=== PATIENT | male | born 1945 | race Caucasian/White ===

== ENCOUNTER 2019-09-17 14:50 | Inpatient (IN) ==
--- OUTSIDE RECORDS SUMMARY | 2019-09-17 14:53 | External Medical Summary | Continuity of Care Document ---
:1945 Author Name Magaly Hewitt Address Unavailable Unavailable , Care Team Providers Name Role Phone Brittni Davis M.D. Unavailable [email or web address] [place] Loree MAY Unavailable Unavailable Unavailable Unavailable Unavailable Assessments Assessed Problems:AnaphylaxisAnaphylactic reaction due to food Problems Anaphylactic reaction due to food (995.60) (T78.00XA) Hyperlipidemia (272.4) (E78.5) Hypertension (401.9) (I10) Anaphylaxis (995.0) (T78.2XXA) Allergies and Adverse Reactions No Known Drug Allergies (Allergy) Medications Lisinopril 40 MG Oral Tablet; TAKE 1 TABLET DAILY FOR BLOOD PRESSURE. Kash Davis Start: 24-Mar-2011 Refills: 0 amLODIPine Besylate 10 MG Oral Tablet; TAKE 1 TABLET D AILY DIRECTED. Kash Davis Start: 24-Mar-2011 Refills: 0 Lipitor 20 MG Oral Tablet; Take 1 tablet daily Kash Davis Start: 24-Mar-2011 Refills: 0 EpiPen 0.3 MG/0.3ML JOHANNA; INJECT INTRAMUSCULARLY DI RECTED. Kash Davis Start: 24-Mar-2011 Refills: 0 Procedures Procedures not documented Immunizations Immunizations not documented Family History Unknown Family Member Family history of Hypertension (V17.49) Status: Active Comments: Family History Family history of Hyperlipidemia Status: Active Comment s: Family History Family history of Prostate Cancer (V16.42) Status: Active Comments: Family History Family history of Leukemia (V16.6) Status: Active Comme nts: Family History Father Family history of Cerebral Artery Aneurysm Status: Active Mother Family history of Ovarian Cancer (V16.41) Status: Active Social History - Smoking Status Never smoker Interventions Discussion/SummaryImpression: 65-year-old male with 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 He has multiple positive skin tests. He had several positive RAST tests. Some of the positive tests do not correlate with clinical history in that he can eat those foods without issues. I feel this is secondary to ingestion of pesto and I feel the culprit is pine nuts.Plan: Avoid pine nuts and pesto. The patient can introduce the other foods which are positive very slowly into his diet. Avoid wine as much as possible. EpiPen 2 pack prescription given. See me if symptoms recur. Plan of Treatment Planned Observations Planned Goals not documented Results No Known Results Results not documented Encounters Appointment; Michael Davis M.D. 03-Apr-2011 11:30 Encounter Diagnosis: Problem not documented
--- OUTSIDE RECORDS SUMMARY | 2019-09-17 14:54 | External Medical Summary | Continuity of Care Document ---
:1945 Author Name Magaly Hewitt Address Unavailable Unavailable , Care Team Providers Name Role Phone Brittni Davis M.D. Unavailable [email or web address] [place] Unavailable Unavailable Unavailable Unavailable Unavailable Assessments Assessed Problems:AnaphylaxisAnaphylactic reaction due to food Problems Anaphylaxis (995.0) (T78.2XXA) Hypertension (401.9) (I10) Hyperlipidemia (272.4) (E78.5) Anaphylactic reaction due to food (995.60) (T78.00XA) Allergies and Adverse Reactions No Known Drug [...]
[2019-09-17] MEDS ORDERED: dilTIAZem HCl 5 MG/ML 5 ML VIAL IV STA (15:07)
[2019-09-17] MEDS ORDERED: dilTIAZem HCL 125 MG in DEXTROSE 5% 100 ML IV SCH (15:15)
[2019-09-17 15:20] LABS: Basophils # (auto) 0.04 K/uL (0-0.2); Basophils % (auto) 0.4 %; Eosinophils # (auto) 0.09 K/uL (0-0.5); Eosinophils % (auto) 0.9 %; Hemoglobin 16.7 g/dL (14.0-18.0); Immature Granulocytes # (auto) 0.03 K/uL (0.00-0.02); Immature Granulocytes % (auto) 0.3 %; Lymphocytes # (auto) 2.47 K/uL (1.2-3.4); Lymphocytes % (auto) 23.6 %; Mean Corpuscular Hgb Conc 34.8 g/dL (32-36); Mean Corpuscular Volume 89.2 fL (80-100); Mean Platelet Volume 9.7 fL (7.4-10.4); Monocytes # (auto) 0.61 K/uL (0.11-0.59); Monocytes % (auto) 5.8 %; Neutrophils # (auto) 7.24 K/uL (1.4-6.5); Platelet Count 290 K/uL (130-400); RDW Standard Deviation 45.4 fL (36.4-46.3); Red Blood Count 5.38 M/uL (4.7-6.1); White Blood Count 10.48 K/uL (4.8-10.8)
[2019-09-17 15:31] LABS: INR 1.2 (0.9-1.1); Partial Thromboplastin Time 26.5 Seconds (21.0-31.0); Prothrombin Time 11.9 Seconds (9.0-12.0)
--- NOTE | 2019-09-17 15:36 | XRay Report ---
SINGLE VIEW CHEST CLINICAL HISTORY: Atrial fibrillation. Tachycardia. Generalized weakness. FINDINGS: An AP, portable, upright chest radiograph is compared to study dated 05/13/2014. The heart i s top normal for projection noting atherosclerotic calcification of the thoracic aorta. The pulmonary vasculature is noncongested. Platelike atelectasis is noted at the left lung base. No airspace conso lidation or large pleural effusion is identified. No pneumothorax is seen. The skeletal structures ar e osteopenic. The bony thorax is grossly intact. IMPRESSION: No acute cardiopulmonary abnormality. ACT 112: Negative or not required by law. Electronically signed by: Sami Reid M.D. 09/17/2019 3:35 PM
[2019-09-17 15:40] LABS: Alanine Aminotransferase 36 U/L (12-78); Albumin Level 3.8 gm/dl (3.4-5.0); Aspartate Aminotransferase 20 U/L (15-37); BUN Creatinine Ratio 15.2 (10-20); Blood Urea Nitrogen 14 mg/dl (7-18); Carbon Dioxide 26 mmol/L (21-32); Chloride 107 mmol/L (98-107); Creatinine Clr Calc Pharmacy 81.9 ml/min; Est GFR (African American) 95.9; Est GFR (Non-African American) 82.7; Glucose 186 mg/dl (70-99); Potassium 3.2 mmol/L (3.5-5.1); Sodium 141 mmol/L (136-145)
[2019-09-17] MEDS ORDERED: POTASSIUM CHLORIDE / WTR 10 MEQ/100 ML PLCT IV ONE (15:41)
[2019-09-17 15:51] LABS: Alkaline Phosphatase 70 U/L (45-117); Globulin 3.9 gm/dl (2.5-4.0); Total Protein 7.7 gm/dl (6.4-8.2); Troponin I < 0.015 ng/ml (0-0.045)
--- NOTE | 2019-09-17 17:00 | History & Physical Report ---
Date of Service September 17, 2019 Assessment & Plan (1) Atrial fibrillation with rapid ventricular response: 73-year-old male with history of atrial fibrillation in 2012 status post DC cardioversion on beta-sae therapy with metoprolol 25 mg p.o. twice daily presenting in atrial fibrillation with rapid ventricular response. Heart rate of 145 on arrival. Blood pressure stable. Administered 15 mg of diltiazem and started on a diltiazem drip. Presently remains in atrial fibri llation with rates 120s to 140s. Patient reports occasional episodes of queasiness and feeling funny. He is unsure if these episodes represent atrial fibrillation. I discussed with the patient and his the risk for stroke associated with atrial fibrillation. Patient's NAHGR-0-Xdzd score is 2 points (Age=73, HTN) associated with a 2.2%/year risk of CVA and 2.9%/year of embolic event. I expl ained that by guidelines he is at moderate high risk for stroke therefore, systemic anticoagulation is recommended. He is at relatively low risk for major bleeding by HAS-BLED score. The is rightfully concerned about initiating medication that could have serious side effects. I told him that they do not need to make a decision now on whether or not to start oral anticoagulation. Admit to PCU Continue diltiazem drip Continue metoprolol 25 mg p.o. twice daily. Last dose was today at 13:45. Will administer next dose tomorrow morning. Consider increasing to 50 twice daily -Check AIC, mildly elevated random BS at 186 Present on Admission?: Yes (2) Hypokalemia: K = 3.2. Patient administered 10 mEq IV in the ER Will give 40 mEq p.o. x1 dose Repeat chemistry panel in a.m. Present on Admission?: Yes (3) Hypertension: Blood pressure reported to be well managed outpatient on amlodipine 5 mg daily and lisinopril 40 mg daily. expressed some concern about patient's lisinopril. She thinks he may be developing a cough secondary to this medication. Patient does not seem to be too concerned with his cough. She was wondering if this medicine could be discontinued in the future. I told her that patient may need additional rate controlling medications, possibly increased dose of beta-sae or p.o. diltiazem once discharged and that these medications will also lower his blood pressure. Therefore, lisinopril may not be needed in the future. -Hold lisinopril while on diltiazem drip Hold amlodipine while on diltiazem drip Reassess after heart rate is controlled F/E/N -Hep-Lock. Monitor electrolytes and replete as needed. Potassium supplementation as above. Heart healthy diet as tolerated. ProphylaxisHeparin drip as above in setting of A. fib with RVR Codefull per discussion with patient Dispositionadmit to PCU Present on Admission?: Yes History of Present Illness Chief Complaint: AF with RVR Primary Care Provider: Chandu Miller MD 73-year-old male with history of hypertension, hyperlipidemia, prior atrial fibrillation in 2012 status post DC cardioversion on metoprolol 25 mg p.o. twice daily presenting in atrial fibrillation with rapid ventricular response. Patient reports that his symptoms began around 04 15 when he felt clammy and mildly nauseous. He felt a "vibration" in his chest. He checked his blood pressure on numerous occasions and it was normal, 147/92 and 131/85. He checked his heart rate and reported to be 88 and irregular. His reports that he looked pale and weak prior to arrival to the ER. He denies chest pain, shortness of breath or dizziness. Denies orthopnea, weight gain, edema. He is still feeling occasional palpitations. Patient was seen in the ER in 2011 with similar complaints. Was found to be in atrial fibrillation with rapid ventricular response at that time. IV Cardizem was attempted unsuccessfully. Due to brief duration of symptoms (less than 48 hours) the decision was made to cardiovert him. He returned to normal sinus rhythm and was started on aspirin 325 mg daily and Lopressor 25 mg p.o. twice daily. He was seen by Dr. Buckner in follow-up. He continues to take the metoprolol 25 mg p.o. twice daily. His last dose was today at 13:45. He now takes an 81 mg aspirin every other day due to concern for bleeding. ER course: Diltiazem bolus and drip Allergies Allergy/AdvReac Type Severity Reaction Status Date / Time almond Allergy Intermediate tested +2 Verified 09/17/19 15:27 on skin test lidocaine Allergy Unknown unknown Verified 09/17/19 15:27 spinach Allergy Unknown ANAPHYLAXIS Verified 09/17/19 15:27 ALL SHELL FISH Allergy Severe ANAPHYLAXIS Uncoded 09/17/19 15:27 OREGENO, BASIL Allergy Severe ANAPHYLAXIS Uncoded 05/13/14 21:21 PEANUTS Allergy Unknown anaphylaxis Uncoded 09/17/19 15:27 SOY Allergy Unknown ANAPHYLAXIS Uncoded 09/17/19 15:27 TOMATOE Allergy Unknown ANAPHYLAXIS Uncoded 05/13/14 20:06 TREE NUTS Allergy Unknown ANAPHYLAXIS Uncoded 05/13/14 20:06 WHOLE GRAIN RICE Allergy Unknown unknown Uncoded 05/13/14 21:21 Home Medications Home Medications Medication Instructions Recorded Confirmed Type Lactobacillus acidophilus 0 mg PO DAILY 09/17/19 09/17/19 History [Acidophilus] Wild Blueberry 2 tabs PO QAM 09/17/19 09/17/19 History amlodipine [Norvasc] 5 mg PO DAILY 09/17/19 09/17/19 History ascorbic acid (vitamin C) [Vitamin 500 mg PO BID 09/17/19 09/17/19 History C] aspirin [Aspir-81] 81 mg PO Q OTHER DAY 09/17/19 09/17/19 History atorvastatin [Lipitor] 20 mg PO QPM 09/17/19 09/17/19 History cholecalciferol (vitamin D3) 2,000 unit PO BID 09/17/19 09/17/19 History [Vitamin D3] coenzyme Q10 [CoQ-10] 100 mg PO DAILY 09/17/19 09/17/19 History epinephrine [EpiPen 2-Jared] 0 mg IM UD PRN 09/17/19 09/17/19 History lisinopril 40 mg PO DAILY 09/17/19 09/17/19 History lutein-zeaxanthin 1 cap PO DAILY 09/17/19 09/17/19 History metoprolol tartrate 25 mg PO BID 09/17/19 09/17/19 History multivitamin 1 tab PO DAILY 09/17/19 09/17/19 History vitamin B complex 1 tab PO 3XWK 09/17/19 09/17/19 History Past Med/Surg History Medical History Atrial fibrillation (Resolved) History of cardioversion HTN (hypertension) Surgical History No pertinent past surgical history Family History (Updated 09/17/19 @ 17:15 by Sandy Portillo DO) Other Cancer Hypertension Social History Preferred Language: Mauritanian Communication Ability: Effective Beliefs That Will Affect Care: Restorationist Restorationist Beliefs: MANDAEN Current Living Situation: Spouse Other Information That Helps Us Care for You: No Feels Safe at Home: Yes Safety Concerns: Feels Safe At This Time Smoking Status: Never smoker Hx Alcohol Use: No Hx Substance Use: No Review of Systems Review of Systems: All systems reviewed & are unremarkable except as noted in HPI & below Physical Exam Physical Exam: General: patient resting comfortably, NAD, non-toxic in appearance, AA&O x 4 Skin: warm, dry, intact, no rashes or lesions HEENT: NC/AT, PERRL, EOMI, anicteric sclera, conjunctiva without injection, external ear normal to inspection and nontender, nares patent, moist mucus membranes, dentition intact, no oropharyngeal lesions, neck supple, trachea midline, no LAD, no thyromegaly, no JVD Heart: +S1/S2, irregularly irregular, tachycardic, no m/r/g Lungs: equal air entry bilaterally, no rales/rhonchi/wheezes Abd: +BS, soft, NT/ND, no masses/organomegaly/ascites Ext: warm, 2+ pulses in UE/LE bilaterally, no clubbing/cyanosis or edema Neuro: nonfocal, patient AA&O x 4, speech intact, no facial droop, moving all extremities on command with equal strength 5/5 Results & Data Vital Signs (Past 12 Hours) Vital Signs Temp Pulse Resp BP Pulse Ox 09/17/19 15:57 135 H 19 95/73 L 91 09/17/19 15:30 124 H 18 104/77 92 09/17/19 15:15 145 H 13 123/93 95 09/17/19 15:06 93 09/17/19 15:04 174 H 15 97 09/17/19 15:02 145 H 20 168/63 H 96 09/17/19 14:55 36.7 C 116 H 20 151/88 H 96 Laboratory Results Lab Results 09/17/19 09/17/19 09/17/19 Range/Units 15:04 15:04 15:04 WBC 10.48 (4.8-10.8) K/uL RBC 5.38 (4.7-6.1) M/uL Hgb 16.7 (14.0-18.0) g/dL Hct 48.0 (42-52) % MCV 89.2 (80-100) fL MCH 31.0 (25-34) pg MCHC 34.8 (32-36) g/dL RDW Std Deviation 45.4 (36.4-46.3) fL RDW Coeff of Bennett 14.0 (11.5-14.5) % Plt Count 290 (130-400) K/uL MPV 9.7 (7.4-10.4) fL Immature Gran % (Auto) 0.3 % Neut % (Auto) 69.0 % Lymph % (Auto) 23.6 % Winn % (Auto) 5.8 % Eos % (Auto) 0.9 % Baso % (Auto) 0.4 % Immature Gran # (Auto) 0.03 H (0.00-0.02) K/uL Neut # (Auto) 7.24 H (1.4-6.5) K/uL Lymph # (Auto) 2.47 (1.2-3.4) K/uL Winn # (Auto) 0.61 H (0.11-0.59) K/uL Eos # (Auto) 0.09 (0-0.5) K/uL Baso # (Auto) 0.04 (0-0.2) K/uL PT 11.9 (9.0-12.0) Seconds INR 1.2 H (0.9-1.1) APTT 26.5 (21.0-31.0) Seconds PTT Ratio 1.0 Sodium 141 (136-145) mmol/L Potassium 3.2 L (3.5-5.1) mmol/L Chloride 107 (98-107) mmol/L Carbon Dioxide 26 (21-32) mmol/L Anion Gap 8.0 (3-11) BUN 14 (7-18) mg/dl Creatinine 0.91 (0.6-1.4) mg/dl Est Cr Clr Drug Dosing 81.9 ml/min Est GFR ( Amer) 95.9 Est GFR (Non-Af Amer) 82.7 BUN/Creatinine Ratio 15.2 (10-20) Glucose 186 H (70-99) mg/dl Calcium 9.0 (8.5-10.1) mg/dl Magnesium 2.0 (1.8-2.4) mg/dl Total Bilirubin 1.0 (0.2-1) mg/dl AST 20 (15-37) U/L ALT 36 (12-78) U/L Alkaline Phosphatase 70 (45-117) U/L Troponin I < 0.015 (0-0.045) ng/ml Total Protein 7.7 (6.4-8.2) gm/dl Albumin 3.8 (3.4-5.0) gm/dl Globulin 3.9 (2.5-4.0) gm/dl Albumin/Globulin Ratio 1.0 (0.9-2) TSH 2.640 (0.300-4.500) uIu/ml Diagnostic Findings SINGLE VIEW CHEST CLINICAL HISTORY: Atrial fibrillation. Tachycardia. Generalized weakness. FINDINGS: An AP, portable, upright chest radiograph is compared to study dated 05/13/2014. The heart is top normal for projection noting atherosclerotic calcification of the thoracic aorta. The pulmonary vasculature is noncongested. Platelike atelectasis is noted at the left lung base. No airspace consolidation or large pleural effusion is identified. No pneumothorax is seen. The skeletal structures are osteopenic. The bony thorax is grossly intact. IMPRESSION: No acute cardiopulmonary abnormality. ACT 112: Negative or not required by law. Electronically signed by: Sami Reid M.D. 09/17/2019 3:35 PM Dictated: 09/17/19 1534 Transcribed: 09/17/19 1534 ECG Additional Comments: The study shows AF at 159bpm, ST depression in inferior, anterior and lateral leads, TWI in inferior/lateral leads Code Status & VTE Plan Code Status FULL VTE Prophylaxis Plan VTE Prophylaxis will be ordered: Yes PG Care Time/CCT Total # of Minutes Spent Total Time Spent with Patient: Total time spent is greater than 50% in coordination of care (as documented) at patient's floor/unit and/or counseling patient: (1) Hypertension Hypertension type: essential hypertension Qualified Code(s): I10 - Essential (primary) hypertension
[2019-09-17 18:26] LABS: Phosphorus 2.1 mg/dl (2.5-4.9)
[2019-09-17] MEDS ORDERED: Heparin IV Standard *NO* Bolus IV ONE (18:26)
[2019-09-17] MEDS ORDERED: HEPARIN SODIUM/DEXTROSE 25,000 UNITS/500 ML BAG IV SCH (18:26)
[2019-09-17] MEDS ORDERED: POTASSIUM CHLORIDE 20 MEQ TABCR PO STA (18:26)
--- NOTE | 2019-09-17 19:27 | Emergency Department Note ---
Entered by Gail Parrish acting as a scribe for History of Present Illness General Chief complaint: Cardiac Assessment Stated complaint: AFIB, HIGH BP Time Seen by Provider: 09/17/19 15:07 Source: patient History of Present Illness Onset (ago): hour(s) (starting at 0800) Location: head (weakness) Severity: similar to prior episodes Pain Consistency: + other (episodic) Maximum Pain Intensity: 0 Quality: + other (pressure, vibrating) Relieved By: not by eating Exacerbated By: + other (emotional stressor) Associated symptoms: + chest pain, + weakness and + other (Positive cold, clammy, high blood pressure. Negative cold.); no cough and no nausea/vomiting Treatments prior to arrival: other (cardiac medication) The patient is a 73 year old male presenting to the Emergency Department complaining of sudden episodic weakness starting at 0800 today. The patient reports that he was at home and became cold and clammy multiple times. He states that he felt a pressure in his chest that he describes as a vibrating feeling. 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 He notes that his urine was a darker color this morning. He adds that he ate a cheese sandwich for lunch which didnt improve his symptoms. The patient reports that he experienced these symptoms before in 2011 when he had a cardioversion. He states that at that time he was under emotional distress because his brother . He explains that he was recently under emotional stress 1 day ago with his and thinks that this emotional stress worsens his symptoms. He notes that he took one of his cardiac medications 1 hour [employer] TE[employer]ER. The patient denies cough, cold, nausea, vomiting and medication non-compliance. Home Medications Home Medications Medication Instructions Recorded Confirmed Type Lactobacillus acidophilus 0 mg PO DAILY 09/17/19 09/17/19 History [Acidophilus] Wild Blueberry 2 tabs PO QAM 09/17/19 09/17/19 History amlodipine [Norvasc] 5 mg PO DAILY 09/17/19 09/17/19 History ascorbic acid (vitamin C) [Vitamin 500 mg PO BID 09/17/19 09/17/19 History C] aspirin [Aspir-81] 81 mg PO Q OTHER DAY 09/17/19 09/17/19 History atorvastatin [Lipitor] 20 mg PO QPM 09/17/19 09/17/19 History cholecalciferol (vitamin D3) 2,000 unit PO BID 09/17/19 09/17/19 History [Vitamin D3] coenzyme Q10 [CoQ-10] 100 mg PO DAILY 09/17/19 09/17/19 History epinephrine [EpiPen 2-Jared] 0 mg IM UD PRN 09/17/19 09/17/19 History lisinopril 40 mg PO DAILY 09/17/19 09/17/19 History lutein-zeaxanthin 1 cap PO DAILY 09/17/19 09/17/19 History metoprolol tartrate 25 mg PO BID 09/17/19 09/17/19 History multivitamin 1 tab PO DAILY 09/17/19 09/17/19 History vitamin B complex 1 tab PO 3XWK 09/17/19 09/17/19 History Allergies Allergy/AdvReac Type Severity Reaction Status Date / Time almond Allergy Intermediate tested +2 Verified 09/17/19 15:27 on skin test lidocaine Allergy Unknown unknown Verified 09/17/19 15:27 spinach Allergy Unknown ANAPHYLAXIS Verified 09/17/19 15:27 ALL SHELL FISH Allergy Severe ANAPHYLAXIS Uncoded 09/17/19 15:27 OREGENO, BASIL Allergy Severe ANAPHYLAXIS Uncoded 05/13/14 21:21 PEANUTS Allergy Unknown anaphylaxis Uncoded 09/17/19 15:27 SOY Allergy Unknown ANAPHYLAXIS Uncoded 09/17/19 15:27 TOMATOE Allergy Unknown ANAPHYLAXIS Uncoded 05/13/14 20:06 TREE NUTS Allergy Unknown ANAPHYLAXIS Uncoded 05/13/14 20:06 WHOLE GRAIN RICE Allergy Unknown unknown Uncoded 05/13/14 21:21 Past Med/Surg History Medical History Atrial fibrillation (Resolved) History of cardioversion HTN (hypertension) Surgical History No pertinent past surgical history Family History (Updated 09/17/19 @ 17:15 by Sandy Portillo DO) Other Cancer Hypertension Social History Preferred Language: Georgian Communication Ability: Effective Beliefs That Will Affect Care: Episcopalian Episcopalian Beliefs: MANDAEN Current Living Situation: Spouse Feels Safe at Home: Yes Smoking Status: Never smoker Hx Alcohol Use: No Hx Substance Use: No Review of Systems See HPI for pertinent positives & negatives. and A total of 10 systems reviewed and were otherwise negative Physical Exam Vital Signs Vital Signs - 24 hr 09/17/19 14:55 09/17/19 15:02 09/17/19 15:04 Temperature 36.7 C Temperature Source Oral Pulse Rate 116 H 145 H 174 H Pulse Rate from SpO2 Sensor 104 H 103 H Respiratory Rate 20 20 15 Respiratory Effort / Characteristics Non-Labored Respiratory Depth Normal Blood Pressure 151/88 H 168/63 H Blood Pressure Mean 109 73 Blood Pressure Position Sitting Pulse Oximetry 96 96 97 Oxygen Delivery Method Room Air Sepsis Recent Fever Within 48 Hours No Sepsis New/Unexplained Change in Mental Status No Sepsis Action Taken by Nursing No Action Required 09/17/19 15:06 09/17/19 15:15 09/17/19 15:30 Temperature Temperature Source Pulse Rate 145 H 124 H Pulse Rate from SpO2 Sensor 81 102 H Respiratory Rate 13 18 Respiratory Effort / Characteristics Respiratory Depth Blood Pressure 123/93 104/77 Blood Pressure Mean 104 85 Blood Pressure Position Pulse Oximetry 93 95 92 Oxygen Delivery Method Room Air Sepsis Recent Fever Within 48 Hours Sepsis New/Unexplained Change in Mental Status Sepsis Action Taken by Nursing 09/17/19 15:57 09/17/19 16:23 Temperature Temperature Source Pulse Rate 135 H 124 H Pulse Rate from SpO2 Sensor 107 H 108 H Respiratory Rate 19 18 Respiratory Effort / Characteristics Respiratory Depth Blood Pressure 95/73 L 105/81 Blood Pressure Mean 77 89 Blood Pressure Position Pulse Oximetry 91 92 Oxygen Delivery Method Sepsis Recent Fever Within 48 Hours Sepsis New/Unexplained Change in Mental Status Sepsis Action Taken by Nursing GENERAL: Patient appears fatigued. Awake and alert on litter HENT: Normocephalic, atraumatic. EYES: Normal conjunctiva. Sclera non-icteric. RESPIRATORY: Clear to auscultation. Normal respiratory effort. CARDIAC: Tachycardic rate. Irregular rhythm. Extremities warm. GI: Soft, non-distended. No tenderness to palpation. RECTAL: Deferred. MUSCULOSKELETAL: Atraumatic. Chest examination reveals no tenderness. LOWER EXTREMITIES: Trace pedal edema. Calves are equal size bilaterally and non- tender. NEURO: Normal sensorium. No sensory or motor deficits noted. No facial droop. SKIN: Warm and dry. No jaundice noted. Course Course 1500: The patient was evaluated in room B1, and a complete history and physical examination were performed. 1523: I reevaluated the patient at this time. 1532: I checked on the patient at this time. 1551: I updated the patient and his at this time. 1555: I discussed the patients case with Dr. Bandar ANDERSON hospitalist. She will evaluate the patient for further management. Administered Medications Diltiazem HCl 125 mg/ Dextrose 125 mls @ 5 mls/hr IV .Q24H [facility]; Protocol Stop: 10/17/19 15:14 Last Titration: 09/17/19 18:15 Dose: 10 mg/hr, 10 mls/hr Documented by: [id number] Cosigned by: [id number] Admin: 09/17/19 15:23 Dose: 5 mg/hr, 5 mls/hr Documented by: [id number] Cosigned by: [id number] Heparin Sodium/Dextrose (Heparin Sodium/Dextrose) 25,000 units in 500 mls @ 29 mls/hr IV .[id number] [facility]; Protocol Stop: 10/17/19 18:25 Last Admin: 09/17/19 19:13 Dose: 1,450 units/hr, 29 mls/hr Documented by: [id number] Cosigned by: [id number] Discontinued Medications Diltiazem HCl (Cardizem) 15 mg IV NOW STA Stop: 09/17/19 15:08 Last Admin: 09/17/19 15:16 Dose: 15 mg Documented by: [id number] Cosigned by: [id number] Potassium Chloride (K Peter / Wtr) 10 meq in 100 mls @ 100 mls/hr IV ONE ONE Stop: 09/17/19 16:40 Last Infusion: 09/17/19 18:07 Dose: 0 mls/hr Documented by: [id number] Admin: 09/17/19 16:05 Dose: 100 mls/hr Documented by: [id number] Potassium Chloride (Klor-Con [id number]) 40 meq PO NOW STA Stop: 09/17/19 18:27 Last Admin: 09/17/19 19:13 Dose: 40 meq Documented by: [id number] Critical Care Time Critical Care Time: Yes Total Critical Care Time: 42 I have personally spent 42 minutes of critical care time in the direct management of this patient for his Afib RVR. This includes bedside care, interpretation of diagnostic studies, and testing, discussion with consultants, patient, and family members, and other required patient management activities. This 42 minutes is in excess of all separately billable procedures. Medical Decision Making Differential Diagnosis Differential diagnosis: Etiologies such as premature contractions, electrolyte abnormality, cardiac dysrhythmia, thyroid dysfunction, pulmonary embolism, infection, gastro intestinal, as well as others were entertained. Medical Records Attestation: I reviewed the patient's medical records. Home Medications Current Medication List: was personally reviewed by me Laboratory Data Attestation: I reviewed the patient's lab results. Result diagrams: 09/17/19 15:04 09/17/19 15:04 Lab Results 09/17/19 09/17/19 09/17/19 Range/Units 15:04 15:04 15:04 WBC 10.48 (4.8-10.8) K/uL RBC 5.38 (4.7-6.1) M/uL Hgb 16.7 (14.0-18.0) g/dL Hct 48.0 (42-52) % MCV 89.2 (80-100) fL MCH 31.0 (25-34) pg MCHC 34.8 (32-36) g/dL RDW Std Deviation 45.4 (36.4-46.3) fL RDW Coeff of Bennett 14.0 (11.5-14.5) % Plt Count 290 (130-400) K/uL MPV 9.7 (7.4-10.4) fL Immature Gran % (Auto) 0.3 % Neut % (Auto) 69.0 % Lymph % (Auto) 23.6 % Childress % (Auto) 5.8 % Eos % (Auto) 0.9 % Baso % (Auto) 0.4 % Immature Gran # (Auto) 0.03 H (0.00-0.02) K/uL Neut # (Auto) 7.24 H (1.4-6.5) K/uL Lymph # (Auto) 2.47 (1.2-3.4) K/uL Childress # (Auto) 0.61 H (0.11-0.59) K/uL Eos # (Auto) 0.09 (0-0.5) K/uL Baso # (Auto) 0.04 (0-0.2) K/uL PT 11.9 (9.0-12.0) Seconds INR 1.2 H (0.9-1.1) APTT 26.5 (21.0-31.0) Seconds PTT Ratio 1.0 Sodium 141 (136-145) mmol/L Potassium 3.2 L (3.5-5.1) mmol/L Chloride 107 (98-107) mmol/L Carbon Dioxide 26 (21-32) mmol/L Anion Gap 8.0 (3-11) BUN 14 (7-18) mg/dl Creatinine 0.91 (0.6-1.4) mg/dl Est Cr Clr Drug Dosing 81.9 ml/min Est GFR ( Amer) 95.9 Est GFR (Non-Af Amer) 82.7 BUN/Creatinine Ratio 15.2 (10-20) Glucose 186 H (70-99) mg/dl Calcium 9.0 (8.5-10.1) mg/dl Phosphorus 2.1 L (2.5-4.9) mg/dl Magnesium 2.0 (1.8-2.4) mg/dl Total Bilirubin 1.0 (0.2-1) mg/dl AST 20 (15-37) U/L ALT 36 (12-78) U/L Alkaline Phosphatase 70 (45-117) U/L Troponin I < 0.015 (0-0.045) ng/ml Total Protein 7.7 (6.4-8.2) gm/dl Albumin 3.8 (3.4-5.0) gm/dl Globulin 3.9 (2.5-4.0) gm/dl Albumin/Globulin Ratio 1.0 (0.9-2) TSH 2.640 (0.300-4.500) uIu/ml Imaging Data Radiologist's Impression: Radiology results as stated below per my review and the radiologist's interpretation: SINGLE VIEW CHEST CLINICAL HISTORY: Atrial fibrillation. Tachycardia. Generalized weakness. FINDINGS: An AP, portable, upright chest radiograph is compared to study dated 05/13/2014. The heart is top normal for projection noting atherosclerotic calcification of the thoracic aorta. The pulmonary vasculature is noncongested. Platelike atelectasis is noted at the left lung base. No airspace consolidation or large pleural effusion is identified. No pneumothorax is seen. The skeletal structures are osteopenic. The bony thorax is grossly intact. IMPRESSION: No acute cardiopulmonary abnormality. ACT 112: Negative or not required by law. Electronically signed by: Sami Reid M.D. 09/17/2019 3:35 PM ECG Data Attestation: I personally reviewed and interpreted this ECG as follows: Indication: + chest pain, + palpitations and + weakness Rate (beats per minute): 159 Rhythm: + atrial fibrillation (A-fib with RVR) ECG ST segments: + ST depression (Diffuse ST depression. ) ECG Findings: + PVCs Comparison ECG Date: from (05/13/14) Change: the following changes noted (Patient is now in A-fib.) Blood Pressure Blood Pressure Findings: Elevated blood pressure Blood Pressure Disposition: further management by hospitalist MDM Narrative Patient is a 73-year-old gentleman history of hypertension and distantly atrial fibrillation 2012 presents today complaining of elevated blood pressure some weakness, diaphoresis, palpitation sensation starting this morning. Has been under a little bit additional stress recently. Took his medication about an hour prior to arrival. Denies recent illness. Endorses some clamminess and mild chest discomfort initially. EKG shows rapid atrial fibrillation with some diffuse ST depressions likely demand related to the rate. Given diltiazem bolus and drip with modest improvement of heart rate. Patient symptomatically is feeling better. Patient is on aspirin every other day. Discussed possibility of blood thinners but patient was wish to defer at this time. Laboratory studies showed some mild hypokalemia which was repleted. Chest x-ray is unremarkable. Troponin initially negative. States that he ate part of a sandwich just prior to coming in and thus do not feel he is a candidate for sedation and cardioversion immediately at this time. Discussed with hospitalist for further care and management as an inpatient. Impression & Plan Atrial fibrillation with rapid ventricular response, Weakness, Hypokalemia, Palpitations Discharge Plan Visit Data *Final* Discharge Date/Time: 09/17/19 17:30 Chief Complaint: Cardiac Assessment Stated Complaint: AFIB, HIGH BP ED Provider: Uri Kitchen Discharge Problem: Atrial fibrillation with rapid ventricular response, Weakness, Hypokalemia, Palpitations Patient Disposition: Admitted As Inpatient Discharge Instructions Interventions: ED Discharge Assessment Last Done: 09/17/19 17:30 The scribe's documentation has been prepared under my direction and personally reviewed by me in its entirety. I confirm that the note above accurately reflects all work, treatment, procedures, and medical decision making performed by me.
[2019-09-17] MEDS ORDERED: ATORVASTATIN 20 MG TAB PO SCH (21:00)
[2019-09-18 01:45] LABS: Partial Thromboplastin Ratio 1.8
[2019-09-18 01:53] LABS: Partial Thromboplastin Time 48.4 Seconds (21.0-31.0)
[2019-09-18 05:50] LABS: Basophils # (auto) 0.02 K/uL (0-0.2); Basophils % (auto) 0.3 %; Eosinophils # (auto) 0.06 K/uL (0-0.5); Eosinophils % (auto) 0.8 %; Hematocrit (blood only) 43.8 % (42-52); Hemoglobin 15.1 g/dL (14.0-18.0); Immature Granulocytes # (auto) 0.02 K/uL (0.00-0.02); Immature Granulocytes % (auto) 0.3 %; Lymphocytes # (auto) 1.57 K/uL (1.2-3.4); Lymphocytes % (auto) 19.9 %; Mean Corpuscular Hemoglobin 30.3 pg (25-34); Mean Corpuscular Hgb Conc 34.5 g/dL (32-36); Mean Corpuscular Volume 87.8 fL (80-100); Mean Platelet Volume 10.2 fL (7.4-10.4); Monocytes # (auto) 0.67 K/uL (0.11-0.59); Monocytes % (auto) 8.5 %; Neutrophils # (auto) 5.56 K/uL (1.4-6.5); Neutrophils % (auto) 70.2 %; Platelet Count 263 K/uL (130-400); RDW Coefficient of Variation 14.2 % (11.5-14.5); RDW Standard Deviation 45.1 fL (36.4-46.3); Red Blood Count 4.99 M/uL (4.7-6.1)
[2019-09-18 06:00] LABS: Partial Thromboplastin Ratio 2.3
[2019-09-18 06:01] LABS: Partial Thromboplastin Time 62.5 Seconds (21.0-31.0)
[2019-09-18 06:06] LABS: Estimated Average Glucose 117 mg/dl; Hemoglobin A1C 5.7 % (4.5-5.6)
[2019-09-18 06:31] LABS: BUN Creatinine Ratio 20.6 (10-20); Calcium 8.9 mg/dl (8.5-10.1); Creatinine Clr Calc Pharmacy 106.5 ml/min; Est GFR (African American) 107.8; Potassium 3.8 mmol/L (3.5-5.1)
[2019-09-18] MEDS ORDERED: POTASSIUM CHLORIDE 20 MEQ TABCR PO STA (08:10)
[2019-09-18] MEDS ORDERED: NON-FORMULARY MEDICATION (Coenzyme Q10 [Coq-10] 100 MG) PO SCH (09:00)
[2019-09-18] MEDS ORDERED: METOPROLOL TARTRATE 25 MG TAB PO SCH (09:00)
--- NOTE | 2019-09-18 10:18 | Cardiology Consultation ---
Date of Consultation Patient was admitted due to a sensation of fluttering in his chest and feeling his heart racing. He was lightheaded and dizzy with this. He came to the emergency room. He was found to be in atrial fibrillation with a rapid ventricular response. He was given diltiazem IV and the converted approximately between 6 and 7 PM last evening. He is remained in sinus rhythm of note he had 2 episodes both in the 1 AM hour where his heart rate suddenly drops. He does snore he. He notes that his sleeps in another room he snores so loudly. He does have some somnolence during the day. He has been followed by his primary care provider for episodes for which she has weakness and he has a sensation of a funny smell without the object being present. These episodes somewhat feel like his heart rate is slowing. With these episodes he is checked his heart rate it is been regular as far as they know and he has not been in atrial fibrillation that they have been aware of. He denies any change in his normal activities in the days leading up to this event. He denies any chest pain or chest pressure. He can climb 14 steps without any issues. He denies any presyncope syncope or falls. His is very concerned with regards to his medications and the need for aspirin any changes in his medications. She is fearful that any change may lead to worsening of his medical conditions. Denies use of Sudafed and Afrin nasal spray or decongestants recently. The rest of a complete review of systems otherwise negative September 18, 2019 History of Present Illness Attending Physician: Mirtha Renee MD Allergies Allergy/AdvReac Type Severity Reaction Status Date / Time almond Allergy Intermediate tested +2 Verified 09/17/19 15:27 on skin test lidocaine Allergy Unknown unknown Verified 09/17/19 15:27 spinach Allergy Unknown ANAPHYLAXIS Verified 09/17/19 15:27 basil Allergy Verified 09/18/19 08:10 oregano Allergy Verified 09/18/19 08:16 peanut Allergy Verified 09/18/19 08:10 rice Allergy Verified 09/18/19 08:17 shellfish derived Allergy Verified 09/18/19 08:09 soy Allergy Verified 09/18/19 08:11 tomato Allergy Verified 09/18/19 08:12 tree nut Allergy Verified 09/18/19 08:12 WHOLE GRAIN RICE Allergy Unknown unknown Uncoded 05/13/14 21:21 Home Medications Home Medications Medication Instructions Recorded Confirmed Type Lactobacillus acidophilus 0 mg PO DAILY 09/17/19 09/17/19 History [Acidophilus] Wild Blueberry 2 tabs PO QAM 09/17/19 09/17/19 History amlodipine [Norvasc] 5 mg PO DAILY 09/17/19 09/17/19 History ascorbic acid (vitamin C) [Vitamin 500 mg PO BID 09/17/19 09/17/19 History C] aspirin [Aspir-81] 81 mg PO Q OTHER DAY 09/17/19 09/17/19 History atorvastatin [Lipitor] 20 mg PO QPM 09/17/19 09/17/19 History cholecalciferol (vitamin D3) 2,000 unit PO BID 09/17/19 09/17/19 History [Vitamin D3] coenzyme Q10 [CoQ-10] 100 mg PO DAILY 09/17/19 09/17/19 History epinephrine [EpiPen 2-Jared] 0 mg IM UD PRN 09/17/19 09/17/19 History lisinopril 40 mg PO DAILY 09/17/19 09/17/19 History lutein-zeaxanthin 1 cap PO DAILY 09/17/19 09/17/19 History metoprolol tartrate 25 mg PO BID 09/17/19 09/17/19 History multivitamin 1 tab PO DAILY 09/17/19 09/17/19 History vitamin B complex 1 tab PO 3XWK 09/17/19 09/17/19 History Patient History Medical History Atrial fibrillation (Resolved) History of cardioversion HTN (hypertension) Surgical History No pertinent past surgical history Family History Other Cancer Hypertension Social History Preferred Language: Frisian Communication Ability: Effective Beliefs That Will Affect Care: Adventist Adventist Beliefs: BUDDHIST Current Living Situation: Spouse Feels Safe at Home: Yes Smoking Status: Never smoker Hx Alcohol Use: No Hx Substance Use: No Results & Data Vital Signs (Past 12 Hours) Vital Signs Temp Pulse Pulse Resp BP Pulse Ox 09/18/19 08:24 36.9 C 72 18 111/68 92 09/18/19 03:31 36.9 C 72 16 107/68 93 09/18/19 01:47 55 L 115/64 94 09/17/19 23:29 36.7 C 61 16 103/58 L 93 he is awake alert oriented x3 is in no acute distress. He looks his stated age. HEENT: 2+ carotid upstrokes no evidence of carotid bruits jugular venous pressure appeared normal his sclerae anicteric Lungs: Clear to auscultation bilaterally no rales rhonchi or wheezing Heart regular rate and rhythm no appreciable murmurs rubs or gallops Abdomen soft nontender distended positive bowel sounds Extremities no clubbing cyanosis or edema Psychiatric his affect appeared appropriate Impressions #1 atrial fibrillation with a rapid ventricular response with spontaneous conversion back to sinus rhythm without evidence of a pause 2. Chads 2 vascular score of 2 3. Hypertension 4. Likely obstructive sleep apnea 5. 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 There is no room to increase his beta- blockers given his relative bradycardia. I did go back to his telemetry strips and at that time his describes he did have a junctional rhythm that woke him from his sleep and felt like his heart rate dipped. If you look at the monitor his heart rate was reasonable in sinus rhythm he starts to slow with a sinus bradycardia and then becomes junctional. At night this is likely consistent with periods of apnea from 6 obstructive sleep apnea and not related to an underlying malignant arrhythmia. The concerning episodes are the ones that he has where he feels slightly nauseous and weak and lightheaded and has these episodes where he smells things that are not there. The question remains over these episodes associated with a junctional rhythm. If they were than one would consider permanent pacemaker. The only way to determine this would be an implantable loop recorder. He is already had previous outpatient long-term monitoring with no documented arrhythmias. His blood pressure here is on the lower side I do wonder if blood pressure may be contributing to this I would stop his amlodipine and reduce his lisinopril to 20 mg daily upon discharge. He should remain on metoprolol 25 mg twice daily. With regards to anticoagulation he is not had an episode of atrial fibrillation in 7 years. At this point I am okay given their significant reservations and anxiety with regards to anticoagulation that he not go home on anticoagulation like apixaban. I did discuss that if he starts having more frequent episodes of A. fib then I would recommend apixaban. In addition there is no benefit to aspirin and primary prevention of cardiovascular events and there is limited data has any benefit in atrial fibrillation as well. He can stop his aspirin. I will reach out to Dr. Verde to determine the timing of implantable loop recorder. The question is will we be able to do it today. If not this can be done as an outpatient. We also will arrange for home sleep study.
[2019-09-18] MEDS ORDERED: LIDOCAINE HCL 1% 20 ML VIAL ONE (12:47)
--- NOTE | 2019-09-18 13:25 | Electrophysiology Report ---
Date of Service September 18, 2019 Electrophysiology Procedure Electrophysiology Procedure Report The procedure performed: Implantation of patient activated loop recorder Staff outreach nurse: Bhavik Verde MD Indication: The patient is a 73-year-old gentleman with a history of presyncope. He was noted on telemetry monitoring to have some episodes of bradycardia and associated junctional rhythm. An attempt to correlate his symptoms with arrhythmia he was by his undergo implantation of a loop recorder. Procedure in detail: The patient was informed of the risks benefits and alternatives to the intended procedure. They understood such and wished to proceed. The patient was taken to the electrophysiology suite where the upper chest area was prepped and draped in the usual sterile fashion. An area left lateral to the sternum in the 4th intercostal space was subsequently anesthetized using subcutaneous administration of lidocaine solution. A small incision was made at this site and implantation of the loop recorder was accomplished using a proprietary implantation tool. The small incision was subsequently closed using a single 4 0 Vicryl suture. Steri-Strips and a sterile dressing were then applied. The patient tolerated the procedure well. There were no immediate complications. The device was tested noninvasively prior to conclusion of the procedure. Equipment used: Patient activated loop recorder: [employer]. Model number LNQ11. Serial number [id number] Electrophysiology codes Implantable Monitors Procedure 1: Implantable Monitors: [id number] Cardiac event recorder implant
--- NOTE | 2019-09-18 14:49 | Discharge Summary ---
Date of Service September 18, 2019 Admission HPI Per Admitting Provider 73-year-old male with history of hypertension, hyperlipidemia, prior atrial fibrillation in 2012 status post DC cardioversion on metoprolol 25 mg p.o. twice daily presenting in atrial fibrillation with rapid ventricular response. Patient reports that his symptoms began around 30 when he felt clammy and mildly nauseous. He felt a "vibration" in his chest. He checked his blood pressure on numerous occasions and it was normal, 147/92 and 131/85. He checked his heart rate and reported to be 88 and irregular. His reports that he looked pale and weak prior to arrival to the ER. He denies chest pain, shortness of breath or dizziness. Denies orthopnea, weight gain, edema. He is still feeling occasional palpitations. Patient was seen in the ER in 2011 with similar complaints. Was found to be in atrial fibrillation with rapid ventricular response at that time. IV Cardizem was attempted unsuccessfully. Due to brief duration of symptoms (less than 48 hours) the decision was made to cardiovert him. He returned to normal sinus rhythm and was started on aspirin 325 mg daily and Lopressor 25 mg p.o. twice daily. He was seen by Dr. Buckner in follow-up. He continues to take the metopr olol 25 mg p.o. twice daily. His last dose was today at 13:45. He now takes an 81 mg aspirin every other day due to concern for bleeding. ER course: Diltiazem bolus and drip Principal Diagnosis Rapid atrial fibrillation Discharge Exam Constitutional WD/WN, vitals as above Eyes PERRL, conjunctivae normal, anicteric sclerae ENMT external ear and nose normal, oropharynx normal Neck trachea midline, no thyromegaly Respiratory normal respiratory effort, lungs clear to auscultation Cardiovascular RRR, no murmur, no edema Chest (Breasts) Chest: normal inspection of chest Gastrointestinal (Abdomen) normal bowel sounds, soft, nontender, no hepatosplenomegaly Musculoskeletal Extremities: extremities normal to inspection; no cyanosis and no clubbing Skin no rashes, warm and dry Neurologic moves all extremities and awake; no focal motor deficits Psychiatric A+Ox3, euthymic affect Lymphatic no lymphedema Discharge Data Allergies Allergy/AdvReac Type Severity Reaction Status Date / Time almond Allergy Intermediate tested +2 Verified 09/17/19 15:27 on skin test lidocaine Allergy Unknown unknown Verified 09/17/19 15:27 spinach Allergy Unknown ANAPHYLAXIS Verified 09/17/19 15:27 basil Allergy Verified 09/18/19 08:10 oregano Allergy Verified 09/18/19 08:16 peanut Allergy Verified 09/18/19 08:10 rice Allergy Verified 09/18/19 08:17 shellfish derived Allergy Verified 09/18/19 08:09 soy Allergy Verified 09/18/19 08:11 tomato Allergy Verified 09/18/19 08:12 tree nut Allergy Verified 09/18/19 08:12 WHOLE GRAIN RICE Allergy Unknown unknown Uncoded 05/13/14 21:21 Consultations 09/17/19 16:10 ED Decision to Admit Stat 09/17/19 18:26 Consult Cardiology Routine Procedures Performed Operation Date: 09/18/19 13:00 Actual Procedures p Implant Cardiac Event Recorder - Zoltan Verde MD Ordered Studies 09/18/19 12:23 CL Cath Imgs for PACS use only Routine Hospital Course (1) Atrial fibrillation with rapid ventricular response: 73-year-old male with history of atrial fibrillation in 2012 status post DC cardioversion on beta-sae therapy with metoprolol 25 mg p.o. twice daily presenting in atrial fibrillation with rapid ventricular response. Heart rate of 145 on arrival. Blood pressure stable. Administered 15 mg of diltiazem and started on a diltiazem drip. Presently remains in atrial fibrillation with rates 120s to 140s. Patient reports occasional episodes of queasiness and feeling funny. He is unsure if these episodes represent atrial fibrillation. I discussed with the patient and his the risk for stroke associated with atrial fibrillation. Patient's RSYEH-1-Avdt score is 2 points (Age=73, HTN) associated with a 2.2%/year risk of CVA and 2.9%/year of embolic event. I explained that by guidelines he is at moderate high risk for stroke therefore, systemic anticoagulation is recommended. He is at relatively low risk for major bleeding by HAS-BLED score. The is rightfully concerned about initiating medication that could have serious side effects. I told him that they do not need to make a decision now on whether or not to start oral anticoagulation. Admit to PCU Continue diltiazem drip Continue metoprolol 25 mg p.o. twice daily. Last dose was today at 13:45. Will administer next dose tomorrow morning. Consider increasing to 50 twice daily -Check AIC, mildly elevated random BS at 186 (2) Hypokalemia: K = 3.2. Patient administered 10 mEq IV in the ER Will give 40 mEq p.o. x1 dose Repeat chemistry panel in a.m. (3) Hypertension: Blood pressure reported to be well managed outpatient on amlodipine 5 mg daily and lisinopril 40 mg daily. expressed some concern about patient's lisinopril. She thinks he may be developing a cough secondary to this medication. Patient does not seem to be too concerned with his cough. She was wondering if this medicine could be discontinued in the future. I told her that patient may need additional rate controlling medications, possibly increased dose of beta-sae or p.o. diltiazem once discharged and that these medications will also lower his blood pressure. Therefore, lisinopril may not be needed in the future. -Hold lisinopril while on diltiazem drip Hold amlodipine while on diltiazem drip Reassess after heart rate is controlled F/E/N -Hep-Lock. Monitor electrolytes and replete as needed. Potassium supplementation as above. Heart healthy diet as tolerated. ProphylaxisHeparin drip as above in setting of A. 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 Buckner on SundayOctober 08 at 2:10 pm. *The office is located at [address] [place] [address] in [place], next to [facility]. If you have any questions, call the office at [phone].) Chandu Miller MD [Primary Care Provider] - 09/30/19 9:40 am (Please, follow up with Dr. Miller on SundaySeptember 30 at 9:40 am. *[facility]. If you need to change this appointment, call the office at [phone].) Diet: Heart Healthy Addtl Attending Provider Instructions: Please continue taking your metoprolol at the same dose. You should HOLD off on taking your lisinopril for now, but if your blood pressure starts going back up to 130s-140s/80-90s or higher, you can restart the lisinopril at a reduced dose of 20 mg daily. You should STOP your amlodipine and the aspirin. You had a loop recorder placed and should follow up with Cardiology as scheduled. If you have a return of the rapid heart rate or have chest pain, lightheadedness, or for any other acute concern, please return to the hospital right away. Follow up with Dr. Miller as well as scheduled. Pending Studies at Discharge: No Stand-Alone Forms: My [facility] Medications and DC Order Prescriptions: Continued multivitamin Tablet 1 tab PO DAILY RF: 0 atorvastatin [Lipitor] 20 mg tablet 20 mg PO QPM RF: 0 ascorbic acid (vitamin C) [Vitamin C] 500 mg Tablet 500 mg PO BID RF: 0 vitamin B complex Tablet 1 tab PO 3XWK RF: 0 epinephrine [EpiPen 2-Jared] 0.3 mg/0.3 mL auto-injector 0 mg IM UD PRN (Reason: severe allergic reaction) RF: 0 Lactobacillus acidophilus [Acidophilus] Capsule 0 mg PO DAILY RF: 0 coenzyme Q10 [CoQ-10] 100 mg Capsule 100 mg PO DAILY RF: 0 metoprolol tartrate 25 mg tablet 25 mg PO BID RF: 0 cholecalciferol (vitamin D3) [Vitamin D3] 2,000 unit Tablet 2,000 unit PO BID RF: 0 lutein-zeaxanthin 20 mg- 1,000 mcg Capsule 1 cap PO DAILY RF: 0 Wild Blueberry 2 tabs PO QAM RF: 0 Discontinued amlodipine [Norvasc] 5 mg tablet 5 mg PO DAILY RF: 0 aspirin [Aspir-81] 81 mg Tablet,Delayed Release (Dr/Ec) 81 mg PO Q OTHER DAY RF: 0 lisinopril 40 mg tablet 40 mg PO DAILY RF: 0 Discharge Orders: Discharge Order (Routine); Ordered 09/18/19 Ordered By: Mirtha Renee Admission Data Admit Date/Time: 09/17/19 16:46 Attending Provider: Mirtha Renee Admit Provider: Sandy Portillo Primary Care Provider: Chandu Miller Other Providers: Sandy Portillo ; Zoltan Verde Other Interventions: Discharge Summary Assessment (RN) Last Done: 09/18/19 14:27
--- NOTE | 2019-09-19 08:14 | Electrocardiogram Report ---
Test Reason : Blood Pressure : / mmHG Vent. Rate : 060 BPM Atrial Rate : 060 BPM P-R Int : 176 ms QRS Dur : 086 ms QT Int : 414 ms P-R-T Axes : 039 033 019 degrees QTc Int : 414 ms Poor data quality, interpretation may be adversely affected Normal sinus rhythm Normal ECG When compared with ECG of 17-SEP-2019 14:55, Sinus rhythm has replaced Atrial fibrillation Vent. rate has decreased BY [address] segement changes have resolved Confirmed by Bhavik Verde ([id number]) on 09/18/2019 5:36:06 PM Referred By: REFERRED SELF Confirmed By:Guillaume Verde
== END 2019-09-18 15:23 | disposition home or self-care (01) | DRG 262 ==
LOC: ED 14:50 → SUATTDRO 16:46 → 2E 16:46

== ENCOUNTER 2024-12-20 04:37 | Inpatient (IN) ==
--- NOTE | 2024-12-20 05:09 | Emergency Department Note ---
Impression & Plan Adult failure to thrive, Metastatic cancer, Acute dehydration, Leg edema, Malnutrition ED Provider Note Name: ESTHER NEVES Age: 79 Sex: Male Arrives Via: Walk-In Informant: Patient, ED Provider: Usama Burk MD Chief Complaint: Weakness Impression: As per impressions above Medical Decision Makin-year-old male arrives for evaluation of worsening weakness. 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 He had a fall a week ago resulting in a C1 fracture and transferred to [facility]. Since getting home a few days ago patient has not been eating he is not been able to get up and around and now his legs are swelling worse. On examination patient is quite weak and frail appearing. He has 4+ pitting edema bilateral legs but he is also clearly dehydrated by examination otherwise. Laboratory workup shows a significant elevated BUN along with an elevated creatinine from his baseline consistent with a dehydrated state. I suspect he is quite malnourished and on top of this likely has developing worsening liver cirrhosis. The CT of his head is unremarkable as is the CT of the cervical spine showing no worsening of the cervical 1 fracture. Patient does not have evidence of central cord syndrome or epidural hematoma at this time. He is not having any neck pain. He has no focal neurologic deficits by examination. After discussion with him and his he is not doing well at home. Given these findings hospitalist was consulted for further evaluation and management. Triage/Nursing Notes reviewed by Me External Chart Review by me: The patient's PCP note from 02/20/2024 was reviewed by me for past medical history review Differential:Infection, dehydration, metabolic abnormality, hypo/hyperglycemia, electrolyte disturbance, anemia, hypoxia, cardiac sources, intracerebral event, toxicologic, neurologic, as well as other pathologies. Vital Signs: reviewed and remarkable for no significant abnormalities Interventions: nss bolus 1L IV Labs:ED labs Reviewed by me and remarkable for [no significant abnormalities] Imaging:[See Below] EKG:[none] Cardiac/Tele Monitoring: [none] Consults:[] [Social Determinants of Health: ] Plan: Disposition:[Hospitalization.] [Discharged.] [Escalation of Care Considered: ] Condition: [Good] [Referrals: PCP][] Prescriptions:[] PDMP: [] History of Present Illness: 79-year-old male arrives for evaluation of weakness. Patient with progressive weakness primarily in his lower legs over the last week following a fall with injury. Last week he was seen and transferred to trauma center for C1 fracture. He has been in a cervical collar since discharge 2 days ago. Patient notes that he has not had much of an appetite and they have been quite busy so he has not really eaten anything last several days. He has been having increasing swelling and edema to his legs and has not been able to get his shoes on him. He does have a history of some edema but never to this degree. He denies any specific headache or neck pain but states he is feeling sleepy but unable to sleep for the last several days. Patient not taking any medications for any pain. Denies any nausea, vomiting. He denies any black or bloody stool. Patient's gives further history. She notes that patient received multiple rounds of gadolinium and iodine IV contrast and she is worried this may have hurt his kidneys. She also notes that he has a history of colon cancer with metastasis to the liver and is worried that that may have gone to his brain. She further worries that following his injury last week he may have some delayed traumatic findings that have not been seen yet. She states that due to his cervical collar being misplaced by Jethro and by Jackie Bryson that he has not been able to eat for the last several days. Fortunately this was fixed yesterday and it no longer covers his mouth. She does relate that patient has despite using the cervical collar been moving his neck around. She states that due to his extensive allergies, very busy week and the fact that he had the cervical collar covering his face he has not really eaten anything in the last several days. Past Medical History:See Below Home Medications:See Below Allergies:See Below Vitals:Blood Pressure: 106/67, Pulse 90, RR 19, T 36.8C, O2 97% on RA Physical Exam: GENERAL: Patient is elderly, frail, pale appearing and in no acute distress. HEAD: AT/NC NECK: Cervical collar in place RESPIRATORY: No dyspnea. Clear to auscultation and equal bilaterally. CARDIOVASCULAR: Regular rate and rhythm.No murmur appreciated. GASTROINTESTINAL: Large firm mass in the right and mid upper abdomen. Nontender. No peritonitis. EXTREMITIES: Good strength upper extremities with 5 out of 5 hand and proximal muscle strength. He is able to lift each leg off the ground with 5 out of 5 strength in feet., no cyanosis, 4+ pitting edema. NEUROLOGIC: Alert and oriented. No focal neurologic deficits appreciated SKIN: No rash, no jaundice, no diaphoresis. PSYCH: Appropriate GCS: 15 ED Course: Times/Reassessments: Stable throughout and agreeable to hospitalization Usama Burk MD Past Med/Surg History Problem List (Updated 12/21/24 @ 02:20 by Usama Burk MD) Malnutrition (Acute) Leg edema (Acute) Acute dehydration (Acute) Metastatic cancer (Acute) Adult failure to thrive (Acute) Goals of care, counseling/discussion Severe protein-calorie malnutrition Colon cancer Adult failure to thrive Abrasion of scalp (Acute) Contusion of scalp (Acute) Head injury (Acute) Fall (Acute) C1 cervical fracture (Acute) Abnormal US (ultrasound) of abdomen Liver mass Elevated LFTs Abnormal coagulation profile Thrombocytosis Anemia Encounter to discuss test results Patient request for diagnostic testing Routine health maintenance Hyperlipidemia 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 Prediabetes Hypertension (Chronic) Medical History History of cardioversion HTN (hypertension) Surgical History No pertinent past surgical history Family History Father High cholesterol Hypertension Peptic ulcer Testicular cancer Cerebral hemorrhage cause of sudden 56 years old Mother Alzheimer disease Cataracts, bilateral Ovarian cancer Caused age 7979 years old Brother Hypertension High cholesterol Prostate cancer Other Cancer Social History Smoking Status: Never smoker Second Hand Exposure: No; Do You Dip or Chew Tobacco: No; Hx Alcohol Use: No Hx Substance Use: No Preferred Language: Bangladeshi Communication Ability: Effective Visual Impairment: Limited Hearing Ability: Normal 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 Beliefs That Will Affect Care: None marital status: Current Living Situation: Spouse current occupational status: retired How many Children do You have: 0 Feels Safe at Home: Yes Safety Concerns: Feels Safe At This Time Childhood Exposure to Second-Hand Smoke: Yes Diet: vegetarian caffeine: No during the past year weight has: remained stable Dental Care, Regularly: Yes Physical Activity Frequency: Daily Seatbelt Use: always Sunscreen Use: Yes Assistive Devices: Walker Allergies Allergies Allergy/AdvReac Type Severity Reaction Status Date / Time spinach Allergy Severe ANAPHYLAXIS Verified 12/20/24 08:41 almond Allergy Intermediate tested +2 Verified 12/20/24 08:41 on skin test peanut Allergy Intermediate +3 ALLERGY Verified 12/20/24 08:41 TEST shellfish derived Allergy Intermediate CRAB-+2 Verified 12/20/24 08:41 ALLERGY TEST soy Allergy Intermediate +2 ALLERGY Verified 12/20/24 08:41 TEST tomato Allergy Intermediate Gastrointestinal Verified 12/20/24 08:41 Upset tree nut Allergy Intermediate +2 ALLERGY Verified 12/20/24 08:41 TEST ciprofloxacin Allergy Mild Itching Verified 12/20/24 08:41 erythromycin base Allergy Mild Itching Verified 12/20/24 08:41 pine nut Allergy Mild POSITIVE Verified 12/20/24 08:41 ALLERGY TEST pistachio nut Allergy Mild POSITIVE Verified 12/20/24 08:41 ALLERGY TEST basil Allergy Unknown NOT TESTED Verified 12/20/24 08:41 oregano Allergy Unknown Unknown Verified 12/20/24 08:41 Latex, Natural Rubber Allergy Rash Verified 12/20/24 14:35 rice Allergy Unknown Verified 12/20/24 12:00 aspirin AdvReac Intermediate ABDOMINAL Verified 12/20/24 08:41 BURNING IF OVER 81MG. lidocaine AdvReac Unknown unknown Verified 12/20/24 08:41 Home Meds Home Medications Medication Instructions Recorded Confirmed coenzyme Q10 100 mg capsule 100 mg PO DAILY 09/17/19 12/20/24 (CoQ-10) ascorbic acid (vitamin C) 500 mg 1,000 mg PO DAILY 07/08/24 12/20/24 tablet (Vitamin C) cholecalciferol (vitamin D3) 50 1,000 unit PO DAILY 07/08/24 12/20/24 mcg (2,000 unit) tablet (Vitamin D3) Beef Liver Suppliment 1 tab PO DAILY 12/14/24 12/20/24 magnesium glycinate 100 mg (as 100 mg PO DAILY 12/14/24 12/20/24 glycinate) tablet minerals See Rx Instructions .Route .COMPLEX 12/20/24 12/20/24 Previous Rx's Medication Instructions Recorded epinephrine 0.3 mg/0.3 mL 0.3 mg (0.3 mL) IM ONCE PRN severe 10/22/23 injection, auto-injector (EpiPen allergic reaction #2 [id number]) metoprolol tartrate 25 mg tablet 25 mg PO BID #180 tabs 10/22/23 tocotrienols 125 mg PO DAILY #1 cap 07/08/24 Results & Data (ED) Vital Signs Vital Signs - 24 hr 12/20/24 04:43 12/20/24 05:33 12/20/24 06:30 Temperature 36.8 C Temperature Source Temporal Artery Scan Pulse Rate 90 76 71 Pulse Rate [Apical] Pulse Rate from SpO2 Sensor 71 Pulse Rhythm Regular Pulse Rhythm [Apical] Pulse Strength Normal Pulse Strength [Apical] Respiratory Rate 19 13 Respiratory Effort / Characteristics Non-Labored Spontaneous Respiratory Depth Normal Respiratory Pattern Regular Blood Pressure 106/67 130/79 Blood Pressure [Right Arm] Blood Pressure Mean 80 96 Blood Pressure Mean [Right Arm] Blood Pressure Position Sitting Blood Pressure Position [Right Arm] Pulse Oximetry 97 98 Pulse Oximetry [Right Middle Finger] Oxygen Delivery Method Room Air Oxygen Delivery Method [Right Middle Finger] Sepsis Recent Fever Within 48 Hours No Sepsis New/Unexplained Change in Mental Status N/A Sepsis Action Taken by Nursing No Action Required 12/20/24 07:00 12/20/24 07:00 12/20/24 07:24 Temperature Temperature Source Pulse Rate 74 88 Pulse Rate [Apical] Pulse Rate from SpO2 Sensor 88 Pulse Rhythm Pulse Rhythm [Apical] Pulse Strength Pulse Strength [Apical] Respiratory Rate 14 11 L Respiratory Effort / Characteristics Respiratory Depth Respiratory Pattern Blood Pressure 132/73 132/73 Blood Pressure [Right Arm] Blood Pressure Mean 94 94 Blood Pressure Mean [Right Arm] Blood Pressure Position Blood Pressure Position [Right Arm] Pulse Oximetry 98 98 Pulse Oximetry [Right Middle Finger] Oxygen Delivery Method Room Air Oxygen Delivery Method [Right Middle Finger] Sepsis Recent Fever Within 48 Hours Sepsis New/Unexplained Change in Mental Status Sepsis Action Taken by Nursing 12/20/24 08:03 12/20/24 09:00 12/20/24 09:00 Temperature Temperature Source Pulse Rate 89 94 H Pulse Rate [Apical] Pulse Rate from SpO2 Sensor 90 Pulse Rhythm Pulse Rhythm [Apical] Pulse Strength Pulse Strength [Apical] Respiratory Rate 12 16 Respiratory Effort / Characteristics Respiratory Depth Respiratory Pattern Blood Pressure 129/77 133/83 133/83 Blood Pressure [Right Arm] Blood Pressure Mean 94 98 98 Blood Pressure Mean [Right Arm] Blood Pressure Position Blood Pressure Position [Right Arm] Pulse Oximetry 98 99 Pulse Oximetry [Right Middle Finger] Oxygen Delivery Method Room Air Room Air Oxygen Delivery Method [Right Middle Finger] Sepsis Recent Fever Within 48 Hours Sepsis New/Unexplained Change in Mental Status Sepsis Action Taken by Nursing 12/20/24 09:06 12/20/24 09:30 12/20/24 09:48 Temperature Temperature Source Pulse Rate 92 H 92 H Pulse Rate [Apical] Pulse Rate from SpO2 Sensor 94 H 92 H Pulse Rhythm Pulse Rhythm [Apical] Pulse Strength Pulse Strength [Apical] Respiratory Rate 12 18 Respiratory Effort / Characteristics Respiratory Depth Respiratory Pattern Blood Pressure 137/84 Blood Pressure [Right Arm] Blood Pressure Mean 114 Blood Pressure Mean [Right Arm] Blood Pressure Position Blood Pressure Position [Right Arm] Pulse Oximetry 98 98 Pulse Oximetry [Right Middle Finger] Oxygen Delivery Method Room Air Room Air Oxygen Delivery Method [Right Middle Finger] Sepsis Recent Fever Within 48 Hours Sepsis New/Unexplained Change in Mental Status Sepsis Action Taken by Nursing 12/20/24 09:53 12/20/24 10:00 12/20/24 10:00 Temperature Temperature Source Pulse Rate 91 H Pulse Rate [Apical] 88 Pulse Rate from SpO2 Sensor Pulse Rhythm Pulse Rhythm [Apical] Regular Pulse Strength Pulse Strength [Apical] Normal Respiratory Rate 16 Respiratory Effort / Characteristics Non-Labored Spontaneous Respiratory Depth Normal Respiratory Pattern Regular Blood Pressure 121/76 Blood Pressure [Right Arm] 121/76 Blood Pressure Mean 93 Blood Pressure Mean [Right Arm] 91 Blood Pressure Position Blood Pressure Position [Right Arm] Semi-fowlers Pulse Oximetry 97 Pulse Oximetry [Right Middle Finger] Oxygen Delivery Method Room Air Oxygen Delivery Method [Right Middle Finger] Sepsis Recent Fever Within 48 Hours Sepsis New/Unexplained Change in Mental Status Sepsis Action Taken by Nursing 12/20/24 10:00 Temperature Temperature Source Pulse Rate Pulse Rate [Apical] Pulse Rate from SpO2 Sensor Pulse Rhythm Pulse Rhythm [Apical] Pulse Strength Pulse Strength [Apical] Respiratory Rate Respiratory Effort / Characteristics Respiratory Depth Respiratory Pattern Blood Pressure Blood Pressure [Right Arm] Blood Pressure Mean Blood Pressure Mean [Right Arm] Blood Pressure Position Blood Pressure Position [Right Arm] Pulse Oximetry Pulse Oximetry [Right Middle Finger] 97 Oxygen Delivery Method Oxygen Delivery Method [Right Middle Finger] Room Air Sepsis Recent Fever Within 48 Hours Sepsis New/Unexplained Change in Mental Status Sepsis Action Taken by Nursing Laboratory Data 12/20/24 05:30 12/20/24 05:30 Lab Results 12/20/24 Range/Units 05:30 WBC 13.34 H (4.8-10.8) K/ul RBC 4.51 L (4.70-6.10) M/uL Hgb 12.2 L (14.0-18.0) g/dl Hct 37.3 L (42.0-52.0) % MCV 82.7 (80.0-100.0) fL MCH 27.1 (25.0-34.0) pg MCHC 32.7 (32.0-36.0) g/dL RDW Std Deviation 50.9 H (36.4-46.3) fL RDW Coeff of Bennett 17.4 H (11.5-14.5) % Plt Count 460 H (130-400) K/uL MPV 10.0 (9.4-12.4) fL Immature Gran % (Auto) 0.4 % Neut % (Auto) 85.5 % Lymph % (Auto) 4.2 % Fajardo % (Auto) 9.6 % Eos % (Auto) 0.1 % Baso % (Auto) 0.2 % Neut # (Auto) 11.40 H (1.40-6.50) K/uL Lymph # (Auto) 0.56 L (1.20-3.40) K/uL Fajardo # (Auto) 1.28 H (0.11-0.59) K/uL Eos # (Auto) 0.01 (0.00-0.50) K/uL Baso # (Auto) 0.03 (0.00-0.20) K/uL Immature Gran # (Auto) 0.06 (0.01-0.20) K/uL PT 13.8 H (9.0-12.0) Seconds INR 1.3 H (0.9-1.1) Sodium 140 (136-145) mmol/L Potassium 4.2 (3.5-5.1) mmol/L Chloride 107 (98-107) mmol/L Carbon Dioxide 28 (21-32) mmol/L Anion Gap 5 (3-11) BUN 40 H (6-23) mg/dl Creatinine 1.15 (0.6-1.4) mg/dl Est Cr Clr Drug Dosing Not Reportable eGFR 64.34 BUN/Creatinine Ratio 34.8 H (10-20) Glucose 72 (70-99(Fasting)) mg/dl Calcium 10.7 H (8.6-10.3) mg/dl Magnesium 2.1 (1.7-2.4) mg/dl Total Bilirubin 2.4 H (0.2-1.0) mg/dl Direct Bilirubin 1.2 H (0-0.2) mg/dl AST 110 H (13-39) U/L ALT 41 (7-52) U/L Alkaline Phosphatase 382 H (34-104) U/L Troponin I High Sens 9.3 (0-20) pg/ml Total Protein 6.6 (6.0-8.3) gm/dl Albumin 2.8 L (3.4-5.0) gm/dl Lipase 19 (11-82) U/L Administered Medications Ascorbic Acid (Ascorbic Acid 500 Mg Tab) 500 mg PO BID GRICELAD Stop: 01/19/25 20:59 Last Admin: 12/20/24 20:59 Dose: 500 mg Documented By: REBEL Sodium Chloride (Nss) 1,000 mls @ 75 mls/hr IV .[id number] GRICELDA Stop: 12/21/24 13:09 Last Admin: 12/20/24 23:02 Dose: 75 mls/hr Documented By: Infusion: 12/20/24 23:00 Dose: Infused Documented By: Admin: 12/20/24 10:29 Dose: 75 mls/hr Documented By: Metoprolol Tartrate (Metoprolol Tartrate 25 Mg Tab) 25 mg PO BID GRICELDA Stop: 01/19/25 20:59 Last Admin: 12/20/24 20:59 Dose: 25 mg Documented By: REBEL Discontinued Medications Sodium Chloride (Nss) 1,000 mls @ 999 mls/hr IV .Q1H1M ONE Stop: 12/20/24 08:03 Last Infusion: 12/20/24 08:14 Dose: Infused Documented By: Admin: 12/20/24 07:13 Dose: 999 mls/hr Documented By: Imaging Data Radiologist's Impression: Chest X-Ray 12/20/24 05:05 EXAM: XR chest 1V portable CLINICAL HISTORY: Fluid overload TECHNIQUE: An X-ray image of the chest is obtained in AP projection. COMPARISON: 12/14/2024. FINDINGS: Pulmonary Parenchyma: Exaggerated bilateral hilar and bronchovascular markings, likely lung congestion. Stable A rounded shadow is seen superimposed on the left upper lung zone possibly outside the chest. Please correlate clinically; other views are advised. Otherwise, lungs are clear bilaterally. No evidence of consolidation, collapse, or focal opacities. No pulmonary nodules are identified. No evidence of pleural effusion or pleural thickening. Heart and Mediastinum: Heart size and shape are normal. No mediastinal widening or masses. No hilar or mediastinal lymphadenopathy. Bony Thorax: Bony thorax appears intact without fractures or deformities. Soft Tissues: Soft tissues overlying the chest wall are unremarkable. IMPRESSION: 1. Exaggerated bilateral hilar and bronchovascular markings, likely lung congestion. Stable 2. A rounded shadow is seen superimposed on the left upper lung zone possible outside the chest. Please correlate clinically, other views are advised. New finding. 3. No acute cardiopulmonary abnormalities are identified. Electronically signed by Aravind Mcgee 12-20-2024 06:15 AM Discharge Plan Visit Data Chief Complaint: Leg Weakness, Bilateral Stated Complaint: LEG WEAKNESS,FALL ON 12/14 ED Provider: Usama Burk Discharge Problem: Adult failure to thrive, Metastatic cancer, Acute dehydration, Leg edema, Malnutrition Patient Disposition: Admitted As Inpatient Discharge Instructions Interventions: ED Discharge Assessment Last Done: 12/20/24 10:21 Discharge Problem: Metastatic cancer Qualifiers: Area of secondary neoplastic involvement: unspecified site Qualified Code(s): C 79.9 - Secondary malignant neoplasm of unspecified site Malnutrition Qualifiers: Malnutrition type: unspecified type Qualified Code(s): E46 - Unspecified protein-calorie malnutrition
[2024-12-20 06:01] LABS: Basophils # (auto) 0.03 K/uL (0.00-0.20); Basophils % (auto) 0.2 %; Eosinophils # (auto) 0.01 K/uL (0.00-0.50); Eosinophils % (auto) 0.1 %; Hematocrit (blood only) 37.3 % (42.0-52.0); Hemoglobin 12.2 g/dl (14.0-18.0); Immature Granulocytes # (auto) 0.06 K/uL (0.01-0.20); Immature Granulocytes % (auto) 0.4 %; Lymphocytes # (auto) 0.56 K/uL (1.20-3.40); Lymphocytes % (auto) 4.2 %; Mean Corpuscular Hemoglobin 27.1 pg (25.0-34.0); Mean Corpuscular Hgb Conc 32.7 g/dL (32.0-36.0); Mean Corpuscular Volume 82.7 fL (80.0-100.0); Monocytes # (auto) 1.28 K/uL (0.11-0.59); Monocytes % (auto) 9.6 %; Neutrophils % (auto) 85.5 %; Platelet Count 460 K/uL (130-400); RDW Coefficient of Variation 17.4 % (11.5-14.5); RDW Standard Deviation 50.9 fL (36.4-46.3); Red Blood Count 4.51 M/uL (4.70-6.10); White Blood Count 13.34 K/ul (4.8-10.8)
[2024-12-20 06:12] LABS: Alanine Aminotransferase 41 U/L (7-52); Albumin Level 2.8 gm/dl (3.4-5.0); Alkaline Phosphatase 382 U/L (34-104); Anion Gap 5 (3-11); Aspartate Aminotransferase 110 U/L (13-39); BUN Creatinine Ratio 34.8 (10-20); Bilirubin Direct 1.2 mg/dl (0-0.2); Bilirubin,Total 2.4 mg/dl (0.2-1.0); Blood Urea Nitrogen 40 mg/dl (6-23); Calcium 10.7 mg/dl (8.6-10.3); Carbon Dioxide 28 mmol/L (21-32); Chloride 107 mmol/L (98-107); Glucose 72 mg/dl (70-99(Fasting)); Lipase 19 U/L (11-82); Magnesium 2.1 mg/dl (1.7-2.4); Potassium 4.2 mmol/L (3.5-5.1); Sodium 140 mmol/L (136-145); Total Protein 6.6 gm/dl (6.0-8.3)
--- NOTE | 2024-12-20 06:15 | XRay Report ---
EXAM: XR chest 1V portable CLINICAL HISTORY: Fluid overload TECHNIQUE: An X-ray image of the chest is obtained in AP projection. COMPARISON: 12/14/2024. FINDINGS: Pulmonary Parenchyma: Exaggerated bilateral hilar and bronchovascular markings, likely lung congestion. Stable A rounded shadow is seen superimposed on the left upper lung zone possibly outside the chest. Please correlate clinically; other views are advised. Otherwise, lungs are clear bilaterally. No evidence of consolidation, collapse, or focal opacities. No pulmonary nodules are identified. No evidence of pleural effusion or pleural thickening. Heart and Mediastinum: Heart size and shape are normal. No mediastinal widening or masses. No hilar or mediastinal lymphadenopathy. Bony Thorax: Bony thorax appears intact without fractures or deformities. Soft Tissues: Soft tissues overlying the chest wall are unremarkable. IMPRESSION: 1. Exaggerated bilateral hilar and bronchovascular markings, likely lung congestion. Stable 2. A rounded shadow is seen superimposed on the left upper lung zone possible outside the chest. Please correlate clinically, other views are advised. New finding. 3. No acute cardiopulmonary abnormalities are identified. Electronically signed by Aravind Mcgee 12-20-2024 06:15 AM
[2024-12-20 06:18] LABS: Troponin I High Sensitivity 9.3 pg/ml (0-20)
[2024-12-20 06:22] LABS: INR 1.3 (0.9-1.1); Prothrombin Time 13.8 Seconds (9.0-12.0)
--- NOTE | 2024-12-20 07:07 | CT Scan Report ---
EXAM: CT cervical spine wo con CLINICAL HISTORY: progressive leg weakness. known c1 fx TECHNIQUE: Computed tomography of the cervical spine performed without intravenous contrast. Contiguous axial images were obtained from the skull base to T2, with sagittal and coronal reformatted images reconstructed from the axial data. CT scan was performed according to ALARA (as low as reasonable achievable). COMPARISON: december 14/2025 21:06:39 [employer] SALESPERSON FINDINGS: Linear minimally displaced fracture is noted involving right side of anterior arch of C1 vertebra fracture line extending up to the right atlanto-axial joint. Loss of cervical lordosis - suggest possibility of muscle spasm/positional. Degenerative changes involving cervical spine in the form of multilevel marginal osteophytes, disc space reduction and facetal arthrosis. Cervical vertebral bodies are normal in height and alignment, with no evidence of fracture or subluxation. Prevertebral soft tissues are not widened. The remaining suprahyoid and infrahyoid soft tissues in the neck are unremarkable. Posterior uncovertebral arthrosis is noted at C5-C6 and C6-C7 levels,which indenting ventral thecal sac and causes bilateral neuroforaminal narrowing. Thyroid gland appears unremarkable. IMPRESSION: 1. Linear minimally displaced fracture is noted involving right side of anterior arch of C1 vertebra, fracture line extending up to the right atlanto-axial joint-stable. 2. Cervical spondylosis.-stable. 3. Multiple small cavitary nodules are noted in bilateral visualized upper lobes. Relatively stable. 4. Stable non-displaced fracture of the right first rib is noted. No other new interval abnormality since prior study. Electronically signed by Benedicto Funez 12-20-2024 07:06 AM
--- OUTSIDE RECORDS SUMMARY | 2024-12-20 07:08 | External Medical Summary | Summary of Care ---
Author Name Unknown Organization [facility] Address [address] [place] [address] Phone [phone] Care Team Providers Care Bat Person Name Role Phone David Bustamante MD Primary Care Provider +1- [phone] Reason for Visit * Reason Onset Date Comments Hospital Follow-Up 12/18/2024 Encounter Details Date Type Department Care Team (Late st Contact Info) Description 12/18/2024 Telephone General Surgery, [place] [address], [place] [phone] Christy Proctor RN [address] [place] [address] Hospital Follow-Up Allergies Active Allergy Reactions Criticality Noted Date Comments Peanut-Containing Drug Products Hives High 06/26/2023 Tree nuts, basil, oregano (Hypotension) Shellfish-Derived Products Hives High hypotension Soybean Oil 04/10/2024 Soy Allergy (Obsolete) Hives High 06/26/2023 And whole grain rice (hypotension) Tomato Hives High 06/26/2023 And spinach (hypotension) documented as of this encounter (statuses as of 12/18/2024) Medications EpiPen 2-Jared 0.3 MG/0.3ML Injection Solution Auto-injector Inject 0.3 mg into a large muscle once. For a severe reaction: Inject in outer thigh following instructions on package and go to the Emergency room. As needed for Allergic Reaction Active Vitamin C 500 MG Oral Capsule Take by mouth. Active Vitamin D (Cholecalcifero l) 25 MCG (1000 UT) Oral Capsule Take by mouth. Activ e Multi-Vitamin HP/Minerals Oral Capsule Take by mouth. Ac tive Metoprolol Tartrate 25 MG Oral Tablet (Lopressor) Take 1 Tablet by mouth in the morning and 1 Tablet before bedtime. 180 Tablet 3 5 Active Acetaminophen 325 MG Oral Tablet (Tylenol) Take 3 Tablets by mouth every 8 hours as needed for mild to moderate pain 90 Tablet 5 Active Bacitracin Zinc 500 UNIT/GM External Ointment Apply topically to affected area 2 times a day. Apply to left scalp laceration 113.6 g 12/16/2024 2:57 PM EDT 5 Active Docusate Sodium 100 MG Oral Capsule (Colace) Take 1 Capsule by mouth in the morning and 1 Capsule before bedtime. 10 Capsule 5 12/31/19 25 Active Sennosides 8.6 MG Oral Tablet (Senokot) Take 2 Tablets by mouth in the morning and 2 Tablets before bedtime. Do all this for 14 days. 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 Scalp laceration, initial encounter 12/15/2024 Closed nondisplaced fracture of first cervical v ertebra 12/15/2024 Palliative care encounter 12/15/2024 Goals of care, counseling/discussion 12/15/2024 Loss of weight 12/15/2024 Decreased appetite 12/15/2024 Fall 12/15/2024 Malignant neoplasm of sigmoid colon 12/15/2024 Liver mass 08/06/2024 Overview (08/06/2024): Seen on US liver February [address] 03/2024 Paroxysmal atrial fibrillation 06/26/2023 Overview (06/26/2023): H/o cardioversion Food allergy 06/26/2023 Overview (06/26/2023): Tomatoes, peanut, tree nut, soy, whole grain rice shell fish Mixed hyperlipidemia 06/26/2023 History of hypertension 06/26/2023 documented as of this encounter (statuses as of 12/18/2024) Social History Tobacco Use Types Packs/Day Years Used Date Smoking Tobacco: Never Passive Smoke Exposure: Past Smokeless Tobacco: Never Alcohol Use Standard Drinks/Week Comments Not Currently 0 (1 standard drink = 0.6 oz pur e alcohol) PHQ-2 Answer Date Recorded PHQ Adult Total Score 0 08/06/2024 Hunger Vital Sign Answer Date Recorded Within the past 12 months, y ou worried that your food would run out before you got the money to buy more. Never true 07/28/20 24 Ran Out of Food in the Last Year Not on file 07/28/2024 Childcare Answer Date Recorded Do you feel overwhelmed with taking care of a child, family member or friend? No 07/28/2024 Does your family need help f inding childcare? (Household - for ages 0-17 years) Not on file 07/28/2024 Clothing Answer Date Recorded Have you been unable to get clothing when it was really needed? No 07/28/2024 Is your family able to get c lothes or diapers when needed? (Household - for ages 0-17 years) Not on file 07/28/2024 Personal Safety Answer Date Recorded Do you feel unsafe or have concerns for your saf ety? No 12/15/2024 Do you have concerns for you r family's safety? (Household - for ages 0-17 years) Not on file 12/15/2024 Utilities Answer Date Recorded Do you have trouble paying y our heating, water, or electric bill? No 12/15/2024 Is your family able to pay t he heat, water, or electric bill? (Household - for ages 0-17 years) Not on file 12/15/2024 Does your family have access to good internet? (Household - for ages 0-17 years) Not on file 12/15/2024 Employment Status Answer Date Recorded Are you unemployed or without regular income? No 07/28/2024 Does the household have a re gular source of income? (Household - for ages 0-17 years) Not on file 07/28/2024 Social Connections Answer Date Recorded How often do you feel lonely or isolated from th ose around you? Never 07/28/2024 Financial Resource Strain Answer Date R ecorded Do you have any trouble payi ng for your medications, or do you think you might in the future? No 07/28/2024 Does your family have troubl e paying for medicine? (Household - for ages 0-17 years) Not on file 07/28/2024 Transportation Needs Answer Date Record ed Do you have trouble getting a ride to medical visits or work? (Adult - for ages 18 years and over) Not on file 12/15/2024 Does your family have a hard time getting a ride to doctors visits? (Household - for ages 0-17 years) Not on file 12/15/2024 Has lack of transportation k ept you from medical appointments, meetings, work, or from getting things needed for daily living? Check all that apply. No 12/15/2024 Do you (or your family) have trouble finding or paying for a ride (transportation)? (Household - for ages 0-17 years) Not on file 12/15/2024 Housing Stability Answer Date Recorded Do you currently live in a s helter or have no steady place to sleep at night? No 12/15/2024 Do you think you are at risk of becoming homeless? (Adult - for ages 18 years and over) Not on file 12/15/2024 Does your family worry about paying for your home or becoming homeless? (Household - for ages 0-17 years) Not on file 0 12/15/2024 Are you homeless or worried that you might be in the future? No 12/15/2024 Are you (or your family) ni eless or worried that you might be in the future? (Household - for ages 0-17 years) Not on file Food Insecurity Answer Date Recorded Do you need food for this week? No 07/28/2024 Are you able to get enough f ood for your family? (Household - for ages 0-17 years) Not on file 07/28/2024 Does your family need food t his week? (Household - for ages 0-17 years) Not on file 07/28/2024 Do you always have enough fo od for your family? (Household - for ages 0-17 years) Not on file 07/28/2024 Food Insecurity Answer Date Recorded Within the past 12 months, y ou worried that your food would run out before you got the money to buy more. Never true 12/16/19 25 Ran Out of Food in the Last Year Not on file 12/15/2024 Do you need food for this week? No 12/15/2024 Sex and Gender Information Value Date Recorded Sex Assigned at Male 06/14/2023 2:56 PM EDT Legal Sex Male 2:08 PM EDT Gender Identity Male 06/11/2023 3:32 PM EDT Sexual Orientation Straight 06/14/2023 2: 56 PM EDT Occupation Industry Job Start Date Job End Date retired - Insurance Not on file Not on file Not on f ile documented as of this encounter Functional Status * Are you deaf or do you have serious difficulty hearing? Answer Date of Assessment Author No 12/15/2024 6:36 AM Irvin Felton RN * Are you blind or do you have serious difficulty seeing, even when wearing glasses? Answer Date of Assessment Author No 12/15/2024 6:36 AM Irvin Felton RN * Do you have serious difficulty walking or climbing stairs? (5 years old or older) Answer Date of Assessment Author No 12/15/2024 6:36 AM Irvin Felton RN * Do you have difficulty dressing or bathing? (5 years old or older) Answer Date of Assessment Author No 12/15/2024 6:36 AM Irvin Felton RN * Because of a physical, mental, or emotional condition, do you have difficulty doing errands alone such as visiting a doctor’s office or shopping? (15 years old or older) Answer Date of Assessment Author No 12/15/2024 6:36 AM Irvin Felton RN documented as of this encounter Mental Status * Because of a physical, mental, or emotional condition, do you have serious difficulty concentrating, remembering, or making decisions? (5 years old or older) Answer Entry Date Author No 12/15/2024 6:36 AM Irvin Felton RN documented in this encounter Miscellaneous Notes * Telephone Encounter - Christy Proctor RN - 12/18/2024 2:22 PM EDT Call placed to patient to discuss recent hospital stay. No answer, LVM. Call attempt #1. Christy Proctor RN, BSN, TCRN, CCRN-K Trauma Cover Machine Operator [facility] 12/18/2024 2:22 PM documented in this encounter Plan of Treatment Upcoming Encounters Date Type Department Care Team (Late st Contact Info) Description 01/05/2025 3:15 PM EDT Appointment [facility], [place] [address] [place] [address] 01/08/2025 1:00 PM EDT Office Visit Family [facility], Jeananil [address] [phone] Marcin Linares MD [address] [place] [phone] Health Maintenance Due Date Last Done Comments COVID-19 Vaccine (#1) 1950 Adult Wellness Visit 2010 Influenza Vaccine (FLU shot) (Season Ended) 2025 Depression Screening 08/06/2025 08/06/2024 Meningitis B Vaccine (Bexsero/Trumemba) Aged Out No longer eligible b ased on patient's age to complete this topic Zoster Vaccines Discontinued documented as of this encounter Medical Devices Not on filedocumented as of this encounter Advance Directives * Full Code (Latest Code Status on File) Date Activated Date Inactivated Comments 12/15/2024 5:41 AM 12/16/2024 7:48 PM This order re flects the patients wishes and were consensually agreed upon. Question Answer Comments Discussion of Advance Directives occurred with: Family Care Teams Bat Person Relationship Specialty Start Date End Date David Bustamante MD [address] [phone] PCP - General Family Medicine 11/17/24 documented as of this encounter
--- OUTSIDE RECORDS SUMMARY | 2024-12-20 07:09 | External Medical Summary | Summary of Care ---
Author Name Unknown Organization [facility] Address [address] [place] [address] Phone [phone] Care Team Providers Care Bench Machine Operator Name Role Phone David Bustamante MD Primary Care Provider +1- [phone] Encounter Details Date Type Department Care Team (Latest Contact Info) Description 12/14/2024 10:10 PM EDT - 12/14/2024 10:44 PM EDT Hospital Encounter Radiology Film File [address] [place] [address] Arrived Discharge Disposition: Home - Self Care Allergies Active Allergy Reactions Criticality Noted Date Comments Peanut-Containing Drug Products Hives High 06/26/2023 Tree nuts, basil, oregano (Hypotension) Shellfish-Derived Products Hives High hypotension Soybean Oil 04/10/2024 Soy Allergy (Obsolete) Hives High 06/26/2023 And whole grain rice (hypotension) Tomato Hives High 06/26/2023 And spinach (hypotension) documented as of this encounter (statuses as of 12/16/2024) Medications EpiPen 2-Jared 0.3 MG/0.3ML Injection Solution Auto-injector Inject 0.3 mg into a large muscle once. For a severe reaction: Inject in outer thigh following instructions on package and go to the Emergency room. As needed for Allergic Reaction Active Vitamin C 500 MG Oral Capsule Take by mouth. Activ e Vitamin D (Cholecalcifer ol) 25 MCG (1000 UT) Oral Capsule Take by mouth. Activ e Multi-Vitamin HP/Minerals Oral Capsule Take by mouth. Ac tive Metoprolol Tartrate 25 MG Oral Tablet (Lopressor) Take 1 Tablet by mouth in the morning and 1 Tablet before bedtime. 180 Tablet 3 10/16/19 25 Active Vitamin-B Complex Oral Tablet Take 1 Tablet by mouth in the morning. 025 Discontinued CoQ10 100 MG Oral Capsule Take by mouth. 025 Discontinued documented as of this encounter (statuses as of 12/16/2024) Active Problems Problem Noted Date Diagnosed Date Liver mass 08/06/2024 Overview (08/06/2024): Seen on US liver February [address] 03/2024 Paroxysmal atrial fibrillation 06/26/2023 Overview (06/26/2023): H/o cardioversion Food allergy 06/26/2023 Overview (06/26/2023): Tomatoes, peanut, tree nut, soy, whole grain rice shell fish Mixed hyperlipidemia 06/26/2023 History of hypertension 06/26/2023 documented as of this encounter (statuses as of 12/16/2024) Social History Tobacco Use Types Packs/Day Years [...] 07/28/2024 Does the household have a re lar source of income? (Household - for ages [...] f ile documented as of this encounter Plan of Treatment Upcoming Encounters Date Type Department Care Team (Late st Contact Info) Description 01/05/2025 3:15 PM EDT Appointment [facility], [place] [address] [facility] [place] [address] 01/08/2025 1:00 PM EDT Office Visit Family [facility], Cisco Rodriguez [address] [phone] Marcin Linares MD [address] [phone] Health Maintenance Due Date Last Done Comments COVID-19 Vaccine (#1) 1950 Adult Wellness Visit 2010 Influenza Vaccine (FLU shot) (Season Ended) 2025 Depression Screening 08/06/2025 08/06/2024 Meningitis B Vaccine (Bexsero/Trumemba) Aged Out No longer eligible b ased on patient's age to complete this topic Zoster Vaccines Discontinued documented as of this encounter Medical Devices Not on filedocumented as of this encounter Procedures Procedure Name Priority Date/Time Associated Diagnosis Comments RADIOLOGY EXAM - CT (IMAGES ONLY, NO REPORT) Routine 12/14/2024 10:10 PM EDT documented in this encounter Results * RADIOLOGY EXAM - CT (IMAGES ONLY, NO REPORT) (12/14/2024 10:10 PM EDT) 12/14/2024 10:0 6 PM EDT Narrative Scheduling, Silent - 12/15/2024 11:41 AM EDT This is an imaging study not interpreted or resulted by a [employer] or [employer] contracted radiologist. us Percy Hui MD RAD CT Final Resul t documented in this encounter Advance Directives * Full Code (Latest Code Status on File) Date Activated Date Inactivated Comments 12/15/2024 5:41 AM This order ref lects the patients wishes and were consensually agreed upon. Question Answer Comments Discussion of Advance Directives occurred with: Family Care Teams Bench Machine Operator Relationship Specialty Start Date End Date David Bustamante MD [address] [phone] PCP - General Family Medicine 11/17/24 documented as of this encounter
--- OUTSIDE RECORDS SUMMARY | 2024-12-20 07:09 | External Medical Summary ---
Author Name Unknown Address Unknown Organization K01:[facility] [address] [place] [address] Laboratory Report Ordering Provider Test Date Status CAROLE QUINTANA 12/16/2024 04:26:00 Final Observation Date Value Abnormality Reference (Units ) Status Magnesium 12/16/2024 04:26:00 2.3 1.5-2.6 (m g/dL) Final Performing Location [facility] - [address] [place] [address]
--- OUTSIDE RECORDS SUMMARY | 2024-12-20 07:09 | External Medical Summary ---
Author Name Unknown Address Unknown Organization K01:[facility] - [address] [place] [address] Laboratory Report Ordering Provider Test Date Status CAROLE QUINTANA 12/16/2024 04:26:00 Final Observation Date Value Abnormality Reference (Units ) Status BUN 12/16/2024 04:26:00 20 6-20 (mg/dL) Final Creatinine 12/16/2024 04:26:00 0.7 0.6-1.2 (mg/dL) Final Glomerular filtration rate/1.73 sq M.predicted [Volume Rate/Area] in Serum, Plasma or Blood by Creatinine-based formula (CKD-EPI) 12/16/2024 04:26:00 >90 >=60 (mL/min) Final eGFR is calculated based on the CKD-EPI 2020 equation. Sodium 12/16/2024 04:26:00 141 135-146 (m mol/L) Final Potassium 12/16/2024 04:26:00 3.9 3.5-5.1 (m mol/L) Final Cl 12/16/2024 04:26:00 105 98-107 (mm ol/L) Final CO2 12/16/2024 04:26:00 22 22-32 (mmo l/L) Final Anion gap 12/16/2024 04:26:00 14 7-15 (mmol /L) Final Glucose 12/16/2024 04:26:00 55 Below low normal 70- 120 (mg/dL) Final Calcium 12/16/2024 04:26:00 9.5 8.4-10.2 ( mg/dL) Final Performing Location [facility] - [address] [place] [address]
--- OUTSIDE RECORDS SUMMARY | 2024-12-20 07:09 | External Medical Summary | Summary of Care ---
Author Name Unknown Organization [facility] Address [address] [place] [address] Phone [phone] Care Team Providers Care Cosmetic Sales Assistant Name Role Phone Pari Simmons MD Primary Care Provider +1- [phone] Reason for Visit * Reason Onset Date Comments Hospital Follow-Up 12/16/2024 2wk hd/fu Encounter Details Date Type Department Care Team (Late st Contact Info) Description 12/16/2024 Telephone Hematology Oncology [facility] [address] [place] [address] Specified, Zz No Resource [address] [place] [address] Hospital Follow-Up (2wk hd/fu ) Allergies Active Allergy Reactions Criticality Noted Date Comments Peanut-Containing Drug Products Hives High 06/26/2023 Tree nuts, basil, oregano (Hypotension) Shellfish-Derived Products Hives High hypotension Soybean Oil 04/10/2024 Soy Allergy (Obsolete) Hives High 06/26/2023 And whole grain rice (hypotension) Tomato Hives High 06/26/2023 And spinach (hypotension) documented as of this encounter (statuses as of 12/16/2024) Medications Acetaminophen 325 MG Oral Tablet (Tylenol) Take 3 Tablets by mouth every 8 hours as needed for mild to moderate pain 90 Tablet 12/17/19 25 Active Bacitracin Zinc 500 UNIT/GM External Ointment Apply topically to affected area 2 times a day. Apply to left scalp laceration 113.6 g 12/16/2024 2:57 PM EDT 12/17/19 25 Active Docusate Sodium 100 MG Oral Capsule (Colace) Take 1 Capsule by mouth in the morning and 1 Capsule before bedtime. 10 Capsule 12/17/19 25 025 Active Sennosides 8.6 MG Oral Tablet (Senokot) Take 2 Tablets by mouth in the morning and 2 Tablets before bedtime. Do all this for 14 days. 56 Tablet 12/17/19 25 025 Active EpiPen 2-Jared 0.3 MG/0.3ML Injection Solution Auto-injector Inject 0.3 mg into a large muscle once. For a severe reaction: Inject in outer thigh following instructions on package and go to the Emergency room. As needed for Allergic Reaction Suspended Vitamin C 500 MG Oral Capsule Take by mouth. Suspe nded Vitamin D (Cholecalcifer ol) 25 MCG (1000 UT) Oral Capsule Take by mouth. Suspe nded Multi-Vitamin HP/Minerals Oral Capsule Take by mouth. Ty spended Metoprolol Tartrate 25 MG Oral Tablet (Lopressor) Take 1 Tablet by mouth in the morning and 1 Tablet before bedtime. 180 Tablet 3 10/16/19 25 Suspended documented as of this encounter (statuses as [...] No 12/15/2024 Are you (or your family) in eless or worried that you might be [...] encounter Miscellaneous Notes * Telephone Encounter - ZampKatie martin OSA - 12/16/2024 10:52 AM EDT Order RETURN APPT [IP355] (Order [id number]) Blake Neves 12/15/2024 2:12 AM ED to Hosp-Admission Description: 79 year old male Department: 6 [facility] Message Patient Name: BLAKE NEVES([id number]) Sex: Male : 1945 PCP: PARI SIMMONS Center: [facility] Types of orders made on 12/16/2024: Communication, Diet, IP Discharge, IP Post Discharge , Lab, Medical Imaging, Medications Order Date:12/16/2024 Ordering User:SRIDEVI RAWLS [[id number]] Attending Provider:Percy Hui MD [[id number]] Authorizing Provider: Sridevi Rawls CRNP [[id number]] Department:[address][[id number]] Order Specific Information Order: RETURN APPT [CUSTOM: [id number]] Order #: [id number]: 1 Priority: Routine Class: Nursing Unit Department (Single Entry) -> Oncology Appt Needed Within: (Specify # of Days, Weeks, Months) -> 2 Wks Released on: 12/16/2024 10:48 AM Priority: Routine Class: Nursing Unit Department (Single Entry) -> Oncology Appt Needed Within: (Specify # of Days, Weeks, Months) -> 2 Wks Released on: 12/16/2024 10:48 AM Order Information Date and Time Depa documented in this encounter Plan of Treatment Upcoming Encounters Date Type Department Care Team (Late st Contact Info) Description 01/05/2025 3:15 PM EDT Appointment [facility], [address] [place] [address] 01/08/2025 1:00 PM EDT Office Visit [facility] Carlos Rodriguez [address] [phone] Marcin Linares MD [address] [address] Health Maintenance Due Date Last Done Comments Adult Wellness Visit 2010 COVID-19 Vaccine ( - 2023-2 5 season) 2024 Influenza Vaccine (FLU shot) (Season Ended) 2025 [...] Advance Directives occurred with: Family Care Teams Cosmetic Sales Assistant Relationship Specialty Start Date End Date Pari Simmons MD [address] [phone] PCP - General Family Medicine 11/17/24 documented as of this encounter
--- OUTSIDE RECORDS SUMMARY | 2024-12-20 07:09 | External Medical Summary | Summary of Care ---
Author Name Unknown Organization [facility] Address [address] [place] [address] Phone [phone] Care Team Providers Care Sexton Helper Name Role Phone David Bustamante MD Primary Care Provider +1- [phone] Encounter Details Date Type Department Care Team ([facility] st Contact Info) Description 12/14/2024 Orders Only GPS Provider Triage [address] [place] [address] Percy Hui MD [address] [place], [place] [phone] Allergies Active Allergy Reactions Criticality Noted Date Comments Peanut-Containing Drug Products Hives High 06/26/2023 Tree nuts, basil, oregano (Hypotension) Shellfish-Derived Products Hives High 3 hypotension Soybean Oil 04/10/2024 Soy Allergy (Obsolete) Hives High 06/26/2023 And whole grain rice (hypotension) Tomato Hives High 06/26/2023 And spinach (hypotension) documented as of this encounter (statuses as of 12/15/2024) Medications EpiPen 2-Jared 0.3 MG/0.3ML Injection Solution Auto-injector Inject 0.3 mg into a large muscle once. For a severe reaction: Inject in outer thigh following instructions on package and go to the Emergency room. As needed for Allergic Reaction Suspended Vitamin-B Complex Oral Tablet Take 1 Tablet by mouth in the morning. Suspended Vitamin C 500 MG Oral Capsule Take by mouth. Suspe nded Vitamin D (Cholecalcifer ol) 25 MCG (1000 UT) Oral Capsule Take by mouth. Suspe nded CoQ10 100 MG Oral Capsule Take by mouth. Ty spended Multi-Vitamin HP/Minerals Oral Capsule Take by mouth. Ty spended Metoprolol Tartrate 25 MG Oral Tablet (Lopressor) Take 1 Tablet by mouth in the morning and 1 Tablet before bedtime. 180 Tablet 3 10/16/19 25 Suspended documented as of this encounter (statuses as of 12/15/2024) Active Problems Problem Noted Date Diagnosed Date Scalp laceration, initial encounter 12/15/2024 Closed nondisplaced [...] as of this encounter (statuses as of 12/15/2024) Social History Tobacco Use Types Packs/Day Years [...] Info) Description 01/05/2025 3:15 PM EDT Appointment MRI, [facility] [address] [place] [address] 01/08/2025 1:00 PM EDT Office Visit Family Practice, [facility] [address] [place] [address] Marcin Linares MD [address] [address] Health Maintenance Due Date Last Done Comments Adult Wellness Visit 2010 COVID-19 Vaccine ( - 2023-2 5 season) 2024 Influenza Vaccine (FLU shot) (#1) 2024 Depression Screening 08/06/2025 08/06/2024 Meningitis B Vaccine (Bexsero/Trumemba) Aged Out No longer eligible b ased on patient's age to complete this topic Zoster Vaccines Discontinued documented as of this encounter Medical Devices Not on filedocumented as of this encounter Procedures Procedure Name Priority Date/Time Associated Diagnosis Comments RADIOLOGY EXAM - GENERAL RAD (IMAGES ONLY,NO REPORT) Routine 12/14/2024 10:45 PM EDT documented in this encounter Results * RADIOLOGY EXAM - GENERAL RAD (IMAGES ONLY,NO REPORT) (12/14/2024 10:45 PM EDT) 12/14/2024 10:4 5 PM EDT Narrative Scheduling, Silent - 12/15/2024 11:39 AM EDT This is an imaging study not interpreted or resulted by a [facility] or [facility] contracted radiologist. us Percy Hui MD RADIOLOGY (RAD GENERAL) Fin al Result documented in this encounter Advance Directives * Full Code (Latest Code Status on File) Date Activated Date Inactivated Comments 12/15/2024 5:41 AM This order ref lects the patients wishes and were consensually agreed upon. Question Answer Comments Discussion of Advance Directives occurred with: Family Care Teams Sexton Helper Relationship Specialty Start Date End Date David Bustamante MD [address] [phone] PCP - General Family Medicine 11/17/24 documented as of this encounter
--- OUTSIDE RECORDS SUMMARY | 2024-12-20 07:09 | External Medical Summary | Summary of Care ---
Author Name Unknown Organization [facility] Address [address] [place] [address] Phone [phone] Care Team Providers Care Radio Operator Ground Name Role Phone David Bustamante MD Primary Care Provider +1- [phone] Encounter Details Date Type Department Care Team (Late st Contact Info) Description 12/16/2024 Documentation Genetics [facility], [facility] [address] [place] [address] Imelda Lafleur LC [address] [place], [place] [phone] Allergies Active Allergy Reactions Criticality Noted Date [...] Irvin Felton RN documented in this encounter Progress Notes * Imelda Lafleur, [facility] - 12/16/2024 1:03 PM EDT Blake Arreaga's case will be presented at the GI multi-disciplinary conference on 12/18/2024. Blake Martinez meets NCCN criteria for a cancer genetics evaluation: NCCN recommends genetic testing for individuals with a family history of 1+ close blood relatives with ovarian cancer A referral will be made if Blake Martinez is interested in genetic testing discussion. 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 still pending Family history of cancer: Mother - ovarian Brother - oral ca WILL To, CGC 12/16/2024 documented in this encounter Plan of Treatment Upcoming Encounters Date Type Department Care Team (Late st Contact Info) Description 01/05/2025 3:15 PM EDT Appointment [facility], [place] [address] [place] [address] 01/08/2025 1:00 PM EDT [facility] [address] [address] Marcin Linares MD [address] [phone] Health Maintenance Due Date Last Done Comments [...] Advance Directives occurred with: Family Care Teams Radio Operator Ground Relationship Specialty Start Date End Date David Bustamante MD [address] [phone] PCP - General Family Medicine 11/17/24 documented as of this encounter
--- OUTSIDE RECORDS SUMMARY | 2024-12-20 07:09 | External Medical Summary | Summary of Care ---
Author Name Unknown Organization [facility] Address [address] [place] [address] Phone [phone] Care Team Providers Care Bad Work Gatherer Name Role Phone David Bustamante MD Primary Care Provider +1- [phone] Encounter Details Date Type Department Care Team ([facility] st Contact Info) Description 12/14/2024 Orders Only GPS Provider Triage [address] [place] [address] Percy Hui MD [address] [place], [place] [phone] Allergies Active Allergy Reactions Criticality Noted Date [...] PM EDT Appointment MRI, [facility] [address] [place] [address] 01/08/2025 1:00 PM EDT Office Visit Family [facility], [facility] [address] [place] [phone] Marcin Linares MD [address] [place] [address] Health Maintenance Due Date Last Done Comments [...] interpreted or resulted by a [facility] or [facility] contracted radiologist. us Percy Hui MD RAD CT Final Resul t documented in this encounter Advance Directives * Full Code (Latest Code Status on File) Date Activated Date Inactivated Comments 12/15/2024 5:41 AM This order ref lects the patients wishes and were consensually agreed upon. Question Answer Comments Discussion of Advance Directives occurred with: Family Care Teams Bad Work Gatherer Relationship Specialty Start Date End Date David Bustamante MD [address] [place] [phone] PCP - General Family Medicine 11/17/24 documented as of this encounter
--- OUTSIDE RECORDS SUMMARY | 2024-12-20 07:09 | External Medical Summary | Summary of Care ---
Author Name Unknown Organization [facility] Address [address] [place] [address] Phone [phone] Care Team Providers Care Molder Punch Name Role Phone David Bustamante MD Primary Care Provider +1- [phone] Encounter Details Date Type Department Care Team (Latest Contact Info) Description 12/14/2024 10:45 PM EDT - 12/14/2024 11:59 PM EDT Hospital Encounter Radiology Film File [address] [place] [address] Arrived Discharge Disposition: Home - [...] Info) Description 01/05/2025 3:15 PM EDT Appointment [facility], [place] [address] [facility] [place] [address] 01/08/2025 1:00 PM EDT Office Visit Family [facility], [facility] [address] [address] Marcin Linares MD [address] [phone] Health Maintenance Due Date Last Done Comments [...] interpreted or resulted by a [facility] or [facility] contracted radiologist. us Percy Hui MD RADIOLOGY (RAD GENERAL) Fin al Result documented in this encounter Advance Directives * Full Code (Latest Code Status on File) Date Activated Date Inactivated Comments 12/15/2024 5:41 AM This order ref lects the patients wishes and were consensually agreed upon. Question Answer Comments Discussion of Advance Directives occurred with: Family Care Teams Molder Punch Relationship Specialty Start Date End Date David Bustamante MD [address] [phone] PCP - General Family Medicine 11/17/24 documented as of this encounter
--- OUTSIDE RECORDS SUMMARY | 2024-12-20 07:09 | External Medical Summary | Summary of Care ---
Author Name Unknown Organization [facility] Address [address] [place] [address] Phone [phone] Care Team Providers Care Printing Agent Name Role Phone David Bustamante MD Primary Care Provider [phone] Reason for Visit * Reason Comments Fall * Auth/Cert Specialty Diagnoses / Procedures Referred By Contac t Referred To Contact Diagnoses C1 cervical fracture (HCC) Fall C1 fracture, s/p fall Henrique Cobos MD [address] [place] [address] Phone: tel: fax: [facility]) Emergency Department ([facility]) [address] [place] [address] Phone: tel: fax: Referral ID Status Reason Start Date Expiration Date Visits Re quested Visits Authorized [id number] Encounter Details Date Type Department Care Team (Latest Contact Info) Description 12/15/2024 2:12 AM EDT - 12/16/2024 3:48 PM EDT Hospital Encounter [id number] [facility], [facility] 6th Floor [address], [place] [id number] Percy Hui MD [address] [place] [id number] Belle Lea MD [address], [place] [id number] Uche Ortiz MD [address] [place] [address] Henrique Cobos MD [address] [place] [address] Discharge Disposition: Home - Self Care Allergies Active Allergy Reactions Criticality Noted Date Comments Peanut-Containing Drug Products Hives High 06/26/2023 Tree nuts, basil, oregano (Hypotension) Shellfish-Derived Products Hives High 3 hypotension Soybean Oil 04/10/2024 Soy Allergy (Obsolete) Hives High 06/26/2023 And whole grain rice (hypotension) Tomato Hives High 06/26/2023 And spinach (hypotension) documented as of this encounter (statuses as of 12/17/2024) Medications EpiPen 2-Jared 0.3 MG/0.3ML Injection Solution [...] bedtime. 180 Tablet 3 10/16/19 25 Active Acetaminophen 325 MG Oral Tablet (Tylenol) Take 3 Tablets by mouth every 8 hours as needed for mild to moderate pain 90 Tablet 12/17/19 25 Active Bacitracin Zinc 500 UNIT/GM External Ointment Apply topically to affected area 2 times a day. Apply to left scalp laceration 113.6 g 5 2:57 PM EDT 12/17/19 25 Active Docusate Sodium 100 MG Oral Capsule (Colace) Take 1 Capsule by mouth in the morning and 1 Capsule before bedtime. 10 Capsule 12/17/19 25 025 Active Sennosides 8.6 MG Oral Tablet (Senokot) Take 2 Tablets by mouth in the morning and 2 Tablets before bedtime. Do all this for 14 days. 56 Tablet 12/17/19 25 025 Active Vitamin-B Complex Oral Tablet Take 1 Tablet by mouth in the morning. 025 Discontinued CoQ10 100 MG Oral Capsule Take by mouth. 025 Discontinued documented as of this encounter (statuses as of 12/17/2024) Active Problems Problem Noted Date Diagnosed Date [...] as of this encounter (statuses as of 12/17/2024) Social History Tobacco Use Types Packs/Day Years [...] f ile documented as of this encounter Last Filed Vital Signs Vital Sign Reading Time Taken Comments Blood Pressure 104/62 12/16/2024 11:54 AM EDT Pulse 78 12/16/2024 11:54 AM EDT Temperature 36.3 °C (97.4 °F) 12/16/2024 11:54 AM E DT Respiratory Rate 18 12/16/2024 11:54 AM EDT Oxygen Saturation 100% 12/16/2024 11:54 AM EDT Inhaled Oxygen Concentration - - Weight 64.2 kg (141 lb 8.6 oz) 12/15/2024 6:32 A M EDT Height 170.2 cm (5' 7") 12/15/2024 6:32 AM EDT Body Mass Index 22.17 12/15/2024 6:32 AM EDT documented in this encounter Functional Status * Are you deaf or do you have serious difficulty hearing? Answer Date of Assessment Author No 12/15/2024 6:36 AM EDT rIvin Urban RN * Are you blind or do you have serious difficulty seeing, even when wearing glasses? Answer Date of Assessment Author No 12/15/2024 6:36 AM EDT Irvin Urban RN * Do you have serious difficulty walking or climbing stairs? (5 years old or older) Answer Date of Assessment Author No 12/15/2024 6:36 AM EDT Irvin Urban RN * Do you have difficulty dressing or bathing? (5 years old or older) Answer Date of Assessment Author No 12/15/2024 6:36 AM EDT Irvin Urban RN * Because of a physical, mental, or emotional condition, do you have difficulty doing errands alone such as visiting a doctor’s office or shopping? (15 years old or older) Answer Date of Assessment Author No 12/15/2024 6:36 AM FELAT Irvin Urban RN documented as of this encounter Mental Status * Because of a physical, mental, or emotional condition, do you have serious difficulty concentrating, remembering, or making decisions? (5 years old or older) Answer Entry Date Author No 12/15/2024 6:36 AM FELAT Irvin Urban RN documented in this encounter Discharge Summaries * Uche Ortiz MD - 12/16/2024 10:49 AM EDT [address] [facility] [id number] Admission Date: 12/15/2024 Discharge Date: 12/16/2024 DISCHARGE DIAGNOSES: Active Hospital Problems Diagnosis *Principal Diagnosis - Fall Scalp laceration, initial encounter Closed nondisplaced fracture of first cervical vertebra (HCC) Palliative care encounter Goals of care, counseling/discussion Loss of weight Decreased appetite Malignant neoplasm of sigmoid colon (HCC) Paroxysmal atrial fibrillation (HCC) Mixed hyperlipidemia History of hypertension Resolved Hospital Problems No resolved problems to display. Other Significant Diagnoses: none CONDITION ON DISCHARGE: stable Cognition: normal DISPOSITION ON DISCHARGE: home FOLLOW-UP: Future Appointments Appt Date/Time Provider Department 01/05/2025 3:15 PM [id number] [facility] MRI, [place] 01/08/2025 1:00 PM Marcin Linares MD [facility], [facility] Follow up with Neurosurgery in 6 weeks Follow up with Oncology in 2 weeks Follow up with Palliative in 2-3 weeks Outpatient testing already scheduled: None Outpatient testing that needs to be arranged: None Inpatient test results pending: None MEDICATIONS ON DISCHARGE: MEDICATION UPDATES AT DISCHARGE START taking these medications INSTRUCTIONS Acetaminophen 325 MG Tablet Commonly known as: Tylenol Take 3 Tablets by mouth every 8 hours as needed for mild to moderate pain bacitracin zinc 500 UNIT/GM ointment Apply topically to affected area 2 times a day. Apply to left scalp laceration Docusate Sodium 100 MG Capsule Commonly known as: Colace Take 1 Capsule by mouth in the morning and 1 Capsule before bedtime. Do all this for 14 days. senna Tablet Commonly known as: Senokot Take 2 Tablets by mouth in the morning and 2 Tablets before bedtime. Do all this for 14 days. CONTINUE taking these medications INSTRUCTIONS EPINEPHrine (anaphylaxis) 0.3 MG/0.3ML Soaj injection Inject 0.3 mg into a large muscle once. For a severe reaction: Inject in outer thigh following instructions on package and go to the Emergency room. As needed for Allergic Reaction Metoprolol Tartrate 25 MG Tablet Commonly known as: Lopressor Take 1 Tablet by mouth in the morning and 1 Tablet before bedtime. Multi-Vitamin HP/Minerals Caps Take by mouth. Vitamin C 500 MG Caps Take by mouth. Vitamin D (Cholecalciferol) 25 MCG (1000 UT) Caps Take by mouth. STOP taking these medications CoQ10 100 MG Caps Vitamin-B Complex Tablet ALLERGIES: Peanut-containing drug products, Shellfish-derived products, Soy allergy (obsolete), Tomato, and Soja chance oil [soybean oil] INSTRUCTIONS: Activity: wear cervical collar at all times Diet: normal diet Code Status: Full Code Indwelling devices: none ADMISSION HISTORY & PHYSICAL EXAM (focused): Chief Complaint: Fall down 4-5 steps History of Present Illness: Blake is an 79 yo male with PMH of atrial fibrillation, HTN, HLD who presents to [facility] ED as a transfer from [facility] after he sustained a fall down 4-5 steps around 8pm yesterday and was found to have a C1 fracture. Patient reports that he was going up the stairs and lost his balance falling backwards down 4-5 stairs. He has been having weakness in his LLE and that may have caused the fall. Neg LOC. + head strike on metal shelf. He didn't get up after the fall. His called 911. He was taken to [facility] where he was found to have a C1 fracture. Patient refused any further imaging at OSH due to concerns of using contrast. He doesn't have any pain at this time. He denies FONTENOT, LH, dizziness, SOB, CP, abdominal pain, N/V, numbness, tingling. Per patient's , they try to follow a vegetarian diet and monitor ingredients of food they eat. She reports Blake has lost ~70 lbs since 2019 and believes he is not eating enough anymore. Denies tobacco, alcohol, or drug use. After discussion with the patient, he wishes to be a full code. MECHANISM OF INJURY: Fall down 4-5 steps MODE OF TRANSPORTATION: ambulance LOSS OF CONSCIOUSNESS: no TETANUS VACCINE: There are no preventive care reminders to display for this patient. Administered in [facility] [place]: Administed at OSH ([facility]) PAST MEDICAL HISTORY: Past Medical History Past Medical History: Diagnosis Date A-fib (HCC) 3 episodes in 11 years Hyperlipidemia Hx of hyperlipidemia Hypertension Mixed hyperlipidemia 06/26/2023 PAST SURGICAL HISTORY: Past Surgical History Past Surgical History: Procedure Laterality Date CARDIOVERSION,ELECTIVE INTERNA HC [employer] CORONARY OSTIAL Medtronic loop recorder implanted CURRENT HOSPITAL MEDICATIONS: Note that discontinued and completed medications (per the MAR) continue to display for 24 hours. Ordered medications to be given in the future also display. No current facility-administered medications for this encounter. Current Outpatient Medications Medication Metoprolol Tartrate 25 MG Oral Tablet (Lopressor) CoQ10 100 MG Oral Capsule Multi-Vitamin HP/Minerals Oral Capsule Vitamin C 500 MG Oral Capsule Vitamin D (Cholecalciferol) 25 MCG (1000 UT) Oral Capsule Vitamin-B Complex Oral Tablet EpiPen 2-Jared 0.3 MG/0.3ML Injection Solution Auto-injector Metoprolol tartrate 25 BID, last dose in morning of 12/14. Tocotrienol 250 mg daily.. ALLERGIES: Allergies Peanut-containing drug products, Shellfish-derived products, Soy allergy (obsolete), Tomato, and Soja chance oil [soybean oil] SOCIAL HISTORY: Social History Social History Tobacco Use Smoking status: Never Passive exposure: Past Smokeless tobacco: Never Vaping Use Vaping status: Never Used Substance Use Topics Alcohol use: Not Currently Drug use: Not Currently FAMILY HISTORY: Family History Family History Problem Relation Name Age of Onset Ovarian cancer Mother Hyperlipidemia Mother Hypertension Father Hypertension Brother Cancer Brother oral cancer Hyperlipidemia Brother REVIEW OF SYSTEMS: See HPI for pertinent positives and negatives, all other systems are negative. COLLARED: yes BACKBOARD: no INTUBATED: no PHYSICAL EXAM: Most Recent Vital Signs: BP: 123 mmHg/79 mmHg (12/15/24218) Pulse: 117 (12/15/24218) Resp: 19 (12/15/24218) Temp: 37.28 C (12/15/24218) Temp Summary: Temp Min: 37.3 °C (99.1 °F) Max: 37.3 °C (99.1 °F) SpO2: 99 % (12/15/24218) O2 flow rate: Supplemental O2 Delivery: Head: 4 cm linear laceration over left occipital scalp, left eyebrow abrasion Eyes: pupils 3 mm, bilaterally reactive to light, extraocular muscles intact ENT: oropharynx clear Neck: supple, non-tender, trachea midline Respiratory: clear to auscultation bilaterally Cardiovascular: regular rate and rhythm, palpable peripheral pulses present Abdomen: soft, non-tender, non-distended, normal bowel sounds Back: no tenderness across thoracic / lumbar spine Pelvis: non-tender, stable to anterior-posterior/lateral compression Rectal: deferred Genitourinary: normal male genitalia Musculoskeletal: no palpable long bone deformities, motor / sensation grossly intact Skin: grossly intact, 4cm linear laceration over L occipital scalp repaired with 5 arely, skin tear of left hand, skin tear of right elbow, BLE pitting edema Neurologic: alert and oriented x3, GCS 15 HOSPITAL COURSE (focused): Brief summary of your inpatient care: You were admitted to the hospital on 12/15/2024 after you fell. You were found to have the followinginjuries. Active Problems: Scalp laceration, initial encounter (POA: Unknown) Closed nondisplaced fracture of first cervical vertebra (HCC) (POA: Unknown) Palliative care encounter (POA: Unknown) Goals of care, counseling/discussion (POA: Unknown) Loss of weight (POA: Unknown) Decreased appetite (POA: Unknown) Fall (POA: Unknown) Malignant neoplasm of sigmoid colon (HCC) (POA: Unknown) Resolved Problems: * No resolved hospital problems. * Neck Injury (C1 fracture) Follow-Up: Standard follow up will be roughly 6 weeks following your spine injury. At this encounter you will be evaluated in clinic to assess symptoms related to your spine injury, or new issues that have developed. Imaging will be reviewed, and education regarding your injury and any new changes that have developed discussed. The following is important for follow up within the Spine clinic. Youwill see an assigned surgeon, or advanced practitioner: There are many different types of spine fractures, some are unstable, some are stable, not all willrequire bracing. If you are issued a brace or collar it is for good reason, wear it as instructed. Wear cervical collar at all times All spine trauma except spinous or transverse process fractures require x-ray prior to coming to clinic for follow-up. Spinous process and transverse process fractures normally DO NOT REQUIRE FOLLOW-UP with a risk specialist. For continued pain you can contact you primary care provider or request information by contacting the Spine clinic at the number below. You may or may not be cleared from you collar or brace at the 6 week interval from your injury. There are several factors involved, one of which will be reviewing x-ray for progression of your injury(further collapse of compression fractures, or movement of more complex fracture types). A second appointment 6 weeks after the initial follow up is often required to clear from collar/brace and lift limitations/restrictions. Another set of x-rays or CT scan may be required in some cases, but not all. Activity: You may have pain and discomfort, part of recovery from a traumatic spine injury (given you do not have other injuries that limit you) is to remain active. It may not be activity that you were involved with prior to your injury, but some basic principles to follow are: Walking as much as tolerable, up to 1-2 miles a day if no discomfort. Focused body weight extremity exercises supervised or prescribed by physical therapy. Do not lift greater than a gallon of milk (roughly 5 pounds) for 2 weeks, then it is okay to lift items no greater than 25 pounds (this should not be sustained weight bearing, but lifting items up tothat weight level). If any of these cause discomfort, then you need to reduce the weight you lift. Do not participate in strenuous weight training activity Avoid running, biking, or other cardio equipment use until initial follow-up in the Spine clinic. Hygiene/orthotic devices: It is important to continue normal hygiene while recovering from you injury. Maintain your rigid cervical collar at all times unless otherwise instructed by your trauma team Rigid cervical collars will remain on 09/04 and only removed for exchange after showering, or for short periods for hygiene (keep head in neutral forward alignment). If you have two collars you can wear one while showering, then transition to the second collar after showering. Continue to rotate the collars after showering to allow pads to dry out. Wear your thoracic or lumbar spine bracing while sitting upright at 90 degrees, or while upright ontwo feet, standing or walking. It is not needed when you are reclined in a chair or sleeping at night. It can be removed for showering, but to prevent possible injury you may want to use a shower chair while you recover for your injury. Avoid sleeping on your stomach Pain and Pain Management: After a traumatic spine injury, pain should be expected. Some type of pain discomfort may be present for extended periods of time and require follow up physical therapy, ongoing medication pain management (non-opioid), or other escalation in treatment options. The majority of traumatic spine pain will be central/midline over the spine. Associated muscular discomfort is common, and in very rare cases there is nerve pain that is directly related to the trauma. You may require narcotic pain medications in the initial recovery phase from your injury. These should be used sparingly for severe pain. While on these medications do not plan on driving, operating heavy machinery, and refrain from critical decision making tasks if the medications make you drowsy or have sluggish thoughts (not everyone will be drowsy or have sluggish thoughts and not be able to complete critical decision making tasks, but everyone should refrain form driving or operating heavymachinery while utilizing these medications). Prescription anti-spasmodics (or muscle relaxers) will have some benefit. Your doctors will decide if this is appropriate for you. There are several types, some are more sedating than others. You shouldn't operate heavy machinery, or drive while taking these until you understand the effect the medication will have on you (depending on the severity of your injury, and whether or not you are in a collar or brace, those activities may not pertain to you). Tylenol (acetaminophen regular strength 325 mg, or extra strength 500mg) may be part of you pain regimen. You cannot exceed 4000mg of this medication in a 24 hour period. Contact Information: Neurosurgery Department: [phone] (7AM-5PM) or after hours at [phone] (request neurosurgery on-call provider) for questions or concerns. Discharge Instructions: Using a Cervical Neck Brace ([place] Collar) Your doctor has prescribed a [place] J collar, a cervical neck brace (also called a cervical collar) for you. Its purpose is to keep your neck and spine straight and to help healing by supporting your neck bones. Here are some guidelines for using this type of collar. General Guidelines Wear the cervical collar at all times. Don’t stop wearing the collar until your doctor tells you to. Keep two collars on hand in case one becomes damaged or you need to remove one for cleaning. Check the skin under your brace daily for redness, tenderness, or drainage. Use chairs with arms. The arms make it easier for you to stand up or sit down; this puts less strain on your neck. Remove things that may cause you to fall, such as throw rugs and electrical cords. Use nonslip bath mats, grab bars, and a shower chair in your bathroom. Arrange your household to keep the items you need handy. Keep everything else out of the way. Keep your hands free by using a carmen pack, apron, or pockets to carry things. Activity Don’t bend, twist, or reach until your doctor says it’s okay. Don’t lift anything heavier than 4 pounds until your doctor says it’s okay. Don’t move your head up or down or side to side. Nap if you are tired, but don’t stay in bed all day. Don’t drive until your doctor says it’s okay or while you are taking narcotic pain medication. If you have not been given instructions about physical therapy, be sure to ask your doctor about it. Putting on the Collar Here are some guidelines for putting on the collar. Getting Ready to Put on the Collar Face the mirror. Gently slide the front piece of the brace up your chest and into place beneath your chin. Make sure the front piece rests on top of your shoulders and your chest. Rest your chin comfortably in the chin support. Positioning the Front Piece Bring the elastic strap straight around the back of your head. Attach it to the other side of the collar. You don’t need to tighten this piece. It holds the front piece in place and frees your hands while you secure the rest of the brace. Positioning the Back Piece Place the back piece directly behind your head. Center the back piece. Bring both Velcro straps around to the front. Attach them to the front of the collar. Completing the Fitting Hold the front piece with one hand while tightening the back piece with the other. Make sure the sides of the collar overlap each other for proper side support. Make sure the collar fits closely against your neck. Keeping the Collar Clean Remove the first collar. Put on the second (back-up) collar; fit it securely. Clean the removable chin and other padding of the first collar with soap and water. Wipe the elastic shell of the collar with soap and water, and then an alcohol swab. Follow-Up Make a follow-up appointment as directed by our staff. Remember to keep appointments for physical therapy. When to Call Your Doctor Call your doctor right away if you have any of the following: Severe back or neck pain Bruising and swelling on the neck or back Weakness, tingling, or loss of feeling in the arms or legs Loss of bowel or bladder function Concern for extensive metastatic liver disease, possible primary neoplastic process involving sigmoid colon, metastatic lung disease, moderate perihepatic and perisplenic ascites -you went to IR and had fluid drained from your abdomen and this has been sent off to see if any cancer cells are in it. -You were also seen by GI and colorectal who wanted you to have a flex sigmoid today and you have refused this testing. This can be done outpatient as well. -Oncology and palliative care have also seen you this admission and you can follow up with them as well outpatient. Wound Care You suffered a laceration to your scalp. Arely were placed to close the laceration after the wound was washed out. Gently wash them with soap and water whenever you take a shower. Do not put your stitches or arely underwater, such as in a bath, pool, or pineda. Getting them too wet can slow down healing and raise your chance of getting an infection. After you wash your stitches or arely, pat them dry and put an antibiotic ointment on them and cover them with a bandage or gauze. Avoid activities or sports that could hurt the area of your stitches or arely for 1 to 2 weeks. If you hurt the same part of your body again, stitches can break, and the cut can open up again. You will need to r eturn to trauma clinic in one week for suture removal. Alternatively, you can see your primary careprovider to remove the sutures. Call your doctor if your stitches break or the wound opens, you develop a fever, the wound becomes red and swollen or with pus. It is normal to have clear yellow drainage. After your stitches or arely are out, you should protect the scar from the sun. Use sunscreenon the area or wear clothes or a hat that covers the scar. Pain medication -Tylenol 975 mg every 8 hours as needed When you get home, it is important to slowly increase your activity. Operations & Procedures: Paracentesis 12/15/24, scalp laceration repair Complications: none significant SIGNIFICANT RESULTS: Vital Signs (last recorded): Most Recent Systolic BP: 104 mmHg (12/16/24 1154) Most Recent Diastolic BP: 62 mmHg (12/16/24 1154) Pulse: 78 (12/16/24 1154) Resp: 18 (12/16/24 1154) Most Recent Temperature: 36.33 C (12/16/24 1154) Weight: 64.2 kg (141 lb 8.6 oz) (12/15/24 0632) SpO2: 100 % (12/16/24 1154) Labs: CARDIAC: Troponin T (see below for last three most recent values): No results found for: "TROPT" CHEMISTRY: BUN, Creatinine, GFR Estimated, Sodium, Potassium, Chloride, Carbon Dioxide, Glucose, Calcium (see below for most recent value): Lab Results Component Value Date/Time BUN 20 12/16/2024 04:26 AM CREAT 0.7 12/16/2024 04:26 AM NA 141 12/16/2024 04:26 AM POTASSIUM 3.9 12/16/2024 04:26 AM CL 105 12/16/2024 04:26 AM CO2 22 12/16/2024 04:26 AM CA 9.5 12/16/2024 04:26 AM CREATININE: Creatinine (see below for last three most recent values): Lab Results Component Value Date/Time CREAT 0.7 12/16/2024 04:26 AM CREAT 0.7 12/15/2024 05:55 AM CREAT 0.7 12/15/2024 03:21 AM COAGS: PT, INR (see below for three most recent values): Lab Results Component Value Date/Time INR 1.2 12/15/2024 03:22 AM INR 1.1 12/10/2024 11:58 AM INR 1.1 04/16/2024 11:38 AM BLOOD COUNT: WBC, Hgb, Platelets (see below for most recent value): Lab Results Component Value Date/Time WBC 12.26 (H) 12/16/2024 04:26 AM HGB 12.5 (L) 12/16/2024 04:26 AM PLT 411 (H) 12/16/2024 04:26 AM HEMOGLOBIN: Hgb (see below for last three most recent values): Lab Results Component Value Date/Time HGB 12.5 (L) 12/16/2024 04:26 AM HGB 11.6 (L) 12/15/2024 05:55 AM HGB 12.4 (L) 12/15/2024 03:21 AM HEMOGLOBIN A1C: (see below for most recent value): Lab Results Component Value Date/Time HGBA1C 5.0 12/10/2024 11:58 AM LIVER FUNCTION TEST: Albumin, AST, ASTCMC (resulted at [facility] lab), Alkaline Phosphatase, ALT, ALTCMC (resulted at [facility] lab), Bilirubin Total, TBilCMC (resulted at [facility] lab), Protein - (see below for most recent value of each component): Lab Results Component Value Date/Time AST 177 (H) 12/15/2024 03:21 AM ALKP 516 (H) 12/15/2024 03:21 AM ALT 56 (H) 12/15/2024 03:21 AM TBIL 2.1 (H) 12/15/2024 03:21 AM PROT 6.7 12/15/2024 03:21 AM Imaging (focused): MRI C SPINE W WO CONTRAST Final Result EXAM MRI C SPINE W WO CONTRAST-12/15/2024 9:34 pm HISTORY 79 y/o M, C1 fx COMPARISON Outside CT cervical spine 12/14/2024. TECHNIQUE Multiplanar, multisequence magnetic resonance images of the cervical spine were obtained before and after the administration of intravenous contrast. FINDINGS Acute nondisplaced fracture of the C1 right lateral mass, extending into the right aspect of the anterior arch. No discernible epidural hematoma. The major ligamentous structures appear intact. Major cervical arterial flow voids are maintained. Mild perivertebral soft tissue edema at the craniocervical junction, right greater than left. Cervical vertebral body height is maintained. Mild anterolisthesis of C7 on T1. Degenerative intervertebral disc height loss most evident at C6-C7, and of a lesser degree at C5-C6. Other multilevel degenerative changes including small endplate osteophytes, disc bulges, ligamentum flavum thickening, and uncovertebral and facet arthropathy. Degenerative changes contribute to not more than mild spinal canal narrowing. Varying degrees of bilateral neuroforaminal narrowing including moderate to severe right neuroforaminal narrowing at C5-C6 and C6-C7, and other narrowing of mild and moderate degree. The cervicomedullary junction is in a normal position. The cervical spinal cord is normal in course, caliber, and signal. No abnormal contrast enhancement in the visualized cord. IMPRESSION IMPRESSION Acute nondisplaced fracture of the C1 right lateral mass with extension to the anterior arch. No discernible epidural hematoma or evidence of ligamentous tear. No spinal cord signal abnormality. Multilevel degenerative changes, as discussed. IR PARACENTESIS Preliminary Result PROCEDURE: Ultrasound-guided paracentesis. INDICATION: Ascites, diagnostic paracentesis. OPERATING PROVIDER: SANJAY Martinez SUPERVISING PHYSICIAN: Dr. Keanu Ingram SCRUBBED RESIDENT (OPERATING PHYSICIAN): N/A SUPPORTING PROVIDER (AUTOMATIC GLOVE TURNER AND FORMER): RT Daphne CONSENT: After a detailed discussion of the procedure, risks, benefits and alternative treatment options, informed consent was obtained. TIME OUT: A time out procedure was performed. The patient's identification was verified. Informed consent with agreement of procedure, site and position was obtained. All necessary equipment was available prior to procedure. CONTRAST: No contrast was administered. COMPLICATIONS: None. ANESTHESIA: Local. SEDATION TIME: N/A MEDICATIONS: 1% buffered lidocaine. PROCEDURE DESCRIPTION: The right lower quadrant of the abdomen was prepped and draped in the usual sterile fashion. Using ultrasound guidance, the peritoneal cavity was punctured and a catheter was placed. Ultrasound images demonstrated catheter tip in the ascitic fluid. Ultrasound images were acquired and digitally archived. A total of 850 milliliters of clear, tess fluid was collected in empty bottles and sent to the lab for analysis. The catheter was then removed, hemostasis was achieved and the site was dressed with an occlusive dressing. The procedure was performed under the direct supervision of Dr. Ingram who was immediately available for the entire procedure. FINDINGS: Small ascites was noted on ultrasound. Post paracentesis there is minimal residual fluid. IMPRESSION IMPRESSION: Successful ultrasound-guided paracentesis. Plan: Follow-up as needed for repeat paracentesis for symptom management. CT CHEST/ABDOMEN/PELVIS WITH IV CONTRAST WITHOUT ORAL CONTRAST Final Result EXAM CT CHEST/ABDOMEN/PELVIS WITH IV CONTRAST WITHOUT ORAL CONTRAST12/15/2024 4:36 am HISTORY trauma TECHNIQUE Oral contrast not administered. Chest: With intravenous contrast Abdomen::With intravenous contrast Pelvis: With intravenous contrast COMPARISON No Comparison. FINDINGS CHEST LUNG AND LARGE AIRWAYS: Innumerable pulmonary nodules bilaterally indicative of metastatic disease. PLEURA: Unremarkable. VESSELS: Unremarkable. HEART: Normal size. No pericardial effusion. MEDIASTINUM AND ADEN: Unremarkable. CHEST WALL AND LOWER NECK: Unremarkable. ABDOMEN/PELVIS LIVER: Extensive metastatic liver disease, progress since previous CT examination. GALLBLADDER: Unremarkable. BILE DUCTS: Unremarkable. PANCREAS: Unremarkable. SPLEEN: Unremarkable. ADRENALS: Unremarkable. KIDNEYS/URETERS: Nonobstructive LEFT nephrolithiasis obscured by excreted contrast. Small renal cysts bilaterally. BLADDER: Unremarkable. REPRODUCTIVE ORGANS: Unremarkable. STOMACH/DUODENUM: Unremarkable. BOWEL: Circumferential thickening of the sigmoid colon therefore indicative of underlying neoplastic process. Moderate stool burden in the colon including rectosigmoid. VESSELS: Unremarkable. LYMPH NODES: Unremarkable. PERITONEUM/RETROPERITONEUM: Moderate perihepatic, perisplenic ascites. Mild inguinal canals ascites bilaterally. ABDOMINAL WALL/SOFT TISSUES: Unremarkable. BONES/SPINE: Grade 1 anterolisthesis L5 on S1 secondary to facet arthritis. Calcified excluded disc posterior L1 stable. No suspicious osseous lesions. LINES AND DEVICES: None. IMPRESSION IMPRESSION 1. No acute traumatic findings. 2. Metastatic lung disease. 3. Metastatic liver disease, progressed since previous CT. Moderate perihepatic and perisplenic ascites. 4. Primary neoplastic process involving sigmoid colon. CTA HEAD/CTA NECK Final Result EXAM: CTA HEAD/CTA NECK 12/15/2024 4:35 am HISTORY: c1 fx COMPARISON: No Comparison. TECHNIQUE: CT of the head without intravenous contrast helical acquisition. Sagittal and coronal MPR. CTA of the head without and with intravenous contrast helical acquisition. Sagittal and coronal MPR, CPR, MIP and 3D images. CTA of the neck with intravenous contrast helical acquisition. Sagittal and coronal MPR, CPR, MIP and 3D images. FINDINGS: CT BRAIN: PARENCHYMA: No acute parenchymal hemorrhage. Arciniega-white matter differentiation maintained, no evidence of acute territorial infarction. Normal white matter density. No intra-axial mass or mass effect. EXTRA-AXIAL: No acute extraaxial hemorrhage or mass. VENTRICLES: Normal size and configuration for age. MIDLINE STRUCTURES: No shift or herniation. PARANASAL SINUSES/MASTOID AIR CELLS: Unremarkable. CALVARIUM/SOFT TISSUES: LEFT posterior frontal scalp hematoma. LEFT parietal scalp laceration. No calvarial fracture. ORBITS: Unremarkable. OTHER: None. CTA BRAIN: INTERNAL CAROTID ARTERIES: Unremarkable. ANTERIOR CIRCULATION ANTERIOR CEREBRAL ARTERIES: Unremarkable. ANTERIOR COMMUNICATING ARTERY: Unremarkable. MIDDLE CEREBRAL ARTERIES: Unremarkable. POSTERIOR CIRCULATION VERTEBRAL ARTERIES: Unremarkable. BASILAR ARTERY: Unremarkable. POSTERIOR CEREBRAL ARTERIES: Unremarkable. POSTERIOR COMMUNICATING ARTERIES: Unremarkable. CTA NECK: AORTIC ARCH: Normal. SUBCLAVIAN ARTERIES: No significant stenosis. COMMON CAROTID ARTERIES: Unremarkable without stenosis or dissection. RIGHT CAROTID BIFURCATION/ICA: No hemodynamically significant stenosis. LEFT CAROTID BIFURCATION/ICA: No hemodynamically significant stenosis. VERTEBRAL ARTERIES: Symmetric without stenosis or dissection. MISCELLANEOUS: Minimally displaced fracture of the RIGHT anterior arch of C1. IMPRESSION: CT BRAIN: No acute findings. CTA BRAIN: No acute vascular findings. CTA NECK: No acute vascular findings. RIGHT anterior arch of C1 fracture. IOF CT C SPINE WO CONTRAST (Results Pending) XR C SPINE FLEXION AND EXTENSION VIEWS ONLY (Results Pending) CONSULTS ORDERED: TRAUMA / EMERGENCY SURGERY CONSULT IP NEUROSURGERY CONSULT IP ADULT PHYSICAL THERAPY CONSULT IP ADULT OCCUPATIONAL THERAPY CONSULT IP ADULT SPEECH THERAPY CONSULT IP (ACUTE CARE REHAB) PALLIATIVE MEDICINE CONSULT IP ONCOLOGY CONSULT IP GASTROENTEROLOGY CONSULT IP REFERRING PHYSICIAN: REF: JENIFFER RHODES [address] [facility] [place] [address] (office) [phone] (fax) PRIMARY CARE PROVIDER: PCP: MD Ricardo Wesley / [place] [address] (office) [phone] (fax) Note: To contact a physician responsible for this patient’s hospital care, please call [facility] [phone]. documented in this encounter Discharge Instructions * Discharge Instr - AVS* Sridevi Parham CRNP - 12/16/2024 10:40 AM EDT Discharge Date: 12/16/24 You may call the department of Trauma Surgery at [phone] during business hours for any questions or test results. For after-hours emergencies call [phone] and have your doctor paged. For questions regarding your spine injury please call the neurosurgery clinic at [phone]. The information below provides you with the instructions and the list of medications you need to betaking following discharge from the hospital. If you have any questions, please ask before leaving.Please carry this letter with you when you see your doctor in the clinic. If you have questions, you can reach us at the numbers above. Your doctors during this hospitalization included: Trauma - Dr. Ortiz Neurosurgery - Dr. Anna Colorectal - Dr. Arjun CHURCH - Dr. Wagner Oncology - Dr. Chinchilla Palliative - Dr. Mcdermott Your primary diagnosis at discharge was listed above Inpatient test results pending: None Operations & Procedures: paracentesis 12/15/24. Scalp laceration repair Complications: none significant Advance Directive Documented: Advance Directive Does the Patient have an Advance Directive? No Diet: Normal diet Activity: wear cervical collar at all times Driving: Do not drive. Date you may return to work or school: N/A See your primary care physician (David Bustamante MD) in 1 week(s). Special Instructions: - Call your primary care physician or seek medical attention if symptoms worsen, condition deteriorates. - Do not use alcohol products in anyway! - Use caution when standing or walking since you are at an increased risk for falls documented in this encounter Progress Notes * Katya Contreras MD - 12/16/2024 11:23 AM EDT Progress Note - Gastroenterology [facility]-[address] [address] Name: Blake Arreaga Location: [facility] B642/B Date: 12/16/2024 Time: 11:23 AM SUBJECTIVE: Patient was seen and examined at the bedside. Patient overall feels better, no acute complaints.Does not want to proceed with flexible sigmoidoscopy after further discussion with family. He declines the procedure as recommended at this time. Denies abdominal pain. HISTORY: Past Medical History: Past Medical History: Diagnosis Date A-fib (HCC) 3 episodes in 11 years Hyperlipidemia Hx of hyperlipidemia Hypertension Mixed hyperlipidemia 06/26/2023 Past Surgical History: Past Surgical History: Procedure Laterality Date CARDIOVERSION,ELECTIVE INTERNA HC MEDTRON[employer] CORONARY OSTIAL Medtronic loop recorder implanted Social History: Social History Tobacco Use Smoking status: Never Passive exposure: Past Smokeless tobacco: Never Vaping Use Vaping status: Never Used Substance Use Topics Alcohol use: Not Currently Drug use: Not Currently Family History: Family History Problem Relation Name Age of Onset Ovarian cancer Mother Hyperlipidemia Mother Hypertension Father Hypertension Brother Cancer Brother oral cancer Hyperlipidemia Brother Allergies: Peanut-containing drug products, Shellfish-derived products, Soy allergy (obsolete), Tomato, and Soja chance oil [soybean oil] ROS: Reviewed, negative except as above. PHYSICAL EXAMINATION: Most Recent Vital Signs: BP: 125 mmHg/77 mmHg (12/16/24844) Pulse: 101 (12/16/24844) Resp: 16 (12/16/24713) Temp: 36.33 C (12/16/24713) Temp Summary: Temp Min: 35.8 °C (96.4 °F) Max: 36.7 °C (98.1 °F) SpO2: 98 % (12/16/24713) O2 flow rate: Supplemental O2 Delivery: Room Air, None (12/16/24713) Vital Signs Last 24 Hours: Systolic BP: Most Recent Systolic BP Av.6 mmHg Min: 115 mmHg Max: 128 mmHg Temperature: Most Recent Temperature Av.4 C Min: 35.78 C Max: 36.72 C Pulse: Pulse Av.9 Min: 76 Max: 109 Respirations: Resp Av.4 Min: 16 Max: 18 SpO2: SpO2 Av % Min: 97 % Max: 99 % General: Patient is awake, alert, oriented x 3, and in no acute distress, cachectic Head and face: normocephalic and atraumatic Eyes: No scleral icterus; normal lids Neck: Supple. Good ROM Heart: Not tachycardic Respiratory: not in respiratory distress. Abdomen: Soft, non-tender, Non-distended. Extremities: No cyanosis, or clubbing. No edema Skin: Warm, dry, intact. Neuro: Alert and oriented x 3. Speech appropriate, moves all extremities. LABS: Reviewed in [facility] IMAGING: CT CAP: IMPRESSION 1. No acute traumatic findings. 2. Metastatic lung disease. 3. Metastatic liver disease, progressed since previous CT. Moderate perihepatic and perisplenic ascites. 4. Primary neoplastic process involving sigmoid colon. ASSESSMENT: Blake Arreaga is a 79 year old male with a PMH of a-fib who waws admitted after a fall sustaining a C1 fracture requiring C collar placement. GI consulted for flex sig for evaluation ofknown sigmoid mass. He has significant weight loss since 2019, overall appears malnourished. This mass was seen on CT previously 1 year ago with metastatic disease and a large liver mass concerning for metastatic colon cancer. Initially after these imaging findings were found, the family did not want a liver biopsy and further work-up so this has continued to progress. No prior colonoscopy. This admission patient was seen by surgical team who re-engaged with patient and family and recommended biopsy of sigmoid mass and discussion at tumor board for further treatment prospects. Family and patient initially willing to proceed with biopsy; however, upon further contemplation they wish to deferand decline the procedure as was verbalized by patient at bedside this morning as per his goals of care. RECOMMENDATIONS: - patient verbalized that he does not wish to proceed with endoscopic intervention/biopsy at this time - GI to remain available, should patient and family wish to proceed with intervention, can notify our team - we will sign off at this time, TT with any questions/clinical changes I have discussed the case with my attending, Dr. Wagner. Katya Contreras MD Gastroenterology, PGY-4 Cosigned by Sari Wagner MD at 12/16/2024 12:36 PM EDT Associated attestation - Sari Wagner MD - 12/16/2024 12:36 PM EDT I did not see the patient, but I have reviewed the resident/fellow physician documentation and was readily available on date of service. * Estela Escamilla CFO - 12/16/2024 11:04 AM EDT Patient with orthotic order for a second cervical collar. The patient was given a second collar yesterday. CFO Silvana 12/16/2024 11:05 AM * Blake Rose MD - 12/16/2024 10:06 AM EDT NEUROLOGICAL SURGERY PROGRESS NOTE [address] [address] Name: Blake Arreaga Location: [facility] B642/B Date: 12/16/2024 Time: 10:07 AM SUBJECTIVE: No acute events. MRI with no ligamentous injury. Planning for colonoscopy for suspected diffusely metastatic colon cancer. OBJECTIVE: Most recent vital signs: BP: 125 mmHg/77 mmHg (12/16/24844) Pulse: 101 (12/16/24844) Resp: 16 (12/16/24713) Temp: 36.33 C (12/16/24713) Temp Summary: Temp Min: 35.8 °C (96.4 °F) Max: 36.7 °C (98.1 °F) SpO2: 98 % (12/16/24713) O2 flow rate: Supplemental O2 Delivery: Room Air, None (12/16/24713) Vital signs over last 24 hours: Systolic BP: Most Recent Systolic BP Av.6 mmHg Min: 115 mmHg Max: 128 mmHg Temperature: Most Recent Temperature Av.4 C Min: 35.78 C Max: 36.72 C Pulse: Pulse Avg: Pulse Av.9 Min: 76 Max: 109 Respirations: Resp Av.4 Min: 16 Max: 18 SpO2: SpO2 Av % Min: 97 % Max: 99 % SpO2: SpO2 Av % Min: 97 % Max: 99 % FiO2%: No data recorded ICP: No data found.CPP (adult): No data found.Intake Input/Output: (last 24 hours) Intake/Output Summary (Last 24 hours) at 12/16/2024 1007 Last data filed at 12/16/2024 0534 Gross per 24 hour Intake 1330.27 ml Output 325 ml Net 1005.27 ml Neurologic Examination Jeffery Coma Scale (GCS): Eyes Open: 4 = spontaneous Best Verbal Response: 5 = verbally appropriate for age Best Motor Response: 6 = obeys commands appropriate for age SIMS to command RUE 5/5 LUE 5/5 RLE 5/5 LLE 5/5 Sensation grossly intact LABS: Blood count: Lab Results Component Value Date/Time WBC 12.26 (H) 12/16/2024 04:26 AM HGB 12.5 (L) 12/16/2024 04:26 AM HCT 40.0 12/16/2024 04:26 AM PLT 411 (H) 12/16/2024 04:26 AM Coagulation studies: Lab Results Component Value Date/Time INR 1.2 12/15/2024 03:22 AM Chemistry: Lab Results Component Value Date/Time BUN 20 12/16/2024 04:26 AM CREAT 0.7 12/16/2024 04:26 AM NA 141 12/16/2024 04:26 AM POTASSIUM 3.9 12/16/2024 04:26 AM CO2 22 12/16/2024 04:26 AM Imaging studies: MRI with no ligamentous injury Problem list: Active Problems: Scalp laceration, initial encounter Closed nondisplaced fracture of first cervical vertebra (HCC) Palliative care encounter Goals of care, counseling/discussion Loss of weight Decreased appetite Fall Malignant neoplasm of sigmoid colon (HCC) Resolved Problems: * No resolved hospital problems. * CLINICAL HISTORY AND PLAN: Blake Arreaga 79 year old male [id number] w/ PMH significant for HLD, HTN, a-fib (not on a/c), suspected colon cancer diffusely metastatic to liver and lung, who presents to then neurosurgery service for C1 R lateral mass fx extending to C1/2 facet and into occipital condyle on CT C s/p mechanical FFS. No acute neurosurgical intervention MRI C W/WO with no ligamentous injury Collar No HOB restriction, no log roll precautions, no spinal precautions Ok for diet from nsgy perspective Ok for SQH from nsgy perspective Planning for colonoscopy for suspected diffusely metastatic colon cancer Will follow up outpatient in 6 weeks with UXR Thank you for the opportunity to provide care for this patient. Please reach out to the neurosurgery service for any additional questions. The author of this note may not be vice president of operations at this time. Please check the phonebook for the neurosurgery first call for any additional questions. Patient was discussed with attending physician Cosigned by Nader Anna III, MD at 12/16/2024 11:02 AM EDT Associated attestation - Nader Anna III, MD - 12/16/2024 11:02 AM EDT I saw and evaluated the patient today. I have reviewed the resident/fellow physician note and agree. * Katie Antoine CRNP - 12/16/2024 9:01 AM EDT PROGRESS NOTE - Palliative Medicine [facility] [address] Name: Blake Arreaga Location: [facility] B642/B Date: 12/16/2024 Time: 9:01 AM SUBJECTIVE: Patient seen and chart reviewed. Family present: no Patient evaluated at bedside. Patient is s/p paracentesis yesterday. Tolerated well and denies any abdominal pain, nausea, vomiting, pain. Patient has no complaints or concerns. will be into visit this afternoon. Awaiting cytology from paracentesis to determine further plan of care as well as needed for flex sigmoidoscopy. OBJECTIVE: Most Recent Vital Signs: BP: 125 mmHg/77 mmHg (12/16/24844) Pulse: 101 (12/16/24844) Resp: 16 (12/16/24713) Temp: 36.33 C (12/16/24713) Temp Summary: Temp Min: 35.8 °C (96.4 °F) Max: 36.7 °C (98.1 °F) SpO2: 98 % (12/16/24713) O2 flow rate: Supplemental O2 Delivery: Room Air, None (12/16/24713) Vital Signs Last 24 Hours: Systolic BP: Most Recent Systolic BP Av.6 mmHg Min: 115 mmHg Max: 128 mmHg Temperature: Most Recent Temperature Av.4 C Min: 35.78 C Max: 36.72 C Pulse: Pulse Av.9 Min: 76 Max: 109 Respirations: Resp Av.4 Min: 16 Max: 18 SpO2: SpO2 Av % Min: 97 % Max: 99 % Constitutional: no acute distress, (+) chronically ill, (+) cachectic, gaunt HENT: normocephalic, significant bitemporal wasting Eyes: anicteric Chest: normal respiratory effort Abdominal: Distended but nontender, soft Extremities: no edema Musculoskeletal: diffuse loss of muscle mass Skin: warm, dry, intact, to exposed areas of skin with repair laceration to occiput Neuro: alert, oriented to person, place, and time Psych: normal mood and affect LABS REVIEWED: yes reviewed Component Latest Ref Rng 12/16/2024 WBC 4.00 - 10.80 K/uL 12.26 (H) RBC 4.50 - 5.25 M/uL 4.61 HGB 14.0 - 16.8 g/dL 12.5 (L) HCT 40.0 - 48.4 % 40.0 MCV 82.0 - 99.5 fL 86.8 MCH 27.0 - 34.0 pg 27.1 MCHC 32.0 - 36.0 g/dL 31.3 RDW 11.5 - 15.5 % 17.6 PLT 140 - 400 K/uL 411 (H) MPV 6.6 - 11.1 fL 10.4 nRBCs <=0 /100 WBCs 0 BUN 6 - 20 mg/dL 20 CREATININE 0.6 - 1.2 mg/dL 0.7 EGFR >=60 mL/min >90 SODIUM 135 - 146 mmol/L 141 POTASSIUM 3.5 - 5.1 mmol/L 3.9 CHLORIDE 98 - 107 mmol/L 105 CO2 22 - 32 mmol/L 22 ANION GAP 7 - 15 mmol/L 14 GLUCOSE 70 - 120 mg/dL 55 (L) CALCIUM 8.4 - 10.2 mg/dL 9.5 Magnesium 1.5 - 2.6 mg/dL 2.3 Phosphorus 2.5 - 4.8 mg/dL 3.8 Legend: (H) High (L) Low IMAGING REVIEWED: yes MRI c spine 12/15/2024 FINDINGS Acute nondisplaced fracture of the C1 right lateral mass, extending into the right aspect of the anterior arch. No discernible epidural hematoma. The major ligamentous structures appear intact. Majorcervical arterial flow voids are maintained. Mild perivertebral soft tissue edema at the craniocervical junction, right greater than left. Cervical vertebral body height is maintained. Mild anterolisthesis of C7 on T1. Degenerative intervertebral disc height loss most evident at C6-C7, and of a lesser degree at C5-C6. Other multilevel degenerative changes including small endplate osteophytes, disc bulges, ligamentum flavum thickening,and uncovertebral and facet arthropathy. Degenerative changes contribute to not more than mild spinal canal narrowing. Varying degrees of bilateral neuroforaminal narrowing including moderate to severe right neuroforaminal narrowing at C5-C6 and C6-C7, and other narrowing of mild and moderate degree. The cervicomedullary junction is in a normal position. The cervical spinal cord is normal in course, caliber, and signal. No abnormal contrast enhancement in the visualized cord. IMPRESSION IMPRESSION Acute nondisplaced fracture of the C1 right lateral mass with extension to the anterior arch. No discernible epidural hematoma or evidence of ligamentous tear. No spinal cord signal abnormality. Multilevel degenerative changes, as discussed. ASSESSMENT/PLAN: Blake Arreaga is a/an 79 year old male referred for consultation to Palliative Medicine with the primary diagnosis of: fall with C1 fracture and left occipital scalp laceration with concern for metastatic colon cancer. Secondary Diagnoses are afib, HTN, HLD Palliative Care Encounter Patient transferred to [facility] s/p fall with C1 fracture though additionally with history concerning for presumed metastatic colon cancer in setting of large circumferential sigmoid mass with large calcified liver metastasis and innumerable nodules seen in the lungs. Patient has not yet had formal diagnosis/biopsy and currently not receiving any disease directed therapy at this time. Initial workup was done through [facility] with discussion surrounding diagnostic testing including liquid biopsy. Patient was seen by Oncology on 12/15 for consultation with documentation surrounding need for pathology/cytology prior to offering treatment. Patient is s/p paracentesis on 12/15 with 850 mL removed. Per Oncology, pending results of paracentesis, if nondiagnostic recommend to proceed with flex sigmoidoscopy for pathology and may additionally need liquid biopsythough this would need to be obtained outpatient. Per documentation patient and spouse would like to defer flex sigmoidoscopy for now (12/16). Patient at this time prefers to hold off on initiation of medication for management of appetite/weight loss until he has more time to think and speak with his . This is reasonable and can be initiated in the outpatient setting if patient agreeable. Patient otherwise relatively asymptomatic currently awaiting results of diagnostic workup. Palliative Medicine will sign off at this time and follow in the outpatient setting for continued palliative support and symptom management though as patient lives in [place] would recommend tofollow with Palliative Medicine at [facility]. I have placed return appointment request. Goals of Care Met with patient and family at bedside on 12/15. Patient currently undergoing further diagnostic workup in the setting of likely metastatic colon cancer to determine plan of care/options for treatment moving forward. Palliative Medicine will continue to follow to offer emotional support and aid ongoing goals of care discussions in the inpatient as well as outpatient setting pending results of diagnostic testing. Decreased appetite / Anorexia / unintentional weight loss Protein calorie malnutrition / Cachexia / hypoalbuminemia Discussed with patient consideration of starting very low-dose olanzapine 2.5 mg HS (he wants to hold off on this and speak with his 1st. Will not start unless patient gives the okay) Recommend small frequent meals with protein rich diet with consideration of protein supplement suchas boost/ensure drinks, though patient does have multiple food based allergies. 06/26/2023 04/10/2024 08/06/2024 12/15/2024 Weight Weight 149 lb 144 lb 6.4 oz 136 lb 141 lb 8.6 oz Latest Reference Range & Units 04/16/24 11:38 08/06/24 14:50 12/10/24 11:58 12/15/24 03:21 Albumin 3.8 - 5.0 g/dL 3.5 (L) 3.3 (L) 2.8 (L) 2.8 (L) AST 10 - 50 U/L 184 (H) 137 (H) 178 (H) 177 (H) ALT 10 - 50 U/L 79 (H) 41 50 56 (H) Alkaline Phosphatase 35 - 130 U/L 432 (H) 382 (H) 508 (H) 516 (H) ALKALINE PHOSPHATASE 35 - 144 U/L 428 (H) Bone Isoenzymes 28 - 66 % 19 (L) ALKALINE PHOSPHATASE ISOENZYMES Rpt ! Bilirubin, Total <=1.2 mg/dL 0.9 1.1 2.6 (H) 2.1 (H) Bilirubin, Direct 0.0 - 0.3 mg/dL 0.4 (H) 1.6 (H) GGTP <=60 U/L 481 (H) (L): Data is abnormally low (H): Data is abnormally high !: Data is abnormal Rpt: View report in Results Review for more information Fall with C1 fracture No active pain Continue acetaminophen 975 mg q8h ATC Currently prescribed oxycodone 2.5 or 5 mg prn moderate/severe pain but has not required SIGNOFF IMPRESSION AND RECOMMENDATIONS: Specialty Impression C1 fracture s/p fall Left occipital laceration Presumed metastatic colon cancer with metastasis to liver Cachexia with severe protein calorie malnutrition, hypoalbuminemia and unintentional weight loss Recommended medication(s) at discharge Management as per primary team. Reasonable to continue acetaminophen around the clock and would be reasonable to discharge with low-dose p.r.n. oxycodone or morphine for management of moderate to severe breakthrough pain with further management as per outpatient palliative medicine team Recommended discharge testing (lab, imaging, etc.) As per primary team Other recommended care at discharge None, as per primary team Follow-up in Specialty Clinic To follow-up with Palliative Medicine team at [facility], return appointment request has been placed We will sign off at this time. Please call with any questions or should the patient's clinical course change. The home sales consultant has placed the following orders for their recommendations: Recommended Follow-up Thank you for allowing us to participate in the ongoing care of this patient. Please don't hesitate to call or page with any additional concerns. Cosigned by Rossana Mcdermott MD at 12/16/2024 2:24 PM EDT * Uche Ortiz MD - 12/16/2024 6:24 AM EDT PROGRESS NOTE - Trauma Surgery [address] [id number] Name: Blake Arreaga Location: [facility] B642/B Date: 12/16/2024 Time: 6:24 AM HOSPITAL DAY#: 1 ADMISSION DATE: 12/15/2024 OPERATIONS / PROCEDURES: None this admission HPI: Blake is an 79 yo male with PMH of atrial fibrillation, HTN, HLD who presents to [facility] ED as a transfer from [facility] after he sustained a fall down 4-5 steps around 8pm yesterday and was found to have a C1 fracture. Patient reports that he was going up the stairs and lost his balance falling backwards down 4-5 stairs. He has been having weakness in his LLE and that may have caused the fall. Neg LOC. + head strike on metal shelf. He didn't get up after the fall. His called 911. He was taken to [facility] where he was found to have a C1 fracture. Patient refused any further imaging at OSH due to concerns of using contrast. He doesn't have any pain at this time. He denies FONTENOT, LH, dizziness, SOB, CP, abdominal pain, N/V, numbness, tingling. Per patient's , they try to follow a vegetarian diet and monitor ingredients of food they eat. She reports Blake has lost ~70 lbs since 2019 and believes he is not eating enough anymore. Denies tobacco, alcohol, or drug use. After discussion with the patient, he wishes to be a full code. INTERIM HISTORY (LAST 24 HOURS): This morning the tap water enemas were d/c as patient and his stated that they were deferring the flex sig today. At this moment patient states he has no pain and is okay with his decision to not get the procedure done. A discussion was had with the patient that he did not have to wait for his IR ascitic cytology results in patient. He was agreeable to this plan. Last Charted BM: Last Bowel Movement: 12/16/24 Stool Description: Small, Loose PHYSICAL EXAMINATION: Most Recent Vital Signs: BP: 128 mmHg/71 mmHg (12/16/24 0300) Pulse: 99 (12/16/24 0300) Resp: 16 (12/16/24 0300) Temp: 36.22 C (12/16/24299) Temp Summary: Temp Min: 35.8 °C (96.4 °F) Max: 36.7 °C (98.1 °F) SpO2: 99 % (12/16/24299) O2 flow rate: Supplemental O2 Delivery: Room Air, None (12/16/24299) SpO2: 99 % (12/16/24299) Vital Signs Last 24 Hours: Systolic BP: Most Recent Systolic BP Av.4 mmHg Min: 115 mmHg Max: 128 mmHg Temperature: Most Recent Temperature Av.3 C Min: 35.78 C Max: 36.72 C Pulse: Pulse Av.4 Min: 76 Max: 112 Respirations: Resp Av.4 Min: 16 Max: 18 SpO2: SpO2 Av.7 % Min: 96 % Max: 99 % Intake/Output Summary (Last 24 hours) at 12/16/2024 0624 Last data filed at 12/16/2024 0534 Gross per 24 hour Intake 1337.89 ml Output 325 ml Net 1012.89 ml PHYSICAL: Head: 4 cm linear laceration over left occipital scalp, left eyebrow abrasion Eyes: extraocular muscles intact Neck: Brace in place. Respiratory: no labored breathing Cardiovascular: regular rate and rhythm Abdomen: soft, non-tender, non-distended Musculoskeletal: no palpable long bone deformities, motor / sensation grossly intact Skin: grossly intact, 4cm linear laceration over L occipital scalp repaired with 5 arely, skin tear of left hand, skin tear of right elbow, BLE pitting edema Neurologic: alert and oriented x3, GCS 15 ACTIVITY LEVEL: as tolerated ALLERGIES Peanut-containing drug products, Shellfish-derived products, Soy allergy (obsolete), Tomato, and Soja chance oil [soybean oil] LABORATORIES Labs reviewed as indicated below: CBC Lab results within last 7 days (see chart for full results) Units 12/16/24 0426 12/15/24 0555 12/15/24 0321 12/10/24 1158 WBC K/uL 12.26* 14.11* 13.99* 12.36* HGB g/dL 12.5* 11.6* 12.4* 12.9* HCT % 40.0 35.8* 38.1* 40.7 PLT K/uL 411* 403* 430* 494* BMP Lab results within last 7 days (see chart for full results) Units 12/16/24 0426 12/15/24 0555 12/15/24 0321 12/10/24 1158 BUN mg/dL 20 22* 23* 18 CREATININE mg/dL 0.7 0.7 0.7 0.8 EGFR mL/min >90 >90 >90 >90 SODIUM mmol/L 141 137 139 141 POTASSIUM mmol/L 3.9 4.2 4.2 4.6 CHLORIDE mmol/L 105 102 103 103 CO2 mmol/L 22 21* 22 27 GLUCOSE mg/dL 55* 82 87 74 CALCIUM mg/dL 9.5 9.4 10.0 10.2 Magnesium mg/dL 2.3 2.0 2.1 2.2 RADIOGRAPHIC STUDIES IR PARACENTESIS Result Date: 12/15/2024 IMPRESSION: Successful ultrasound-guided paracentesis. Plan: Follow-up as needed for repeat paracentesis for symptom management. CT CHEST/ABDOMEN/PELVIS WITH IV CONTRAST WITHOUT ORAL CONTRAST Result Date: 12/15/2024 IMPRESSION 1. No acute traumatic findings. 2. Metastatic lung disease. 3. Metastatic liver disease,progressed since previous CT. Moderate perihepatic and perisplenic ascites. 4. Primary neoplastic process involving sigmoid colon. ASSESSMENT/PLAN I have examined the patient and consistent with the dietitian's findings found malnutrition presentof Severe (12/15/24 1400) degree. This is consistent with such due to Fat loss;Muscle loss;Inadequate energy intake (12/15/24 1400). I have also reviewed and agree with the dietitian's plan of care which include . Active Problems: Scalp laceration, initial encounter (POA: Unknown) Closed nondisplaced fracture of first cervical vertebra (HCC) (POA: Unknown) Palliative care encounter (POA: Unknown) Goals of care, counseling/discussion (POA: Unknown) Loss of weight (POA: Unknown) Decreased appetite (POA: Unknown) Fall (POA: Unknown) Malignant neoplasm of sigmoid colon (HCC) (POA: Unknown) POA = Present On Admission Trauma Injuries: C1 L ache fracture Neurosurgery consulted No acute neurosurgical intervention MRI C W/WO MRI C W/WO with no ligamentous injury Collar No HOB restriction, no log roll precautions, no spinal precautions Okay for SQH Will follow up outpatient in 6 weeks with UXR Speech language pathology eval : cleared Orthotics consulted for fitting of collar Left occipital laceration - repaired in trauma bay Extensive metastatic liver disease, possible primary neoplastic process involving sigmoid colon, metastatic lung disease, moderate perihepatic and perisplenic ascites IR consulted for aspiration of ascites with cytology CEA: 12,062 FU cytology results from ascites Palliative medicine consulted for GOC discussion regarding poor prognosis Recc f/u with Palliative Medicine at [facility] - have placed appointment request Goals of care discussion in the outpatient versus inpatient setting pending biopsy and Oncology evaluation with focused on symptom management at this time. [x]Oncology consulted for recommendations regarding possible palliative chemotherapy Colorectal Consulted 12/15 Plan for flexible sigmoidoscopy and biopsy of the rectosigmoid mass. 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 Rosario Ordoñez MD; PGY-1 [facility] 12/16/2024 I saw and evaluated the patient today. I have reviewed the resident/fellow physician note and agree. Patient doesn't want flex sig, procedure cancelled, C collar Discharge home * Belle Lea MD - 12/15/2024 3:34 PM EDT It is okay for patient to be rolled on his side to have a flex sig. Cervical spine precautions should be maintained (cervical collar in place and head to be maintained in neutral position). Belle Lea MD, FACS Trauma, Emergency General Surgery, and Critical Care * Estela Escamilla CFO - 12/15/2024 10:29 AM EDT Patient unavailable x2 when orthotics attempted to see the patient for a cervical collar. Will try again later this afternoon. CFO Silvana 12/15/2024 10:30 AM documented in this encounter H&P Notes * Marni Brandon PA-C - 12/15/2024 3:01 AM EDT HISTORY AND PHYSICAL EXAMINATION - Trauma Surgery [address] [address] Name: Blake Arreaga Location: Date: 12/15/2024 Time: 3:02 AM Date and Time Patient was Seen: 12/15/2024 at 3:02 AM FINAL ADMISSION STATUS: Trauma Consult, time - 02:35 (Delay in patient evaluation due to multiple other consults and Level 1 trauma alert at the same time) Dr. Cobos led the Trauma Team in the care of this patient. The following represents documentation of the resuscitation performed by the entire trauma team under the leadership of the physician. There was pre-hospital notification of the case and patient condition. Chief Complaint: Fall down 4-5 steps History of Present Illness: Blake is an 79 yo male with PMH of atrial fibrillation, HTN, HLD who presents to [facility] ED as a transfer from [facility] after he sustained a fall down 4-5 steps around 8pm yesterday and was found to have a C1 fracture. Patient reports that he was going up the stairs and lost his balance falling backwards down 4-5 stairs. He has been having weakness in his LLE and that may have caused the fall. Neg LOC. + head strike on metal shelf. He didn't get up after the fall. His called 911. He was taken to [facility] where he was found to have a C1 fracture. Patient refused any further imaging at OSH due to concerns of using contrast. He doesn't have any pain at this time. He denies FONTENOT, LH, dizziness, SOB, CP, abdominal pain, N/V, numbness, tingling. Per patient's , they try to follow a vegetarian diet and monitor ingredients of food they eat. She reports Blake has lost ~70 lbs since 2019 and believes he is not eating enough anymore. Denies tobacco, alcohol, or drug use. After discussion with the patient, he wishes to be a full code. MECHANISM OF INJURY: Fall down 4-5 steps MODE OF TRANSPORTATION: ambulance LOSS OF CONSCIOUSNESS: no TETANUS VACCINE: There are no preventive care reminders to display for this patient. Administered in Trauma [place]: Administed at OSH ([facility]) PAST MEDICAL HISTORY: Past Medical History: Diagnosis Date A-fib (HCC) 3 episodes in 11 years Hyperlipidemia Hx of hyperlipidemia Hypertension Mixed hyperlipidemia 06/26/2023 PAST SURGICAL HISTORY: Past Surgical History: Procedure Laterality Date CARDIOVERSION,ELECTIVE INTERNA HC MED[employer] CORONARY OSTIAL Medtronic loop recorder implanted CURRENT HOSPITAL MEDICATIONS: Note that discontinued and completed medications (per the MAR) continue to display for 24 hours. Ordered medications to be given in the future also display. No current facility-administered medications for this encounter. Current Outpatient Medications Medication Metoprolol Tartrate 25 MG Oral Tablet (Lopressor) CoQ10 100 MG Oral Capsule Multi-Vitamin HP/Minerals Oral Capsule Vitamin C 500 MG Oral Capsule Vitamin D (Cholecalciferol) 25 MCG (1000 UT) Oral Capsule Vitamin-B Complex Oral Tablet EpiPen 2-Jared 0.3 MG/0.3ML Injection Solution Auto-injector Metoprolol tartrate 25 BID, last dose in morning of 12/14. Tocotrienol 250 mg daily.. ALLERGIES: Peanut-containing drug products, Shellfish-derived products, Soy allergy (obsolete), Tomato, and Soja chance oil [soybean oil] SOCIAL HISTORY: Social History Tobacco Use Smoking status: Never Passive exposure: Past Smokeless tobacco: Never Vaping Use Vaping status: Never Used Substance Use Topics Alcohol use: Not Currently Drug use: Not Currently FAMILY HISTORY: Family History Problem Relation Name Age of Onset Ovarian cancer Mother Hyperlipidemia Mother Hypertension Father Hypertension Brother Cancer Brother oral cancer Hyperlipidemia Brother REVIEW OF SYSTEMS: See HPI for pertinent positives and negatives, all other systems are negative. COLLARED: yes BACKBOARD: no INTUBATED: no PHYSICAL EXAM: Most Recent Vital Signs: BP: 123 mmHg/79 mmHg (12/15/24218) Pulse: 117 (12/15/24218) Resp: 19 (12/15/24218) Temp: 37.28 C (12/15/24218) Temp Summary: Temp Min: 37.3 °C (99.1 °F) Max: 37.3 °C (99.1 °F) SpO2: 99 % (12/15/24218) O2 flow rate: Supplemental O2 Delivery: Head: 4 cm linear laceration over left occipital scalp, left eyebrow abrasion Eyes: pupils 3 mm, bilaterally reactive to light, extraocular muscles intact ENT: oropharynx clear Neck: supple, non-tender, trachea midline Respiratory: clear to auscultation bilaterally Cardiovascular: regular rate and rhythm, palpable peripheral pulses present Abdomen: soft, non-tender, non-distended, normal bowel sounds Back: no tenderness across thoracic / lumbar spine Pelvis: non-tender, stable to anterior-posterior/lateral compression Rectal: deferred Genitourinary: normal male genitalia Musculoskeletal: no palpable long bone deformities, motor / sensation grossly intact Skin: grossly intact, 4cm linear laceration over L occipital scalp repaired with 5 arely, skin tear of left hand, skin tear of right elbow, BLE pitting edema Neurologic: alert and oriented x3, GCS 15 LABS: CBC Lab results within last 7 days (see chart for full results) Units 12/15/24 0555 12/15/24 0321 12/10/24 1158 WBC K/uL 14.11* 13.99* 12.36* HGB g/dL 11.6* 12.4* 12.9* HCT % 35.8* 38.1* 40.7 PLT K/uL 403* 430* 494* BMP Lab results within last 7 days (see chart for full results) Units 12/15/24 0555 12/15/24 0321 12/10/24 1158 SODIUM mmol/L 137 139 141 POTASSIUM mmol/L 4.2 4.2 4.6 CHLORIDE mmol/L 102 103 103 CO2 mmol/L 21* 22 27 BUN mg/dL 22* 23* 18 CREATININE mg/dL 0.7 0.7 0.8 GLUCOSE mg/dL 82 87 74 Ca, Mg, Phos Lab results within last 7 days (see chart for full results) Units 12/15/24 0555 12/15/24 0321 12/10/24 1158 CALCIUM mg/dL 9.4 10.0 10.2 Magnesium mg/dL 2.0 2.1 2.2 Phosphorus mg/dL 2.7 2.5 3.0 Hepatic Function Panel Lab results within last 7 days (see chart for full results) Units 12/15/24 0321 12/10/24 1158 Bilirubin, Total mg/dL 2.1* 2.6* Bilirubin, Direct mg/dL 1.6* -- Alkaline Phosphatase U/L 516* 508* | 428* AST U/L 177* 178* ALT U/L 56* 50 Protein g/dL 6.7 6.5 Coags Lab results within last 7 days (see chart for full results) Units 12/15/24 0322 12/10/24 1158 INR 1.2 1.1 Lactic acid Lab results within last 7 days (see chart for full results) Units 12/15/24 0321 Lactate mmol/L 1.8 IMAGING: Chest X-Ray: Subtle subcentimeter nodular changes in the central left lower lung zone and questionably minimally on the right. Findings are suspicious for subtle alveolitis/pneumonia. No pleural effusion or pneumothorax. CT Scan Head: No acute intracranial process identified. Superficial scalp contusive changes noted overlying the right paramedian vertex. No radiopaque foreign body or subcutaneous emphysema. No skullfracture CT Scan Neck: There is a nondisplaced fracture involving the right lateral mass at C1 level, which extends through the articular surface with the right occipital condyle and extending inferiorly to the C1-2 facet. There is no extension into the right transverse foramina. The C1 vertebral body is otherwise intact. CT CHEST/ABDOMEN/PELVIS WITH IV CONTRAST WITHOUT ORAL CONTRAST Result Date: 12/15/2024 IMPRESSION 1. No acute traumatic findings. 2. Metastatic lung disease. 3. Metastatic liver disease,progressed since previous CT. Moderate perihepatic and perisplenic ascites. 4. Primary neoplastic process involving sigmoid colon. CTA Head and Neck CT BRAIN: No acute findings. CTA BRAIN: No acute vascular findings. CTA NECK: No acute vascular findings. RIGHT anterior arch of C1 fracture. CONSULTS: Neurosurgery consulted by the ED PROCEDURES COMPLETED: Laceration repair - left occipital scalp laceration washed out and repaired with 5 arely ASSESSMENT: -Fall -C1 fracture -Left occipital scalp laceration PLAN: -admit to trauma med surg -Dr. Cobos accepting C1 fracture -Neurosurgery consulted by the ED, recs pending -maintain collar -MRI c-spine ordered (per neurosurgery) Extensive metastatic liver disease, primary neoplastic process involving sigmoid colon, metastatic lung disease, moderate perihepatic and perisplenic ascites -Will need sample of ascites, pending decision on whether or not IR or hospital procedure team or trauma surgery will complete this -Consider oncology consult after results of ascites biopsy Left occipital laceration -washed out and repaired in ED by trauma surgery, 5 arely placed -bacitracin BID Atrial fibrillation, HTN, HLD -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 Cobos. Marni Brandon PA-C Cosigned by Henrique Cobos MD at 12/15/2024 7:01 AM EDT Associated attestation - Henrique Cobos MD - 12/15/2024 7:01 AM EDT I performed a history and physical examination of the patient on 12/15/2024, including specifically on physical exam - as above . I have discussed the patient's management with the advanced practitioner. Please refer to the physician aquatics assistant department head's note for the documented findings and plan of care. ASSESSMENT: The patient is a 79 yo M who fell while trying to ambulate up a set of steps at his home and fell backwards and struck his head. The patient was taken to [facility] where he was found to have a C1 fractureand he was transferred to [facility] for further management. On exam the patient is a GCS of 15 and reports pain in the back of his head where there is a ~4 cm laceration. Active Problems: Scalp laceration, initial encounter (POA: Unknown) Closed nondisplaced fracture of first cervical vertebra (HCC) (POA: Unknown) POA = Present On Admission PLAN: - Admit to Trauma, Med/Surg - Neurosurgery consulted - MRI - Maintain [place] - Patient with metastatic disease on imaging, likely colorectal primary. The patient's states they have known about the lesions in the liver for at least a year, potentially January of 2023 but was advised against a colonoscopy and they have been trying to get a liquid biopsy. The patient has losta significant amount of weight and appears malnourished. I discussed obtaining a biopsy of the ascites in his abdomen via IR and possibly flex sig if the ascites was inconclusive and the patient and his agreed to pursue IR guided biopsy of his ascites. - Need speech eval in the collar - Keep NPO - Hold DVT ppx - PT/OT consult Was critical care rendered? No critical care was rendered for this encounter. Henrique Cobos MD documented in this encounter Procedure Notes * Marni Brandon PA-C - 12/15/2024 3:31 AM EDT PROCEDURE NOTE - LACERATION REPAIR - Trauma Surgery [facility]-[address] [place] [id number] Name: Blake Arreaga Location: [facility] B642/B Date: 12/15/2024 Time: 6:41 AM PRIOR TO PROCEDURE: Informed consent was obtained under separate cover. The patient was evaluated prior to the procedure. The patient was identified as Blake Arreaga, and the procedure verified as laceration repair. ATime Out was held and the following information confirmed. Verify Correct Patient: Yes Verify Correct Site: Yes Verify Procedure Matches Verbalized Consent: Yes Verify Correct Position: Yes Availability of Necessary Equipment: Yes Other Healthcare Professional(s) Verbalize(s) Agreement with Timeout: Yes Anticoagulation / Antiplatelet: No Site Marked: N/A PROCEDURE NOTE: Procedure: laceration repair Indications: This 79 year old male presented to Emergency Department with above lacerations. Repairwas discussed with patient and family including scars, potential infection, bleeding and need for revision. Pre Op Diagnosis: simple laceration of the left scalp Post Op Diagnosis: same Surgeon: Marni Brandon PA-C. Rachna Cote PA-C. Dr. Henrique Cobos. Anesthesia: none Complication/Corrective Action: none Comments/Findings: simple laceration of the left scalp measuring 4 centimeters. Estimated Blood Loss: N/A Fluids: none Urine Output: none Description of the Procedure: Patient was placed in a right lateral decubitus position. Time out was called and patient identification and procedures were confirmed. Patient was prepped and draped in the usual sterile fashion. Debridement of nonviable tissue and clots and irrigation with copious amounts of saline was done. Closure was done utilizing 5 arely. Care was taken to properly align all vital structures. The areawas cleansed and dressed with antibiotic ointment and a light dressing. Cosigned by Henrique Cobos MD at 12/15/2024 6:51 AM EDT Associated attestation - Henrique Cobos MD - 12/15/2024 6:51 AM EDT A procedure was performed. I was present for dixon and critical portions of procedure. I agree with the physician aquatics assistant department head note. documented in this encounter Consult Notes * Luz James SLP - 12/16/2024 10:00 AM EDT CLINICAL BEDSIDE SWALLOW EVALUATION - Speech-Language Pathology [address] [address] Name: Blake Arreaga Location: [facility] B642/B Date: 12/16/2024 Time: 10:01 AM Patient Status: Inpatient Insurance: Payor: MEDICARE / Plan: MEDICARE A AND B / Product Type: *No Product type* / GENERAL INFORMATION: Admission Date: 12/15/2024 Referring Physician: Arash Guthrie MD Pertinent Medical History: Per medical chart review, "Patient is an 79 y/o M with a hx of paroxysmal afib, HTN, HLD, and liver mass presenting to the ED as a transfer from [facility] after he was noted to have a C1 fracture on their evaluation. Patient states that he was walking up his steps when he had a mechanical fall that caused him to fall backwards down 4-5 steps at around 2000 last evening. He was unable to get up on his own afterwards. called 911; EMS was able to assist him up. Immediately presented to [facility]. They also evaluated head, chest x-ray, and basic lab work, all of which was reassuring. Additional images were not performed as the patient refused contrast. Given the patient's acute cervical fracture, he was encouraged to be transferred to our facilityfor trauma assessment. On arrival, patient has no active complaints and is in C-collar. With the exception of the neck injury, patient denies any other symptoms at this time. Of note, the patient hasbecome increasingly emaciated with approximately 70 lb lost since 2019. He did have his tetanus updated at [facility]." Imaging: CTA Brain 12/15: "IMPRESSION: CT BRAIN: No acute findings. CTA BRAIN: No acute vascular findings. CTA NECK: No acute vascular findings. RIGHT anterior arch of C1 fracture." Past Medical History: Diagnosis Date A-fib (HCC) 3 episodes in 11 years Hyperlipidemia Hx of hyperlipidemia Hypertension Mixed hyperlipidemia 06/26/2023 Past Surgical History: Procedure Laterality Date CARDIOVERSION,ELECTIVE INTERNA HC [employer] CORONARY OSTIAL Medtronic loop recorder implanted Current Diet/Dysphagia History: Pt currently on regular diet, thin liquids. C- Collar in place. Pt reports consuming regular, but limited diet at home due to dietary restrictions/vegetarian partner. However, denies hx of dysphagia Cognitive-Communication: Pt awake and alert, able to follow simple commands, answer questions, and participate appropriately in conversation Barriers to Learning: Medical Status Hearing Acuity: Deferred Best Learning Method: Multimodal Pain: No complaints of pain ORAL MECHANISM EXAM: Facial Symmetry Within functional limits Labial Function Within functional limits Lingual Function Within functional limits Velar Function Did not test Dentition: natural PROTECTIVE MECHANISMS: Volitional Swallow Did not test Volitional Throat Clearing Did not test Volitional Cough Did not test Vocal Quality Within functional limits Tracheostomy Tube: Not Present Ventilator Status: Not Applicable SWALLOWING FUNCTION: regular meal tray ORAL PREPARATION PHASE: Soft and Bite-Sized (IDDSI Level 6): WFL Regular (IDDSI Level 7): WFL Thin Liquid (IDDSI Level 0): WFL ORAL PHASE: Soft and Bite-Sized (IDDSI Level 6): WFL Regular (IDDSI Level 7): WFL Thin Liquid (IDDSI Level 0): WFL PHARYNGEAL PHASE Soft and Bite-Sized (IDDSI Level 6): WFL Regular (IDDSI Level 7): WFL Thin Liquid (IDDSI Level 0): WFL RECOMMENDATIONS/PLAN: Videofluoroscopy: Not indicated at this time Diet Level: Regular Liquid Level: Thin Presentation of Medication: As tolerated Positioning: Seated with 90 degree hip flexion Level of Supervision: intermittent Use of Straws: allowed Compensatory Techniques to be Utilized During PO Intake: Slow intake, small bites/sips, alternate consistencies Compensatory Strategies Utilized: as indicated above Additional findings: n/a ANTICIPATED FREQUENCY (ON EVAL): n/a DIAGNOSIS/IMPRESSIONS: Diagnosis/Impressions: Oral-pharyngeal skills appear to be within functional limits at this time. Pharyngeal phase inferred, however no s/sx of pharyngeal aspiration. No coughing, throat clear, wet vocal quality with PO trials. Rehab Potential: good TREATMENT PLAN: Swallowing Treatment: Not Indicated at this time Treatment Goals: n/a Additional Recommendations: Please downgrade diet and re-consult speech therapy if pt no longer is tolerating PO diet and/or is showing s/sx of aspiration The above information was discussed with the patient. Yes The patient was in Agreement * Balwinder Booth MD - 12/15/2024 1:54 PM EDTAssociated Order(s): GASTROENTEROLOGY CONSULT IP CONSULT - Gastroenterology [facility]-[address] [id number] Name: Blake Arreaga Date: 12/15/2024 Time: 1:54 PM REQUESTING SERVICE: med REASON FOR CONSULT: Need diagnosis for widely disseminated metastatic colon cancer. Needs flex sig HPI: Blake Arreaga is a 79 year old male with a PMH of a-fib who GI consulted for flex sig of sigmoid mass. He has significant weight loss since 2019, overall appears malnourished. This mass was seen on CT previously 1 year ago with metastatic disease and a large liver mass concerning for metastatic colon cancer. However, the family did not want a liver biopsy and further work-up so this has continued to progress. No prior colonoscopy. He was admitted after a fall and sustained a C1 fracture,currently in a c-collar. Going for paracentesis today. HISTORY: Past Medical History: Past Medical History: Diagnosis Date A-fib (HCC) 3 episodes in 11 years Hyperlipidemia Hx of hyperlipidemia Hypertension Mixed hyperlipidemia 06/26/2023 Past Surgical History: Past Surgical History: Procedure Laterality Date CARDIOVERSION,ELECTIVE INTERNA HC [employer] CORONARY OSTIAL Medtronic loop recorder implanted Social History: Social History Tobacco Use Smoking status: Never Passive exposure: Past Smokeless tobacco: Never Vaping Use Vaping status: Never Used Substance Use Topics Alcohol use: Not Currently Drug use: Not Currently Family History: Family History Problem Relation Name Age of Onset Ovarian cancer Mother Hyperlipidemia Mother Hypertension Father Hypertension Brother Cancer Brother oral cancer Hyperlipidemia Brother Allergies: Peanut-containing drug products, Shellfish-derived products, Soy allergy (obsolete), Tomato, and Soja chance oil [soybean oil] ROS: As noted in HPI. Rest negative. PHYSICAL EXAMINATION: Most Recent Vital Signs: BP: 115 mmHg/70 mmHg (12/15/24 1125) Pulse: 76 (12/15/24 1125) Resp: 16 (12/15/241124) Temp: 36.5 C (12/15/241124) Temp Summary: Temp Min: 36 °C (96.8 °F) Max: 37.3 °C (99.1 °F) SpO2: 97 % (12/15/241124) O2 flow rate: Supplemental O2 Delivery: Room Air, None (12/15/241124) Vital Signs Last 24 Hours: Systolic BP: Most Recent Systolic BP Av.3 mmHg Min: 115 mmHg Max: 138 mmHg Temperature: Most Recent Temperature Av.6 C Min: 36 C Max: 37.28 C Pulse: Pulse Av.5 Min: 76 Max: 117 Respirations: Resp Av.9 Min: 14 Max: 19 SpO2: SpO2 Av.3 % Min: 96 % Max: 99 % Constitutional: NAD. A&Ox3. HEENT: NC/AT. No oral lesions. Eyes: PERRLA. Neck: Supple, normal range of motion. CV: RRR. Normal S1/S2. No murmur, gallops, or rubs. Chest: CTA bilat. No wheezing, rhonchi, or crackles. Abdomen: Soft, NT/ND. BSx4. No appreciable ascites. Extremities: No edema. Radial pulses +2. Skin: Warm and dry, no rashes. Neuro: Moves all extremities. LABS: IMAGING: CT CAP: IMPRESSION 1. No acute traumatic findings. 2. Metastatic lung disease. 3. Metastatic liver disease, progressed since previous CT. Moderate perihepatic and perisplenic ascites. 4. Primary neoplastic process involving sigmoid colon. ASSESSMENT: Blake Arreaga is a 79 year old male with a PMH of a-fib who GI consulted for flex sigof sigmoid mass. He has significant weight loss since 2019, overall appears malnourished. This masswas seen on CT previously 1 year ago with metastatic disease and a large liver mass concerning for metastatic colon cancer. However, the family did not want a liver biopsy and further work- up so thishas continued to progress. No prior colonoscopy. He was admitted after a fall and sustained a C1 fracture, currently in a c-collar. Going for paracentesis today. RECOMMENDATIONS: - CLD today, NPO MN - will have to coordinate logistics of flex sig given C1 fracture with neurosurgery/anesthesia - administer 2 tap water enemas in the AM - f/u paracentesis cytology I have discussed the case with my attending, Dr. Wagner. Balwinder Booth MD PGY-6 Gastroenterology and Hepatology Cosigned by Sari aWgner MD at 12/15/2024 3:41 PM EDT Associated attestation - Sari Wagner MD - 12/15/2024 3:41 PM EDT I saw and evaluated the patient today. I have reviewed the resident/fellow physician note and agree. * Bhavik Díaz DO - 12/15/2024 1:02 PM EDT CONSULT - Colorectal Surgery [facility]-[address] [address] Name: Blake Arreaga Location: [facility] B642/B Date: 12/15/2024 Time: 1:02 PM REQUESTING SERVICE: Trauma Surgery REASON FOR CONSULT: Blake Arreaga [facility] is seen at the request of in consultation for discussion about metastatic colorectal cancer. HISTORY OF PRESENT ILLNESS: The patient is an 79-year-old gentleman with a history of anemia, paroxysmal atrial fibrillation, hypertension, and hyperlipidemia who had a fall from a few stairs and landed on his back yesterday evening. He had a laceration and a C1 spine fracture. He was transferred from [facility] to here for trauma care. During his trauma workup, he was found to have a rectosigmoid mass as well as significant liver lesions consistent with metastatic disease. The patient also has pulmonary lesions. Patient states that he has had issues with feeling weak, shortness of breath, and tachycardia. The patient has a very limited diet because of the fact that he has vegetarian as well as the fact that he has multiple food allergies. His and him believe that he has limited diet is what isattributing to his weakness and anemia. The patient denies any previous abdominal or pelvic surgeries. The patient has never had a colonoscopy. The patient has lost over 100 lb in the past year. He has a significant history of cancer in his family. He denies tobacco use. He denies alcohol use. HOSPITAL PROBLEM LIST: Active Problems: Scalp laceration, initial encounter (POA: Unknown) Closed nondisplaced fracture of first cervical vertebra (HCC) (POA: Unknown) Palliative care encounter (POA: Unknown) Goals of care, counseling/discussion (POA: Unknown) Loss of weight (POA: Unknown) Decreased appetite (POA: Unknown) Fall (POA: Unknown) POA = Present On Admission PAST MEDICAL HISTORY: Past Medical History: Diagnosis Date A-fib (HCC) 3 episodes in 11 years Hyperlipidemia Hx of hyperlipidemia Hypertension Mixed hyperlipidemia 06/26/2023 PAST SURGICAL HISTORY: Past Surgical History: Procedure Laterality Date CARDIOVERSION,ELECTIVE INTERNA HC [employer] CORONARY OSTIAL Medtronic loop recorder implanted FAMILY HISTORY: Family History Problem Relation Name Age of Onset Ovarian cancer Mother Hyperlipidemia Mother Hypertension Father Hypertension Brother Cancer Brother oral cancer Hyperlipidemia Brother SOCIAL HISTORY: Social History Tobacco Use Smoking status: Never Passive exposure: Past Smokeless tobacco: Never Vaping Use Vaping status: Never Used Substance Use Topics Alcohol use: Not Currently Drug use: Not Currently ALLERGIES: Peanut-containing drug products, Shellfish-derived products, Soy allergy (obsolete), Tomato, and Soja chance oil [soybean oil] ROS: Constitutional: (+) weight change, (+) weakness, and (+) fatigue Eyes: (-) negative, no amaurosis fugax, pain, blurred vision, or redness ENT: (-) negative: no headaches, vertigo, hearing loss, sinus, ear, or throat problems Cardiovascular: (-) negative: no chest pain, dyspnea, syncope, or palpitations Pulmonary: (-) negative: no cough, wheezing, or shortness of breath Abdominal/GI: (-) negative: no pain, heartburn, dysphagia, bleeding, change in bowel habits, nauseaor vomiting Musculoskeletal: (-) negative: no pain Hematology/oncology: (+) swollen lymph nodes Neurology: (-) negative: no focal neurologic defect Psychiatry: (+) anxiousness PHYSICAL EXAMINATION: Most Recent Vital Signs: BP: 115 mmHg/70 mmHg (12/15/241124) Pulse: 76 (12/15/241124) Resp: 16 (12/15/241124) Temp: 36.5 C (12/15/241124) Temp Summary: Temp Min: 36 °C (96.8 °F) Max: 37.3 °C (99.1 °F) SpO2: 97 % (12/15/241124) O2 flow rate: Supplemental O2 Delivery: Room Air, None (12/15/241124) Vital Signs Over Last 24 Hours: Systolic BP: Most Recent Systolic BP Av.3 mmHg Min: 115 mmHg Max: 138 mmHg Temperature: Most Recent Temperature Av.6 C Min: 36 C Max: 37.28 C Pulse: Pulse Av.5 Min: 76 Max: 117 Respirations: Resp Av.9 Min: 14 Max: 19 SpO2: SpO2 Av.3 % Min: 96 % Max: 99 % Constitutional: no acute distress, (+) ill appearing HEENT: (+) scalp laceration Eyes: sclera and conjunctiva normal Neck: supple, normal range of motion CV: normal rate and rhythm, no murmur, gallops or rub Chest: normal respiratory effort, lungs clear to auscultation and percussion Abdomen: normal: soft, bowel sounds normal, no masses, tenderness or organomegaly Extremities: no clubbing, cyanosis, or edema, otherwise grossly normal, warm, and dry Skin: warm, dry, intact: Neuro: alert, oriented to person, place, and time, normal mental status exam LABS: Labs reviewed as indicated below: CBC Results: Results for orders placed or performed during the hospital encounter of 12/15/24 CBC Result Value Ref Range WBC 14.11 (H) 4.00 - 10.80 K/uL RBC 4.28 4.50 - 5.25 M/uL HGB 11.6 (L) 14.0 - 16.8 g/dL HCT 35.8 (L) 40.0 - 48.4 % MCV 83.6 82.0 - 99.5 fL MCH 27.1 27.0 - 34.0 pg MCHC 32.4 32.0 - 36.0 g/dL RDW 17.4 11.5 - 15.5 % PLT 403 (H) 140 - 400 K/uL MPV 9.8 6.6 - 11.1 fL nRBCs 0 <=0 /100 WBCs IMAGING: CT C/A/P 12/15/2024: IMPRESSION 1. No acute traumatic findings. 2. Metastatic lung disease. 3. Metastatic liver disease, progressed since previous CT. Moderate perihepatic and perisplenic ascites. 4. Primary neoplastic process involving sigmoid colon. IMPRESSION: Patient is an 79-year-old male with a history of paroxysmal atrial fibrillation as well as hypertension who had a fall from 4 steps and landed on his back and neck. He sustained a C1 fracture and wastransferred [facility] to here for further management. He has a known rectosigmoid mass as well as what is presumed to be diffuse metastatic disease in his liver and lungs. Him in his have been hesitant to to proceed with biopsy secondary to fear of spreading the diseaseto other places of his body. We discussed that we would not be able to treat him at all without anydefinitive diagnosis of cancer. The best way to do this would be with a flexible sigmoidoscopy and biopsy of the rectosigmoid mass. We discussed that this would be a very short procedure with minimalcomplication rate. We discussed that we would present him at our multidisciplinary cancer conference after biopsy was obtained and a definitive diagnosis was made. After that time, we could have a discussion with the patient and his about treatment options. The patient agreed with the plan as s tated. I have discussed with the Gastroenterology team about this. They agree with the plan as stated. We will proceed with a flexible sigmoidoscopy and biopsy tomorrow. I spent a total of Greater than 55 mins (exact time 70 mins) on the date of service in preparation,delivery, and documentation of the care provided to Blake Arreaga excluding any time spent in theperformance of separately billed services or time spent by another provider/QHP. REFERRING PHYSICIAN: 1. Jeniffer Rhodes PA-C PRIMARY CARE PHYSICIAN: David Bustamante MD * Katie Antoine CRNP - 12/15/2024 12:23 PM EDTAssociated Order(s): PALLIATIVE MEDICINE CONSULT IP CONSULT NOTE - Palliative Medicine [facility]-[address] [id number] Name: Blake Arreaga Location: [facility] B642/B Date: 12/15/2024 Time: 12:24 PM REQUESTING SERVICE: Critical Care REASON FOR CONSULT: We have been asked to see this patient for goals of care. HPI: "Blake is an 79 yo male with PMH of atrial fibrillation, HTN, HLD who presents to [facility] ED as atransfer from [facility] after he sustained a fall down 4-5 steps around 8pm yesterday and was found to have a C1 fracture. Patient reports that he was going up the stairs and lost his balance falling backwards down 4-5 stairs. He has been having weakness in his LLE and that may have caused the fall. NegLOC. + head strike on metal shelf. He didn't get up after the fall. His called 911. He was taken to [facility] where he was found to have a C1 fracture. Patient refused any further imaging at OSH due to concerns of using contrast. He doesn't have any pain at this time. He denies FONTENOT, LH, dizziness, SOB, CP, abdominal pain, N/V, numbness, tingling. Per patient's , they try to follow a vegetarian diet and monitor ingredients of food they eat. She reports Blake has lost ~70 lbs since 2019 and believes he is not eating enough anymore. Denies tobacco, alcohol, or drug use. After discussion with the patient, he wishes to be a full code." This note was copy/pasted from Marni Brandon PA-C / Dr. Cobos, dated on 12/15/2024. PALLIATIVE ENCOUNTER FROM TODAY'S VISIT: 12/15/2024 patient evaluated at bedside, present. Patient admitted s/p fall with C1 fracture. Patient lives in the [facility] with his . They do not have children. Patient ambulatory/independently functional at home but shares that he was walking up the steps lost his balance and fell. Was transferred in the setting of C1 fracture awaiting MRI C-spine with C-collar in place. Patient additionally with concern for metastatic colon cancer though per patient / spouse has not had formal biopsy. There is concern for involvement of the liver. Previously had planned for biopsy of the liver then with consideration to biopsy of the abdominal fluid. He has met with GI now with plan for procedure / biopsy tomorrow to formalize diagnosis. Had difficult discussion with primary trauma team this morning, felt very dismayed and like hope was taken away. They have not yet met with oncology team to discuss options for treatment REVIEW OF SYMPTOMS: [Severity scale of each symptom should be based on how the patient feels now.] 1. Pain Assessment: None Current Analgesic Regimen: Yes: Acetaminophen, oxycodone 2. Shortness of Breath Assessment: occasional Current Regimen: None 3. Nausea Assessment: None Current Regimen: Ondansetron 4. Tiredness/Fatigue Assessment: yes Current Regimen: None 5. Drowsiness Assessment: None 6. Depression Assessment: 1. During the past month, has patient been bothered by feeling down, depressed, or hopeless? No 2. During the past month, has patient been bothered by having little interest or pleasure in doing things? No Current Regimen: none 7. Anxiety Assessment: None Current Regimen: None 8. Anorexia/Lack of Appetite: decreased appetite Current Regimen: None 9. Delirium/Agitation: Unable to respond Current Regimen: none 10. Well-being Assessment: None 11. Constipation Assessment: None Current Regimen: Yes: Stimulant laxative (bisacodyl, senna), colace 12. Insomnia Assessment: Yes Current Regimen: None 13. Oropharyngeal Secretions or Cough: No Current Regimen: Others: none Rest of the review of systems negative. FUNCTIONALITY: 80% - Ambulation: Full, Normal activity and work / Some evidence of disease. Self-care: Full. Intake: Normal or reduced. Conscious level: Full. ADVANCED DIRECTIVES AND [place] ORDERS FOR LIFE-SUSTAINING TREATMENT: Patient has not completed PAST MEDICAL HISTORY: Past Medical History: Diagnosis Date A-fib (HCC) 3 episodes in 11 years Hyperlipidemia Hx of hyperlipidemia Hypertension Mixed hyperlipidemia 06/26/2023 PAST SURGICAL HISTORY: Past Surgical History: Procedure Laterality Date CARDIOVERSION,ELECTIVE INTERNA HC [employer] CORONARY OSTIAL Medtronic loop recorder implanted FAMILY HISTORY: Family History Problem Relation Name Age of Onset Ovarian cancer Mother Hyperlipidemia Mother Hypertension Father Hypertension Brother Cancer Brother oral cancer Hyperlipidemia Brother Family History: noncontributory SOCIAL HISTORY: Social History Tobacco Use Smoking status: Never Passive exposure: Past Smokeless tobacco: Never Vaping Use Vaping status: Never Used Substance Use Topics Alcohol use: Not Currently Drug use: Not Currently Family Support: Spouse: Primary PSYCHOSOCIAL ASSESSMENT: At times, I worry I will be a burden to my family: Unknown Pertinent Social Factors: lives at home with spouse They do not have children No alcohol/substance/tobacco use ALLERGIES: Peanut-containing drug products, Shellfish-derived products, Soy allergy (obsolete), Tomato, and Soja chance oil [soybean oil] PHYSICAL EXAMINATION: Most Recent Vital Signs: BP: 115 mmHg/70 mmHg (03/31/25 1125) Pulse: 76 (12/15/241124) Resp: 16 (12/15/241124) Temp: 36.5 C (12/15/241124) Temp Summary: Temp Min: 36 °C (96.8 °F) Max: 37.3 °C (99.1 °F) SpO2: 97 % (12/15/241124) O2 flow rate: Supplemental O2 Delivery: Room Air, None (12/15/241124) Vital Signs Last 24 Hours: Systolic BP: Most Recent Systolic BP Av.3 mmHg Min: 115 mmHg Max: 138 mmHg Temperature: Most Recent Temperature Av.6 C Min: 36 C Max: 37.28 C Pulse: Pulse Av.5 Min: 76 Max: 117 Respirations: Resp Av.9 Min: 14 Max: 19 SpO2: SpO2 Av.3 % Min: 96 % Max: 99 % Constitutional: no acute distress, (+) chronically ill, (+) cachectic, gaunt HENT: normocephalic, bitemporal wasting, (+) cervical collar in place, arely to posterior occiput Eyes: anicteric Chest: normal respiratory effort Abdominal: non distended Extremities: no edema Musculoskeletal: diffuse loss of muscle mass Skin: warm, dry, intact, to exposed areas of skin with repair laceration to occiput : Neuro: alert, oriented to person, place, and time Psych: normal mood and affect LABS REVIEWED: yes reviewed Component Latest Ref Rng 12/15/2024 Color, Urine Colorless, Light Yellow, Yellow, Dark Yellow Yellow Clarity, Urine Clear Slightly Cloudy ! Glucose, Urine Negative mg/dL Negative Bilirubin, Urine Negative Negative Ketone, Urine Negative mg/dL 15 ! Specific [employer], Urine 1.003 - 1.030 1.025 Blood, Urine Negative Negative pH, Urine 5.0 - 7.5 Units 6.0 Protein, Urine Negative mg/dL 30 ! Urobilinogen, Urine Normal mg/dL 2.0 ! Nitrite, Urine Negative Negative Esterase, Urine Negative Small ! RBC, Urine 0 - 2 /HPF 0-2 WBC, Urine 0 - 2 /HPF 3-5 ! Bacteria, Urine 0 - 25 /HPF 26-50 ! Amorphous Crystals, Urine None /HPF Many ! Hyaline, Cast, Urine None /LPF 1-4 ! Culture, Urine -- WBC 4.00 - 10.80 K/uL 14.11 (H) WBC 13.99 (H) RBC 4.50 - 5.25 M/uL 4.28 RBC 4.51 HGB 14.0 - 16.8 g/dL 11.6 (L) HGB 12.4 (L) HCT 40.0 - 48.4 % 35.8 (L) HCT 38.1 (L) MCV 82.0 - 99.5 fL 83.6 MCV 84.5 MCH 27.0 - 34.0 pg 27.1 MCH 27.5 MCHC 32.0 - 36.0 g/dL 32.4 MCHC 32.5 RDW 11.5 - 15.5 % 17.4 RDW 17.1 PLT 140 - 400 K/uL 403 (H) PLT 430 (H) MPV 6.6 - 11.1 fL 9.8 MPV 9.8 nRBCs <=0 /100 WBCs 0 nRBCs 0 BUN 6 - 20 mg/dL 22 (H) BUN 23 (H) CREATININE 0.6 - 1.2 mg/dL 0.7 CREATININE 0.7 EGFR >=60 mL/min >90 EGFR >90 SODIUM 135 - 146 mmol/L 137 SODIUM 139 POTASSIUM 3.5 - 5.1 mmol/L 4.2 POTASSIUM 4.2 CHLORIDE 98 - 107 mmol/L 102 CHLORIDE 103 CO2 22 - 32 mmol/L 21 (L) CO2 22 ANION GAP 7 - 15 mmol/L 14 ANION GAP 14 GLUCOSE 70 - 120 mg/dL 82 GLUCOSE 87 CALCIUM 8.4 - 10.2 mg/dL 9.4 CALCIUM 10.0 Amphetamine Screen, U Negative Negative Benzodiazepines Screen, U Negative Negative Cannabinoids Screen, U Negative Negative Cocaine Metabolite Screen, U Negative Negative Fentanyl Screen, U Negative Negative Hydrocodone Screen, U Negative Negative Methadone Metabolite Screen, U Negative Negative Morphine/Codeine Screen, U Negative Negative Oxycodone Screen, U Negative Negative Albumin 3.8 - 5.0 g/dL 2.8 (L) AST 10 - 50 U/L 177 (H) Alkaline Phosphatase 35 - 130 U/L 516 (H) ALT 10 - 50 U/L 56 (H) Bilirubin, Total <=1.2 mg/dL 2.1 (H) Bilirubin, Direct 0.0 - 0.3 mg/dL 1.6 (H) Protein 6.0 - 8.3 g/dL 6.7 ABO O ABO O Rh Positive Rh Positive Red Blood Cell Antibody Screen Negative Specimen Expiration Date 12/18/2024 23:59 Prothrombin Time 11.6 - 15.2 seconds 15.4 (H) INR 0.8 - 1.2 1.2 Lactate 0.4 - 2.0 mmol/L 1.8 Magnesium 1.5 - 2.6 mg/dL 2.0 Magnesium 2.1 Phosphorus 2.5 - 4.8 mg/dL 2.7 Phosphorus 2.5 aPTT 21 - 38 seconds 29 ETHANOL Negative Negative Urinalysis, Reflex to Culture Specimen Specimen collected and received BNP, NT-Pro <300 pg/mL 596 (H) Legend: ! Abnormal (H) High (L) Low IMAGING REVIEWED: yes reviewed CTA head/neck 12/15/2024 FINDINGS: CT BRAIN: PARENCHYMA: No acute parenchymal hemorrhage. Arciniega-white matter differentiation maintained, no evidence of acute territorial infarction. Normal white matter density. No intra-axial mass or mass effect. EXTRA-AXIAL: No acute extraaxial hemorrhage or mass. VENTRICLES: Normal size and configuration for age. MIDLINE STRUCTURES: No shift or herniation. PARANASAL SINUSES/MASTOID AIR CELLS: Unremarkable. CALVARIUM/SOFT TISSUES: LEFT posterior frontal scalp hematoma. LEFT parietal scalp laceration. No calvarial fracture. ORBITS: Unremarkable. OTHER: None. CTA BRAIN: INTERNAL CAROTID ARTERIES: Unremarkable. ANTERIOR CIRCULATION ANTERIOR CEREBRAL ARTERIES: Unremarkable. ANTERIOR COMMUNICATING ARTERY: Unremarkable. MIDDLE CEREBRAL ARTERIES: Unremarkable. POSTERIOR CIRCULATION VERTEBRAL ARTERIES: Unremarkable. BASILAR ARTERY: Unremarkable. POSTERIOR CEREBRAL ARTERIES: Unremarkable. POSTERIOR COMMUNICATING ARTERIES: Unremarkable. CTA NECK: AORTIC ARCH: Normal. SUBCLAVIAN ARTERIES: No significant stenosis. COMMON CAROTID ARTERIES: Unremarkable without stenosis or dissection. RIGHT CAROTID BIFURCATION/ICA: No hemodynamically significant stenosis. LEFT CAROTID BIFURCATION/ICA: No hemodynamically significant stenosis. VERTEBRAL ARTERIES: Symmetric without stenosis or dissection. MISCELLANEOUS: Minimally displaced fracture of the RIGHT anterior arch of C1. IMPRESSION: CT BRAIN: No acute findings. CTA BRAIN: No acute vascular findings. CTA NECK: No acute vascular findings. RIGHT anterior arch of C1 fracture. CT chest/abd/pelvis 12/15/2024 FINDINGS CHEST LUNG AND LARGE AIRWAYS: Innumerable pulmonary nodules bilaterally indicative of metastatic disease. PLEURA: Unremarkable. VESSELS: Unremarkable. HEART: Normal size. No pericardial effusion. MEDIASTINUM AND ADEN: Unremarkable. CHEST WALL AND LOWER NECK: Unremarkable. ABDOMEN/PELVIS LIVER: Extensive metastatic liver disease, progress since previous CT examination. GALLBLADDER: Unremarkable. BILE DUCTS: Unremarkable. PANCREAS: Unremarkable. SPLEEN: Unremarkable. ADRENALS: Unremarkable. KIDNEYS/URETERS: Nonobstructive LEFT nephrolithiasis obscured by excreted contrast. Small renal cysts bilaterally. BLADDER: Unremarkable. REPRODUCTIVE ORGANS: Unremarkable. STOMACH/DUODENUM: Unremarkable. BOWEL: Circumferential thickening of the sigmoid colon therefore indicative of underlying neoplastic process. Moderate stool burden in the colon including rectosigmoid. VESSELS: Unremarkable. LYMPH NODES: Unremarkable. PERITONEUM/RETROPERITONEUM: Moderate perihepatic, perisplenic ascites. Mild inguinal canals ascitesbilaterally. ABDOMINAL WALL/SOFT TISSUES: Unremarkable. BONES/SPINE: Grade 1 anterolisthesis L5 on S1 secondary to facet arthritis. Calcified excluded discposterior L1 stable. No suspicious osseous lesions. LINES AND DEVICES: None. IMPRESSION IMPRESSION 1. No acute traumatic findings. 2. Metastatic lung disease. 3. Metastatic liver disease, progressed since previous CT. Moderate perihepatic and perisplenic ascites. 4. Primary neoplastic process involving sigmoid colon. ASSESSMENT/PLAN: Blake Arreaga is a/an 79 year old male referred for consultation to Palliative Medicine with the primary diagnosis of: fall with C1 fracture and left occipital scalp laceration with concern for metastatic colon cancer Secondary Diagnoses are afib, HTN, HLD Palliative Care Encounter / Goals of Care Patient evaluated at bedside with spouse. Patient / spouse live in the [facility]. Patient active/ambulatory prior to hospitalization though does endorse that s/p COVID he and spouse have slowly lost weight over the past 4-5 years. Patient is a vegetarian and has multiple food allergies though has had more progressive weight loss over the last several months with some more acute decrease appetite in the weeks preceding acute hospitalization. Patient and spouse report likely metastatic colon cancer with involvement of liver with ascites, though patient has not yet had formal biopsy as there was discussions regarding how best to obtain biopsy in the outpatient setting. Now with plan to proceed with biopsy tomorrow. Patient and spouse have not yet had an opportunity to meet with Oncology and all management has been through PCP in the outpatient setting up until this time. Patient relatively asymptomatic aside from some weight loss and some mild shortness of breath but otherwise denies Nausea / Vomiting or pain. Patient and family shared that they had difficult discussion with trauma team this morning. Shares that they were given poor prognosis and felt that hope was somewhat taken away. They are unsure of there wishes/plan of care moving forward in the setting of underlying likely metastatic disease but being that there has been no formalized diagnosis or opportunity to speak with Oncology, I have shared that it is reasonable to wait for Oncology input/biopsy to guide further discussions to ensure that we are taking into consideration patient's values and wishes with more concrete information. Patient and family are agreeable and are currently feeling a bit emotional/overwhelmed and will take ongoing discussions slowly. Recommendations It would be reasonable for Palliative Medicine to continue to follow patient in the outpatient setting though as patient lives in [place] would recommend to follow with Palliative Medicine at [facility] - have placed appointment request Goals of care discussion in the outpatient versus inpatient setting pending biopsy and Oncology evaluation with focused on symptom management at this time. Decreased appetite / weight loss Patient does endorse slowly declining weight s/p COVID over the past 5 years. Both he and shared that they do not eat much but has had some decrease in his appetite. If patient agreeable could consider very low-dose olanzapine 2.5 mg HS Otherwise recommend small frequent meals with protein rich diet with consideration of protein supplement such as boost/ensure drinks, though patient does have multiple food based allergies. 06/26/2023 04/10/2024 08/06/2024 12/15/2024 Weight Weight 149 lb 144 lb 6.4 oz 136 lb 141 lb 8.6 oz Fall with C1 fracture No active pain Continue acetaminophen 975 mg q8h ATC Currently prescribed oxycodone 2.5 or 5 mg prn but has not required We appreciate your consult request and the opportunity to assist in the care of your patient. Please do not hesitate to call or page with additional questions or concerns. We will always try to remain available. This patient was discussed with Dr. Mcdermott at the time of consult. Cosigned by Rossana Mcdermott MD at 12/15/2024 2:29 PM EDT * Maegan Grimes, - 12/15/2024 10:23 AM EDTAssociated Order(s): ONCOLOGY CONSULT IP CONSULT - Oncology [facility]-[address] [id number] Name: Blake Arreaga Location: [facility] B642/B Date: 12/15/2024 Time: 10:24 AM REQUESTING SERVICE: Surgery REASON FOR CONSULT: "Metastatic cancer" REFERRING PHYSICIAN: Dr. Belle Lea DIAGNOSIS: Presumed metastatic colon cancer HISTORY OF PRESENT ILLNESS: Blake Arreaga is an 79 yo M with history of paroxysmal atrial fibrillation on metoprolol who presented early this morning after falling while ambulating up his stairs and fell backwards, striking the back of his head. At [facility], he was found to have a C1 fracture with 4 cm laceration on back of his head was transferred to [facility] for further management. Oncology has been consulted in the setting of presumed metastatic colon cancer with CT findings of large circumferential sigmoid mass with large calcified liver metastasis and innumerable nodules seen in the lungs. Most of the history was taken from the patient and his , Remy. They both noticed blood in the patient's underwear in the past year that typically only happened at night or with large flatulence. The patient himself stated that he noted blood in and around his stool also. He also noted that the caliber of his stool has been much smaller in the last year. They felt that the blood was due tohemorrhoids although they had never seen a GI doctor or colonoscopy to tell him that he had hemorrhoids. Both him in his have refused colonoscopy screening for colon cancer. His explains she hashad traumatic experiences with healthcare providers specifically when caring for her parents. Due to what she felt as missed manage medicine with her parents she has been very hands-on in doing her own research on the Internet. Due to the risk of bowel perforation, they both have never undergone colon cancer screening. His weight loss to them was explained by their diet as a both endorse vegetarian lifestyle and mostof the protein comes from yogurt and cheese. Although in the last year his appetite has decreased and he felt that he needed more time to digest food, endorsing early satiety. They state since 2019 COVID time, he has "lost 70 lbs". Functionally, he still drives, ambulates without a walker or cane, and still cooks meals at home for his . He is still showing snow in the winter, mows lawns in the summer, and is able to help his move furniture. Initial workup with imaging noting liver metastasis and colorectal thickening was done at [facility]. There is minimal documentation in the chart from the patient's to providerdiscussing next steps in treatment. The patient's was more interested in obtaining a "liquid biopsy" or circulating DNA the a blood test rather than liver biopsy or colonoscopy. PAST MEDICAL HISTORY: Past Medical History: Diagnosis Date A-fib (HCC) 3 episodes in 11 years Hyperlipidemia Hx of hyperlipidemia Hypertension Mixed hyperlipidemia 06/26/2023 PAST SURGICAL HISTORY: Past Surgical History: Procedure Laterality Date CARDIOVERSION,ELECTIVE INTERNA HC [employer] CORONARY OSTIAL Medtronic loop recorder implanted FAMILY HISTORY: Family History Problem Relation Name Age of Onset Ovarian cancer Mother Hyperlipidemia Mother Hypertension Father Hypertension Brother Cancer Brother oral cancer Hyperlipidemia Brother SOCIAL HISTORY: Social History Tobacco Use Smoking status: Never Passive exposure: Past Smokeless tobacco: Never Vaping Use Vaping status: Never Used Substance Use Topics Alcohol use: Not Currently Drug use: Not Currently ALLERGIES: Peanut-containing drug products, Shellfish-derived products, Soy allergy (obsolete), Tomato, and Soja chance oil [soybean oil] REVIEW OF SYSTEMS: (+) easy fatigability, lower extremity weakness PHYSICAL EXAM: Most Recent Vital Signs: BP: 126 mmHg/70 mmHg (12/15/24631) Pulse: 112 (12/15/24631) Resp: 16 (12/15/24631) Temp: 36 C (12/15/24631) Temp Summary: Temp Min: 36 °C (96.8 °F) Max: 37.3 °C (99.1 °F) SpO2: 96 % (12/15/24631) Supplemental O2 Delivery: Room Air, None (12/15/24631) PE: ECOG 2 PHYSICAL EXAM General: Pleasant male, cachectic with temporal wasting HEENT: Posterior laceration. Sclera white, extraocular muscles intact, dry mucous membranes Neck: In a C-collar Cardiovascular: Tachycardic, S1 and S2 present, no murmurs on auscultation Respiratory: Clear to auscultation bilaterally, no wheezes, rhonchi, crackles, good inspiratory effort Abdomen: Soft, non-tender, non-distended, normal bowel sounds, liver edge palpated, nodular on palpation Musculoskeletal: Normal muscle tone Extremities: 2 (+) lower extremity edema bilaterally, able to move all extremities spontaneously, 2+ pulses Neuro: no focal deficits Skin: Bloody laceration on posterior head LABS: Labs reviewed as indicated below: Lab results within last 7 days (see chart for full results) Units 12/15/24 0555 12/15/24 0321 12/10/24 1158 SODIUM mmol/L 137 139 141 POTASSIUM mmol/L 4.2 4.2 4.6 CHLORIDE mmol/L 102 103 103 CO2 mmol/L 21* 22 27 BUN mg/dL 22* 23* 18 CREATININE mg/dL 0.7 0.7 0.8 Stable renal function Lab results within last 7 days (see chart for full results) Units 12/15/24 0555 12/15/24 0321 12/10/24 1158 HGB g/dL 11.6* 12.4* 12.9* HCT % 35.8* 38.1* 40.7 WBC K/uL 14.11* 13.99* 12.36* PLT K/uL 403* 430* 494* Neutrophils % % -- -- 81.5* Monocytes % % -- -- 11.2* Eosinophils % % -- -- 0.3 Latest Reference Range & Units 12/10/24 11:58 Iron 45 - 176 ug/dL 67 Iron Binding Capacity 250 - 425 ug/dL 360 Transferrin Saturation Percent 15 - 55 % 19 Ferritin 30 - 400 ng/mL 333 Vitamin B12 232 - 1,245 pg/mL 1,670 (H) Folic Acid >4.5 ng/mL 9.5 Immature Reticuloctye Fraction 2.5 - 20.6 % 15.7 Reticulocyte Hemoglobin 29.7 - 37.4 pg 30.6 Absolute Reticulocyte 31.3 - 100.1 K/uL 75.5 Reticulocyte Percent 0.80 - 1.90 % 1.63 No indication of TEO, folate or B 12 deficiency Latest Reference Range & Units 12/15/24 03:21 AST 10 - 50 U/L 177 (H) ALT 10 - 50 U/L 56 (H) Alkaline Phosphatase 35 - 130 U/L 516 (H) Bilirubin, Total <=1.2 mg/dL 2.1 (H) Bilirubin, Direct 0.0 - 0.3 mg/dL 1.6 (H) INR 1.2 RADIOLOGY: Previous imaging from 09/25/2024: CT Chest/ABD/Pelvis: IMPRESSION 1. Large calcified liver metastases are observed. These are often seen in the setting of mucinous colorectal primary tumors. Ultrasound-guided liver biopsy can be considered for tissue confirmation and therapeutic planning. 2. Suspected primary tumor at rectosigmoid junction. Differential consideration would include colitis/diverticulitis, correlate clinically. 3. Diffuse round pulmonary nodules, likely metastatic. 4. Possible small meningioma versus extruded disc fragment at L1. LUNGS, AIRWAYS AND PLEURA: Diffuse round pulmonary nodules, likely metastatic. Index lesions as follows: *A 6 millimeter left lower lobe pulmonary nodule, 12-205 *A 5 millimeter right upper lobe nodule 12-106 *A 4-5 millimeter right lower lobe nodule 12-[address] Chest/ ABD/Pelvis: IMPRESSION 1. No acute traumatic findings. 2. Metastatic lung disease. 3. Metastatic liver disease, progressed since previous CT. Moderate perihepatic and perisplenic ascites. 4. Primary neoplastic process involving sigmoid colon. LUNG AND LARGE AIRWAYS: Innumerable pulmonary nodules bilaterally indicative of metastatic disease. CTA Head/Neck: IMPRESSION: CT BRAIN: No acute findings. CTA BRAIN: No acute vascular findings. CTA NECK: No acute vascular findings. RIGHT anterior arch of C1 fracture. PATHOLOGY: None collected ASSESSMENT: Presumed metastatic colon cancer with mets to Liver Paroxysmal Afib. Normocytic anemia Blake Arreaga is an 79-year-old male with history of paroxysmal AFib not on anticoagulation who presented to the hospital after fall finding acute fracture at C1 and 4 cm laceration on the back of his head. Oncology consulted for CT findings of a large circumferential sigmoid mass with large calcified liver metastasis that has been presumed metastatic colon cancer but pending pathology. No findings of osseous lesions on CT. On exam, he is cachectic with temporal wasting who seems to have beenprogressively weaker in the last year but still functional. Patient is agreeable to undergo paracentesis today with cytology collection. Gastroenterology consulted and stated that it might be difficult to do a flex sig on this patient while he is in the C-collar. The patient and his expressed concern about bowel perforation with sigmoidoscopy and asked if a liquid biopsy could replace doing this procedure. We explained that the liquid biopsy would need to be performed after discharge and would only aide in treatment options but would not replace cytology or pathology. Overall my impression of this 79-year-old male is that he has been getting progressively more weak in the last few months with unintentional weight loss in the setting of what appears to be metastatic cancer. Oncology will need pathology/cytology prior to offering treatment. Will watch for cytologyfrom paracentesis but this may not be enough for diagnostic purpose and establishing microsatellitestability. My need liquid biopsy but this will have to be obtained outpatient. No signs of osseous lesions at this time, no role for denosumab inpatient. RECOMMENDATIONS: - please obtain CEA - pending cytology from ascites; if non diagnostic would recommend proceeding with flex sigmoid forpathology - agree with palliative medicine consult - oncology will plan to follow along Patient was seen and examined with Dr Chinchilla. Cosigned by Luis Chinchilla MD at 12/16/2024 1:27 PM EDT Associated attestation - Luis Chinchilla MD - 12/16/2024 1:27 PM EDT I saw and evaluated the patient 12/15/24. I have reviewed the resident/fellow physician note and agree. Luis Chinchilla M.D. Billing attestation: I spent a total of 70 minutes coordinating, documenting, and providing care for this patient excluding time spent in the performance of separately billed services or time spent by another provider/QHP. * Janes James, OT - 12/15/2024 9:45 AM EDTAssociated Order(s): ADULT OCCUPATIONAL THERAPY CONSULT IP GENERAL EVALUATION- Occupational Therapy [address] [id number] Name: Blake Arreaga Location: [facility] B642/B Date: 12/15/2024 Time: 9:45 AM HPI: Per EPIC, "Patient is an 79 y/o M with a hx of paroxysmal afib, HTN, HLD, and liver mass presenting to the ED as a transfer from [facility] after he was noted to have a C1 fracture on their evaluation. Patient states that he was walking up his steps when he had a mechanical fall that caused him to fall backwards down 4-5 steps at around 2000 last evening. He was unable to get up on his own afterwards. called 911; EMS was able to assist him up. Immediately presented to [facility]. They also evaluated head, chest x- ray, and basic lab work, all of which was reassuring. Additional images were not performed as the patient refused contrast. Given the patient's acute cervical fracture, he was encouraged to be transferred to our facility for trauma assessment. On arrival, patient has no active complaints and is in C-collar. With the exception of the neck injury, patient denies any other symptoms at this time. Of note, the patient has become increasingly emaciated with approximately 70 lb lost since 2019. He did have his tetanus updated at [facility]." Patient Status: Inpatient Insurance: Payor: MEDICARE Plan: MEDICARE A AND B Product Type: *No Product type* Payor: AARP Plan: AARP Product Type: *No Product type* Patient Seen: at bedside, nursing cleared patient for therapy Patient Identified By: Name, ID Band and Date Diagnosis: s/p fall with C1 fracture (12/15/24944) Status of treatment: Evaluation completed (12/15/24944) Orders: OT evaluation and treatment;OT OOB (12/15/24944) Weight Bearing Status: Weight bearing as tolerated (12/15/24944) Precautions: Alarms;Falls;Safety;Spine Precautions;Back/neck brace (12/15/24944) Total Treatment Time: 15 (12/15/24944) Past Medical History: Past Medical History: Diagnosis Date A-fib (HCC) 3 episodes in 11 years Hyperlipidemia Hx of hyperlipidemia Hypertension Mixed hyperlipidemia 06/26/2023 Past Surgical History: Past Surgical History: Procedure Laterality Date CARDIOVERSION,ELECTIVE INTERNA HC [employer] CORONARY OSTIAL Medtronic loop recorder implanted Social History/Disposition Lives with: Spouse (12/15/24944) Assistance available: Yes (12/15/24944) Dwelling type: Multi-story home (12/15/24944) Entry steps: 1 (12/15/24944) Inside steps: 10 - 15 (12/15/24944) Bedroom location: 2nd floor (12/15/24944) Bath location: 1st floor powder room;2nd floor full bath (12/15/24944) Prior Level of Function Reported by: Patient (12/15/24944) Ambulation: Ambulatory without device (12/15/24944) Grooming: Independent (12/15/24944) Bathing: Independent (12/15/24944) Dressing: Independent (12/15/24944) Feeding: Independent (12/15/24944) Toileting: Independent (12/15/24944) Meal Prep: Independent (12/15/24944) Homemaking: Independent (12/15/24944) Observations Consciousness: Alert (12/15/24944) Orientation: Oriented times 4 (12/15/24944) Psychosocial: Patient can communicate basic needs;Patient can converse in a social setting (12/15/24944) Sitting posture: Forward head;Rounded shoulders (12/15/24944) Standing posture: Forward head;Rounded shoulders (12/15/24944) Safety awareness: The Patient verbalizes insight of current deficits.;The Patient demonstrates carryover of insight during functional tasks. (12/15/24944) Pain: Patient has complaints of neck pain Current Functional Status: UE Strength/ROM: BUE are WFL and 4/5 grossly Bed Mobility Roll (Left): Supervision (12/15/24944) Sidelying - Sit: Minimal Assistance (12/15/24944) OT Transfers Sit-Stand: Contact Guard (12/15/24944) Stand-Sit: Contact Guard (12/15/24944) Bed-Chair: Contact Guard (12/15/24944) Functional Ambulation Assistive Device: No device (12/15/24944) Distance in feet:: 3 (12/15/24944) Level of Assistance: Contact Guard (12/15/24944) Self Care Able to provide self care: Yes (12/15/24944) Balance Sit (Static): Fair (12/15/24944) Sit (Dynamic): Fair (12/15/24944) Stand (Static): Fair (12/15/24944) Stand (Dynamic): (Fair-) (12/15/24944) Dressing Upper Body: Supervision (Please comment) (to don gown) (12/15/24944) Lower Body: Supervision (Please comment) (to don socks) (12/15/24944) Patient and or Family Goal(s): None Alarm Status Patient positioned in: Chair (12/15/24944) With: Pressure pad alarm intact and functioning and call phelps in reach (12/15/24944) Following session patient seated OOB in chair with chair alarm activated and cord plugged into callbell system. Treatment Provided: Evaluation Low Complexity 15 minutes - [id number]: Patient was cooperative during treatment session. Low complexity evaluation performed and ADL deficit and functional mobility deficitdeficits were identified that result in activity limitation. The patient does not have any comorbidities that affect occupational performance. There were no modifications necessary to complete the evaluation. Patient Education Education Topic: Role of OT;Plan of care goals (12/15/24944) Review of Precautions: Safety;Fall;Spine Precautions (12/15/24944) Method of Education: Verbalized to patient (12/15/24944) Education Provided to: Patient (12/15/24944) Response to Education: Receptive and agreeable to education (12/15/24944) Barriers to learning: Medical status (12/15/24944) Preferred learning method: Combination (12/15/24944) Method of Education: Verbal discussion and explanation provided to patient: verbalized understanding and or agreement of this information Assessment: Patient is an 79 year old male admitted on 12/15/24 being seen s/p fall down stairs. He was previously living at home and reports being independent for ADLs/mobility. On exam, patient required min assist for bed mobility due to weakness. He was able to simulate UB/LB dressing tasks at supervision level while seated edge of bed. Patient required contact guarding to transfer from bed-chair due to unsteadiness. He would benefit from ongoing acute OT services to improve function. Please consider post-acute care services which may include home health, correction, outpatient therapyor inpatient rehabilitation. The level of care will be determined in collaboration with patient, family/caregiver and care team members. AM-PAC Help From Another Person Eating Meals: None (12/15/24944) Help From Another Person Taking Care of Personal Grooming: A little (12/15/24944) Help From Another Person To Put On/Take Off Upper Body Clothing: A little (12/15/24944) Help From Another Person To Put On/Take Off Lower Body Clothing: A little (12/15/24944) Help From Another Person Toileting: A little (12/15/24944) Help From Another Person Bathing: A little (12/15/24944) OT AM-PAC Score: 19 (12/15/24944) OT AM-PAC t-Scale Score: 40.22 (12/15/24944) A portion of this AM-PAC assessment not scored based on functional assessment; rather clinical decision making was utilized based on current findings and/or prior level of function. Please refer to future AM-PAC calculations of functional ability as they become available. Deficits requiring O.T. treatment needs: ADL/self- care;Balance;Endurance;Functional mobility;IADL;Safety;Upper extremity strength;Weakness (12/15/24944) Goals: Increase Strength of BUE to 5/5 in all areas Demonstrate sitting Balance of Fair+ Demonstrate standing Balance of Fair+ Demonstrate self care at modified independence for all UB and LB tasks Demonstrate toileting with modified independence Demonstrate Bed Mobility with modified independence Demonstrate Transfers with modified independence Demonstrate Functional Ambulation with modified independence Treatment Plan: Accuracy with Precautions, Safety, Bed mobility training, Functional Ambulation, Transfer training, Coordination Tasks, Upper extremity strengthening, Balance activities, ADL training, and Endurance Goal Time Frame:8 visits Anticipated Frequency (on eval): 3 to 5 times per week (12/15/24944) * Lucero Baig, PT - 12/15/2024 9:30 AM EDTAssociated Order(s): ADULT PHYSICAL THERAPY CONSULT IP Physical Therapy - General Evaluation [address] [address] Name: Blake Arreaga Location: [facility] B6/B Date: 12/15/2024 Time: 9:30 AM Blake Arreaga is a/an 79 year old male. Patient Status: Inpatient Insurance: Payor: MEDICARE Plan: MEDICARE A AND B Product Type: *No Product type* Payor: AARP Plan: AARP Product Type: *No Product type* Patient Seen: at bedside, nursing cleared patient for therapy Patient Identified By: Name, ID Band and Date Diagnosis: s/p fall with C1 fracture, scalp laceration (12/15/24929) Status of treatment: Evaluation completed (12/15/24929) Orders: PT evaluation and treatment;OOB (12/15/24929) Weight Bearing Status: Weight bearing as tolerated (12/15/24929) Precautions: Alarms;Falls;Back/neck brace;Safety;Spine precautions (12/15/24929) Back/Neck Brace: (cervical collar) (12/15/24929) Total Treatment Time--free text: 16 (12/15/24929) Subjective: Patient supine in bed upon therapist entering room. Spouse present in room. Patient agreeable to PT evaluation. Past Medical History: Past Medical History: Diagnosis Date A-fib (HCC) 3 episodes in 11 years Hyperlipidemia Hx of hyperlipidemia Hypertension Mixed hyperlipidemia 06/26/2023 Past Surgical History: Past Surgical History: Procedure Laterality Date CARDIOVERSION,ELECTIVE INTERNA HC MEDTR[employer] CORONARY OSTIAL Medtronic loop recorder implanted Social History/Disposition Lives with: Spouse (12/15/24944) Assistance available: Yes (12/15/24944) Dwelling type: Multi-story home (12/15/24944) Entry steps: 1 (12/15/24944) Inside steps: 10 - 15 (12/15/24944) Bedroom location: 2nd floor (12/15/24944) Bath location: 1st floor powder room;2nd floor full bath (12/15/24944) Prior Level of Function Reported by: Patient (12/15/24929) Ambulation: Ambulatory without device (12/15/24929) Observations Consciousness: Alert (12/15/24929) Orientation: Oriented times 4 (12/15/24929) Psychosocial: Patient can converse in a social setting (12/15/24929) Other Findings: Yes (12/15/24929) Findings: Light touch sensation (12/15/24929) Light Touch Sensation Results: Intact;LLE;RLE (12/15/24929) Sitting Posture: Rounded shoulders (cervical collar) (12/15/24929) Standing Posture: Rounded shoulders (cervical collar) (12/15/24929) Pain: Patient has complaints of pain. Pain located neck. No level stated. Nurse aware. Range of Motion Range of Motion: WFL (bilateral LE) (12/15/24929) Strength Assessment Strength Assessment: Deficits noted (bilateral LE 4/5) (12/15/24929) P.T. Bed Mobility Roll (Left): Supervision (12/15/24929) Sidelying-Sit: Minimal Assistance (12/15/24929) Transfers Sit-Stand: Contact Guard (12/15/24929) Stand-Sit: Contact Guard (12/15/24929) Ambulation Assist: Contact Guard (12/15/24929) Distance Ambulated (feet): 5 (distance limited by slight lighheadedness; initial mobility attempt) (12/15/24929) Assistive Device: No device (12/15/24929) Noted gait deviations: decreased bilateral step length and height (12/15/24929) Ambulatory safety: Patient verbalizes insight of current deficits (12/15/24929) Balance Sit (Static): Fair (12/15/24929) Sit (Dynamic): Fair (-) (12/15/24929) Stand (Static): Fair (-) (12/15/24929) Stand (Dynamic): Fair (-) (12/15/24929) Patient and or Family Goal(s): to get well Patient Education Review of Precautions: Safety;Fall;Spine Precautions (role of PT) (12/15/24929) Safety Awareness: Patient verbalizes insight of current deficits (12/15/24929) Preferred learning method: Combination (12/15/24929) Barriers to learning: Medical Status (12/15/24929) Method of Education: Verbalized to patient (12/15/24929) Topic of Education: Safety with mobility, Goals/plan of care, Fall prevention, spine precautions, role of PT Treatment Provided: Evaluation Moderate Complexity 16 minutes - 29732: Patient was alert during treatment session. Moderate complexity evaluation performed and 1-2 personal factors or comorbidities were identified that will impact plan of care, including multiple steps at home and cardiac history. Patient presents with limitations in strength, bed mobility, transfers, gait, elevations, balance, and endurance, which will impact plan of care. These limitations will be addressed by the goals set for this patient. Alarm Status Patient positioned in: Chair (12/15/24929) With: Pressure pad alarm intact and functioning and call phelps in reach (12/15/24929) Following session patient seated OOB in chair with chair alarm activated and cord plugged into callbell system. Treatment Status: Treatment at bedside (12/15/24929) Assessment: Patient is an 79 y/o male with dx s/p fall with C1 fracture and scalp laceration. Priorto admission, patient lives with spouse in a multi story home with 1 steps to enter and was independent with mobility without an assistive device. Patient currently requires supervision for rolling, minimal assistance for sidelying to sit, contact guard for sit to stand transfers, and contact guardto ambulate a short distance without an assistive device. Patient's mobility is limited by decreased LE strength, decreased balance, overall medical status with c/o pain, and decreased activity tolerance. Patient would benefit from continued PT to maximize functional independence. Please consider post- acute care services which may include home health, correction, outpatient therapy or inpatient rehabilitation. The level of care will be determined in collaboration with patient, family/caregiver and care team members. Goals: Demonstrate Bed Mobility with : Rolling: Modified Independent Sidelying to Sit: Modified Independent Sit to sidelying: Modified Independent Demonstrate Transfers with: Sit to Stand: Modified Independent Stand to Sit: Modified Independent Demonstrate Ambulation: Assistive Device: least restrictive device Distance in feet: 250' Level of Assistance on level surface: Modified Independent Demonstrate Stairclimbing: Number of steps: 12, : with rail and Level of Assistance: Modified Independent Increase Strength of: Bilateral LE by 1/2 MMT grade above eval Increase Balance: to Fair + throughout Time Frame: 8 visits Treatment Plan: Bed mobility training, Transfer training, Gait training, Elevation training, Strengthening exercises, Balance activities, and Educate on safety with mobility Deficits requiring P.T. treatment needs: Safety;Mobility;Balance;Weakness;Endurance;Lower extremitystrength (12/15/24929) Anticipated Frequency (on eval): 3 to 5 times per week (12/15/24929) AM-PAC Score With Stairs : 17 (12/15/24929) A portion of this AM-PAC assessment not scored based on functional assessment; rather clinical decision making utilized based on current findings and/or prior level of function. Please refer to future AM-PAC calculations of functional ability as they become available. * Luz James, PARKING MANAGER - 12/15/2024 9:28 AM EDTAssociated Order(s): ADULT SPEECH THERAPY CONSULT IP (ACUTE CARE REHAB) PROGRESS NOTE - Speech-Language Pathology [facility] [place]-[address] [address] Name: Blake Arreaga Location: [facility] B642/B Date: 12/15/2024 Time: 9:28 AM Patient Status: Inpatient Insurance: Payor: MEDICARE / Plan: MEDICARE A AND B / Product Type: *No Product type* / Patient Age: [age] year old Consult received and appreciated Attempted to see pt this morning, however PT/OT in room conducing evaluation Will re-attempt as pt is able/appropriate * Blake Rose MD - 12/15/2024 3:03 AM EDTAssociated Order(s): NEUROSURGERY CONSULT IP NEUROLOGICAL SURGERY CONSULT NOTE [address] [address] Name: Blake Arreaga Location: Date: 12/15/2024 Time: 3:04 AM Requesting service: Trauma Surgery Reason for consult: "C1 R lateral mass fx extending to C1/2 facet and into occipital condyle" HISTORY OF PRESENT ILLNESS: Blake Arreaga 79 year old male [id number] w/ PMH significant for HLD, HTN, a-fib (not on a/c), 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 Metoprolol Tartrate 25 MG Oral Tablet (Lopressor) Take 1 Tablet by mouth in the morning and 1 Tablet before bedtime. CoQ10 100 MG Oral Capsule Take by mouth. Multi-Vitamin HP/Minerals Oral Capsule Take by mouth. Vitamin C 500 MG Oral Capsule Take by mouth. Vitamin D (Cholecalciferol) 25 MCG (1000 UT) Oral Capsule Take by mouth. Vitamin-B Complex Oral Tablet Take 1 Tablet by mouth in the morning. EpiPen 2-Jared 0.3 MG/0.3ML Injection Solution Auto-injector Inject 0.3 mg into a large muscle once. For a severe reaction: Inject in outer thigh following instructions on package and go to the Emergency room. As needed for Allergic Reaction PSHx Past Surgical History: Procedure Laterality Date CARDIOVERSION,ELECTIVE INTERNA HC [employer]TR[employer] CORONARY OSTIAL Medtronic loop recorder implanted Social Hx Social History Tobacco Use Smoking status: Never Passive exposure: Past Smokeless tobacco: Never Vaping Use Vaping status: Never Used Substance Use Topics Alcohol use: Not Currently Drug use: Not Currently Fam Hx Family History Problem Relation Name Age of Onset Ovarian cancer Mother Hyperlipidemia Mother Hypertension Father Hypertension Brother Cancer Brother oral cancer Hyperlipidemia Brother Allergies Peanut-containing drug products, Shellfish-derived products, Soy allergy (obsolete), Tomato, and Soja chance oil [soybean oil] REVIEW OF SYSTEMS: Per HPI PHYSICAL EXAMINATION: Vital signs over last 24 hours: BP: 123 mmHg/79 mmHg (12/15/24218) Most Recent Systolic BP Av mmHg Min: 123 mmHg Max: 123 mmHg Pulse: 117 (12/15/24218) ST (12/15/24228) Pulse Av Min: 117 Max: 117 Temperature: 37.28 C (12/15/24218) Most Recent Temperature Av.28 C Min: 37.28 C Max: 37.28 C Respirations: 19 (12/15/24218) Resp Av Min: 19 Max: 19 SpO2: 99 % (12/15/24218) SpO2 Av % Min: 99 % Max: 99 % ICP: No data recorded CPP: No data recorded NEUROLOGIC EXAMINATION: Jeffery Coma Scale (GCS): Eyes Open: 4 = spontaneous Best Verbal Response: 5 = verbally appropriate for age Best Motor Response: 6 = obeys commands appropriate for age Motor strength: Biceps (C5) Triceps (C7) Deltoids (C5) Wrist Ext (C6) Wrist Flex [employer] Cook (C8) Hip Flex (L2) Knee Flex Knee Ext (L3) Dorsiflexion (L4) Plantarflexion (S1) EHL (L5) R 5/5 5/5 5/5 5/5 5/5 5/5 5/5 5/5 5/5 5/5 5/5 5/5 L 5/5 5/5 5/5 5/5 5/5 5/5 5/5 5/5 5/5 5/5 5/5 5/5 Good bulk and tone in all four extremities. Sensory examination: Right Left Lateral shoulder/arm (C5) SILT SILT Lateral forearm/thumb (C6) SILT SILT Posterior forearm, middle finger (C7) SILT SILT Medial forearm, ulnar fingers (C8) SILT SILT Medial arm (T1) SILT SILT Right Left Inguinal Region (L1) SILT SILT Upper Thigh (L2) SILT SILT Anteromedial Thigh (L3) SILT SILT Medial leg, ankle, foot (L4) SILT SILT 1st webspace, lateral leg (L5) SILT SILT Lateral foot, posterior leg (S1) SILT SILT Pathologic Reflexes: Jenkins: negative Babinski: mute Clonus: 0 beats bilaterally LABS: Chemistry: Lab Results Component Value Date/Time BUN 18 12/10/2024 11:58 AM CREAT 0.8 12/10/2024 11:58 AM NA 141 12/10/2024 11:58 AM POTASSIUM 4.6 12/10/2024 11:58 AM CO2 27 12/10/2024 11:58 AM Coagulation studies: Lab Results Component Value Date/Time INR 1.1 12/10/2024 11:58 AM Blood count: Lab Results Component Value Date/Time WBC 12.36 (H) 12/10/2024 11:58 AM HGB 12.9 (L) 12/10/2024 11:58 AM HCT 40.7 12/10/2024 11:58 AM PLT 494 (H) 12/10/2024 11:58 AM IMAGING STUDIES: CT C - C1 R lateral mass fx extending to C1/2 facet and into occipital condyle IMPRESSION: Blake Martinez Gibson 79 year old male [id number] w/ PMH significant for HLD, HTN, a-fib (not on a/c), 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 RECOMMENDATIONS: No acute neurosurgical intervention MRI C W/WO Collar No HOB restriction, no log roll precautions, no spinal precautions NPO for now Hold [facility] for now Case was discussed with chief resident Cosigned by Nader Anna III, MD at 12/15/2024 8:53 AM EDT Associated attestation - Nader Anna III Adam, MD - 12/15/2024 8:53 AM EDT I did not see the patient, but I have reviewed the resident/fellow physician documentation and was readily available on date of service. I have discussed the care and treatment plan with the house staff. Collar, MrI. documented in this encounter Nursing Notes * Silver Peraza RN - 12/15/2024 2:37 PM EDT SBAR FOR POST INTERVENTIONAL RADIOLOGY PROCEDURE Patient Name: Blake Arreaga Age:[age] year old Sending to: [facility] Procedure: Paracentesis Medications Administered: no Special Instructions/Notes: 850 mL removed. Concerns: no Report from: Silver Phone extension: [phone] Patient sent via: Bed Reason for SBAR handoff: Transfer Patient meets discharge criteria for Interventional Radiology. Vital signs stable. Dressing clean, dry, and intact. Patient awake and oriented to pre procedure baseline. Patient with no nausea/vomiting. All belongings sent with patient. Vital Signs: BP: 117/68 (12/15/24 135) Temp: 36.7 °C (98.1 °F) (12/15/24 135) Pulse: 81 (12/15/24 135) Resp: 18 (12/15/24 135) SpO2: 98 % (12/15/24 135) Weight: 64.2 kg (141 lb 8.6 oz) (12/15/24 0632) Height: 170.2 cm (5' 7") (12/15/24631) Neurological: [place] Coma Scale - For patients greater than two years old Eyes Open: Spontaneous (12/15/24 135) Best Verbal Response: Verbally appropriate for age (12/15/24 135) Best Motor Response: Obeys commands appropriate for age (12/15/24 135) Coma Score: 15 (12/15/24 135) Respiratory: Pain Assessment Flowsheet Row Most Recent Value Pain Assessment Scale [facility] Adult Scale 0-10 (18 years and older) Pain Score 0 (no pain) Lines: Peripheral Line Left Antecubital 20 Gauge (Active) Status Flushes easily;Fluids infusing 12/15/24 0800 Tubing Changed No 12/15/24799 Phlebitis Scale 0 12/15/24 08 Infiltration Scale 0 12/15/24799 Site Description (Other) Without redness, swelling or drainage 12/15/24 08 Site Intervention None required 12/15/24799 Dressing Assessment Dressing clean, dry, and intact 12/15/24799 Dressing Intervention None required 12/15/24799 Number of days: 0 Peripheral Line Right Hand 20 Gauge (Active) Status Capped/Locked;Flushes easily;Alcohol disinfectant cap;Positive blood return 12/15/24613 Tubing Changed N/A 12/15/24613 Phlebitis Scale 0 12/15/24613 Infiltration Scale 0 12/15/24613 Site Description (Other) Without redness, swelling or drainage 12/15/24613 Site Intervention Flushed 12/15/24613 Dressing Assessment Dressing clean, dry, and intact 12/15/24613 Dressing Intervention Applied 12/15/24613 Number of days: 0 * Erika Moran RN - 12/15/2024 11:27 AM EDT INPATIENT TO INTERVENTIONAL RADIOLOGY (IR) HANDOFF COMMUNICATION NOTE [facility] [place]-[address] [address] Name: Blake Arreaga Age: [age] year old Location: [facility] B642/B Date: 12/15/2024 Safety Concerns: Fall Risk Allergies: Peanut-containing drug products, Shellfish-derived products, Soy allergy (obsolete), Tomato, and Soja chance oil [soybean oil]; patient has several food allergies-please review; need to click on allergy section and review allergies from outside source; some are causing anaphylaxis Contrast Dye Allergy? Yes-has shellfish allergy Allergy prepped? 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 no Emotional/Personal Anxiety? no Last as needed pain medication given at (time): none given Situation/Background Admission date: 12/15/2024 Patient Service: Trauma Surgery [[id number]] Attending Provider: Belle Lea MD Admitting diagnosis: C1 cervical fracture (HCC) Fall Chief Complaint: Fall Problem list: Active Problems: Scalp laceration, initial encounter Closed nondisplaced fracture of first cervical vertebra (HCC) Resolved Problems: * No resolved hospital problems. * Level of Care: Med Surg [3] Vital Signs: BP: 126/70 (12/15/24631) Temp: 36 °C (96.8 °F) (12/15/24631) Pulse: 76 (12/15/24 1125) Resp: 16 (12/15/24631) SpO2: 96 % (12/15/24631) Weight: 64.2 kg (141 lb 8.6 oz) (12/15/24631) Height: 170.2 cm (5' 7") (12/15/24631) Labs: Please see Lab Flowsheet for lab values. Lab comments: no Lines: Peripheral Line Left Antecubital 20 Gauge (Active) Status Flushes easily;Fluids infusing 12/15/24799 Tubing Changed No 12/15/24799 Phlebitis Scale 0 12/15/24799 Infiltration Scale 0 12/15/24799 Site Description (Other) Without redness, swelling or drainage 12/15/24 08 Site Intervention None required 12/15/24799 Dressing Assessment Dressing clean, dry, and intact 12/15/24799 Dressing Intervention None required 12/15/24799 Number of days: 0 Peripheral Line Right Hand 20 Gauge (Active) Status Capped/Locked;Flushes easily;Alcohol disinfectant cap;Positive blood return 12/15/24613 Tubing Changed N/A 12/15/24613 Phlebitis Scale 0 12/15/24613 Infiltration Scale 0 12/15/24613 Site Description (Other) Without redness, swelling or drainage 12/15/24613 Site Intervention Flushed 12/15/24613 Dressing Assessment Dressing clean, dry, and intact 12/15/24613 Dressing Intervention Applied 12/15/24613 Number of days: 0 Fall Scale: Fall Score: 70 (12/15/24799) Fall Interventions: Ambulation assist device present;Bed at low level;Bed alarm on;Yellow armband applied/intact and on patient;Fall risk sign above bed;Fall risk sign outside room;Floor free of clutter;Non-skid foot covering on;Pressure sensitive pad alarm on and audible;Walk path free of obstacles (12/15/24799) Neurological: Jeffery Coma Scale - For patients greater than two years old Eyes Open: Spontaneous (12/15/24799) Best Verbal Response: Verbally appropriate for age (12/15/24799) Best Motor Response: Obeys commands appropriate for age (12/15/24799) Coma Score: 15 (12/15/24799) Additional Neurological Information: no Respiratory: Respiratory WNL: WNL- within normal limits (12/15/24799) Oxygen therapy/ Mechanical vent Supplemental O2 Delivery: Room Air, None (12/15/24799) Additional Respiratory Information: no Cardiac: Cardiovascular WNL: X - Exceptions to WNL as documented below (12/15/24799) Rhythm: ST (12/15/24 0229) Extremities: +Sensation;Right;Left;Upper;Lower;Warm (12/15/24399) Pulses Right: Radial + (12/15/24399) Pulses Left: Radial + (12/15/24399) Edema Location: Left Lower Extremity (LLE);Right Lower Extremity (RLE) (12/15/24799) RLE Edema Assessment: +1- Description (12/15/24799) LLE Edema Assessment: +1 - Description (12/15/24799) Capillary Refill: 1-2 seconds (12/15/24799) Additional Cardiac Information: no GI/: GI WNL: WNL - within normal limits (12/15/24799) Abdomen: Soft;Non-distended;Non-tender (12/15/24228) Additional GI/ Information: incontinent at times Integumentary: Integumentary WNL: X - Exceptions to WNL as documented below (12/15/24799) Skin Description: Warm;Dry (12/15/24228) Skin Color: Ecchymosis (12/15/24799) Skin Variations: Other - Describe (scattered abrasions due to recent fall; see below) (12/15/24799) Jhonny Score (auto-calculation): 17 (12/15/24799) Skin Breakdown (including Red, Non-Blanchable Areas) Present on Admission?: No (12/15/24635) Additional Integumentary Information: no Restraints: No orders of the defined types were placed in this encounter. documented in this encounter ED Notes * Shelley King RN - 12/15/2024 2:19 AM EDT Pt transferred from [facility]. Pt fell down 4-5 steps at around [address] [facility] found C1 fracture. Pt in c-collar, no complaints. A&O x 4. documented in this encounter Miscellaneous Notes * Ancillary Progress Note - Jacqui Beltran MSW - 12/16/2024 11:49 AM EDT CARE MANAGEMENT - TRAUMA DISCHARGE NOTE [facility]-[address] [address] Name: Blake Arreaga Location: [facility] B642/B Date: 12/16/2024 Time: 11:50 AM The following coordination of care and discharge plan has been coordinated with the care team, patient, family and/or caregiver according to the patients’ needs and preferences. Discharge Discharge Second Notice Important Message from Medicare delivered: Not Applicable (12/16/24 1148) Discharge Transportation: Family/Friends drive (12/16/24 1148) Date of scheduled discharge transportation: 12/16/24 (12/16/24 1148) Patient declined post-hospital transition of care recommendation: N/A (12/16/24 1148) Final Discharge Plan (Complete only at time of Discharge): Home - Self Care (12/16/24 1149) Durable Medical Equipment - Admitted Since 12/15/2024 Service Provider Services Address Phone Fax Patient Preferred Last Updated [facility] - [place] Durable Medical Equipment [address] [place] [address], [address], [place] [facility] [id number] [phone] -- Jacqui Beltran MSW 12/16/2024 1148 Narrative: Per update from service, patient is medically stable for discharge today. Patient to discharge home - he resides with his . A rolling walker was recommended - patient agreeable so RW was delivered to bedside; clinicals, DME order and delivery ticket to be sent to [facility]. Patient declines any additional care management needs. SW did discuss home health services with patient he does not feel he needs those services at this time. His will provide transport - she is currently onher way. Please notify HILDA if there are any changes to the discharge plan. * Ancillary Progress Note - Imelda London PTA - 12/16/2024 11:00 AM EDT PROGRESS NOTE - Physical Therapy [facility]-[address] [address] Name: Blake Arreaga Location: [facility] B642/B Date: 12/16/2024 Time: 11:00 AM Blake Arreaga is a/an 79 year old male. Patient Status: Inpatient Insurance: Payor: MEDICARE Plan: MEDICARE A AND B Product Type: *No Product type* Payor: AARP Plan: AARP Product Type: *No Product type* Patient Seen: at bedside, nursing cleared patient for therapy Patient Identified By: Name, ID Band and Date Diagnosis: s/p fall with C1 fracture, scalp laceration (12/16/241099) Status of treatment: Treatment completed (12/16/241099) Orders: PT evaluation and treatment;OOB (12/16/241099) Weight Bearing Status: Weight bearing as tolerated (12/16/241099) Precautions: Alarms;Falls;Back/neck brace;Safety;Spine precautions (12/16/241099) Back/Neck Brace: (cervical collar) (12/16/241099) Total Treatment Time--free text: 25 (12/16/241099) Subjective: pt pleasant and cooperative Pain: No complaints of pain P.T. Bed Mobility Roll (Left): Supervision (12/15/24 09) Sidelying-Sit: Minimal Assistance (12/15/24 09) Transfers Sit-Stand: Modified Independent (12/16/241099) Stand-Sit: Modified Independent (12/16/241099) Ambulation: Distance ambulated (feet): 450 x2 Assistive Device: Rolling walker Assist: Modified Independent Stair Training: Number of stairs: 9 Number of handrails: right handrail going up Level of Assistance: Supervision Balance Sit (Static): Fair (+) (12/16/241099) Sit (Dynamic): Fair (+) (12/16/241099) Stand (Static): Fair (+) (12/16/241099) Stand (Dynamic): Fair (+) (12/16/241099) Patient and or Family Goal(s): to get well and to return home Topic of Education: Safety with mobility and Goals/plan of care Method of Education: Verbal discussion and explanation provided to pt: verbalized understanding andor agreement of this information and demonstrated the exercise and or task Treatment Provided: Gait Training 25 minutes: gait training with rolling walker stair training Alarm Status Patient positioned in: Chair (12/16/241099) With: Pressure pad alarm intact and functioning and call phelps in reach (12/16/241099) Following session patient seated OOB in chair with chair alarm activated and cord plugged into callbell system. Patient Education Review of Precautions: Safety;Fall;Spine Precautions (12/16/241099) Safety Awareness: Patient verbalizes insight of current deficits;Patient demonstrates carryover of insight during functional tasks;Patient can communicate basic needs (12/16/24 1100) Preferred learning method: Combination (12/16/24 1100) Barriers to learning: None (12/16/241099) Method of Education: Verbalized to patient;Patient demonstrated task (12/16/24 1100) Assessment: pt alert and agreeable to treatment. Pt seated in recliner upon arrival. Pt seen for transfers, ambulation, and stair negotiation. Pt is Modified Independent for all mobility except supervision on stairs. Pt's is able to provide the supervision for the stairs. Pt and spouse report that pt's is capable to care for pt as needed at home. Spoke with Lucero Baig, PT- Pt is okay to discharge from skilled PT services at this time due to meeting all goals. Please consider home with post-acute care services which may include home health or outpatient therapy. The level of care will be determined in collaboration with the patient, family/caregiver and care team members. Deficits requiring P.T. treatment needs: Safety;Mobility;Balance;Weakness;Endurance;Lower extremitystrength (12/15/24 0930) Back/Neck Brace: (cervical collar) (12/16/24 1100) Plan: Discontinue therapy services. AM PAC Score with Stairs: 23 * Ancillary Progress Note - Marianne Saba OTA - 12/16/2024 10:40 AM EDT PROGRESS NOTE - Occupational Therapy [facility]-[address] [address] Name: Blake Arreaga Location: [facility] B642/B Date: 12/16/2024 Time: 10:40 AM Blake Arraega is a 79 year old male. Patient Status: Inpatient Insurance: Payor: MEDICARE Plan: MEDICARE A AND B Product Type: *No Product type* Payor: AARP Plan: AARP Product Type: *No Product type* Patient Seen: at bedside, nursing cleared patient for therapy Patient Identified By: Name, ID Band and Date Diagnosis: s/p fall with C1 fracture (12/16/24 1040) Status of treatment: Treatment completed (12/16/241039) Orders: OT evaluation and treatment (12/16/241039) Weight Bearing Status: Weight bearing as tolerated (12/16/241039) Precautions: Alarms;Falls;Safety;Spine Precautions;Back/neck brace (12/16/241039) Back/Neck Brace: (cervical collar) (12/16/241039) Total Treatment Time: 25 (12/16/241039) Subjective: agreeable to therapy Pain: No complaints of pain Observations Consciousness: Alert (12/16/241039) Orientation: Oriented times 4 (12/16/241039) Safety awareness: The Patient verbalizes insight of current deficits.;The Patient demonstrates carryover of insight during functional tasks. (12/16/241039) Current Functional Status: Activities of Daily Living: Self Care Able to provide self care: Yes (12/16/241039) Grooming: Modified Independent (standing at sink to wash hands) (12/16/241039) Toileting: Independent (12/16/241039) Functional Ambulation Assistive Device: Rolling walker (12/16/241039) Distance in feet:: 25 (x2) (12/16/241039) Level of Assistance: Supervision (Please Comment) (12/16/241039) OT Transfers Sit-Stand: Modified Independent (12/16/241039) Stand-Sit: Modified Independent (12/16/241039) Toilet: Modified Independent (using RW) (12/16/241039) Balance Sit (Static): Fair (+) (12/16/241039) Sit (Dynamic): Fair (+) (12/16/241039) Stand (Static): Fair (12/16/241039) Stand (Dynamic): Fair (12/16/241039) Patient Education Education Topic: Role of OT (12/16/241039) Review of Precautions: Safety;Fall;Spine Precautions (12/16/241039) Method of Education: Verbalized to patient (12/16/241039) Education Provided to: Patient (12/16/241039) Response to Education: Receptive and agreeable to education (12/16/241039) Barriers to learning: None (12/16/241039) Alarm Status Patient positioned in: Chair (12/16/241039) With: Call phelps in reach (with prn physical therapist for PT session) (12/16/241039) Treatment Provided: Self Snf Management Trainin minutes Deficits requiring O.T. treatment needs: ADL/self- care;Balance;Endurance;Functional mobility;Safety;Upper extremity strength;Weakness (12/16/241039) Assessment: Patient out of bed and seated in recliner chair upon entry, agreeable to therapy. Self care and mobility tasks performed at levels as stated above using rolling walker. Patient progressing toward self care goals, however continues to be limited by decreased balance, decreased endurance,and overall medical status. Continued occupational therapy services recommended to maximize functional independence. Please consider home with post-acute care services which may include home health or outpatient therapy. The level of care will be determined in collaboration with the patient, family/caregiver and care team members. Plan: Will continue to follow as per plan. Anticipated Frequency (on eval): 3 to 5 times per week (12/16/241039) Equipment Equipment used in Therapy: Rolling walker (12/16/241039) Back/Neck Brace: (cervical collar) (12/16/241039) AM-PAC Help From Another Person Eating Meals: None (12/16/241039) Help From Another Person Taking Care of Personal Grooming: A little (12/16/241039) Help From Another Person To Put On/Take Off Upper Body Clothing: A little (12/16/241039) Help From Another Person To Put On/Take Off Lower Body Clothing: A little (12/16/241039) Help From Another Person Toileting: None (12/16/241039) Help From Another Person Bathing: A little (12/16/241039) OT AM-PAC Score: 20 (12/16/241039) A portion of this AM-PAC assessment not scored based on functional assessment; rather clinical decision making utilized based on current findings and/or prior level of function. Please refer to future AM-PAC calculations of functional ability as they become available. * Care Plan - Marcin Vera RN - 12/16/2024 4:26 AM EDT Clinical Goal(s): Ensure Pt safety and comfort (12/15/241907) Possible barriers to meeting goal(s)/advancing plan of care: Pt had recent fall ; w/ C1 fx , currently wearing a C collar . NPO. Awaiting definitive plan of treatment as pt has relevant comorbidities. Stability of the patient: Moderately stable - low risk of patient condition declining or worsening Summary regarding today's goal(s): Met: Pt made safe , no falls within shift. Needs attended. Recommendations: Continue to do hourly purposeful rounding , monitor V/S, turn and reposition , call phelps within reach , encourage ambulation as tolerated w/ walker until full strength is regained . Continue to follow treatment plan . * Ancillary Progress Note - Claude Zambrano, PhD - 12/15/2024 3:41 PM EDT Injured Trauma Survivor Screen (ITSS) BEFORE THIS INJURY Have you ever taken medication for, or been given a mental health diagnosis? PTSD:N/A DEP: No- 0 Has there ever been a time in your life you have been bothered by feeling down or hopeless or lost all interest in the things you usually enjoyed for more than 2 weeks? PTSD: N/A DEP: No- 0 WHEN YOU WERE INJURED OR RIGHT AFTERWARD 3. Did you think you were going to ? PTSD: No- 0 DEP: No- 0 4. Do you think this was done to you intentionally? PTSD: No- 0, DEP: N/A SINCE YOUR INJURY 5. Have you felt emotionally detached from your loved ones? PTSD: N/A, DEP No- 0 6. Do you find yourself crying and unsure why? PTSD: N/A, DEP No- 0 7. Have you felt more restless, tense or jumpy than usual? PTSD: No- 0, DEP: N/A 8. Have you found yourself unable to stop worrying? PTSD: No- 0, DEP: N/A 9. Do you find yourself thinking that the world is unsafe and that people are not to be trusted? PTSD No- 0 DEP: N/A TOTAL SCORE: PTSD: 0, DEP 0 Score > or = 2 in PTSD category is positive for PTSD risk (place psychology consult for Dr Lagunas indicating + ITSS) Score > or = 2 in DEP category is positive for Depression Risk (check with Dr Lagunas to see if aconsult is needed) Pt denies having a history of anxiety/depression. Claude Zambrano PhD, machine bobbin winder Lasting Room Machine Operator [facility] 12/15/2024 3:42 PM * Ancillary Progress Note - Claude Zambrano, PhD - 12/15/2024 3:40 PM EDT SBIRT NOTE Was screening able to be completed? Yes If unable to be completed, why? n/a S (screening) CAGE-[employer]ID Substance Abuse Screening Tool (Any "yes" answer indicates a positive screen) C Have you ever felt the need to Cut down on your drinking or drug use? No A Have people Annoyed you by criticizing your drinking or drug use? No G Have you ever felt Guilty about drinking or drug use? No E Have you ever felt you needed a drink or used drugs first thing in the morning to steady your nerves or to get rid of a hangover (Eye-Stogy Roller)? No BI (brief intervention) to be done on all patients: I have reviewed both ETOH/ Urine Tox screen with patient and discussed the results as well. After reviewing the results patient admits they they do or do not feel their drinking &/or druguse interferes with their life/goals for the future. Do Not Patient does or does not want to be referred to treatment at this time. Does not RT (referral for treatment) to be done if BI and/or screening +, or any concerns/issues arose whilespeaking with patient (pamphlet for area services given to all pts no matter what): Not referred (reason why no concerns identified- pt denies use of drugs and/or alcohol. Urine tox and ETOH negative. ) Claude Zambrano, PhD, machine bobbin winder Lasting Room Machine Operator [facility] 12/15/2024 3:41 PM * Ancillary Progress Note - Claude Zambrano, PhD - 12/15/2024 3:37 PM EDT NURSING PROGRESS NOTE - Rehabilitation Review - Trauma Surgery [facility] [address] Name: Blake Arreaga Location: [facility] B642/B Date: 12/15/2024 Time: 3:37 PM ADULT REHABILITATION REVIEW Chart reviewed according to [place] [employer] guidelines. Case discussed in trauma rounds. Mechanism of Injury: Fall down 4-5 steps at home. Transfer from [facility]. Injuries consistant with mechanism. Gastroenterology, PARKING MANAGER, Palliative Medicine, Oncology, PT/OT, Neurosurgery consulted. Occupation: Retired. Injury prevention: Fall risks. Rehabilitation needs assessed. Rehabilitation Medicine: N/A Trauma Psychology: N/A Alcohol/Chemical Dependency: N/A Social Work: yes -- BIBIANA Ventura, following. Physical Therapy: yes -- following, see PT notes for details. Speech Pathology: yes -- following, see PARKING MANAGER notes for details. Occupational Therapy: yes -- following, see OT notes for details. Director Of Sales Marketing Services: yes -- following, as needed. Plan: Home vs rehab when medically stable. Pt reports he lives with his , Luz (at bedside),in a 2 story home with 2 GENTE and does not have any DME and no history of a rehab stay in the past. Claude Zambrano, PhD, machine bobbin winder Lasting Room Machine Operator [facility] 12/15/2024 3:40 PM * Ancillary Progress Note - Josie Arndt RT (R) - 12/15/2024 2:41 PM EDT Time Out performed by: Krystle Triana with Carrington Arndt and Krystle Martel RT at 1412 (RIGHT) sided access was obtained 850 mL's of tess fluid was removed. Handoff given to Carrington Perzaa RN. * Ancillary Progress Note - Luz James SLP - 12/15/2024 1:45 PM EDT PROGRESS NOTE - Speech-Language Pathology [address] [address] Name: Blake Arreaga Location: [address] Date: 12/15/2024 Time: 1:45 PM Patient Status: Inpatient Insurance: Payor: MEDICARE / Plan: MEDICARE A AND B / Product Type: *No Product type* / Patient Age: [age] year old Attempted to see pt again this afternoon Pt currently off floor in IR Will re-attempt as pt is able/appropriate * Ancillary Progress Note - Seth Lundberg RD - 12/15/2024 1:23 PM EDT CLINICAL NUTRITION CONSULT/PROGRESS NOTE [address] [address] Name: Blake Arreaga Location: RADIOLOGY WAITING ROOM/IR Date: 12/15/2024 Time: 1:24 PM How patient was identified (select 2): date and Name Discussed in interdisciplinary rounds: No Blake Arreaga is a 79 year old male being seen for trauma and significant unintentional weight loss Primary Diagnosis: An 79 year old male patient who presents with C1 cervical fractures Other pertinent information: During visit, patient and were both present in the room to provide nutrition-related information. indicated that patient's diet is limited due to the diet he isfollowing (vegetarian-based) and that they are "afraid" of trying/eating certain foods due to the many allergies that he has. stated that he has been following this lifestyle for years. She reports that he has an appetite and is hungry, but doesn't eat enough. stated that they are "afraid" of patient trying/eating certain foods because of his allergies. Patient was taking numerous vitamin/mineral supplements before the hospital. These included beet complex, vitamin C, vitamin D, CoQ 10, vitamin E, magnesium, zinc, and multi mineral supplements. Had no reported issues with chewing orswallowing, but did indicate that he has dry mucous membranes. Patient stated he was having loose stools before, but no experiencing nausea, vomiting, or other GI related symptoms. Last bowel movement was 12/15/24. Regarding weight changes, patient's stated that since 2019, the patient lost ~ 70 lbs. Most recently, she said that he was losing 1 lb/week over the last couple months. UBW is 131 lbs. There is no significant weight history noted in the EHR. Concerning oral nutrition supplementation, patient and agreed to trialing the super food mashed potatoes (lunch and dinner) to aid inmeeting his necessary energy and nutrient requirements when diet advances as clinically feasible. Per EHR 12/15/24, procedure/biopsy tomorrow for patient with potential concern for metastatic colon cancer with possible liver involvement. NUTRITION ASSESSMENT: Past medical/surgical history and medications reviewed. Food/Nutrition-Related History Nutrition Support: None Diet: NPO Previously followed diet: Vegetarian (patient would consume tuna, yogurt, milk); mentioned not eating eggs anymore due to bird flu Food Allergies/Intolerances: Spinach, Tomatoes, Whole grain rice, Soy, Peanuts, Tree nuts, Shellfish, Basil, Oregano ( reported 9 allergies) Adult Energy Intake: Less than 75% of estimated energy requirement for greater than 1 month (moderate/severe, chronic illness). Oral Nutrition Supplement (ONS): None Pertinent medications/vitamins/minerals/supplements: Vitamin D3, Colace, Phos- Nak, Senokot Pertinent Biochemical Data: Latest Reference Range & Units 12/10/24 11:58 Vitamin A (Retinol) 38 - 98 mcg/dL 16 (L) ZINC 60 - 130 mcg/dL 45 (L) COPPER 70 - 175 mcg/dL 200 (H) (L): Data is abnormally low (H): Data is abnormally high Recommend vitamin A and zinc supplements Recommend monitoring/evaluating copper levels and make necessary adjustments as needed Nutrition-Focused Physical Findings: Appearance: Ill-appearing and Thin Respiratory support: Supplemental O2 Delivery: Room Air, None Nasal/Oral: Dry mucous membranes Digestive: Appetite poor and Diarrhea Last Bowel Movement: 12/15/24 (12/15/24 1300) Cognition: Awake, alert Skin: Compromise without nutrition-related implications, traumatic L posterior head, traumatic L forehead Enteral access: None Nutrition Focused Physical Exam: NFPE completed on 12/15/24 Subcutaneous Fat Loss: Orbital fat pads: Severe Buccal fat: Severe Tricep: Severe Muscle Loss: Temples: Severe Clavicles: Severe Shoulders: Severe Interosseous: Severe Calves: Moderate/Severe Edema Location: Right Lower Extremity (RLE);Left Lower Extremity (LLE) (12/15/24 0800) Anthropometrics Measurements Height: 170.2 cm (5' 7") (12/15/24 06) Admission weight: 64.2 kg Weight: 64.2 kg (141 lb 8.6 oz) (12/15/24 06) BMI: 22.16 (12/15/24 06) Usual Body Weight: 131 lbs per patient report [place] weight: 62.8 kg [place] Weight Based on BMI: 21.7 Interpretation of Weight Change Prior to Admission: No recent weight/weight history available Weight Changes Since Admission: N/A Nutrition Prescription: Energy needs: 25-30 Kcal/kg Kcal/day: 1605 - 1926 Based on admission weight Protein needs: 1.0-1.2 gm/kg Protein: 64 - 77 gm Based on admission weight Fluid needs: 25 ml/kg Fluid: 1605 ml/day Based on admission weight Malnutrition: Malnutrition Present: Yes (12/15/24 1400) Adult Malnutrition Classification: Severe (12/15/24 1400) Malnutrition Characteristics: Fat loss;Muscle loss;Inadequate energy intake (12/15/24 1400) NUTRITION DIAGNOSIS: Malnutrition severe related to chronic illness as evidenced by patient consuming less than 75% of estimated energy requirements x 1 month, severe fat loss, and severe muscle loss. Goals: Diet advancement or initiation of enteral/parenteral nutrition within 24-48 hours. NUTRITION INTERVENTION/PLAN: Continue to monitor NPO/clear liquid status Clinical Nutrition Recommendations: Diet: Advance diet when clinically feasible Recommend Super Mashed Potatoes (1/2 cup provides: 280 calories, 9 grams protein, 24 grams carbohydrate), BID, lunch & dinner (upon diet advancement as clinically feasible) NUTRITION MONITORING AND EVALUATION: NPO status/diet advancement and tolerance Lab values warranting change with MNT Weight for trends Plan follow-up: Will follow and adjust nutrition plan of care as medical condition requires. Please contact for change(s) in patient condition requiring earlier intervention. Seth Lundberg, Graduate Dietitian Ext. [phone] Cosigned by Deysi Estrada RDN at 12/15/2024 3:58 PM EDT * Postprocedure Note - Sammi Triana CRNP - 12/15/2024 1:00 PM EDT PROCEDURE NOTE - Interventional Radiology [address] [address] Name: Blake Arreaga Location: RADIOLOGY WAITING ROOM/IR Date: 12/15/2024 Time: 2:34 PM PROCEDURE: paracentesis SLUBBER MACHINE OPERATOR: Sammi GRACE ASSISTANTS: RT César ANESTHESIA: local COMPLICATIONS: none SPECIMEN: fluid to laboratory ESTIMATED BLOOD LOSS: negligible FINDINGS: Successful US-guided paracentesis. Please see PACS imaging report for details. * Ancillary Progress Note - Ann Parham MSW - 12/15/2024 10:44 AM EDT CARE MANAGEMENT - TRAUMA INITIAL SCREENING [address] [address] Name: Blake Arreaga Location: [facility] B642/B Date: 12/15/2024 Time: 10:45 AM Discussed with Trauma and with the interdisciplinary care team. This Tandem Mill Operator performed a chartreview and met with patient at bedside to complete admission screen and assessed needs for transition planning. The daycare teacher role and services were explained and emotional support was provided. Chief Complaint: Fall Prior Living Arrangements What was your living situation prior to admission/observation?: With Spouse (12/15/24 0636) Living Quarters: House (12/15/24 1000) Number of steps to enter living quarters:: 1-2 (12/15/24 1000) How many stories is the dwelling?: Two Stories (12/15/24999) Prior Level of Functioning Describe the patient's ability prior to admission/observation to perform ADLs: Performs independently (12/15/24635) Describe the patient's mobility status prior to admission: Patient ambulates independently (12/15/24635) Patient uses assistive device: No (12/15/24635) Caregiver Information Emergency Contacts None on File Other Contacts Name Relation Home Work Mobile Luz Arvizu Spouse [phone] Risk Stratification Risk Stratification Psycho Social / Medical Concerns Identified: Adjustment to illness/injury (12/15/24999) Accessed [place] to connect patients to social care resources: No (12/15/24999) OBRA or OPTIONS needed for placement: No (12/15/24999) Readmission Risk Score: 9.77 (12/15/24 08) Prior to Admission Services Services Prior to Admission SCREW MACHINE SETTER Services (Services received within the last 30 days with exception, Psych within last two years): N/A (12/15/24999) [place] Dept[employer] of Aging (PDA) Waiver Program: N/A (12/15/24999) SCREW MACHINE SETTER Transportation (Services received within the last 30 days): Patient drives self (12/15/24999) Outpatient Tandem Mill Operator: No care steam tank operator to display Comments: CM met with pt, pt lives with spouse in a two-story home with 1-2 GENET. Pt's bedroom is onthe second floor and there are bathrooms on both floors. Pt able to drive. [facility] [place] Pt does not use DME. Pt does not have a hx with rehab, SNF, or HH. No MH hx or drug/alcohol use. Patient/Family Expectations: Anticipate rehab For further screening information, please refer to the Care Management flow document. * Ancillary Progress Note - Balwinder Toribio, ELECTRIC FREIGHT CAR OPERATOR - 12/15/2024 9:06 AM EDT PATIENT DRIVEN PROTOCOL - Respiratory Care Services [address] [address] Name: Blake Arreaga Location: [facility] B642/B Date: 12/15/2024 Time: 9:06 AM Patient Driven Protocol Summary: Initial evaluation performed. This Treatment Plan and medications will be reviewed by the Primary Care Team for any contraindications. Respiratory Care Treatment Plan Pulmonary Volume Expansion Therapy: Incentive Spirometry PRN to prevent or treat alveolar consolidation and atelectasis. The patient will be re-evaluated: No re-evaluation needed. Indications for treatment met. The Triage Level is: (Assessment Score = 0 - 5) Level 5. Triage Level Definitions: Level 1 Severe Respiratory/Airway Compromise Level 2 Moderate Respiratory/Airway Compromise or high risk for pulmonary complications Level 3 Mild Respiratory/Airway Compromise or moderate risk for pulmonary complications Level 4 Episodic Respiratory/Airway Compromise or low risk for pulmonary complications Level 5 No Respiratory/Airway Compromise Triage 1 Triage 2 Triage 3 Triage 4 Triage 5 greater than 20 16 - 20 11 - 15 6 - 10 0 - 5 Medical Record Assessment Clinical Findings Pulmonary Status: 0 - No History Surgical Status: 0 - No Surgical History Chest X-Ray: 1 - Chronic Changes or CHF Assessment Score: 1 Patient Assessment Clinical Findings Respiratory Pattern: 0 - RR 12 - 20; Patient only gets breathless with strenuous exercise. Breath Sounds: 0 - Clear to auscultation Cough Effectiveness: 0 - Strong non-productive Sputum Production: 0 - No sputum production Level of Activity: 1 - Ambulatory with assist O2 needed to keep SpO2 greater than or equal to 92%: 0 - Room Air Assessment Score: 1 Total Assessment Score: 2 Breath Sounds: Inspiratory and expiratory clear bilaterally.. Cough and Sputum: An effective cough produced no sputum... CT: EXAM CT CHEST/ABDOMEN/PELVIS WITH IV CONTRAST WITHOUT ORAL CONTRAST12/15/2024 4:36 am HISTORY trauma TECHNIQUE Oral contrast not administered. Chest: With intravenous contrast Abdomen::With intravenous contrast Pelvis: With intravenous contrast COMPARISON No Comparison. FINDINGS CHEST LUNG AND LARGE AIRWAYS: Innumerable pulmonary nodules bilaterally indicative of metastatic disease. PLEURA: Unremarkable. VESSELS: Unremarkable. HEART: Normal size. No pericardial effusion. MEDIASTINUM AND ADEN: Unremarkable. CHEST WALL AND LOWER NECK: Unremarkable.. Vital Signs: Resp: 16 (12/15/24631) Pulse: 112 (12/15/24631) Temp: 36 °C (96.8 °F) (12/15/24631) BP: 126/70 (03/31/25 0632) SpO2: 96 % (12/15/24 0632) PFT: Minimal Predicted IC: 1.0 L. Inspiratory capacity: 1.5L. Primary Service: Trauma Surgery. Admitting Diagnosis: C1 cervical fracture (HCC) [S12.000A] Fall [W19.XXXA] Pulmonary Diagnosis: n/a . Prescriptions/Home Medications/Durable Medical Equipment: n/a. * Medical Necessity - Nely Hazel, Utilization Review Staff - 12/15/2024 5:51 AM EDT AdmissionCare Guideline: Musculoskeletal Disease, Inpatient Based on the indications selected for the patient, the bed status of Inpatient was determined to beMET The following indications were selected as present at the time of evaluation of the patient: - Clinical Indications for Admission to Inpatient Care - Hospital admission is needed for appropriate care of the patient because of 1 or more of the following: - Vertebral fracture that requires inpatient care (medical), as indicated by 1 or more of the following: - Major injury requiring inpatient care (nature of injury necessitates inpatient treatment or monitoring) Additional Information: presents to [facility] ED as a transfer from [facility] after he sustained a fall down 4-5 steps around 8pm yesterday and was found to have a C1 fracture. Patient reports that he was goingup the stairs and lost his balance falling backwards down 4-5 stairs. He has been having weakness in his LLE and that may have caused the fall. Neg LOC. + head strike on metal shelf. CT Scan Neck: There is a nondisplaced fracture involving the right lateral mass at C1 level, which extends through the articular surface with the right occipital condyle and extending inferiorly to the C1-2 facet. There is no extension into the right transverse foramina. The C1 vertebral body is otherwise intact. AdmissionCare documentation entered by: Nely Hazel [facility] [email or web address], 28th edition, Copyright © 2023 [facility] [email or web address], [employer] All Rights Reserved. [id number] Solely for purpose of utilization review and payment; not a diagnostic tool * Communication - Lyn Cheema RN - 12/15/2024 5:46 AM EDT Hand-Off - Nurse Communication Note Name: Blake Arreaga Location: Date: 12/15/2024 Time: 5:46 AM Sending to: [id number] Safety Concerns: Fall Risk Allergies: Peanut-containing drug products, Shellfish-derived products, Soy allergy (obsolete), Tomato, and Soja chance oil [soybean oil] Code Status: Full Code Isolation: None Isolation flowsheet: Special Needs: Special Needs comments: Attention to: Irvin Urban RN Report from: Lyn Cheema RN Phone extension: [phone] Patient arriving via: Stretcher Reason for SBAR handoff: Admission Situation/Background Pt presented to the ED from [facility] after falling down 4-[address] [facility] they found a C1fx. Pt in aspen collar. On Ct scan at [facility] they found metastatic liver and lung disease. Admission date: 12/15/2024 Patient Service: Trauma Surgery [[id number]] Attending Provider: Henrique Cobos MD Admitting diagnosis: C1 cervical fracture (HCC) Fall Chief Complaint: Fall Problem list: Active Problems: * No active hospital problems. * Resolved Problems: * No resolved hospital problems. * Level of Care: Med Surg [3] Assessment Vital Signs: BP: 138/74 (12/15/24 0500) Temp: 37.3 °C (99.1 °F) (12/15/24 0219) Pulse: 106 (12/15/24 0500) Resp: 15 (12/15/24 0500) SpO2: 98 % (12/15/24 0500) Fall Scale: Fall Score: 70 (12/15/24 0235) Fall Interventions: Bed at low level;Floor free of clutter;Yellow armband applied/intact and on patient;Walk path free of obstacles (12/15/24 0235) Neurological: [place] Coma Scale - For patients greater than two years old Eyes Open: Spontaneous (12/15/24 0400) Best Verbal Response: Verbally appropriate for age (12/15/24 0400) Best Motor Response: Obeys commands appropriate for age (12/15/24 0400) Coma Score: 15 (03/31/25 0400) Additional Neurological Information: bn/a Respiratory: Respiratory WNL: WNL- within normal limits (12/15/24228) Oxygen therapy/ Mechanical vent Supplemental O2 Delivery: Room Air, None (12/15/24499) Additional Respiratory Information: n/a Cardiac: Cardiovascular WNL: X - Exceptions to WNL as documented below (12/15/24228) Rhythm: ST (12/15/24228) Extremities: +Sensation;Right;Left;Upper;Lower;Warm (12/15/24399) Pulses Right: Radial + (12/15/24399) Pulses Left: Radial + (12/15/24399) Edema Location: Left Lower Extremity (LLE);Right Lower Extremity (RLE) (12/15/24228) RLE Edema Assessment: +3 - Description (12/15/24228) LLE Edema Assessment: +3 - Description (12/15/24228) Capillary Refill: 1-2 seconds (12/15/24228) Additional Cardiac Information: n/a GI/: Abdomen: Soft;Non-distended;Non-tender (12/15/24228) Urine Description: Tess (12/15/24499) Additional GI/ Information: n/a Integumentary: Integumentary WNL: X - Exceptions to WNL as documented below (12/15/24228) Skin Description: Warm;Dry (12/15/24228) Skin Color: Mucus Membranes [place];Flesh Tone;Nail beds pink;Ecchymosis (12/15/24228) Ecchymosis Location: RUE (elbow) (12/15/24228) Additional Integumentary Information: n/a C-Diff: Restraints: No orders of the defined types were placed in this encounter. Lines: Peripheral Line Left Antecubital 20 Gauge (Active) Status Capped/Locked;Flushes easily;Positive blood return 12/15/24219 Tubing Changed N/A 12/15/24219 Phlebitis Scale 0 12/15/24219 Infiltration Scale 0 12/15/24219 Site Description (Other) Without redness, swelling or drainage 12/15/24219 Site Intervention Flushed 12/15/24219 Dressing Assessment Dressing clean, dry, and intact 12/15/24219 Dressing Intervention None required 12/15/24219 Number of days: 0 Labs: Labs This Encounter CBC - Abnormal; Notable for the following components: Result Value Ref Range WBC 13.99 4.00 - 10.80 K/uL HGB 12.4 14.0 - 16.8 g/dL HCT 38.1 40.0 - 48.4 % PLT 430 140 - 400 K/uL All other components within normal limits BASIC METABOLIC PANEL - Abnormal; Notable for the following components: BUN 23 6 - 20 mg/dL All other components within normal limits PT INR - Abnormal; Notable for the following components: Prothrombin Time 15.4 11.6 - 15.2 seconds All other components within normal limits Narrative: Warfarin Therapy INR: 2.0-3.0 conventional anticoagulation INR: 2.5-3.5 high intensity anticoagulation URINALYSIS, REFLEX TO CULTURE - Abnormal; Notable for the following components: Clarity, Urine Slightly Cloudy Clear Ketone, Urine 15 Negative mg/dL Protein, Urine 30 Negative mg/dL Urobilinogen, Urine 2.0 Normal mg/dL Esterase, Urine Small Negative WBC, Urine 3-5 0 - 2 /HPF Bacteria, Urine 26-50 0 - 25 /HPF Amorphous Crystals, Urine Many None /HPF Hyaline, Cast, Urine 1-4 None /LPF All other components within normal limits BNP, NT-PRO - Abnormal; Notable for the following components: BNP, NT-Pro 596 <300 pg/mL All other components within normal limits Narrative: Exclude Heart Failure: <300 pg/mL Diagnose Heart Failure: Age <50 yr: >450 pg/mL 50-75 yr: >900 pg/mL >75 yr: >1800 pg/mL GFR is 30-59 mL/min: >1200 pg/mL or Age-adjusted values GFR <30 mL/min: do not use, not reliable Prognostic threshold: 1000 pg/mL HEPATIC FUNCTION PANEL - Abnormal; Notable for the following components: Albumin 2.8 3.8 - 5.0 g/dL AST 177 10 - 50 U/L Alkaline Phosphatase 516 35 - 130 U/L ALT 56 10 - 50 U/L Bilirubin, Total 2.1 <=1.2 mg/dL Bilirubin, Direct 1.6 0.0 - 0.3 mg/dL All other components within normal limits LACTATE - Normal MAGNESIUM - Normal PHOSPHORUS - Normal APTT - Normal Narrative: Anticoagulation may affect testing. Refer to [facility] Test Catalog for a listof effects. TOXICOLOGY, URINE SCREEN W/ CONFIRMATION - Normal Narrative: Cutoff Concentrations: Drug Level Amphetamines 500 ng/mL Benzodiazepines 100 ng/mL Cannabinoids 50 ng/mL Cocaine Metabolite 150 ng/mL Fentanyl 1 ng/mL Hydrocodone / Hydromorphone 300 ng/mL Methadone Metabolite 100 ng/mL Morphine / Codeine 300 ng/mL Oxycodone / Oxymorphone 100 ng/mL Screening results are presumptive and can only be used for medical purposes. Positive screening results are reflexed to confirmatory testing. ETHANOL, MEDICAL - Normal TYPE AND SCREEN URINALYSIS, REFLEX TO CULTURE (NOT FOR NEUTROPENIC PATIENTS) Narrative: The following orders were created for panel order URINALYSIS, REFLEX TO CULTURE (NOT FOR NEUTROPENIC PATIENTS). Procedure Abnormality Status --------- ------ URINALYSIS, REFLEX TO CU...[[id number]] Final result URINALYSIS, REFLEX TO CU...[[id number]] Abnormal Final result Please view results for these tests on the individual orders. URINALYSIS, REFLEX TO CULTURE (CUP ONLY) ABO/RH CULTURE, URINE, QUANTITATIVE EXTRA URINE ALIQUOT CULTURE, URINE, QUANTITATIVE MRSA SCREEN, PCR CBC BASIC METABOLIC PANEL MAGNESIUM PHOSPHORUS Diet: Orders Placed This Encounter Procedures NPO Except Meds Additional Diet Information: n/a Intake and Output: Intake/Output Summary (Last 24 hours) at 12/15/2024 0546 Last data filed at 12/15/2024 0500 Gross per 24 hour Intake -- Output 90 ml Net -90 ml Patient Belongings and Home Medications Patient Belongings at Bedside Belongings at Bedside: Clothing (12/15/24235) Clothing: Socks (12/15/24235) Patient Belongings Sent Home (Does not apply to Ambulatory areas) Belongings Sent Home: None (12/15/24235) Patient Belongings Sent to Safe/Locker Belongings Sent to Safe: None (12/15/24235) Patient Medications Medications Brought by Patient?: No (12/15/24235) Recommendations/Follow up Goals/Plan of Care: pain control Consults not completed: Anticipated tests/studies/procedures: ?MRI Medication Reconcilliation completed for this ? Yes documented in this encounter Plan of Treatment Upcoming Encounters Date Type Department Care Team (Late st Contact Info) Description 01/05/2025 3:15 PM EDT Appointment [facility], [place] [address] [place] [address] 01/08/2025 1:00 PM EDT Office Visit [facility] [place] [address] [facility] [phone] Marcin Linares MD [address] [facility] [place] [phone] Pending Results Name Type Priority Associated Diagnoses Date /Time CULTURE, URINE, QUANTITATIVE Lab Routine 12/15/2024 3:[address] C SPINE WO CONTRAST Medical Imaging Routine 12/15/2024 8:29 AM EDT CYTOLOGY Pathology Routine 12/15/2024 2:4 4 PM EDT IR PARACENTESIS Medical Imaging Routine 11/17 2:39 PM EDT Scheduled Orders Name Type Priority Associated Diagnoses Orde r Schedule CULTURE, URINE, QUANTITATIVE Lab Routine One Time for 1 Occurrences starting 12/15/2024 until 12/15/2024, [address] C SPINE WO CONTRAST Medical Imaging Routine One Time for 1 Occurrences starting 12/15/2024 until 12/15/2024 CYTOLOGY Pathology Routine One Time for 1 Occurrences starting 12/15/2024 until 12/15/2024, 1 completed XR C SPINE FLEXION AND EXTENSION VIEWS ONLY Medical Imaging Routine Other closed nondisplaced fracture of first cervical vertebra, initial encounter (HCC) Expected: 01/27/2025, Expires: 01/15/2026 Health Maintenance Due Date Last Done Comments [...] Procedure Name Priority Date/Time Associated Diagnosis Comments BASIC METABOLIC PANEL Routine 12/16/2024 4:26 AM EDT PHOSPHORUS Routine 12/16/2024 4:26 AM EDT CBC Routine 12/16/2024 4:26 AM EDT MAGNESIUM Routine 12/16/2024 4:26 AM EDT MRI C SPINE W WO CONTRAST STAT 12/15/2024 9:34 PM EDT IR PARACENTESIS Routine 12/15/2024 2:39 PM EDT Procedure Note - Keanu Ingram MD / Sammi Triana CRNP - 12/15/2024 2:39 PM EDTThis note is in progress. PROCEDURE: Ultrasound-guided paracentesis. INDICATION: Ascites, diagnostic paracentesis. OPERATING PROVIDER: SANJAY aMrtinez SUPERVISING PHYSICIAN: Dr. Keanu Ingram SCRUBBED RESIDENT (OPERATING PHYSICIAN): N/A SUPPORTING PROVIDER (AUTOMATIC GLOVE TURNER AND FORMER): RT Daphne CONSENT: After a detailed discussion of the procedure, risks, benefits andalternative treatment options, informed consent was obtained. TIME OUT: A time out procedure was performed. The patient's identificationwas verified. Informed consent with agreement of procedure, site andposition was obtained. All necessary equipment was available prior toprocedure. CONTRAST: No contrast was administered. COMPLICATIONS: None. ANESTHESIA: Local. SEDATION TIME: N/A MEDICATIONS: 1% buffered lidocaine. PROCEDURE DESCRIPTION: The right lower quadrant of the abdomen was preppedand draped in the usual sterile fashion. Using ultrasound guidance, theperitoneal cavity was punctured and a catheter was placed. Ultrasoundimages demonstrated catheter tip in the ascitic fluid. Ultrasound imageswere acquired and digitally archived. A total of 850 milliliters of clear,tess fluid was collected in empty bottles and sent to the lab foranalysis. The catheter was then removed, hemostasis was achieved and the site wasdressed with an occlusive dressing. The procedure was performed under the direct supervision of Dr. Ingram whowas immediately available for the entire procedure. FINDINGS: Small ascites was noted on ultrasound. Post paracentesis there is minimalresidual fluid. IMPRESSION IMPRESSION: Successful ultrasound-guided paracentesis. Plan: Follow-up as needed for repeat paracentesis for symptommanagement. MRSA SCREEN, PCR Routine 12/15/2024 6:35 AM EDT BASIC METABOLIC PANEL Routine 12/15/2024 5:55 AM EDT PHOSPHORUS Routine 12/15/2024 5:55 AM EDT CBC Routine 12/15/2024 5:55 AM EDT MAGNESIUM Routine 12/15/2024 5:55 AM EDT CEA Add-on 12/15/2024 5:[address] CHEST/ABDOMEN/PELV IS WITH IV CONTRAST WITHOUT ORAL CONTRAST STAT 12/15/2024 4:36 AM EDT CTA HEAD/CTA NECK STAT 12/15/2024 4:35 AM EDT Other displaced fracture of first cervical vertebra, initial encounter for closed fracture (HCC) Exposure to other specified factors, initial encounter EXTRA URINE ALIQUOT Routine 12/15/2024 3:23 AM EDT URINALYSIS, REFLEX TO CULTURE Routine 12/15/2024 3:23 AM EDT URINALYSIS, REFLEX TO CULTURE (CUP ONLY) Routine 12/15/2024 3:23 AM EDT URINALYSIS, REFLEX TO CULTURE (NOT FOR NEUTROPENIC PATIENTS) Routine 12/15/2024 3:23 AM EDT TOXICOLOGY, URINE SCREEN W/ CONFIRMATION Routine 12/15/2024 3:23 AM EDT PT INR Routine 12/15/2024 3:22 AM EDT APTT STAT 12/15/2024 3:22 AM EDT BNP (NT-PROBNP) STAT 12/15/2024 3:21 AM EDT HEPATIC FUNCTION PANEL STAT 12/15/2024 3:21 AM EDT BASIC METABOLIC PANEL Routine 12/15/2024 3:21 AM EDT ABO/RH STAT 12/15/2024 3:21 AM EDT TYPE AND SCREEN Routine 12/15/2024 3:21 AM EDT PHOSPHORUS Routine 12/15/2024 3:21 AM EDT LACTATE Routine 12/15/2024 3:21 AM EDT ETHANOL, MEDICAL STAT 12/15/2024 3:21 AM EDT CBC Routine 12/15/2024 3:21 AM EDT MAGNESIUM Routine 12/15/2024 3:21 AM EDT documented in this encounter Results * PHOSPHORUS (12/16/2024 4:26 AM EDT) Phosphorus 3.8 2.5 - 4.8 mg/dL 12/16/2024 5:17 AM EDT LABORATORY [facility] Blood Venous blood specimen / Unknown Venipuncture / Unknown 12/16/2024 4:26 AM EDT 12/16/2024 4:47 AM EDT us Rachna Cote PA-C LAB BLOOD ORDERABLES Final Result LABORATORY [facility] [address] [place] [address] * MAGNESIUM (12/16/2024 4:26 AM EDT) Magnesium 2.3 1.5 - 2.6 mg/dL 12/16/2024 5:17 AM EDT LABORATORY [facility] Blood Venous blood specimen / Unknown Venipuncture / Unknown 12/16/2024 4:26 AM EDT 12/16/2024 4:47 AM EDT Rachna Cote PA-C LAB BLOOD ORDERABLES Final Result LABORATORY C [address] [place] [address] * (ABNORMAL) BASIC METABOLIC PANEL (12/16/2024 4:26 AM EDT) BUN 20 6 - 20 mg/dL 12/16/2024 5:17 AM EDT LAB[facility]ATORY [facility] CREATININE 0.7 0.6 - 1.2 mg/dL 12/16/2024 5:17 AM EDT LAB[facility]ATORY [facility] EGFR >90 >=60 mL/min 12/16/2024 5:17 AM EDT LAB[facility]ATORY [facility] Comment:eGFR is calculated b ased on the CKD-EPI 2020 equation. SODIUM 141 135 - 146 mmol/L 12/16/2024 5:17 AM EDT LAB[facility]ATORY [facility] POTASSIUM 3.9 3.5 - 5.1 mmol/L 12/16/2024 5:17 AM EDT LAB[facility]ATORY [facility] CHLORIDE 105 98 - 107 mmol/L 12/16/2024 5:17 AM EDT LAB[facility]ATORY [facility] CO2 22 22 - 32 mmol/L 12/16/2024 5:17 AM EDT LAB[facility]ORY [facility] ANION GAP 14 7 - 15 mmol/L 12/16/2024 5:17 AM EDT LAB[facility]ATORY [facility] GLUCOSE 55(L) 70 - 120 mg/dL 12/16/2024 5:17 AM EDT LAB[facility]ATORY [facility] CALCIUM 9.5 8.4 - 10.2 mg/dL 12/16/2024 5:17 AM EDT LAB[facility]ATORY [facility] Blood Venous blood specimen / Unknown Venipuncture / Unknown 12/16/2024 4:26 AM EDT 12/16/2024 4:47 AM EDT us Rachna Cote PA-C LAB BLOOD ORDERABLES Final Result LAB[facility]ATORY [facility] [address] [place] [address] * (ABNORMAL) CBC (12/16/2024 4:26 AM EDT) WBC 12.26(H) 4.00 - 10.80 K/uL 12/16/2024 5:00 AM EDT LAB[facility]ATORY [facility] RBC 4.61 4.50 - 5.25 M/uL 12/16/2024 5:00 AM EDT LAB[facility]ATORY [facility] HGB 12.5(L) 14.0 - 16.8 g/dL 12/16/2024 5:00 AM EDT LAB[facility]ATORY [facility] HCT 40.0 40.0 - 48.4 % 12/16/2024 5:00 AM EDT LAB[facility]ATORY [facility] MCV 86.8 82.0 - 99.5 fL 12/16/2024 5:00 AM EDT LABORATORY [facility] MCH 27.1 27.0 - 34.0 pg 12/16/2024 5:00 AM EDT LABORATORY [facility] MCHC 31.3 32.0 - 36.0 g/dL 12/16/2024 5:00 AM EDT LABORATORY [facility] RDW 17.6 11.5 - 15.5 % 12/16/2024 5:00 AM EDT LABORATORY GM PLT 411(H) 140 - 400 K/uL 12/16/2024 5:00 AM EDT LABORATORY GM MPV 10.4 6.6 - 11.1 fL 12/16/2024 5:00 AM EDT LABORATORY GM nRBCs 0 <=0 /100 WBCs 12/16/2024 5:00 AM EDT LAB[facility]ATORY [facility] Blood Venous blood specimen / Unknown Venipuncture / Unknown 12/16/2024 4:26 AM EDT 12/16/2024 4:47 AM EDT Rachna Cote PA-C LAB BLOOD ORDERABLES Final Result LAB[facility]ATORY [facility] [address] [place] [address] * MRI C SPINE W WO CONTRAST (12/15/2024 9:34 PM EDT) Anatomical Region Laterality Modality Vertebra, Spine Magnetic Resonan ce 12/16/2024 7:20 AM EDT Impressions 12/16/2024 7:18 AM EDT IMPRESSION Acute nondisplaced fracture of the C1 right lateral mass with extension to the anterior arch. No discernible epidural hematoma or evidence of ligamentous tear. No spinal cord signal abnormality. Multilevel degenerative changes, as discussed. Narrative 12/16/2024 7:18 AM EDT EXAM MRI C SPINE W WO CONTRAST-12/15/2024 9:34 pm HISTORY 79 y/o M, C1 fx COMPARISON Outside CT cervical spine 12/14/2024. TECHNIQUE Multiplanar, multisequence magnetic resonance images of the cervical spine were obtained before and after the administration of intravenous contrast. FINDINGS Acute nondisplaced fracture of the C1 right lateral mass, extending into the right aspect of the anterior arch. No discernible epidural hematoma. The major ligamentous structures appear intact. Major cervical arterial flow voids are maintained. Mild perivertebral soft tissue edema at the craniocervical junction, right greater than left. Cervical vertebral body height is maintained. Mild anterolisthesis of C7 on T1. Degenerative intervertebral disc height loss most evident at C6-C7, and of a lesser degree at C5-C6. Other multilevel degenerative changes including small endplate osteophytes, disc bulges, ligamentum flavum thickening, and uncovertebral and facet arthropathy. Degenerative changes contribute to not more than mild spinal canal narrowing. Varying degrees of bilateral neuroforaminal narrowing including moderate to severe right neuroforaminal narrowing at C5-C6 and C6-C7, and other narrowing of mild and moderate degree. The cervicomedullary junction is in a normal position. The cervical spinal cord is normal in course, caliber, and signal. No abnormal contrast enhancement in the visualized cord. Procedure Note Luis Sharpe MD - 12/16/2024 EXAM MRI C SPINE W WO CONTRAST-12/15/2024 9:34 pm HISTORY 79 y/o M, C1 fx COMPARISON Outside CT cervical spine 12/14/2024. TECHNIQUE Multiplanar, multisequence magnetic resonance images of the cervical spinewere obtained before and after the administration of intravenouscontrast. FINDINGS Acute nondisplaced fracture of the C1 right lateral mass, extending intothe right aspect of the anterior arch. No discernible epidural hematoma.The major ligamentous structures appear intact. Major cervical arterialflow voids are maintained. Mild perivertebral soft tissue edema at thecraniocervical junction, right greater than left. Cervical vertebral body height is maintained. Mild anterolisthesis of C7on T1. Degenerative intervertebral disc height loss most evident atC6-C7, and of a lesser degree at C5-C6. Other multilevel degenerativechanges including small endplate osteophytes, disc bulges, ligamentumflavum thickening, and uncovertebral and facet arthropathy. Degenerativechanges contribute to not more than mild spinal canal narrowing. Varyingdegrees of bilateral neuroforaminal narrowing including moderate to severeright neuroforaminal narrowing at C5-C6 and C6-C7, and other narrowing ofmild and moderate degree. The cervicomedullary junction is in a normal position. The cervicalspinal cord is normal in course, caliber, and signal. No abnormalcontrast enhancement in the visualized cord. IMPRESSION IMPRESSION Acute nondisplaced fracture of the C1 right lateral mass with extension tothe anterior arch. No discernible epidural hematoma or evidence ofligamentous tear. No spinal cord signal abnormality. Multilevel degenerative changes, as discussed. Rachna Cote PA-C RAD MRI-MRA Zaira l Result * MRSA SCREEN, PCR (12/15/2024 6:35 AM EDT) MRSA PCR Result Negative Negative 9:55 AM EDT LABORATORY C Comment:No Methicillin resis tant Staphylococcus aureus detected by PCR (amplified probe). Upper Respiratory Swab of internal nose / Unknown Non-blood Collection / Unknown 12/15/2024 6:35 AM EDT 12/15/2024 7:40 AM EDT us Rahcna Cote PA-C LAB MICRO - GENERAL ORDERABLES Final Result LABORATORY [facility] [address] [place] [address] * (ABNORMAL) CEA (12/15/2024 5:55 AM EDT) CEA 12,062.0(H ) <=5.2 ng/mL 12/15/2024 5:57 PM EDT LABORATORY [facility] Blood Venous blood specimen / Unknown Venipuncture / Unknown 12/15/2024 5:55 AM EDT 12/15/2024 6:01 AM EDT Arash Sullivan MD LAB BLOOD ORDERABLES Zaira l Result Performing Organization Address [facility] [[email or web address]] Co de Phone Number LABORATORY [facility] [address] [place] [address] * PHOSPHORUS (12/15/2024 5:55 AM EDT) Phosphorus 2.7 2.5 - 4.8 mg/dL 12/15/2024 6:24 AM EDT LABORATORY [facility] Blood Venous blood specimen / Unknown Venipuncture / Unknown 12/15/2024 5:55 AM EDT 12/15/2024 6:01 AM EDT Rachna Cote PA-C LAB BLOOD ORDERABLES Final Result Performing Organization Address [facility] de Phone Number LABORATORY [facility] [address] [place] [address] * MAGNESIUM (12/15/2024 5:55 AM EDT) Magnesium 2.0 1.5 - 2.6 mg/dL 12/15/2024 6:24 AM EDT LABORATORY [facility] Blood Venous blood specimen / Unknown Venipuncture / Unknown 12/15/2024 5:55 AM EDT 12/15/2024 6:01 AM EDT Rachna Cote PA-C LAB BLOOD ORDERABLES Final Result Performing Organization Address City/[facility]/ZIP Co de Phone Number LABORATORY [facility] [address] [place] [address] * (ABNORMAL) BASIC METABOLIC PANEL (12/15/2024 5:55 AM EDT) BUN 22(H) 6 - 20 mg/dL 12/15/2024 6:24 AM EDT LABORATORY [facility] CREATININE 0.7 0.6 - 1.2 mg/dL 12/15/2024 6:24 AM EDT LABORATORY [facility] EGFR >90 >=60 mL/min 12/15/2024 6:24 AM EDT LABORATORY [facility] Comment:eGFR is calculated b ased on the CKD-EPI 2020 equation. SODIUM 137 135 - 146 mmol/L 12/15/2024 6:24 AM EDT LABORATORY [facility] POTASSIUM 4.2 3.5 - 5.1 mmol/L 12/15/2024 6:24 AM EDT LABORATORY [facility] CHLORIDE 102 98 - 107 mmol/L 12/15/2024 6:24 AM EDT LAB[facility]ATORY [facility] CO2 21(L) 22 - 32 mmol/L 12/15/2024 6:24 AM EDT LABORATORY [facility] ANION GAP 14 7 - 15 mmol/L 12/15/2024 6:24 AM EDT LAB[facility]ATORY [facility] GLUCOSE 82 70 - 120 mg/dL 12/15/2024 6:24 AM EDT LAB[facility]ATORY [facility] CALCIUM 9.4 8.4 - 10.2 mg/dL 12/15/2024 6:24 AM EDT LABORATORY [facility] Blood Venous blood specimen / Unknown Venipuncture / Unknown 12/15/2024 5:55 AM EDT 12/15/2024 6:01 AM EDT Rachna Cote PA-C LAB BLOOD ORDERABLES Final Result Performing Organization Address City/[facility]/ZIP Co de Phone Number LABORATORY [facility] [address] [place] [address] * (ABNORMAL) CBC (12/15/2024 5:55 AM EDT) WBC 14.11(H) 4.00 - 10.80 K/uL 12/15/2024 6:15 AM EDT LABORATORY [facility] RBC 4.28 4.50 - 5.25 M/uL 12/15/2024 6:15 AM EDT LABORATORY [facility] HGB 11.6(L) 14.0 - 16.8 g/dL 12/15/2024 6:15 AM EDT LABORATORY [facility] HCT 35.8(L) 40.0 - 48.4 % 12/15/2024 6:15 AM EDT LABORATORY [facility] MCV 83.6 82.0 - 99.5 fL 12/15/2024 6:15 AM EDT LABORATORY [facility] MCH 27.1 27.0 - 34.0 pg 12/15/2024 6:15 AM EDT LABORATORY [facility] MCHC 32.4 32.0 - 36.0 g/dL 12/15/2024 6:15 AM EDT LABORATORY [facility] RDW 17.4 11.5 - 15.5 % 12/15/2024 6:15 AM EDT LABORATORY [facility] PLT 403(H) 140 - 400 K/uL 12/15/2024 6:15 AM EDT LABORATORY [facility] MPV 9.8 6.6 - 11.1 fL 12/15/2024 6:15 AM EDT LABORATORY [facility] nRBCs 0 <=0 /100 WBCs 12/15/2024 6:15 AM EDT LABORATORY [facility] Blood Venous blood specimen / Unknown Venipuncture / Unknown 12/15/2024 5:55 AM EDT 12/15/2024 6:01 AM EDT Rachna Cote PA-C LAB BLOOD ORDERABLES Final Result LABORATORY [facility] [address] [place] [address] * CT CHEST/ABDOMEN/PELVIS WITH IV CONTRAST WITHOUT ORAL CONTRAST (12/15/2024 4:36 AM EDT) Anatomical Region Laterality Modality Body, Chest, Abdomen, Pelvis, Cardio Computed Tomography 12/15/2024 5:09 AM EDT Impressions 12/15/2024 5:06 AM EDT IMPRESSION 1. No acute traumatic findings. 2. Metastatic lung disease. 3. Metastatic liver disease, progressed since previous CT. Moderate perihepatic and perisplenic ascites. 4. Primary neoplastic process involving sigmoid colon. Narrative 12/15/2024 5:[address] CHEST/ABDOMEN/PELVIS WITH IV CONTRAST WITHOUT ORAL CONTRAST12/15/2024 4:36 am HISTORY trauma TECHNIQUE Oral contrast not administered. Chest: With intravenous contrast Abdomen::With intravenous contrast Pelvis: With intravenous contrast COMPARISON No Comparison. FINDINGS CHEST LUNG AND LARGE AIRWAYS: Innumerable pulmonary nodules bilaterally indicative of metastatic disease. PLEURA: Unremarkable. VESSELS: Unremarkable. HEART: Normal size. No pericardial effusion. MEDIASTINUM AND ADEN: Unremarkable. CHEST WALL AND LOWER NECK: Unremarkable. ABDOMEN/PELVIS LIVER: Extensive metastatic liver disease, progress since previous CT examination. GALLBLADDER: Unremarkable. BILE DUCTS: Unremarkable. PANCREAS: Unremarkable. SPLEEN: Unremarkable. ADRENALS: Unremarkable. KIDNEYS/URETERS: Nonobstructive LEFT nephrolithiasis obscured by excreted contrast. Small renal cysts bilaterally. BLADDER: Unremarkable. REPRODUCTIVE ORGANS: Unremarkable. STOMACH/DUODENUM: Unremarkable. BOWEL: Circumferential thickening of the sigmoid colon therefore indicative of underlying neoplastic process. Moderate stool burden in the colon including rectosigmoid. VESSELS: Unremarkable. LYMPH NODES: Unremarkable. PERITONEUM/RETROPERITONEUM: Moderate perihepatic, perisplenic ascites. Mild inguinal canals ascites bilaterally. ABDOMINAL WALL/SOFT TISSUES: Unremarkable. BONES/SPINE: Grade 1 anterolisthesis L5 on S1 secondary to facet arthritis. Calcified excluded disc posterior L1 stable. No suspicious osseous lesions. LINES AND DEVICES: None. Procedure Note Rudy Corrales MD - 12/15/[address] CHEST/ABDOMEN/PELVIS WITH IV CONTRAST WITHOUT ORAL CONTRAST54:36 am HISTORY trauma TECHNIQUE Oral contrast not administered. Chest: With intravenous contrast Abdomen::With intravenous contrast Pelvis: With intravenous contrast COMPARISON No Comparison. FINDINGS CHEST LUNG AND LARGE AIRWAYS: Innumerable pulmonary nodules bilaterallyindicative of metastatic disease. PLEURA: Unremarkable. VESSELS: Unremarkable. HEART: Normal size. No pericardial effusion. MEDIASTINUM AND ADEN: Unremarkable. CHEST WALL AND LOWER NECK: Unremarkable. ABDOMEN/PELVIS LIVER: Extensive metastatic liver disease, progress since previous CTexamination. GALLBLADDER: Unremarkable. BILE DUCTS: Unremarkable. PANCREAS: Unremarkable. SPLEEN: Unremarkable. ADRENALS: Unremarkable. KIDNEYS/URETERS: Nonobstructive LEFT nephrolithiasis obscured by excretedcontrast. Small renal cysts bilaterally. BLADDER: Unremarkable. REPRODUCTIVE ORGANS: Unremarkable. STOMACH/DUODENUM: Unremarkable. BOWEL: Circumferential thickening of the sigmoid colon thereforeindicative of underlying neoplastic process. Moderate stool burden in thecolon including rectosigmoid. VESSELS: Unremarkable. LYMPH NODES: Unremarkable. PERITONEUM/RETROPERITONEUM: Moderate perihepatic, perisplenic ascites.Mild inguinal canals ascites bilaterally. ABDOMINAL WALL/SOFT TISSUES: Unremarkable. BONES/SPINE: Grade 1 anterolisthesis L5 on S1 secondary to facetarthritis. Calcified excluded disc posterior L1 stable. No suspiciousosseous lesions. LINES AND DEVICES: None. IMPRESSION IMPRESSION 1. No acute traumatic findings. 2. Metastatic lung disease. 3. Metastatic liver disease, progressed since previous CT. Moderateperihepatic and perisplenic ascites. 4. Primary neoplastic process involving sigmoid colon. Damir Camacho RAD CT Final Result * CTA HEAD/CTA NECK (12/15/2024 4:35 AM EDT) Anatomical Region Laterality Modality Neck, Head, Cspine, Spine Comput ed Tomography 12/15/2024 5:00 AM EDT Narrative 12/15/2024 4:57 AM EDT EXAM: CTA HEAD/CTA NECK 12/15/2024 4:35 am HISTORY: c1 fx COMPARISON: No Comparison. TECHNIQUE: CT of the head without intravenous contrast helical acquisition. Sagittal and coronal MPR. CTA of the head without and with intravenous contrast helical acquisition. Sagittal and coronal MPR, CPR, MIP and 3D images. CTA of the neck with intravenous contrast helical acquisition. Sagittal and coronal MPR, CPR, MIP and 3D images. FINDINGS: CT BRAIN: PARENCHYMA: No acute parenchymal hemorrhage. Arciniega-white matter differentiation maintained, no evidence of acute territorial infarction. Normal white matter density. No intra-axial mass or mass effect. EXTRA-AXIAL: No acute extraaxial hemorrhage or mass. VENTRICLES: Normal size and configuration for age. MIDLINE STRUCTURES: No shift or herniation. PARANASAL SINUSES/MASTOID AIR CELLS: Unremarkable. CALVARIUM/SOFT TISSUES: LEFT posterior frontal scalp hematoma. LEFT parietal scalp laceration. No calvarial fracture. ORBITS: Unremarkable. OTHER: None. CTA BRAIN: INTERNAL CAROTID ARTERIES: Unremarkable. ANTERIOR CIRCULATION ANTERIOR CEREBRAL ARTERIES: Unremarkable. ANTERIOR COMMUNICATING ARTERY: Unremarkable. MIDDLE CEREBRAL ARTERIES: Unremarkable. POSTERIOR CIRCULATION VERTEBRAL ARTERIES: Unremarkable. BASILAR ARTERY: Unremarkable. POSTERIOR CEREBRAL ARTERIES: Unremarkable. POSTERIOR COMMUNICATING ARTERIES: Unremarkable. CTA NECK: AORTIC ARCH: Normal. SUBCLAVIAN ARTERIES: No significant stenosis. COMMON CAROTID ARTERIES: Unremarkable without stenosis or dissection. RIGHT CAROTID BIFURCATION/ICA: No hemodynamically significant stenosis. LEFT CAROTID BIFURCATION/ICA: No hemodynamically significant stenosis. VERTEBRAL ARTERIES: Symmetric without stenosis or dissection. MISCELLANEOUS: Minimally displaced fracture of the RIGHT anterior arch of C1. IMPRESSION: CT BRAIN: No acute findings. CTA BRAIN: No acute vascular findings. CTA NECK: No acute vascular findings. RIGHT anterior arch of C1 fracture. Procedure Note Rudy Corrales MD - 12/15/2024 EXAM: CTA HEAD/CTA NECK 12/15/2024 4:35 am HISTORY: c1 fx COMPARISON: No Comparison. TECHNIQUE: CT of the head without intravenous contrast helical acquisition. [place] coronal MPR. CTA of the head without and with intravenous contrast helical acquisition.Sagittal and coronal MPR, CPR, MIP and 3D images. CTA of the neck with intravenous contrast helical acquisition. [place] coronal MPR, CPR, MIP and 3D images. FINDINGS: CT BRAIN: PARENCHYMA: No acute parenchymal hemorrhage. Arciniega-white matterdifferentiation maintained, no evidence of acute territorial infarction.Normal white matter density. No intra-axial mass or mass effect. EXTRA-AXIAL: No acute extraaxial hemorrhage or mass. VENTRICLES: Normal size and configuration for age. MIDLINE STRUCTURES: No shift or herniation. PARANASAL SINUSES/MASTOID AIR CELLS: Unremarkable. CALVARIUM/SOFT TISSUES: LEFT posterior frontal scalp hematoma. LEFTparietal scalp laceration. No calvarial fracture. ORBITS: Unremarkable. OTHER: None. CTA BRAIN: INTERNAL CAROTID ARTERIES: Unremarkable. ANTERIOR CIRCULATION ANTERIOR CEREBRAL ARTERIES: Unremarkable. ANTERIOR COMMUNICATING ARTERY: Unremarkable. MIDDLE CEREBRAL ARTERIES: Unremarkable. POSTERIOR CIRCULATION VERTEBRAL ARTERIES: Unremarkable. BASILAR ARTERY: Unremarkable. POSTERIOR CEREBRAL ARTERIES: Unremarkable. POSTERIOR COMMUNICATING ARTERIES: Unremarkable. CTA NECK: AORTIC ARCH: Normal. SUBCLAVIAN ARTERIES: No significant stenosis. COMMON CAROTID ARTERIES: Unremarkable without stenosis or dissection. RIGHT CAROTID BIFURCATION/ICA: No hemodynamically significant stenosis. LEFT CAROTID BIFURCATION/ICA: No hemodynamically significant stenosis. VERTEBRAL ARTERIES: Symmetric without stenosis or dissection. MISCELLANEOUS: Minimally displaced fracture of the RIGHT anterior arch ofC1. IMPRESSION: CT BRAIN: No acute findings. CTA BRAIN: No acute vascular findings. CTA NECK: No acute vascular findings. RIGHT anterior arch of C1 fracture. Damir Camacho RAD CT Final Result * EXTRA URINE ALIQUOT (12/15/2024 3:23 AM EDT) Urine Urine specimen obtained by clean catch procedure / Unknown Non-blood Collection / Unknown 12/15/2024 3:23 AM EDT 12/15/2024 3:33 AM EDT Rachna Cote PA-C LAB URINE ORDERABLES Final Result LABORATORY [facility] [address] [place] [address] * (ABNORMAL) URINALYSIS, REFLEX TO CULTURE (12/15/2024 3:23 AM EDT) Color, Urine Yellow Colorless, Light Yellow, Yellow, Dark Yellow 12/15/2024 3:50 AM EDT LABORATORY [facility] Clarity, Urine Slightly Cloudy(A) Clear 12/15/2024 3:50 AM EDT LABORATORY [facility] Glucose, Urine Negative Negative mg/dL 12/15/2024 3:50 AM EDT LABORATORY [facility] Bilirubin, Urine Negative Negative 12/15/2024 3:50 AM EDT LABORATORY [facility] Ketone, Urine 15(A) Negative mg/dL 12/15/2024 3:50 AM EDT LABORATORY [facility] Specific [employer], Urine 1.025 1.003 - 1.030 12/15/2024 3:50 AM EDT LABORATORY [facility] Blood, Urine Negative Negative 12/15/2024 3:50 AM EDT LABORATORY [facility] pH, Urine 6.0 5.0 - 7.5 Units 12/15/2024 3:50 AM EDT LAB[facility]ATORY [facility] Protein, Urine 30(A) Negative mg/dL 12/15/2024 3:50 AM EDT LABORATORY [facility] Urobilinogen, Urine 2.0(A) Normal mg/dL 12/15/2024 3:50 AM EDT LABORATORY [facility] Nitrite, Urine Negative Negative 12/15/2024 3:50 AM EDT LABORATORY [facility] Esterase, Urine Small(A) Negative 12/15/2024 3:50 AM EDT LAB[facility]ATORY [facility] RBC, Urine 0-2 0 - 2 /HPF 12/15/2024 3:50 AM EDT LABORATORY [facility] WBC, Urine 3-5(A) 0 - 2 /HPF 12/15/2024 3:50 AM EDT LABORATORY [facility] Bacteria, Urine 26-50(A) 0 - 25 /HPF 12/15/2024 3:50 AM EDT LABORATORY [facility] Amorphous Crystals, Urine Many(A) None /HPF 12/15/2024 3:50 AM EDT LABORATORY [facility] Hyaline, Cast, Urine 1-4(A) None /LPF 12/15/2024 3:50 AM EDT LABORATORY [facility] Culture, Urine 12/15/2024 3:50 AM EDT LABORATORY [facility] Comment:Quantitative urine c ulture to be performed Urine Urine specimen obtained by clean catch procedure / Unknown Non-blood Collection / Unknown 12/15/2024 3:23 AM EDT 12/15/2024 3:33 AM EDT Rachna Cote PA-C LAB URINE ORDERABLES Final Result Performing Organization Address City/[facility] [[email or web address]] Co de Phone Number LABORATORY [facility] [address] [place] [address] * URINALYSIS, REFLEX TO CULTURE (CUP ONLY) (12/15/2024 3:23 AM EDT) Urinalysis, Reflex to Culture Specimen Specimen collected and received 12/15/2024 5:01 AM EDT LABORATORY [facility] Urine Urine specimen obtained by clean catch procedure / Unknown Non-blood Collection / Unknown 12/15/2024 3:23 AM EDT 12/15/2024 3:33 AM EDT Rachna De Esamieman PA-C LAB URINE ORDERABLES Final Result Performing Organization Address [facility] [[email or web address]] Co de Phone Number LABORATORY [facility] [address], [place] [id number] * TOXICOLOGY, URINE SCREEN W/ CONFIRMATION (12/15/2024 3:23 AM EDT) Amphetamines Screen, U Negative Negative 12/15/2024 3:56 AM EDT LABORATORY [facility] Benzodiazepines Screen, U Negative Negative 12/15/2024 3:56 AM EDT LABORATORY [facility] Cannabinoids Screen, U Negative Negative 12/15/2024 3:56 AM EDT LABORATORY [facility] Cocaine Metabolite Screen, U Negative Negative 12/15/2024 3:56 AM EDT LABORATORY [facility] Fentanyl Screen, U Negative Negative 2024 3:56 AM EDT LABORATORY [facility] Hydrocodone Screen, U Negative Negative 12/15/2024 3:56 AM EDT LABORATORY [facility] Methadone Metabolite Screen, U Negative Negative 12/15/2024 3:56 AM EDT LABORATORY [facility] Morphine/Codeine Screen, U Negative Negative 12/15/2024 3:56 AM EDT LABORATORY [facility] Oxycodone Screen, U Negative Negative 12/15 3:56 AM EDT LABORATORY [facility] Urine Urine specimen obtained by clean catch procedure / Unknown Non-blood Collection / Unknown 12/15/2024 3:23 AM EDT 12/15/2024 3:33 AM EDT Narrative LABORATORY [facility] - 12/15/2024 3:56 AM EDT Cutoff Concentrations: Drug Level Amphetamines 500 ng/mL Benzodiazepines 100 ng/mL Cannabinoids 50 ng/mL Cocaine Metabolite 150 ng/mL Fentanyl 1 ng/mL Hydrocodone / Hydromorphone 300 ng/mL Methadone Metabolite 100 ng/mL Morphine / Codeine 300 ng/mL Oxycodone / Oxymorphone 100 ng/mL Screening results are presumptive and can only be used for medical purposes. Positive screening results are reflexed to confirmatory testing. Rachna Cote PA-C LAB URINE ORDERABLES Final Result LABORATORY [facility] [address] [place] [address] * APTT (12/15/2024 3:22 AM EDT) aPTT 29 21 - 38 seconds 12/15/2024 3:51 AM EDT LABORATORY [facility] Blood Venous blood specimen / Unknown Venipuncture / Unknown 12/15/2024 3:22 AM EDT 12/15/2024 3:28 AM EDT Narrative LABORATORY [facility] - 12/15/2024 3:51 AM EDT Anticoagulation may affect testing. Refer to [employer] Test Catalog for a list of effects. [employer] CARLOS-C LAB BLOOD ORDERABLES Final Result Performing Organization Address City/[facility]/ZIP Co de Phone Number LABORATORY [facility] [address] [place] [address] * (ABNORMAL) PT INR (12/15/2024 3:22 AM EDT) Prothrombin Time 15.4(H) 11.6 - 15.2 seconds 12/15/2024 3:51 AM EDT LABORATORY [facility] INR 1.2 0.8 - 1.2 12/15/2024 3:51 AM EDT LABORATORY [facility] Blood Venous blood specimen / Unknown Venipuncture / Unknown 12/15/2024 3:22 AM EDT 12/15/2024 3:28 AM EDT Narrative LABORATORY [facility] - 12/15/2024 3:51 AM EDT Warfarin Therapy INR: 2.0-3.0 conventional anticoagulation INR: 2.5-3.5 high intensity anticoagulation [facility] [employer] PA-C LAB BLOOD ORDERABLES Final Result Performing Organization Address City/[facility]/ZIP Co de Phone Number LABORATORY [facility] [address] [place] [address] * ABO/RH (12/15/2024 3:21 AM EDT) ABO O 12/15/2024 4:34 AM EDT LABORATORY [facility] BLOOD BANK Rh Positive 12/15/2024 4:34 AM EDT LABORATORY [facility] BLOOD BANK Blood Venous blood specimen / Unknown Venipuncture / Unknown 12/15/2024 3:21 AM EDT 12/15/2024 3:28 AM EDT Rachna Cote PA-C LAB BLOOD BANK TEST ORDERABLES Final Result Performing Organization Address City/[facility]/ZIP Co de Phone Number LABORATORY [facility] BLOOD BANK [address] [place] [address] * (ABNORMAL) HEPATIC FUNCTION PANEL (12/15/2024 3:21 AM EDT) Albumin 2.8(L) 3.8 - 5.0 g/dL 12/15/2024 3:50 AM EDT LABORATORY [facility] AST 177(H) 10 - 50 U/L 12/15/2024 3:50 AM EDT LABORATORY [facility] Alkaline Phosphatase 516(H) 35 - 130 U/L 12/15/2024 3:50 AM EDT LABORATORY [facility] ALT 56(H) 10 - 50 U/L 12/15/2024 3:50 AM EDT LABORATORY [facility] Bilirubin, Total 2.1(H) <=1.2 mg/dL 12/15/2024 3:50 AM EDT LABORATORY [facility] Bilirubin, Direct 1.6(H) 0.0 - 0.3 mg/dL 12/15/2024 3:50 AM EDT LABORATORY [facility] Protein 6.7 6.0 - 8.3 g/dL 12/15/2024 3:50 AM EDT LABORATORY [facility] Blood Venous blood specimen / Unknown Venipuncture / Unknown 12/15/2024 3:21 AM EDT 12/15/2024 3:28 AM EDT us Marni Brandon PA-C LAB BLOOD ORDERABLES Final Result LABORATORY [facility] [address] [place] [address] * (ABNORMAL) BNP, NT-PRO (12/15/2024 3:21 AM EDT) BNP, NT-Pro 596(H) <300 pg/mL 12/15/2024 3:50 AM EDT LABORATORY [facility] Blood Venous blood specimen / Unknown Venipuncture / Unknown 12/15/2024 3:21 AM EDT 12/15/2024 3:28 AM EDT Narrative LABORATORY [facility] - 12/15/2024 3:50 AM EDT Exclude Heart Failure: <300 pg/mL Diagnose Heart Failure: Age <50 yr: >450 pg/mL 50-75 yr: >900 pg/mL >75 yr: >1800 pg/mL GFR is 30-59 mL/min: >1200 pg/mL or Age-adjusted values GFR <30 mL/min: do not use, not reliable Prognostic threshold: 1000 pg/mL Marni Brandon PA-C LAB BLOOD ORDERABLES Final Result Performing Organization Address City/[facility]/ZIP Co de Phone Number LABORATORY [address] [address] * ETHANOL, MEDICAL (12/15/2024 3:21 AM EDT) Ethanol Negative Negative 12/15/2024 3:50 AM EDT LABORATORY [facility] Blood Venous blood specimen / Unknown Venipuncture / Unknown 12/15/2024 3:21 AM EDT 12/15/2024 3:28 AM EDT Rachna Cote PA-C LAB BLOOD ORDERABLES Final Result Performing Organization Address City/[facility]/ZIP Co de Phone Number LABORATORY [place] [address] [place] [address] * TYPE AND SCREEN (12/15/2024 3:21 AM EDT) ABO O 12/15/2024 4:21 AM EDT LABORATORY [facility] BLOOD BANK Rh Positive 12/15/2024 4:21 AM EDT LABORATORY [facility] BLOOD BANK Red Blood Cell Antibody Screen Negative 12/15/2024 4:21 AM EDT LABORATORY [facility] BLOOD BANK Specimen Expiration Date 12/18/2024 23:59 12/15/2024 4:21 AM EDT LABORATORY [facility] BLOOD BANK Blood Venous blood specimen / Unknown Venipuncture / Unknown 12/15/2024 3:21 AM EDT 12/15/2024 3:28 AM EDT Rachna Cote PA-C LAB BLOOD BANK TEST ORDERABLES Final Result LABORATORY [facility] BLOOD BANK [address] [place] [address] * PHOSPHORUS (12/15/2024 3:21 AM EDT) Phosphorus 2.5 2.5 - 4.8 mg/dL 12/15/2024 3:50 AM EDT LABORATORY [facility] Blood Venous blood specimen / Unknown Venipuncture / Unknown 12/15/2024 3:21 AM EDT 12/15/2024 3:28 AM EDT Rachna Cote PA-C LAB BLOOD ORDERABLES Final Result Performing Organization Address [facility] de Phone Number LABORATORY [facility] [address] [place] [address] * MAGNESIUM (12/15/2024 3:21 AM EDT) Magnesium 2.1 1.5 - 2.6 mg/dL 12/15/2024 3:50 AM EDT LABORATORY [facility] Blood Venous blood specimen / Unknown Venipuncture / Unknown 12/15/2024 3:21 AM EDT 12/15/2024 3:28 AM EDT Rachna Cote PA-C LAB BLOOD ORDERABLES Final Result Performing Organization Address City/[facility] de Phone Number LABORATORY [facility] [address] [place] [address] * LACTATE (12/15/2024 3:21 AM EDT) Lactate 1.8 0.4 - 2.0 mmol/L 12/15/2024 3:46 AM EDT LABORATORY [facility] Blood Venous blood specimen / Unknown Venipuncture / Unknown 12/15/2024 3:21 AM EDT 12/15/2024 3:28 AM EDT us Rachna Cote PA-C LAB BLOOD ORDERABLES Final Result Performing Organization Address City/[facility]/ZIP Co de Phone Number LABORATORY [facility] [address], [place] [id number] * (ABNORMAL) BASIC METABOLIC PANEL (12/15/2024 3:21 AM EDT) BUN 23(H) 6 - 20 mg/dL 12/15/2024 3:50 AM EDT LAB[facility]ATORY [facility] CREATININE 0.7 0.6 - 1.2 mg/dL 12/15/2024 3:50 AM EDT LABORATORY [facility] EGFR >90 >=60 mL/min 12/15/2024 3:50 AM EDT LABORATORY [facility] Comment:eGFR is calculated b ased on the CKD-EPI 2020 equation. SODIUM 139 135 - 146 mmol/L 12/15/2024 3:50 AM EDT LABORATORY [facility] POTASSIUM 4.2 3.5 - 5.1 mmol/L 12/15/2024 3:50 AM EDT LAB[facility]ATORY [facility] CHLORIDE 103 98 - 107 mmol/L 12/15/2024 3:50 AM EDT LAB[facility]ORY [facility] CO2 22 22 - 32 mmol/L 12/15/2024 3:50 AM EDT LAB[facility]ATORY [facility] ANION GAP 14 7 - 15 mmol/L 12/15/2024 3:50 AM EDT LAB[facility]ORY [facility] GLUCOSE 87 70 - 120 mg/dL 12/15/2024 3:50 AM EDT LAB[facility]ORY [facility] CALCIUM 10.0 8.4 - 10.2 mg/dL 12/15/2024 3:50 AM EDT LAB[facility]ATORY [facility] Blood Venous blood specimen / Unknown Venipuncture / Unknown 12/15/2024 3:21 AM EDT 12/15/2024 3:28 AM EDT Rachna Cote PA-C LAB BLOOD ORDERABLES Final Result Performing Organization Address City/[facility]/ZIP Co de Phone Number LABORATORY [facility] [address] [place] [address] * (ABNORMAL) CBC (12/15/2024 3:21 AM EDT) WBC 13.99(H) 4.00 - 10.80 K/uL 12/15/2024 3:37 AM EDT LABORATORY [facility] RBC 4.51 4.50 - 5.25 M/uL 12/15/2024 3:37 AM EDT LAB[facility]ATORY [facility] HGB 12.4(L) 14.0 - 16.8 g/dL 12/15/2024 3:37 AM EDT LAB[facility]ATORY [facility] HCT 38.1(L) 40.0 - 48.4 % 12/15/2024 3:37 AM EDT LAB[facility]ATORY [facility] MCV 84.5 82.0 - 99.5 fL 12/15/2024 3:37 AM EDT LABORATORY [facility] MCH 27.5 27.0 - 34.0 pg 12/15/2024 3:37 AM EDT LAB[facility]ATORY [facility] MCHC 32.5 32.0 - 36.0 g/dL 12/15/2024 3:37 AM EDT LAB[facility]ATORY [facility] RDW 17.1 11.5 - 15.5 % 12/15/2024 3:37 AM EDT LABORATORY [facility] PLT 430(H) 140 - 400 K/uL 12/15/2024 3:37 AM EDT LAB[facility] MPV 9.8 6.6 - 11.1 fL 12/15/2024 3:37 AM EDT [facility] nRBCs 0 <=0 /100 WBCs 12/15/2024 3:37 AM EDT [facility] Blood Venous blood specimen / Unknown Venipuncture / Unknown 12/15/2024 3:21 AM EDT 12/15/2024 3:28 AM EDT Rachna Cote PA-C LAB BLOOD ORDERABLES Final Result [facility] [address] [place] [address] documented in this encounter Visit Diagnoses Diagnosis Fall- Primary Unspecified fall Fall Unspecified fall Other closed nondisplaced fracture of first cervical vertebra, initial encounter (HCC) Other displaced fracture of first cervical vertebra, initial encounter for closed fracture (HCC) Exposure to other specified factors, initial encounter Scalp laceration, initial encounter Palliative care encounter Encounter for palliative care Goals of care, counseling/discussion Other specified counseling Loss of weight Decreased appetite Anorexia Malignant neoplasm of sigmoid colon (HCC) Malignant neoplasm of sigmoid colon Paroxysmal atrial fibrillation (HCC) Atrial fibrillation Mixed hyperlipidemia History of hypertension Personal history of other diseases of circulatory system documented in this encounter Administered Medications Inactive Administered Medications - up to 3 most recent administrations Medication Order MAR Action Action Date Dose Rate Site Acetaminophen (Tylenol) tab 975 mg 975 mg, Oral, Q8H, First dose on Sun12/15/24 at 0615, Until Discontinued, Maximum 4 g acetaminophen/day. Avoid in patients with severe hepatic impairment or severe active liver disease. Use for 5 days. Given 12/15/2024 10:00 PM EDT 975 mg bacitracin zinc ointment Topical, BID (.AM/PM), First dose (after last modification) on Sun12/15/24 at 0515, Until Discontinued, Apply to: L scalp wound Given 12/16/2024 10:33 AM EDT Given 12/15/2024 11:39 PM EDT Given 12/15/2024 5:06 AM EDT cholecalciferol (VIT D3) (Vitamin D3) tab 1,000 Units 1,000 Units, Oral, Daily(AM), First dose on Sun12/15/24 at 0900, Until Discontinued Given 12/16/2024 8:49 AM EDT 1,000 Units Given 12/15/2024 10:31 AM EDT 1,000 Units Docusate Sodium (Colace) cap 100 mg 100 mg, Oral, BID (.AM/PM), First dose on Sun12/15/24 at 0900, Until Discontinued, For oral administration ONLY, if route of administration is other than oral and alternative product must be ordered. Given 12/15/2024 10:05 PM EDT 100 mg Given 12/15/2024 10:31 AM EDT 100 mg EPINEPHrine 1 mg/mL IM inj 0.3 mg 0.3 mg, Intramuscular, ONCE PRN allergic reaction, Starting on Sun12/15/24 at 1133, Until Sun12/16/24 at 1948, For 1 dose gadobutrol (Gadavist) inj 6.4 mL 6.4 mL (rounded from 6.42 mL = 0.1 mL/kg 64.2 kg), Intravenous, ONCE, On Sun12/15/24 at 2215, For 1 dose, Radiology Medication Routing (Non-IR) Given 12/15/2024 10:15 PM EDT 6.4 mL Iopamidol (Isovue 370) inj 150 mL 150 mL, Intravenous, ONCE, On Sun12/15/24 at 0515, For 1 dose, Radiology Medication Routing (Non-IR) Given 12/15/2024 5:15 AM EDT 150 mL Metoprolol Tartrate (Lopressor) tab 25 mg 25 mg, Oral, BID (.AM/PM), First dose on Sun12/15/24 at 0900, Until Discontinued, Hold for HR less than 60 or SBP below 100 and notify service if dose is held Given 12/16/2024 8:49 AM EDT 25 mg Given 12/15/2024 10:05 PM EDT 25 mg Given 12/15/2024 10:31 AM EDT 25 mg NSS infusion Intravenous, at 75 mL/hr, CONTINUOUS, Starting on Sun12/15/24 at 0615, Until Sun12/16/24 at 0859 New Bag 12/16/2024 1:05 AM EDT 75 mL/hr Rate Verify 12/15/2024 11:45 AM EDT 75 mL/hr Restarted 12/15/2024 9:44 AM EDT 75 mL/hr ondansetron (Zofran) inj 4 mg 4 mg, IV Push, Q6H PRN Other, May use for nausea or vomiting if patient unable to take oral ondansetron, Starting on Sun12/15/24 at 0539, Until Sun12/16/24 at 1948 ondansetron ODT (Zofran) tab 4 mg 4 mg, On Tongue, Q6H PRN Nausea, Vomiting, Starting on Sun12/15/24 at 0539, Until Sun12/16/24 at 1948 oxyCODONE (Oxy IR) tab 5 mg 5 mg, Oral, Q4H PRN Pain, Severe, Starting on Sun12/15/24 at 0539, Until Sun12/16/24 at 1948, Hold for somnolence or respiratory rate less than 10 oxyCODONE (Roxicodone) oral syrup 2.5 mg 2.5 mg, Oral, Q4H PRN Pain, Moderate, Starting on Sun12/15/24 at 0539, Until Sun12/16/24 at 1948, Hold for somnolence or respiratory rate less than 10 potassium and sodium phosphate (Phos-Nak) oral powder 2 Packet 2 Packet, Oral, ONCE, On Sun12/15/24 at 0845, For 1 dose, Mix 1 packet in 2.5 ounces (75 mL) of water, stir well and administer promptly. 1 packet contains Phosphorus 250 mg (~8 mMoles) + potassium 280 mg (~7.125 mEq) + sodium 160mg (~7.125 mEq) Given 12/15/2024 10:31 AM EDT 2 Packets potassium chloride ER tab 40 mEq 40 mEq, Oral, ONCE, On Sun12/16/24 at 0745, For 1 dose, This med should NOT be Crushed or Chewed Given 12/16/2024 8:49 AM EDT 40 mEq senna (Senokot) 2 Tablet 2 Tablet, Oral, BID (.AM/PM), First dose on Sun12/15/24 at 0900, Until Discontinued, hold if patient have loose stool or frequent bowel movements Given 12/15/2024 10:06 PM EDT 2 Tablets Given 12/15/2024 10:31 AM EDT 2 Tablets documented in this encounter Active and Recently Administered Medications Times are shown in EDT. Scheduled Medication Order 12/14/2024 12/15/2024 12/16/2024 Acetaminophen (Tylenol) tab 975 mg 975 mg, Oral, Q8H, First dose on Sun12/15/24 at 0615, Until Discontinued, Maximum 4 g acetaminophen/day. Avoid in patients with severe hepatic impairment or severe active liver disease. Use for 5 days. 0615 (Not Given - Provider: Irvin Urban RN - Reason: Refused-Notify Provider - Comment: service made aware)1400 (Not Given - Provider: Erika Moran RN - Reason: Refused-Notify Provider)2200 (Given - Provider: Marcin Vera RN - Comment: Angel Mera) 0619 (Not Given - Provider: Marcin Vera RN - Reason: Refused-Notify Provider - Comment: Edmar Pyle)1400 (Not Given - Provider: Jeremy Head RN - Reason: Refused-Notify Provider - Comment: aware) bacitracin zinc ointment Topical, BID (.AM/PM), First dose (after last modification) on Sun12/15/24 at 0515, Until Discontinued, Apply to: L scalp wound 0506 (Given - Provider: Shelley King RN)2339 (Given - Provider: Marcin Vera, SWATHI) 1033 (Given - Provider: Jeremy Head RN) cholecalciferol (VIT D3) (Vitamin D3) tab 1,000 Units 1,000 Units, Oral, Daily(AM), First dose on Sun12/15/24 at 0900, Until Discontinued 1031 (Given - Provider: Erika Moran RN) 0849 (Given - Provider: Jeremy Head RN) Docusate Sodium (Colace) cap 100 mg 100 mg, Oral, BID (.AM/PM), First dose on Sun12/15/24 at 0900, Until Discontinued, For oral administration ONLY, if route of administration is other than oral and alternative product must be ordered. 1031 (Given - Provider: Erika Moran RN)2205 (Given - Provider: Marcin Vera RN) 0900 (Not Given - Provider: Jeremy Head RN - Reason: Parameter(s) Not Met - Comment: 2 loose bms overnight) gadobutrol (Gadavist) inj 6.4 mL (COMPLETED) 6.4 mL (rounded from 6.42 mL = 0.1 mL/kg 64.2 kg), Intravenous, ONCE, On Sun12/15/24 at 2215, For 1 dose, Radiology Medication Routing (Non-IR) 2215 (Given - Provider: Wilder Richardson, RT (R)(M)) Iopamidol (Isovue 370) inj 150 mL (COMPLETED) 150 mL, Intravenous, ONCE, On Sun12/15/24 at 0515, For 1 dose, Radiology Medication Routing (Non-IR) 0515 (Given - Provider: Carleen Ruiz, RT (R)) Metoprolol Tartrate (Lopressor) tab 25 mg 25 mg, Oral, BID (.AM/PM), First dose on Sun12/15/24 at 0900, Until Discontinued, Hold for HR less than 60 or SBP below 100 and notify service if dose is held 1031 (Given - Provider: Erika Moran RN)220 (Given - Provider: Marcin Vera, RN) 0849 (Given - Provider: Jeremy Head, RN) potassium and sodium phosphate (Phos-Nak) oral powder 2 Packet (COMPLETED) 2 Packet, Oral, ONCE, On Sun12/15/24 at 0845, For 1 dose, Mix 1 packet in 2.5 ounces (75 mL) of water, stir well and administer promptly. 1 packet contains Phosphorus 250 mg (~8 mMoles) + potassium 280 mg (~7.125 mEq) + sodium 160mg (~7.125 mEq) 1031 (Given - Provider: Erika Moran RN) potassium and sodium phosphate (Phos-Nak) oral powder 2 Packet 2 Packet, Oral, ONCE, On Sun12/15/24 at 1230, For 1 dose, Mix 1 packet in 2.5 ounces (75 mL) of water, stir well and administer promptly. 1 packet contains Phosphorus 250 mg (~8 mMoles) + potassium 280 mg (~7.125 mEq) + sodium 160mg (~7.125 mEq) 1230 (Not Given - Provider: Erika Moran RN - Reason: Other- Please add reason in Comments - Comment: already signed off; accidentally thrown away before eating) potassium chloride ER tab 40 mEq (COMPLETED) 40 mEq, Oral, ONCE, On Sun12/16/24 at 0745, For 1 dose, This med should NOT be Crushed or Chewed 0849 (Given - Provider: Jeremy Head, RN) senna (Senokot) 2 Tablet 2 Tablet, Oral, BID (.AM/PM), First dose on Sun12/15/24 at 0900, Until Discontinued, hold if patient have loose stool or frequent bowel movements 1031 (Given - Provider: Erika Moran RN)220 (Given - Provider: Marcin Vera, RN) 0900 (Not Given - Provider: Jeremy Head, RN - Reason: Parameter(s) Not Met - Comment: 2 loose bms overnight) Continuous Medication Order 12/14/2024 12/15/2024 12/16/2024 NSS infusion (CANCELED) Intravenous, at 75 mL/hr, CONTINUOUS, Starting on Sun12/15/24 at 0615, Until Sun12/16/24 at 0859 0653 (New Bag - Provider: Irvin Urban, SWATHI)0940 (Paused - Provider: Erika Moran, SWATHI)0944 (Restarted - Provider: Erika Moran, RN)1145 (Rate Verify - Provider: Erika Moran RN) 0105 (New Bag - Provider: Marcin Vera, SWATHI)0859 (Stopped - Provider: Jeremy Head RN) PRN Medication Order 12/14/2024 12/15/2024 12/16/2024 EPINEPHrine 1 mg/mL IM inj 0.3 mg 0.3 mg, Intramuscular, ONCE PRN allergic reaction, Starting on Sun12/15/24 at 1133, Until Sun12/16/24 at 1948, For 1 dose ondansetron (Zofran) inj 4 mg(Linked Group 1) 4 mg, IV Push, Q6H PRN Other, May use for nausea or vomiting if patient unable to take oral ondansetron, Starting on Sun12/15/24 at 0539, Until Sun12/16/24 at 1948 ondansetron ODT (Zofran) tab 4 mg(Linked Group 1) 4 mg, On Tongue, Q6H PRN Nausea, Vomiting, Starting on Sun12/15/24 at 0539, Until Sun12/16/24 at 1948 oxyCODONE (Oxy IR) tab 5 mg 5 mg, Oral, Q4H PRN Pain, Severe, Starting on Sun12/15/24 at 0539, Until Sun12/16/24 at 1948, Hold for somnolence or respiratory rate less than 10 oxyCODONE (Roxicodone) oral syrup 2.5 mg 2.5 mg, Oral, Q4H PRN Pain, Moderate, Starting on Sun12/15/24 at 0539, Until Sun12/16/24 at 1948, Hold for somnolence or respiratory rate less than 10 Linked Groups Order Group 1: ondansetron ODT (Zofran) tab 4 mgJump to med 4 mg, On Tongue, Q6H PRN Nausea, Vomiting, Starting on Sun12/15/24 at 0539, Until Sun12/16/24 at 1948 Or ondansetron (Zofran) inj 4 mgJump to med 4 mg, IV Push, Q6H PRN Other, May use for nausea or vomiting if patient unable to take oral ondansetron, Starting on Sun12/15/24 at 0539, Until Sun12/16/24 at 1948 documented in this encounter Advance Directives * Full Code (Latest Code Status on File) Date Activated Date Inactivated Comments 12/15/2024 5:41 AM 12/16/2024 7:48 PM This order re flects the patients wishes and were consensually agreed upon. Question Answer Comments Discussion of Advance Directives occurred with: Family Care Teams Printing Agent Relationship Specialty Start Date End Date David Bustamante MD [address] [place] [id number] PCP - General Family Medicine 11/17/24 documented as of this encounter
--- OUTSIDE RECORDS SUMMARY | 2024-12-20 07:09 | External Medical Summary ---
Author Name Unknown Address Unknown Organization [id number]:[facility] - [address] [place] [address] Laboratory Report Ordering Provider Test Date Status CAROLE QUINTANA 12/16/2024 04:26:00 Final Observation Date Value Abnormality Reference (Units ) Status Phosphate 12/16/2024 04:26:00 3.8 2.5-4.8 (m g/dL) Final Performing Location [facility] - [address] [place] [address]
--- OUTSIDE RECORDS SUMMARY | 2024-12-20 07:09 | External Medical Summary | Summary of Care ---
Author Name Unknown Organization [facility] Address [address] [place] [address] Phone [phone] Care Team Providers Care Mining Helper Name Role Phone David Bustamante MD Primary Care Provider [phone] Reason for Visit * Auth/Cert Specialty Diagnoses / Procedures Referred By Contac t Referred To Contact Diagnoses C1 cervical fracture (HCC) Fall C1 fracture, s/p fall Henrique Cobos MD [address] [place] [address] Phone: tel: fax: [facility]) Emergency Department ([facility]) [address] [place] [address] Phone: tel: fax: Referral ID Status Reason Start Date Expiration Date Visits Re quested Visits Authorized [id number] Encounter Details Date Type Department Care Team (Late st Contact Info) Description 12/15/2024 9:50 AM EDT Orders Only Orthotics, [place] [address] [place] [address] [facility], Orthotics Fitter [address] [place] [address] Nondisplaced fracture of first cervical vertebra (HCC)* Allergies Active Allergy Reactions Criticality Noted Date [...] documented in this encounter Progress Notes * Rodolfo Moore ATC - 12/15/2024 12:53 PM EDT Pt was fit and delivered a second aspen collar secondary to C1 fx as requested by Arash eYung. The orthosis was inspected for structural integrity and dish room worker guidelines were followed. Donning, doffing, precautions, and wearing instructions were provided verbally and written dish room worker information was given to the patient. Location: [place] [address] Accompanied by: Spouse Nursing staff informed: Yes Rodolfo Moore ATC 12/15/2024 12:55 PM Cosigned by Estela Escamilla CFO at 12/15/2024 1:32 PM EDT documented in this encounter Plan of Treatment Upcoming Encounters Date Type Department Care Team (Late st Contact Info) Description 01/05/2025 3:15 PM EDT Appointment [facility], [address] [address] 01/08/2025 1:00 PM EDT Office Visit [facility] [address] [place] [address] Marcin Linares MD [address] [place] [address] Health Maintenance Due Date Last Done Comments Adult Wellness Visit 2010 COVID-19 Vaccine (2023-2 5 season) 2024 Influenza Vaccine (FLU shot) (#1) 2024 Depression Screening 08/06/2025 08/06/2024 Meningitis B Vaccine (Bexsero/Trumemba) Aged Out No longer eligible b ased on patient's age to complete this topic Zoster Vaccines Discontinued documented as of this encounter Medical Devices Not on filedocumented as of this encounter Visit Diagnoses Diagnosis Nondisplaced fracture of first cervical vertebra (HCC)- Primary Closed fracture of first cervical vertebra without mention of spinal cord injury documented in this encounter Advance Directives * Full Code (Latest Code Status on File) Date Activated Date Inactivated Comments 12/15/2024 5:41 AM This order ref lects the patients wishes and were consensually agreed upon. Question Answer Comments Discussion of Advance Directives occurred with: Family Care Teams Mining Helper Relationship Specialty Start Date End Date David Bustamante MD [address] [phone] PCP - General Family Medicine 11/17/24 documented as of this encounter
--- OUTSIDE RECORDS SUMMARY | 2024-12-20 07:10 | External Medical Summary ---
Author Name Unknown Address Unknown Organization [id number]:LABORATORY [facility] [place] [facility] - [address] [place] [address] Laboratory Report Ordering Provider Test Date Status CAROLE QUINTANA 12/15/2024 03:21:00 Final Observation Date Value Abnormality Reference (Units ) Status ABO 12/15/2024 03:21:00 O Final RH 12/15/2024 03:21:00 Positive Final Performing Location LABORATORY [facility] - [address] [place] [address]
--- OUTSIDE RECORDS SUMMARY | 2024-12-20 07:10 | External Medical Summary ---
Author Name Unknown Address Unknown Organization [id number]:[facility]ORY [facility] [place] - [address] [facility] [place] [address] Laboratory Report Ordering Provider Test Date Status CAROLE QUINTANA 12/15/2024 05:55:00 Final Observation Date Value Abnormality Reference (Units ) Status WBC, Total 12/15/2024 05:55:00 14.11 Above high normal 4.00-10.80 (K/uL) Final RBC 12/15/2024 05:55:00 4.28 4.50-5.25 (M/uL) Final Hemoglobin 12/15/2024 05:55:00 11.6 Below low normal 14.0-16.8 (g/dL) Final HCT 12/15/2024 05:55:00 35.8 Below low normal 40.0-48.4 (%) Final MCV 12/15/2024 05:55:00 83.6 82.0-99.5 (fL) Final MCH 12/15/2024 05:55:00 27.1 27.0-34.0 (pg) Final MCHC 12/15/2024 05:55:00 32.4 32.0-36.0 (g/dL) Final RDW 12/15/2024 05:55:00 17.4 11.5-15.5 (%) Final Platelets 12/15/2024 05:55:00 403 Above high normal 140-400 (K/uL) Final MPV 12/15/2024 05:55:00 9.8 6.6-11.1 (fL) Final Nucleated erythrocytes/100 leukocytes [Ratio] in Blood by Automated count 12/15/2024 05:55:00 0 <=0 (/100 WBCs) Final Performing Location LAB[facility]ORY [facility] - [address] [place] [address]
--- OUTSIDE RECORDS SUMMARY | 2024-12-20 07:10 | External Medical Summary ---
Author Name Unknown Address Unknown Organization [id number]:[facility] [place] [address] [place] [address] Laboratory Report Ordering Provider Test Date Status CAROLE QUINTANA 12/15/2024 05:55:00 Final Observation Date Value Abnormality Reference (Units ) Status BUN 12/15/2024 05:55:00 22 Above high normal 6-20 (mg/dL) Final Creatinine 12/15/2024 05:55:00 0.7 0.6-1.2 (mg/dL) Final Glomerular filtration rate/1.73 sq M.predicted [Volume Rate/Area] in Serum, Plasma or Blood by Creatinine-based formula (CKD-EPI) 12/15/2024 05:55:00 >90 >=60 (mL/min) Final eGFR is calculated based on the CKD-EPI 2020 equation. Sodium 12/15/2024 05:55:00 137 135-146 (m mol/L) Final Potassium 12/15/2024 05:55:00 4.2 3.5-5.1 (m mol/L) Final Cl 12/15/2024 05:55:00 102 98-107 (mm ol/L) Final CO2 12/15/2024 05:55:00 21 Below low normal 22- 32 (mmol/L) Final Anion gap 12/15/2024 05:55:00 14 7-15 (mmol /L) Final Glucose 12/15/2024 05:55:00 82 70-120 (mg /dL) Final Calcium 12/15/2024 05:55:00 9.4 8.4-10.2 ( mg/dL) Final Performing Location [facility] - [address] [place] [address]
--- OUTSIDE RECORDS SUMMARY | 2024-12-20 07:10 | External Medical Summary ---
Author Name Unknown Address Unknown Organization [id number]:LABORATORY [facility] [place] - [address] [place] [address] Laboratory Report Ordering Provider Test Date Status THIEN LOMAX 12/15/2024 03:21:00 Final Exclude Heart Failure: <300 pg/mL
Diagnose Heart Failure:
Age <50 yr: >450 pg/mL
50-75 yr: >900 pg/mL
>75 yr: >1800 pg/mL
GFR is 30-59 mL/min: >1200 pg/mL or Age- adjusted values
GFR <30 mL/min: do not use, not reliable

Prognostic threshold: 1000 pg/mL Observation Date Value Abnormality Reference (Units ) Status BNP, Pro-hormone 12/15/2024 03:21:00 596 Above high no rmal <300 (pg/mL) Final Performing Location LABORATORY [facility] - [address] [place] [address]
--- OUTSIDE RECORDS SUMMARY | 2024-12-20 07:10 | External Medical Summary ---
Author Name Unknown Address Unknown Organization [id number]:LABORATORY [facility] - [address] [facility] [address] Laboratory Report Ordering Provider Test Date Status CAROLE QUINTANA 12/15/2024 03:23:23 Final Observation Date Value Abnormality Reference (Units ) Status Color of Urine by Auto 12/15/2024 03:23:23 Yellow Colorless, Light Yellow, Yellow, Dark Yellow Final Clarity, Urine 12/15/2024 03:23:23 Slightly Cloudy Abnormal Clear Final Glucose [Mass/volume] in Urine by Automated test strip 12/15/2024 03:23:23 Negative Negative (mg/dL) Final Bilirubin.total [Presence] in Urine by Automated test strip 12/15/2024 03:23:23 Negative Negative Final Ketones [Mass/volume] in Urine by Automated test strip 12/15/2024 03:23:23 15 Abnormal Negative (mg/dL) Final Specific gravity, Urine 12/15/2024 03:23:23 1.025 1.003-1.030 Final Hemoglobin [Presence] in Urine by Automated test strip 12/15/2024 03:23:23 Negative Negative Final pH, Urine 12/15/2024 03:23:23 6.0 5.0-7.5 (Units) Final Protein [Mass/volume] in Urine by Automated test strip 12/15/2024 03:23:23 30 Abnormal Negative (mg/dL) Final Urobilinogen [Mass/volume] in Urine by Automated test strip 12/15/2024 03:23:23 2.0 Abnormal Normal (mg/dL) Final Nitrite [Presence] in Urine by Automated test strip 12/15/2024 03:23:23 Negative Negative Final Leukocyte esterase [Presence] in Urine by Automated test strip 12/15/2024 03:23:23 Small Abnormal Negative Final RBC, Urine 12/15/2024 03:23:23 0-2 0-2 (/HPF) Final WBC, Urine 12/15/2024 03:23:23 3-5 Abnormal 0-2 (/HPF) Final Bacteria [#/area] in Urine sediment by Microscopy high power field 12/15/2024 03:23:23 26-50 Abnormal 0-25 (/HPF) Final Crystals.amorphous [#/area] in Urine sediment by Microscopy high power field 12/15/2024 03:23:23 Many Abnormal None (/HPF) Final Hyaline casts, Urine 12/15/2024 03:23:23 1-4 Abnormal None (/LPF) Final CULTURE, URINE - [facility] 12/15/2024 03:23:23 Final Quantitative urine culture t o be performed Performing Location LABORATORY [facility] [place] - [facility] [address] [facility] [address]
--- OUTSIDE RECORDS SUMMARY | 2024-12-20 07:10 | External Medical Summary ---
Author Name Unknown Address Unknown Organization K01:[facility] - [address] [place] [address] Laboratory Report Ordering Provider Test Date Status CAROLE QUINTANA 12/15/2024 05:55:00 Final Observation Date Value Abnormality Reference (Units ) Status Magnesium 12/15/2024 05:55:00 2.0 1.5-2.6 (m g/dL) Final Performing Location [facility] - [address] [place] [address]
--- OUTSIDE RECORDS SUMMARY | 2024-12-20 07:10 | External Medical Summary ---
Author Name Unknown Address Unknown Organization K01:LABORATORY [facility] [place] [place] - [address] [place] [address] Laboratory Report Ordering Provider Test Date Status CAROLE QUINTANA 12/15/2024 03:21:00 Final Observation Date Value Abnormality Reference (Units ) Status BUN 12/15/2024 03:21:00 23 Above high normal 6-20 (mg/dL) Final Creatinine 12/15/2024 03:21:00 0.7 0.6-1.2 (mg/dL) Final Glomerular filtration rate/1.73 sq M.predicted [Volume Rate/Area] in Serum, Plasma or Blood by Creatinine-based formula (CKD-EPI) 12/15/2024 03:21:00 >90 >=60 (mL/min) Final eGFR is calculated based on the CKD-EPI 2020 equation. Sodium 12/15/2024 03:21:00 139 135-146 (m mol/L) Final Potassium 12/15/2024 03:21:00 4.2 3.5-5.1 (m mol/L) Final Cl 12/15/2024 03:21:00 103 98-107 (mm ol/L) Final CO2 12/15/2024 03:21:00 22 22-32 (mmo l/L) Final Anion gap 12/15/2024 03:21:00 14 7-15 (mmol /L) Final Glucose 12/15/2024 03:21:00 87 70-120 (mg /dL) Final Calcium 12/15/2024 03:21:00 10.0 8.4-10.2 ( mg/dL) Final Performing Location LABORATORY [facility] [place] [place] - [address] [place] [address]
--- OUTSIDE RECORDS SUMMARY | 2024-12-20 07:10 | External Medical Summary ---
Author Name Unknown Address Unknown Organization K01:[facility] [address] [place] [address] Laboratory Report Ordering Provider Test Date Status CAROLE QUINTANA 12/15/2024 03:21:00 Final Observation Date Value Abnormality Reference (Units ) Status Lactic Acid 12/15/2024 03:21:00 1.8 0.4-2.0 (mmol/L) Final Performing Location LABORATORY [facility] - [address] [place] [address]
--- OUTSIDE RECORDS SUMMARY | 2024-12-20 07:10 | External Medical Summary ---
Author Name Unknown Address Unknown Organization K01:LABORATORY [facility] [place] - [address] [place] [id number] Laboratory Report Ordering Provider Test Date Status CAROLE QUINTANA 12/15/2024 03:23:23 Final Observation Date Value Abnormality Reference (Units) Status Bacteria identified in Specimen by Culture 12/15/2024 03:23:23 No significant growth Final Test: Culture, Urine, Quanti tative
Specimen Source: Urine, Clean Catch
Specimen Type: Urine
Specimen Date: 12/15/2024 [id number]
Result Date: 12/17/2024 1030
Result Status: Final result
Resulting Lab: LABORATORY [facility]
[address]
[place] [address]

CULTURE

No significant growth

null Performing Location LABORATORY [facility] - [address] [facility] [address]
--- OUTSIDE RECORDS SUMMARY | 2024-12-20 07:10 | External Medical Summary ---
Author Name Unknown Address Unknown Organization K01:[facility] - [address] [place] [address] Laboratory Report Ordering Provider Test Date Status CAROLE QUINTANA 12/15/2024 03:21:00 Final Observation Date Value Abnormality Reference (Units ) Status Magnesium 12/15/2024 03:21:00 2.1 1.5-2.6 (m g/dL) Final Performing Location [facility] - [address] [place] [address]
--- OUTSIDE RECORDS SUMMARY | 2024-12-20 07:10 | External Medical Summary ---
Author Name Unknown Address Unknown Organization K01:[facility] [place] [address] [address] Laboratory Report Ordering Provider Test Date Status CAROLE QUINTANA 12/15/2024 03:22:00 Final Anticoagulation may affect t esting. Refer to [employer] Test Catalog for a list of effects. Observation Date Value Abnormality Reference (Units ) Status aPTT panel - Platelet poor plasma 12/15/2024 03:22:00 29 21-38 (seconds) Final Performing Location LAB[facility]ORY [facility] [place] - [address] [place] [address]
--- OUTSIDE RECORDS SUMMARY | 2024-12-20 07:10 | External Medical Summary ---
Author Name Unknown Address Unknown Organization K01:LABORATORY [facility] - [address] [address] Laboratory Report Ordering Provider Test Date Status CAROLE QUINTANA 12/15/2024 03:21:00 Final Observation Date Value Abnormality Reference (Units ) Status Phosphate 12/15/2024 03:21:00 2.5 2.5-4.8 (m g/dL) Final Performing Location LABORATORY [facility] - [address] [place] [address]
--- OUTSIDE RECORDS SUMMARY | 2024-12-20 07:11 | External Medical Summary ---
Author Name Unknown Address Unknown Organization K01:LABORATORY [facility] [place] - [address] [place] [address] [place] [address] Laboratory Report Ordering Provider Test Date Status CAROLE QUINTANA 12/15/2024 03:21:00 Final Observation Date Value Abnormality Reference (Units ) Status Ethanol 12/15/2024 03:21:00 Negative Negative Final Performing Location LABORATORY [facility] - [address] [place] [address]
--- OUTSIDE RECORDS SUMMARY | 2024-12-20 07:11 | External Medical Summary ---
Author Name Unknown Address Unknown Organization : Laboratory Report Ordering Provider Test Date Status TROY YAÑEZ 12/10/2024 11:58:29 Final Observation Date Value Abnormality Reference (Units ) Status Vitamin K-1, level 12/10/2024 11:58:29 149 1 30-1500 (pg/mL) Final This test was developed and its analytical performance
characteristics have been determined by [employer], [place]. It has
not been cleared or approved by the U.S. Food and Drug
Administration. This assay has been validated pursuant
to the CLIA regulations and is used for clinical
purposes.

Test Performed at:
[facility]
[address] [facility]
[place] [address]
Geoffrey Valdez M.D., Ph.D.,Director of Laboratories Performing Location
[2024-12-20] MEDS: SODIUM CHLORIDE 0.9% 1,000 ML IV ONE (07:13)
--- NOTE | 2024-12-20 07:50 | History & Physical Report ---
<Statement entered by Elijah Kraft, DO - 12/20/24 16:15> I have seen and examined the patient and have discussed the case with the advance practice provider. I have reviewed the advanced practitioner's documentation, and I agree with, and take responsibility for that plan of care. Patient seen and evaluated while still in ED. His is actually in the ED bed beside him. He was sound asleep did awaken briefly. contributed mostly to the history. In conversation with her seems as though she really manages his diet/restricts his diet. Spent some time explaining to his that his nutritional needs may be very different from hers. Explained that some of his swelling in his legs may be due to poor nutrition and indicating his need for increased protein intake. Overall patient is somewhat frail, cachectic in appearance but nontoxic. Neck in a rigid c-collar Discussed plan of care as outlined below I spent a total of 20 minutes coordinating, documenting, and providing care for this patient excluding time spent by another provider/QHP. Date of Service December 20, 2024 Assessment & Plan (1) Colon cancer: (2) C1 cervical fracture: (3) Severe protein-calorie malnutrition: (4) Goals of care, counseling/discussion: Plan Mr. Arreaga is an 79 year old male that presents to the ED today with his at his bedside with generalized weakness. H/O colon cancer with mets to his lung and liver and he is not receiving any treatment for such. Additional PMH includes AF, DM, anemia of chronic disease, HLD, Tachybrady syndrome, and others. About a week ago he was recently transferred to [facility] after having a fall and sustaining a minimally displaced C1 fracture that was treated conservatively. 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 His nutritional status has declined over the past few weeks, moreso over the past month. For now, continue supportive treatment with IVF, Nutrition consult for strict dietary habits, PT/OT for probable placement. They are receptive to meeting with palliative medicine which would be beneficial for him to align goals with his care plan. She expresses that they do have a living will that has an advanced directive that has been established years ago. Generalized weakness: Severe protein malnourishment: patient severely cachectic likely in the setting of stage IV cancer Leukocytosis 13.34; UA pending Follows a strict vegetarian diet at home with numerous food allergies (some causing anaphylaxis per pt) Head Miller consult; NRI 69.9; severe risk of malnourishment Suggested protein shakes if pt does not want to consume full meals; resisting due to contents of protein shake PT/OT; Pt did ambulate with assistance, possible placement due to increased care needs. C1 cervical fracture: Rib fracture: Wears a C-collar s/p fall last week Tylenol PRN for pain sacral ecchymosis from fall Colon Cancer with metastasis: Transaminitis: Diagnosed 2022 per Mets to lung and liver TBili 2.4, Direct Bili 1.2, AST 110, Alk Phos 382 She has stated that they have not been pursuing chemotherapy, rather are interested in a gene specific treatment that targets circulating DNA. Severely cachectic with severe protein malnourishment as outlined above Goals of Care; Counseling/Discussion: Lengthy conversation held with patient and his . Palliative Medicine vs Hospice discussed in details. She expresses that she is no longer able to care for him at home; difficulty with lifting him, helping him to the bathroom. We discussed his overarching goals and he stated a few times he was hesitant to say how he wanted to proceed because he felt he was leaving his down. In the event of cardiac or respiratory arrest, he stated he wished to be a DNR/DNI. They are receptive to further communication regarding goals of care with palliative medicine which would be beneficial for him to align goals with his care plan. She expresses that they do have a living will that has an advanced directive that has been established years ago. Pt would benefit greatly from hospice services given the advanced nature of his illness and would certainly qualify for the services. Hospice Dx: Colon cancer/Severe protein malnourishment Disposition: PCP: Dr. Bustamante Code Status: DNR/DNI VTE Prophylaxis: TEDS for now I spent a total of 81 minutes coordinating, documenting, and providing care for this patient excluding time spent inthe performance of separately billed services or time spent by another provider/QHP. History of Present Illness Chief Complaint: Generalized weakness Primary Care Provider: David Bustamante MD Mr. Arreaga is an 79 year old male that presents to the ED today with his at his bedside with generalized weakness. This unfortunate gentleman has a history of colon cancer with mets to his lung and liver and he is not receiving any treatment for such. Additional PMH includes AF, DM, anemia of chronic disease, HLD, Tachybrady syndrome, and others. About a week ago he was recently transferred to [facility] after having a fall and sustaining a minimally displaced C1 fracture that was treated conservatively. At home, they have been having a lot of contracted work completed at their house and they have not had the best intake. They follow a strict vegetarian diet with oral holistic supplements. She has stated that they have not been pursuing chemotherapy, rather are interested in a gene specific treatment that targets circulating DNA. Lengthy conversation held with patient and his , who was being evaluated in the ED as well. She expresses that she is no longer able to care for him at home; difficulty with lifting him, helping him to the bathroom. We discussed his overarching goals and he stated a few times he was hesitant to say how he wanted to proceed because he felt he was leaving his down. In the event of cardiac or respiratory arrest, he stated he wished to be a DNR/DNI. They expressed that they have been since 2007 and his admits that she is worries about losing him and feels that she has not had enough time to be with him. 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 His nutritional status has declined over the past few weeks, moreso over the past month. His attributes that they have both not been eating over the past week and have a very restrictive vegetarian diet. For now, continue supportive treatment with IVF, Nutrition consult for strict dietary habits, PT/OT for probable placement. They are receptive to further communication regarding goals of care with palliative medicine which would be beneficial for him to align goals with his care plan. She expresses that they do have a living will that has an advanced directive that has been established years ago. Ultimately, it appears this gentleman would benefit greatly from hospice services given the advanced nature of his illness and would certainly qualify for the services. Patient will be admitted for further evaluation and management as outlined above. Please see A/P for further details. Allergies Allergy/AdvReac Type Severity Reaction Status Date / Time spinach Allergy Severe ANAPHYLAXIS Verified 12/20/24 08:41 almond Allergy Intermediate tested +2 Verified 12/20/24 08:41 on skin test peanut Allergy Intermediate +3 ALLERGY Verified 12/20/24 08:41 TEST shellfish derived Allergy Intermediate CRAB-+2 Verified 12/20/24 08:41 ALLERGY TEST soy Allergy Intermediate +2 ALLERGY Verified 12/20/24 08:41 TEST tomato Allergy Intermediate Gastrointestinal Verified 12/20/24 08:41 Upset tree nut Allergy Intermediate +2 ALLERGY Verified 12/20/24 08:41 TEST ciprofloxacin Allergy Mild Itching Verified 12/20/24 08:41 erythromycin base Allergy Mild Itching Verified 12/20/24 08:41 pine nut Allergy Mild POSITIVE Verified 12/20/24 08:41 ALLERGY TEST pistachio nut Allergy Mild POSITIVE Verified 12/20/24 08:41 ALLERGY TEST basil Allergy Unknown NOT TESTED Verified 12/20/24 08:41 oregano Allergy Unknown Unknown Verified 12/20/24 08:41 Latex, Natural Rubber Allergy Rash Verified 12/20/24 14:35 rice Allergy Unknown Verified 12/20/24 12:00 aspirin AdvReac Intermediate ABDOMINAL Verified 12/20/24 08:41 BURNING IF OVER 81MG. lidocaine AdvReac Unknown unknown Verified 12/20/24 08:41 Home Medications Medication Instructions Recorded Confirmed Type coenzyme Q10 100 mg capsule 100 mg PO DAILY 09/17/19 12/20/24 History (CoQ-10) epinephrine 0.3 mg/0.3 mL 0.3 mg (0.3 mL) IM ONCE PRN severe 10/22/23 12/20/24 Rx injection, auto-injector (EpiPen allergic reaction #2 ea 2-Jared) metoprolol tartrate 25 mg tablet 25 mg PO BID #180 tabs 10/22/23 12/20/24 Rx ascorbic acid (vitamin C) 500 mg 1,000 mg PO DAILY 07/08/24 12/20/24 History tablet (Vitamin C) cholecalciferol (vitamin D3) 50 1,000 unit PO DAILY 07/08/24 12/20/24 History mcg (2,000 unit) tablet (Vitamin D3) tocotrienols 125 mg PO DAILY #1 cap 07/08/24 12/20/24 Rx Beef Liver Suppliment 1 tab PO DAILY 12/14/24 12/20/24 History magnesium glycinate 100 mg (as 100 mg PO DAILY 12/14/24 12/20/24 History glycinate) tablet minerals See Rx Instructions .Route .COMPLEX 12/20/24 12/20/24 History Past Med/Surg History Problem List Goals of care, counseling/discussion Severe protein-calorie malnutrition Colon cancer Adult failure to thrive Abrasion of scalp (Acute) Contusion of scalp (Acute) Head injury (Acute) Fall (Acute) C1 cervical fracture (Acute) Abnormal US (ultrasound) of abdomen Liver mass Elevated LFTs Abnormal coagulation profile Thrombocytosis Anemia Encounter to discuss test results Patient request for diagnostic testing Routine health maintenance Hyperlipidemia 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 Prediabetes Hypertension (Chronic) Medical History History of cardioversion HTN (hypertension) Surgical History No pertinent past surgical history Family History Father High cholesterol Hypertension Peptic ulcer Testicular cancer Cerebral hemorrhage cause of sudden 56 years old Mother Alzheimer disease Cataracts, bilateral Ovarian cancer Caused age 7979 years old Brother Hypertension High cholesterol Prostate cancer Other Cancer Social History Smoking Status: Never smoker Second Hand Exposure: No; Do You Dip or Chew Tobacco: No; Hx Alcohol Use: No Hx Substance Use: No Preferred Language: Maltese Communication Ability: Effective Visual Impairment: Limited Hearing Ability: Normal Aircraft Fueler Required: No Beliefs That Will Affect Care: None marital status: Current Living Situation: Spouse current occupational status: retired How many Children do You have: 0 Feels Safe at Home: Yes Safety Concerns: Feels Safe At This Time Childhood Exposure to Second-Hand Smoke: Yes Diet: vegetarian caffeine: No during the past year weight has: remained stable Dental Care, Regularly: Yes Physical Activity Frequency: Daily Seatbelt Use: always Sunscreen Use: Yes Assistive Devices: Walker Review of Systems Review of Systems: Neuro: (-) Falls, trauma, slurred speech HEENT: (-) FONTENOT, dizziness, dysphagia, visual or auditory changes CV: (-) CP, palpitations, (+) swelling Resp: (-) SOB GI: (+) appetite changes, N/V/D, bowel changes : (-) urinary changes Skin: (-) rashes Psych: (-) anxiety, depression Physical Exam Physical Exam: Neuro: AAOx4, PERRLA, no aphagia, memory changes, CNII-XII grossly intact. Severely cachectic HEENT: head normocephalic, moist mucus membranes CV: S1/S2, (-) M/G/R, (-) edema, cap refill < 3 seconds Resp: Lungs CTA in all tom. On RA GI: Abdomen S/NT/ND, Ax4 bowel sounds, (-) CVA tenderness Musculoskeletal: 5/5 B/L UE strength, 5/5 B/L LE strength. Ambulates independently, but would benefit from assistive device Skin: (-) rashes , (-) erythema. (+) ecchymosis sacral area and Right lower back where previous rib fracture was noted. Psych: euthymic mood, hoarse voice Results & Data Results & Data Vital Signs (Past 12 Hours) Vital Signs Temp Pulse Resp BP Pulse Ox O2 Del Method 12/20/24 07:00 74 14 132/73 98 Room Air 12/20/24 06:30 71 13 130/79 98 12/20/24 05:33 76 12/20/24 04:43 36.8 C 90 19 106/67 97 Room Air Laboratory Results Short CBC 12/20/24 Range/Units 05:30 WBC 13.34 H (4.8-10.8) K/ul Hgb 12.2 L (14.0-18.0) g/dl Hct 37.3 L (42.0-52.0) % Plt Count 460 H (130-400) K/uL BMP 12/20/24 05:30 Sodium 140 Potassium 4.2 Chloride 107 Carbon Dioxide 28 BUN 40 H Creatinine 1.15 Glucose 72 Calcium 10.7 H Liver Function 12/20/24 Range/Units 05:30 Total Bilirubin 2.4 H (0.2-1.0) mg/dl Direct Bilirubin 1.2 H (0-0.2) mg/dl AST 110 H (13-39) U/L ALT 41 (7-52) U/L Alkaline Phosphatase 382 H (34-104) U/L Albumin 2.8 L (3.4-5.0) gm/dl Diagnostic Findings Cervical Spine CT 12/20/24 05:04 EXAM: CT cervical spine wo con CLINICAL HISTORY: progressive leg weakness. known c1 fx TECHNIQUE: Computed tomography of the cervical spine performed without intravenous contrast. Contiguous axial images were obtained from the skull base to T2, with sagittal and coronal reformatted images reconstructed from the axial data. CT scan was performed according to ALARA (as low as reasonable achievable). 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 Loss of cervical lordosis - suggest possibility of muscle spasm/positional. Degenerative changes involving cervical spine in the form of multilevel marginal osteophytes, disc space reduction and facetal arthrosis. Cervical vertebral bodies are normal in height and alignment, with no evidence of fracture or subluxation. Prevertebral soft tissues are not widened. The remaining suprahyoid and infrahyoid soft tissues in the neck are unremarkable. Posterior uncovertebral arthrosis is noted at C5-C6 and C6-C7 levels,which indenting ventral thecal sac and causes bilateral neuroforaminal narrowing. Thyroid gland appears unremarkable. IMPRESSION: 1. Linear minimally displaced fracture is noted involving right side of anterior arch of C1 vertebra, fracture line extending up to the right atlanto-axial joint-stable. 2. Cervical spondylosis.-stable. 3. Multiple small cavitary nodules are noted in bilateral visualized upper lobes. Relatively stable. 4. Stable non-displaced fracture of the right first rib is noted. No other new interval abnormality since prior study. Electronically signed by Benedicto Funez 12-20-2024 07:06 AM Chest X-Ray 12/20/24 05:05 EXAM: XR chest 1V portable CLINICAL HISTORY: Fluid overload TECHNIQUE: An X-ray image of the chest is obtained in AP projection. COMPARISON: 12/14/2024. FINDINGS: Pulmonary Parenchyma: Exaggerated bilateral hilar and bronchovascular markings, likely lung congestion. Stable A rounded shadow is seen superimposed on the left upper lung zone possibly outside the chest. Please correlate clinically; other views are advised. Otherwise, lungs are clear bilaterally. No evidence of consolidation, collapse, or focal opacities. No pulmonary nodules are identified. No evidence of pleural effusion or pleural thickening. Heart and Mediastinum: Heart size and shape are normal. No mediastinal widening or masses. No hilar or mediastinal lymphadenopathy. Bony Thorax: Bony thorax appears intact without fractures or deformities. Soft Tissues: Soft tissues overlying the chest wall are unremarkable. IMPRESSION: 1. Exaggerated bilateral hilar and bronchovascular markings, likely lung congestion. Stable 2. A rounded shadow is seen superimposed on the left upper lung zone possible outside the chest. Please correlate clinically, other views are advised. New finding. 3. No acute cardiopulmonary abnormalities are identified. Electronically signed by Aravind Mcgee 12-20-2024 06:15 AM Code Status & VTE Plan Code Status DNR/DNI in the event of cardiac or respiratory arrest VTE Prophylaxis Plan VTE Prophylaxis will be ordered: Yes (2) C1 cervical fracture Encounter type: initial encounter Fracture alignment: nondisplaced Fracture morphology: unspecified fracture morphology Fracture type: closed Qualified Code(s): S12.001A - Unspecified nondisplaced fracture of first cervical vertebra, initial encounter for closed fracture
--- NOTE | 2024-12-20 08:19 | CT Scan Report ---
CT head/brain wo con CLINICAL HISTORY: 79 years-old Male with progressive weakness s/p injury 1 week ago. Acute weakness TECHNIQUE: Multiple axial CT images of the head were obtained without contrast. A dose lowering tech nique was utilized adhering to the principles of ALARA. COMPARISON: 12/14/2024 FINDINGS: No acute intracranial hemorrhage, midline shift, intracranial mass, hydrocephalus, or abnormal extra- axial collection. Involutional changes with probable chronic microvascular ischemic disease. Unchange d 7 mm extra-axial calcification along the right superior cerebral convexity on image 104 series 4 wh ich may represent a small meningioma. Ill-defined hypodensity within the lefti parietal lobe on image 71 series 4 is more apparent than the prior study. The calvarium is intact. Left posterolateral scalp contusion with skin arely. 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 The paranasal sinuses, mastoid air cells, and mid dle ear cavities are clear. IMPRESSION: 1. Left scalp contusion redemonstrated. No acute cranial hemorrhage or calvarial fracture. 2. Ill-defined hypodense focus within the left parietal lobe is more apparent than the prior exam and may represent an acute or subacute infarct. ACT 112: Negative or not required by law. The above report was generated using voice recognition software. It may contain grammatical, syntax o r spelling errors. Electronically signed by: Santiago Sánchez M.D. 12/20/2024 8:17 AM
[2024-12-20] MEDS ORDERED: POLYETHYLENE (MIRALAX) 17 GM PACK PO PRN (09:59)
[2024-12-20] MEDS ORDERED: ONDANSETRON INJ 2 MG/ML 2 ML VIAL IV PRN (09:59)
[2024-12-20] MEDS ORDERED: ALUMINUM/MAGNESIUM SUSP 30 ML UDC PO PRN (09:59)
[2024-12-20] MEDS ORDERED: MAGNESIUM HYDROXIDE SUSP 30 ML UDC PO PRN (09:59)
[2024-12-20] MEDS: SODIUM CHLORIDE 0.9% 1,000 ML IV SCH (10:29)
[2024-12-20 13:56] LABS: Appearance Urine Clear (Clear); Bacteria Urine Automated None Seen (None Seen); Bilirubin Urine Negative (Negative); Blood Urine Negative (Negative); Cast Urine Automated >20 /lpf (0-2); Color Urine Dark Yellow; Epithelial Cell Urine Auto 0-2 /hpf (0-2); Glucose Urine UA Negative (Negative); Granular Casts Urine Present /lpf (None Prsent); Hyaline Casts Urine Present /lpf (None Presnt); Ketones Urine 1+ (Negative); Leukocyte Esterase Urine Negative (Negative); Mucus Urine Present (None Prsent); Nitrite Urine Negative (Negative); Protein Urine Trace (Negative); RBC Urine Automated 0-2 /hpf (0-2); Urobilinogen Urine Negative (Negative); WBC Urine Automated 0-5 /hpf (0-5)
[2024-12-20] MEDS: ASCORBIC ACID 500 MG TAB PO SCH (20:59)
[2024-12-20] MEDS: METOPROLOL TARTRATE 25 MG TAB PO SCH (20:59)
[2024-12-21 06:43] LABS: Hematocrit (blood only) 35.2 % (42.0-52.0); Hemoglobin 11.6 g/dl (14.0-18.0); Mean Corpuscular Hemoglobin 27.6 pg (25.0-34.0); Mean Corpuscular Volume 83.8 fL (80.0-100.0); Mean Platelet Volume 10.3 fL (9.4-12.4); Platelet Count 371 K/uL (130-400); RDW Coefficient of Variation 17.8 % (11.5-14.5); RDW Standard Deviation 53.7 fL (36.4-46.3); White Blood Count 10.66 K/ul (4.8-10.8)
[2024-12-21 06:57] LABS: INR 1.3 (0.9-1.1); Prothrombin Time 14.2 Seconds (9.0-12.0)
[2024-12-21 07:01] LABS: BUN Creatinine Ratio 37.3 (10-20); Calcium 9.6 mg/dl (8.6-10.3); Creatinine Clr Calc Pharmacy 59.8 ml/min; Potassium 3.8 mmol/L (3.5-5.1)
[2024-12-21] MEDS: CHOLECALCIFEROL 25 MCG (1000 UNITS) TAB PO SCH (08:29)
[2024-12-21] MEDS ORDERED: ASCORBIC ACID 500 MG TAB PO SCH (09:00)
--- NOTE | 2024-12-21 11:53 | Hospitalist Progress Note ---
<Statement entered by Elijah Kraft, - 12/21/24 15:40> I have seen and examined the patient and have discussed the case with the advance practice provider. I have reviewed the advanced practitioner's documentation, and I agree with, and take responsibility for that plan of care. Patient seen earlier today. Sitting up in the chair. Appears significantly improved from yesterday. Does states he is starting to have some fullness in his abdomen. Reports requiring paracentesis in the past. Abdomen: Lightly firm, positive fluid wave Extremities: Pitting lower extremity edema. Recommend GHADA stockings Encouraged patient to eat what he enjoys Activity as tolerated Discussed plan for ongoing care as outlined below. I spent a total of 15 minutes coordinating, documenting, and providing care for this patient excluding time spent by another provider/QHP. Date of Service December 21, 2024 Assessment & Plan (1) Colon cancer: (2) C1 cervical fracture: (3) Severe protein-calorie malnutrition: (4) Goals of care, counseling/discussion: (5) Ascites: (6) Hepatomegaly, not elsewhere classified: Plan Mr. Arreaga is an 79 year old male that presents to the ED today with his at his bedside with generalized weakness. H/O colon cancer with mets to his lung and liver and he is not receiving any treatment for such. Additional PMH includes AF, DM, anemia of chronic disease, HLD, Tachybrady syndrome, and others. About a week ago he was recently [place] [facility] [place] and sustaining a minimally displaced C1 fracture that was treated conservatively. 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 His nutritional status has declined over the past few weeks, moreso over the past month. For now, continue supportive treatment with IVF, Nutrition consult for strict dietary habits, PT/OT for probable placement. They are receptive to meeting with palliative medicine which would be beneficial for him to align goals with his care plan. She expresses that they do have a living will that has an advanced directive that has been established years ago. 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 Concerns for colon Cancer with liver and lung metastasis: Ascites/hepatomegaly: Transaminitis: Diagnosed 2022??; Mets to lung and liver suspected. Has made decision to not pursue chemotherapy and has denied colonoscopy 08/06/24: He was diagnosed with a liver mass ( about 20 cm in size) seen on an US on 03/04/2024 at [facility] as he had elevated LFTs, he had then seen Dr Bustamante and had ordered a MRI of the liver, and this is arranged for 08/21 Large infiltrative mass occupying majority of the R hepatic lobe extending into the L hepatic lobe measuring up to 20 mc with ill defined associated calcifications Was recently at [facility] and had a diagnostic paracentesis with IR with 880 mL removed, which was benign. Pt was seen by GI and [place] [facility] [place] recc [place]oscopy and pt declined. TBili 2.4, Direct Bili 1.2, AST 110, Alk Phos 382 She has stated that they have not been pursuing chemotherapy, rather are interested in a gene specific treatment that targets circulating DNA. Severely cachectic with severe protein malnourishment as outlined above May benefit from therapeutic palliative paracentesis; monitor and consider if ascites worsens, or consider biweekly taps. C1 cervical fracture: Rib fracture: Wears a C-collar s/p fall last week Tylenol PRN for pain sacral ecchymosis from fall Goals of Care; Counseling/Discussion: Lengthy conversation held with patient and his . Palliative Medicine vs Hospice discussed in details. She expresses that she is no longer able to care for him at home; difficulty with lifting him, helping him to the bathroom. We discussed his overarching goals and he stated a few times he was hesitant to say how he wanted to proceed because he felt he was leaving his down. In the event of cardiac or respiratory arrest, he stated he wished to be a DNR/DNI. They are receptive to further communication regarding goals of care with palliative medicine which would be beneficial for him to align goals with his care plan. She expresses that they do have a living will that has an advanced directive that has been established years ago. Pt would benefit greatly from hospice services given the advanced nature of his illness and would certainly qualify for the services. Hospice Dx: Colon cancer/Severe protein malnourishment Disposition: PCP: Dr. Bustamante Code Status: DNR/DNI VTE Prophylaxis: TEDS for now Referrals being [facility] at [facility] vs [facility]. I spent a total of 58 minutes coordinating, documenting, and providing care for this patient excluding time spent inthe performance of separately billed services or time spent by another provider/QHP. Admission and Anticipated Discharge Date Admission Date: December 20, 2024 Subjective Pt ambulating with PT/OT when I visited with him. He was steady with a walker, continues to have B/L LE swelling. Pt denies FONTENOT, dizziness, chest pain, SOB. Does have abdominal distention, but he claims this is less compared to a few weeks ago. 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 He feels that his is hurting in the setting of anticipatory loss. He does worry about leaving her. See A/P for further details. Review of Systems Review of Systems: Neuro: (-) Falls, trauma, slurred speech HEENT: (-) FONTENOT, dizziness, dysphagia, visual or auditory changes CV: (-) CP, palpitations, (+) swelling Resp: (-) SOB GI: (+) appetite changes, (+) abdominal distension, N/V/D, bowel changes : (-) urinary changes Skin: (-) rashes Psych: (-) anxiety, depression Physical Exam Physical Exam: Neuro: AAOx4, PERRLA, no aphagia, memory changes, CNII-XII grossly intact. Severely cachectic HEENT: head normocephalic, moist mucus membranes CV: S1/S2, (-) M/G/R, (-) edema, cap refill < 3 seconds Resp: Lungs CTA in all tom. On RA GI: Abdomen S/NT/ND, Ax4 bowel sounds, (-) CVA tenderness (+) hepatosplenomegaly (+) abdominal distention Musculoskeletal: 5/5 B/L UE strength, 5/5 B/L LE strength. Ambulates independen tly, but would benefit from assistive device Skin: (-) rashes , (-) erythema. (+) ecchymosis sacral area and Right lower back where previous rib fracture was noted. Psych: euthymic mood, hoarse voice Results & Data Results & Data Vital Signs (Past 12 Hours) Vital Signs Temp Pulse Resp BP Pulse Ox O2 Del Method 12/21/24 11:00 36.9 C 71 18 103/62 96 Room Air Laboratory Results Short CBC 12/21/24 Range/Units 05:56 WBC 10.66 (4.8-10.8) K/ul Hgb 11.6 L (14.0-18.0) g/dl Hct 35.2 L (42.0-52.0) % Plt Count 371 (130-400) K/uL BMP 12/21/24 05:56 Sodium 143 Potassium 3.8 Chloride 112 H Carbon Dioxide 29 BUN 31 H Creatinine 0.83 D Glucose 76 Calcium 9.6 Urine 12/20/24 Range/Units 13:10 Urine Color Dark Yellow Urine Appearance Clear (Clear) Urine pH 5.0 (4.5-7.5) Ur Specific [place] 1.020 (1.000-1.030) Urine Protein Trace H (Negative) Urine Glucose (UA) Negative (Negative) (2) C1 cervical fracture Encounter type: initial encounter Fracture alignment: nondisplaced Fracture morphology: unspecified fracture morphology Fracture type: closed Qualified Code(s): S12.001A - Unspecified nondisplaced fracture of first cervical vertebra, initial encounter for closed fracture
[2024-12-21] MEDS: SODIUM CHLORIDE 0.9% 1,000 ML IV SCH (12:50)
[2024-12-21] MEDS ORDERED: SODIUM CHLORIDE 0.9% 1,000 ML IV SCH (13:00)
[2024-12-21] MEDS: ACETAMINOPHEN 325 MG TAB PO PRN (13:40)
--- NOTE | 2024-12-22 09:01 | Palliative Care Consultation ---
Date of Consultation December 22, 2024 Assessment & Plan (1) Weakness generalized: (2) Scalp pain: (3) Advanced care planning/counseling discussion: 60min face to face ACP at bedside with and Mrs. Arreaga, during which Mrs. Arreaga expressed considerable distress regarding the discharge plan. She stated that, this morning, she was informed that her was ready for discharge to [facility], but she was not provided with sufficient details about the location, associated costs, or whether their preferred care facility had accepted him. Mrs. Arreaga expressed strong concerns about [facility], describing it as an unacceptable facility. She feels that her requires further care in the hospital setting. Mr. Arreaga has reported a new concern: a mild, localized lump on the top of his head, accompanied by a small area of excoriation. Additionally, he has described experiencing numbness and a sensation of tingling or aching on the right side of his head. While I did not observe any lesions suggestive of shingles, it may be prudent to continue monitoring for any further developments. The Sherrill are particularly adamant about pursuing a liquid biopsy at [facility], although they are aware that this would require transportation to the [facility] location. Mr. Arreaga is currently not in a condition to assist with the logistics of this process, and Mrs. Arreaga, who is dealing with significant osteoarthritis pain in her left leg, is also unable to manage these demands alone. The couple remains unconvinced that Mr. Arreaga has cancer, citing that a definitive diagnosis has not been established. They referred to a discussion between their primary care provider and Dr. Bonifacio Fulton from oncology, which out lined a plan for further evaluation. However, they have declined any tissue biopsy due to concerns about the potential risks and complications. There are also substantial psychosocial stressors at play. The couple resides in a two-story home and is considering selling it to purchase a single-story dwelling. They have no local support system, as they do not have children or close family or friends, according to Mrs. Arreaga. She expressed frustration, feeling that the healthcare team is rushing the discharge process. I took time to explain the transition from acute inpatient care to snf facility (SNF) care and the potential options available. However, Mrs. Arreaga pointed out that during this hospitalization, they had been assured that no decisions would be expedited, and that they would have the opportunity to review all options and associated costs thoroughly before making any decisions. In terms of goals of care (GOC), both and Mrs. Arreaga are in agreement that they want his strength and nutrition to improve in the hospital before transitioning to a SNF of their choice, one that is financially feasible. Once Mr. Arreaga is stronger, they plan to return home so that he can undergo the liquid biopsy and pursue targeted therapy, with the potential for a second opinion [place] [facility] [place] There are no immediate acute symptom management needs at this time. I reassured them that I will continue to follow Mr. Arreaga's progress peripherally and am available to see him in the clinic post-discharge, should they desire further consultation. (4) Palliative care by specialist: Introduced Palliative Medicine and explained our role in patient's care. Patient and/or family were receptive to palliative services for goals of care discussions. Reviewed we are different from hospice, a home health nurse visiting service. Plan as above Thank you for allowing us to participate in the ongoing care of this patient. Please page with any additional concerns. Maribel Robles DNP Director, Palliative Medicine History of Present Illness Reason for Consultation: On 12/20/24 @ 10:06 Roslyn Garcia I. Wrote To Elvia Robles stage IV colon cancer/goals Attending Physician: Elijah Kraft DO History of Present Illness Admitted from [facility] ED 12/14/24 with c/o fall and laceration to scalp Fell at home, down 3-4 steps and no LOC. Susatined a scalp lac posteriorly near base He has recently been dx with colon cancer with mets to his lung and liver He declined cancer directed tx beyond supportive care including therapeutic paracentesis He is frail and cachectic Has been steadily declining Primary team notes: "[facility] [place] and had a diagnostic paracentesis with IR with 880 mL removed, which was benign. Pt was seen by GI and Colorectal @ [facility] who recc colonoscopy and pt declined. TBili 2.4, Direct Bili 1.2, AST 110, Alk Phos 382 She has stated that they have not been pursuing chemotherapy, rather are interested in a gene specific treatment that targets circulating DNA. Severely cachectic with severe protein malnourishment as outlined above" Allergies Allergy/AdvReac Type Severity Reaction Status Date / Time spinach Allergy Severe ANAPHYLAXIS Verified 12/20/24 08:41 almond Allergy Intermediate tested +2 Verified 12/20/24 08:41 on skin test peanut Allergy Intermediate +3 ALLERGY Verified 12/20/24 08:41 TEST shellfish derived Allergy Intermediate CRAB-+2 Verified 12/20/24 08:41 ALLERGY TEST soy Allergy Intermediate +2 ALLERGY Verified 12/20/24 08:41 TEST tomato Allergy Intermediate Gastrointestinal Verified 12/20/24 08:41 Upset tree nut Allergy Intermediate +2 ALLERGY Verified 12/20/24 08:41 TEST ciprofloxacin Allergy Mild Itching Verified 12/20/24 08:41 erythromycin base Allergy Mild Itching Verified 12/20/24 08:41 pine nut Allergy Mild POSITIVE Verified 12/20/24 08:41 ALLERGY TEST pistachio nut Allergy Mild POSITIVE Verified 12/20/24 08:41 ALLERGY TEST basil Allergy Unknown NOT TESTED Verified 12/20/24 08:41 oregano Allergy Unknown Unknown Verified 12/20/24 08:41 Latex, Natural Rubber Allergy Rash Verified 12/20/24 14:35 rice Allergy Unknown Verified 12/20/24 12:00 aspirin AdvReac Intermediate ABDOMINAL Verified 12/20/24 08:41 BURNING IF OVER 81MG. lidocaine AdvReac Unknown unknown Verified 12/20/24 08:41 Home Medications Medication Instructions Recorded Confirmed Type tocotrienols 125 mg PO DAILY #1 cap 07/08/24 12/20/24 Rx Beef Liver Suppliment 1 tab PO DAILY 12/14/24 12/20/24 History minerals See Rx Instructions .Route .COMPLEX 12/20/24 12/20/24 History acetaminophen 500 mg tablet 1,000 mg (2 x 500 mg) PO Q6H PRN 12/23/24 Rx (Tylenol Extra Strength) pain #90 tabs ascorbic acid (vitamin C) 500 mg 1,000 mg (2 x 500 mg) PO DAILY #30 12/23/24 Rx tablet (Vitamin C) tabs cholecalciferol (vitamin D3) 50 1,000 unit PO DAILY #30 tabs 12/23/24 Rx mcg (2,000 unit) tablet (Vitamin D3) coenzyme Q10 100 mg capsule 100 mg PO DAILY #30 caps 12/23/24 Rx (CoQ-10) epinephrine 0.3 mg/0.3 mL 0.3 mg (0.3 mL) IM ONCE PRN severe 12/23/24 Rx injection, auto-injector allergic reaction #2 ea magnesium glycinate 100 mg (as 100 mg PO DAILY #30 tabs 12/23/24 Rx glycinate) tablet metoprolol tartrate 25 mg tablet 25 mg PO BID #60 tabs 12/23/24 Rx Patient History Medical History History of cardioversion HTN (hypertension) Surgical History No pertinent past surgical history Family History Father High cholesterol Hypertension Peptic ulcer Testicular cancer Cerebral hemorrhage cause of sudden 56 years old Mother Alzheimer disease Cataracts, bilateral Ovarian cancer Caused age 7979 years old Brother Hypertension High cholesterol Prostate cancer Other Cancer Social History Smoking Status: Never smoker Second Hand Exposure: No; Do You Dip or Chew Tobacco: No; Hx Alcohol Use: No Hx Substance Use: No Preferred Language: Tamazight Communication Ability: Effective Visual Impairment: Limited Hearing Ability: Normal Clinical Applications Specialist Required: No Beliefs That Will Affect Care: Spiritual marital status: Current Living Situation: Spouse current occupational status: retired How many Children do You have: 0 Feels Safe at Home: Yes Safety Concerns: Feels Safe At This Time Childhood Exposure to Second-Hand Smoke: Yes Diet: vegetarian caffeine: No during the past year weight has: remained stable Dental Care, Regularly: Yes Physical Activity Frequency: Daily Seatbelt Use: always Sunscreen Use: Yes Assistive Devices: Walker Review of Systems Review of Systems: All systems reviewed & are unremarkable except as noted in Subjective Physical Exam Constitutional: + ill appearing, + cachectic and + frail appearing Eyes: PERRL, conjunctivae normal, anicteric sclerae ENMT: Mouth: + dry oral mucous membranes Neck: trachea midline, no thyromegaly Respiratory: normal respiratory effort, lungs clear to auscultation Auscultation: lungs clear to auscultation bilaterally Cardiovascular: RRR, no murmur, no edema Gastrointestinal (Abdomen): Inspection/Auscultation: normal bowel sounds and + scaphoid Musculoskeletal: gen weakness Skin: he is complaining of a new lump on top of his head - this was mild with small area of excoriation is noted. He also then reported feeling a weird numbness/achiness on right side of head and said the skin felt "tingly and weird." I did not appreciate lesions suggestive of shingles Neurologic: AAox3 Results & Data Vital Signs (Past 12 Hours) Vital Signs Temp Pulse Resp BP Pulse Ox O2 Del Method 12/22/24 08:00 36.4 C L 76 18 124/80 95 Room Air Laboratory Results 12/21/24 12/20/24 12/20/24 Range/Units 05:56 13:10 05:30 WBC 10.66 13.34 H (4.8-10.8) K/ul RBC 4.20 L 4.51 L (4.70-6.10) M/uL Hgb 11.6 L 12.2 L (14.0-18.0) g/dl Hct 35.2 L 37.3 L (42.0-52.0) % MCV 83.8 82.7 (80.0-100.0) fL MCH 27.6 27.1 (25.0-34.0) pg MCHC 33.0 32.7 (32.0-36.0) g/dL RDW Std Deviation 53.7 H 50.9 H (36.4-46.3) fL RDW Coeff of Bennett 17.8 H 17.4 H (11.5-14.5) % Plt Count 371 460 H (130-400) K/uL MPV 10.3 10.0 (9.4-12.4) fL Immature Gran % (Auto) 0.4 % Neut % (Auto) 85.5 % Lymph % (Auto) 4.2 % [place] % (Auto) 9.6 % Eos % (Auto) 0.1 % Baso % (Auto) 0.2 % Neut # (Auto) 11.40 H (1.40-6.50) K/uL Lymph # (Auto) 0.56 L (1.20-3.40) K/uL [place] # (Auto) 1.28 H (0.11-0.59) K/uL Eos # (Auto) 0.01 (0.00-0.50) K/uL Baso # (Auto) 0.03 (0.00-0.20) K/uL Immature Gran # (Auto) 0.06 (0.01-0.20) K/uL PT 14.2 H 13.8 H (9.0-12.0) Seconds INR 1.3 H 1.3 H (0.9-1.1) Sodium 143 140 (136-145) mmol/L Potassium 3.8 4.2 (3.5-5.1) mmol/L Chloride 112 H 107 (98-107) mmol/L Carbon Dioxide 29 28 (21-32) mmol/L Anion Gap 2 L 5 (3-11) BUN 31 H 40 H (6-23) mg/dl Creatinine 0.83 D 1.15 (0.6-1.4) mg/dl Est Cr Clr Drug Dosing 59.8 Not Reportable eGFR 88.48 64.34 BUN/Creatinine Ratio 37.3 H 34.8 H (10-20) Glucose 76 72 (70-99(Fasting)) mg/dl Calcium 9.6 10.7 H (8.6-10.3) mg/dl Magnesium 2.1 (1.7-2.4) mg/dl Total Bilirubin 2.4 H (0.2-1.0) mg/dl Direct Bilirubin 1.2 H (0-0.2) mg/dl AST 110 H (13-39) U/L ALT 41 (7-52) U/L Alkaline Phosphatase 382 H (34-104) U/L Troponin I High Sens 9.3 (0-20) pg/ml Total Protein 6.6 (6.0-8.3) gm/dl Albumin 2.8 L (3.4-5.0) gm/dl Lipase 19 (11-82) U/L Urine Color Dark Yellow Urine Appearance Clear (Clear) Urine pH 5.0 (4.5-7.5) Ur Specific [place] 1.020 (1.000-1.030) Urine Protein Trace H (Negative) Urine Glucose (UA) Negative (Negative) Urine Ketones 1+ H (Negative) Urine Blood Negative (Negative) Urine Nitrite Negative (Negative) Urine Bilirubin Negative (Negative) Urine Urobilinogen Negative (Negative) Ur Leukocyte Esterase Negative (Negative) Urine WBC (Auto) 0-5 (0-5) /hpf Urine RBC (Auto) 0-2 (0-2) /hpf U Hyaline Cast (Auto) >20 H (0-2) /lpf U Epithel Cells (Auto) 0-2 (0-2) /hpf Urine Bacteria (Auto) None Seen (None Seen) Hyaline Casts Present A (None Presnt) /lpf Granular Casts Present A (None Prsent) /lpf Urine Mucus Present A (None Prsent) Diagnostic Findings Cervical Spine CT 12/20/24 05:04 EXAM: CT cervical spine wo con CLINICAL HISTORY: progressive leg weakness. known c1 fx TECHNIQUE: Computed tomography of the cervical spine performed without intravenous contrast. Contiguous axial images were obtained from the skull base to T2, with sagittal and coronal reformatted images reconstructed from the axial data. CT scan was performed according to ALARA (as low as reasonable achievable). COMPARISON: december 14/2025 21:06:39 FISHER EEL FINDINGS: Linear minimally displaced fracture is noted involving right side of anterior arch of C1 vertebra fracture line extending up to the right atlanto-axial joint. Loss of cervical lordosis - suggest possibility of muscle spasm/positional. Degenerative changes involving cervical spine in the form of multilevel marginal osteophytes, disc space reduction and facetal arthrosis. Cervical vertebral bodies are normal in height and alignment, with no evidence of fracture or subluxation. Prevertebral soft tissues are not widened. The remaining suprahyoid and infrahyoid soft tissues in the neck are unremarkable. Posterior uncovertebral arthrosis is noted at C5-C6 and C6-C7 levels,which indenting ventral thecal sac and causes bilateral neuroforaminal narrowing. Thyroid gland appears unremarkable. IMPRESSION: 1. Linear minimally displaced fracture is noted involving right side of anterior arch of C1 vertebra, fracture line extending up to the right atlanto-axial joint-stable. 2. Cervical spondylosis.-stable. 3. Multiple small cavitary nodules are noted in bilateral visualized upper lobes. Relatively stable. 4. Stable non-displaced fracture of the right first rib is noted. No other new interval abnormality since prior study. Electronically signed by Benedicto Funez 12-20-2024 07:[address] 12/20/24 05:04 CT head/brain wo con CLINICAL HISTORY: 79 years-old Male with progressive weakness s/p injury 1 week ago. Acute weakness TECHNIQUE: Multiple axial CT images of the head were obtained without contrast. A dose lowering technique was utilized adhering to the principles of ALARA. COMPARISON: 12/14/2024 FINDINGS: No acute intracranial hemorrhage, midline shift, intracranial mass, hydrocephalus, or abnormal extra-axial collection. Involutional changes with probable chronic microvascular ischemic disease. Unchanged 7 mm extra-axial calcification along the right superior cerebral convexity on image 104 series 4 which may represent a small meningioma. Ill-defined hypodensity within the lefti parietal lobe on image 71 series 4 is more apparent than the prior study. The calvarium is intact. Left posterolateral scalp contusion with skin arely. Benign-appearing calcifications noted within the right rn procedures space. The paranasal sinuses, mastoid air cells, and middle ear cavities are clear. IMPRESSION: 1. Left scalp contusion redemonstrated. No acute cranial hemorrhage or calvarial fracture. 2. Ill-defined hypodense focus within the left parietal lobe is more apparent than the prior exam and may represent an acute or subacute infarct. ACT 112: Negative or not required by law. The above report was generated using voice recognition software. It may contain grammatical, syntax or spelling errors. Electronically signed by: Santiago Sánchez M.D. 12/20/2024 8:17 AM Chest X-Ray 12/20/24 05:05 EXAM: XR chest 1V portable CLINICAL HISTORY: Fluid overload TECHNIQUE: An X-ray image of the chest is obtained in AP projection. COMPARISON: 12/14/2024. FINDINGS: Pulmonary Parenchyma: Exaggerated bilateral hilar and bronchovascular markings, likely lung congestion. Stable A rounded shadow is seen superimposed on the left upper lung zone possibly outside the chest. Please correlate clinically; other views are advised. Otherwise, lungs are clear bilaterally. No evidence of consolidation, collapse, or focal opacities. No pulmonary nodules are identified. No evidence of pleural effusion or pleural thickening. Heart and Mediastinum: Heart size and shape are normal. No mediastinal widening or masses. No hilar or mediastinal lymphadenopathy. Bony Thorax: Bony thorax appears intact without fractures or deformities. Soft Tissues: Soft tissues overlying the chest wall are unremarkable. IMPRESSION: 1. Exaggerated bilateral hilar and bronchovascular markings, likely lung congestion. Stable 2. A rounded shadow is seen superimposed on the left upper lung zone possible outside the chest. Please correlate clinically, other views are advised. New finding. 3. No acute cardiopulmonary abnormalities are identified. Electronically signed by Aravind Mcgee 12-20-2024 06:15 AM PG Care Time/CCT Total # of Minutes Spent Total Time Spent with Patient: Total time spent is greater than 50% in coordination of care (as documented) at patient's floor/unit and/or counseling patient: I spent 120 minutes overall addressing this case: 15 min in medical data review/discussion with referring provider(s) and/or preparation for the visit 15 min in direct interaction with the patient/exam 60 min in Advance Care Planning/Goals of Care discussions as detailed above in note (must be >16min) 15 min in subsequent review and synthesis of assessment and plan 15 min communicating with other providers regarding the patient's case: Advanced Care Planning 23961 Advanced Care Planning 30 Min 46696 Advanced Care Planning Additional 30 [place] [address] IN/OBS CONSULT LVL 4,60M (25 - SIGNIFICANT, SEPARATELY IDENTIFIABLE ) Patient Type New Medical Decision Making High Complexity Diagnoses Weakness generalized R53.1 Scalp pain R51.9 Advanced care planning/counseling discussion Z71.89 Palliative care by specialist Z51.5 Additional Codes Advanced Care Planning - 55755 Advanced Care Planning Additional 30 Min: 40775 Advanced Care Planning Additional 30 Min ([id number]) Advanced Care Planning - 84889 Advanced Care Planning 30 Min: 52581 Advanced Care Planning 30 Min ([id number]) Comment [id number], [id number]
--- NOTE | 2024-12-22 13:23 | Hospitalist Progress Note ---
Date of Service December 22, 2024 Assessment & Plan (1) Acute dehydration: (2) Severe protein-calorie malnutrition: (3) C1 cervical fracture: (4) Goals of care, counseling/discussion: (5) Ascites: (6) Metastatic colon cancer to liver: Plan Patient 79-year-old gentleman presented to the emergency room with failure to thrive due to dehydration and poor nutrition in the setting of presumed metastatic colon cancer and a restrictive diet. Patient significantly improved with hydration and liberalizing of his diet Saline lock IV fluids Continue cervical collar as directed prior to admission Therapies Case management to assist in placement of rehab facility. Admission and Anticipated Discharge Date Admission Date: December 20, 2024 Subjective States he had a pretty decent night sleep. Ate a good breakfast. Does not feel as though the ascites is building up quickly. Stockings really help the swelling in his legs. Physical Exam Physical Exam: Constitutional: Alert, frail, cachectic HEENT: Mucous membranes moist. Lungs: Decreased breath sounds CV: S1-S2, regular Abdomen: Soft, fluid wave, hepatomegaly, no tenderness Extremities: GHADA stockings in place, decreased edema Neuro: No focal deficits, generalized weakness Psych: Cooperative, normal mood Results & Data Results & Data Vital Signs (Past 12 Hours) Vital Signs Temp Pulse Resp BP Pulse Ox O2 Del Method 12/22/24 08:00 36.4 C L 76 18 124/80 95 Room Air Diagnostic Findings Reviewed imaging, laboratory and diagnostic studies. Pertinent findings as below. (3) C1 cervical fracture Encounter type: initial encounter Fracture alignment: nondisplaced Fracture morphology: unspecified fracture morphology Fracture type: closed Qualified Code(s): S12.001A - Unspecified nondisplaced fracture of first cervical vertebra, initial encounter for closed fracture
[2024-12-22] MEDS: IBUPROFEN 200 MG TAB PO PRN (21:08)
[2024-12-22] MEDS: KETOROLAC TROMETHAMINE 15 MG/ML VIAL IV ONE (21:56)
--- NOTE | 2024-12-22 22:21 | XRay Report ---
Exam(s): XR SHOULDER, 2+ views EXAM: XR Right Shoulder Complete, 2 or More Views CLINICAL HISTORY: Reason for exam: pain. TECHNIQUE: Two or more views of the right shoulder. COMPARISON: No relevant prior studies available. FINDINGS: Bones/joints: No acute fracture. High riding humeral head as can be seen in the setting of chronic underlying rotator cuff tearing. Mild degenerative changes at the acromioclavicular joint. No dislocation. Soft tissues: Unremarkable. IMPRESSION: No acute abnormality. Electronically signed by: Flo Hussein MD 12/22/24 22:20 PM
--- NOTE | 2024-12-23 15:12 | Hospitalist Progress Note ---
Date of Service December 23, 2024 Assessment & Plan (1) Acute dehydration: (2) Severe protein-calorie malnutrition: (3) C1 cervical fracture: (4) Goals of care, counseling/discussion: (5) Ascites: (6) Metastatic colon cancer to liver: Plan: Presumed. Patient has declined biopsy for tissue diagnosis Plan Patient presented to the emergency room essentially with dehydration and malnutrition due to poor oral intake over the past multiple days. Patient had a recent fall and C1 fracture. Had not been doing well since he returned home. Patient has a large hepatic mass and presumed to be metastatic colon cancer, however, patient has declined tissue diagnosis. The patient has significantly improved after hydration and liberalizing his diet. His strength is starting to return Continue therapies Communication with case management. Patient had initially been accepted to [facility] ([place] and this was relayed to the patient, however that opportunity fell through. It was later learned that the would not want him to go to [facility] [place] then either. We are now awaiting response from [facility]. This place is acceptable to the patient's however they may not have a bed until the end of the week. Case management had extensive conversation with the patient's . Communication with palliative care provider. She had extensive conversation with the patient and the . They are struggling with his progressive weakness and the diagnosis of the liver mass and then subsequent cervical fracture from the fall. Struggling with the loss of some independence and worried about how they will manage at home. I refer you to palliative care's documentation. Palliative care confirmed that the patient and the at least as of now are not interested in pursuing any biopsy for definitive diagnosis of the liver mass. Reevaluated patient at the bedside this afternoon shortly after I was informed that the meetings with palliative care and case management had occurred. Unfortunately patient's had already left. Further conversation with the patient. He confirmed to me that he would not want to pursue tissue biopsy at this time. I made him aware and he understood that unless he has a tissue bi opsy the oncologist would not be able to give him any recommendations or any treatments. And that he he would need to consider ongoing palliative care if he does not get a tissue diagnosis. I attempted to call patient's at both numbers listed this afternoon. No answer. Check basic labs in a.m. 53 minutes spent in evaluation of patient at bedside, communication with medical team, documentation, evaluation of data Admission and Anticipated Discharge Date Admission Date: December 20, 2024 Subjective Patient reports feeling significantly improved. Enjoying the menu here at the hospital. Has noticed he has a small bump on the top of his head and is a little bit sore. Physical Exam Physical Exam: Constitutional: Alert, nontoxic, frail and cachectic HEENT: Mucous membranes moist. Small contusion top of scalp Lungs: Clear to auscultation, decreased, no wheezes rales or rhonchi CV: S1-S2, regular Abdomen: Soft, nontender, hepatomegaly, fluid wave, no tenderness Extremities: Lower extremity edema improving Neuro: No focal deficits Psych: Cooperative, normal mood Results & Data Results & Data Vital Signs (Past 12 Hours) Vital Signs Temp Pulse Resp BP Pulse Ox O2 Del Method 12/23/24 07:26 36.3 C L 75 16 103/65 95 Room Air (3) C1 cervical fracture Encounter type: initial encounter Fracture alignment: nondisplaced Fracture morphology: unspecified fracture morphology Fracture type: closed Qualified Code(s): S12.001A - Unspecified nondisplaced fracture of first cervical vertebra, initial encounter for closed fracture
[2024-12-24 06:19] LABS: Hemoglobin 11.7 g/dl (14.0-18.0); Mean Corpuscular Hemoglobin 26.8 pg (25.0-34.0); Mean Corpuscular Hgb Conc 33.4 g/dL (32.0-36.0); Mean Corpuscular Volume 80.1 fL (80.0-100.0); Mean Platelet Volume 9.8 fL (9.4-12.4); Platelet Count 367 K/uL (130-400); RDW Coefficient of Variation 17.9 % (11.5-14.5); RDW Standard Deviation 51.2 fL (36.4-46.3); Red Blood Count 4.37 M/uL (4.70-6.10); White Blood Count 10.88 K/ul (4.8-10.8)
[2024-12-24 06:41] LABS: Albumin Level 2.3 gm/dl (3.4-5.0); BUN Creatinine Ratio 33.3 (10-20); Bilirubin Direct 1.3 mg/dl (0-0.2); Bilirubin,Total 2.6 mg/dl (0.2-1.0); Magnesium 1.6 mg/dl (1.7-2.4); Phosphorus 2.2 mg/dl (2.5-4.9); Potassium 3.9 mmol/L (3.5-5.1); Total Protein 5.7 gm/dl (6.0-8.3)
[2024-12-24] MEDS: MAGNESIUM SULFATE / D5W 1 GM/100 ML BAG IV SCH (08:37)
--- NOTE | 2024-12-24 09:44 | Ultrasound Report ---
US abdomen ltd ascites CLINICAL HISTORY: see if area for paracentesis COMPARISON STUDY: 03/04/2024 FINDINGS: There is a small amount of ascites. IMPRESSION: Small amount of ascites. ACT 112: Negative or not required by law. Electronically signed by: Jitendra Ferris M.D. 12/24/2024 9:43 AM
[2024-12-24] MEDS ORDERED: SODIUM PHOSPHATE 3 MMOL/1 ML INFUSION IV STA (17:13)
--- NOTE | 2024-12-24 17:13 | Hospitalist Progress Note ---
Date of Service December 24, 2024 Assessment & Plan (1) Metastatic colon cancer to liver: Plan: -technically malignancy of unknown primary, however large colon primary mass likely source -diffuse metastatic disease in liver and lungs -ECOG 1-2 and declining, severe malnutrition and cachexia suggestive of advanced disease -see GOC above, and patient goals is to have reasonable quality of life and is open to treatment -concern for worsening hepatic tumor invasion given LFTs -discussed that given above concerns, full chemotherapy may do more harm than good, however immunotherapy is potential option, without treatment prognosis likely on scale of weeks to months Plan: -discussed with IR liver biopsy, will rescan abdomen/pelvis in preparation for biopsy -will consult hematology for f/u of biopsy results outpatient -will check CRP, LDH, CEA for additional information -will go to SNF post biopsy (2) Acute dehydration: Plan: -improving (3) Severe protein-calorie malnutrition: Plan: -appreciate java enterprise architect consultation (4) C1 cervical fracture: Plan: -in C-collar (5) Goals of care, counseling/discussion: Plan: -see above (6) Ascites: Plan: -small to moderate volume ascites noted Plan I spent a total of 50 minutes in direct patient care, including haaf-ce-cuzz tricia e with the patient and/or family, reviewing medical records, ordering and reviewing diagnostic tests, and coordinating care with other healthcare providers. This time includes: history taking, physical examination, medical decision making, counseling, ECG interpretation, imaging interpretation, lab interpretation, orders, and education, excluding time spent in the performance of separately billed services. I spent a total of 60 minutes providing advanced care planning to the patient and/or family, including [id number] time discussing the patient's health status, prognosis, and treatment options. This time includes specific activities such as: discussing advance directives, goals of care, prognostication, and end-of-life planning. Admission and Anticipated Discharge Date Admission Date: December 20, 2024 Subjective Patient seen and examined at bedside. Patient feeling okay today. Long discussion with patient and at bedside, see advance care planning documentation below. Advanced Care Plannin minutes spent exploring goals and values with patient and . Introduced myself and the role on the primary team. Discussed patient's current clinical status including highly suspected stage IV colorectal cancer, metastasis to liver and lungs. Discussed that his cachexia, functional status, and worsening LFTs may be sign that patient is entering an advanced stage of his disease. states they are very hesitant to pursue a solid biopsy as she is very concerned about the risks. She states her goal is for her to have a reasonable quality of life, and is open to treatment but not if it will do more harm than good. Discusses that she would like to consider a liquid biopsy, free cell DNA fluid in the blood, instead of doing an invasive biopsy. Patient and seem to have a reasonable understanding of the patient's underlying condition. discussed that liquid biopsy may take weeks to process, is not guaranteed to yield results, and may lead to a delay in treatment. Discussed that the standard of care would be to have a biopsy, likely of the liver, to determine next steps in treatment. Discussed treatment options, including supportive care, chemotherapy, immunotherapy as potential treatment options pending biopsy results. Discussed risks and benefits of all options, including small risk of bleed and seeding with liver biopsy, high chance of significant side effects with chemotherapy, and potential side effects with immunotherapy as well. Discussed that without treatment, patient would be a hospice candidate, with a prognosis likely on the scale of months, may be sooner pending progression of liver disease. After hearing this, patient and would like to consider biopsy of liver lesion, as long as is not under general anesthesia. They are concerned about waiting too long. They would be willing to seek treatment of underlying malignancy if available, and would prefer immunotherapy given gentler than chemotherapy. Discussed next steps, including discussing with case management possible liquid biopsy, discussing with interventional radiology for potential liver biopsy. They are in agreement with the plan and appreciative of the discussion. Review of Systems Review of Systems: CONSTITUTIONAL: weight loss, weakness EYES: Patient denies any visual symptoms. EARS, NOSE, AND THROAT: No difficulties with hearing. No symptoms of rhinitis or sore throat. CARDIOVASCULAR: Patient denies chest pains, palpitations, orthopnea and paroxysmal nocturnal dyspnea. RESPIRATORY: No dyspnea on exertion, no wheezing or cough. GI: No nausea, vomiting, diarrhea, constipation, abdominal pain, hematochezia or melena. : No urinary hesitancy or dribbling. No nocturia or urinary frequency. No abnormal urethral discharge. MUSCULOSKELETAL: No myalgias or arthralgias. NEUROLOGIC: No chronic headaches, no seizures. Patient denies numbness, tingling or weakness. PSYCHIATRIC: Patient denies problems with mood disturbance. No problems with anxiety. ENDOCRINE: No excessive urination or excessive thirst. DERMATOLOGIC: Patient denies any rashes or skin changes. Physical Exam Physical Exam: Gen: A&O 3 NAD HEENT: NCAT, EOMI, not icteric. External ears normal. No rhinorrhea. Moist mucous membranes. Neck: Supple, full range of motion, no observable masses, No meningeal sign. Lungs: No Respiratory distress. CV: RRR, no edema. Abdomen: Soft, nondistended, No rebound tenderness. MSK: No joint swelling, no redness. Skin: No rashes, petechiae, lesions. Normal color per patient. Neuro: Normal Gait, Grossly intact. Psych: Appropriate for situation. Results & Data Results & Data Vital Signs (Past 12 Hours) Vital Signs Temp Pulse Pulse Resp BP BP Pulse Ox 12/24/24 14:32 36.4 C L 87 16 98/61 L 93 12/24/24 07:28 36.3 C L 94 H 16 108/63 94 O2 Del Method 12/24/24 14:32 Room Air 12/24/24 07:28 Room Air Laboratory Results -personally reviewed, Hgb around baseline, leukocytosis slightly above normal range, slightly low phos and magnesium, LFTs very concenring for worsening metastatic disease, very low albumin suggestive of significant malnutrition (4) C1 cervical fracture Encounter type: initial encounter Fracture alignment: nondisplaced Fracture morphology: unspecified fracture morphology Fracture type: closed Qualified Code(s): S12.001A - Unspecified nondisplaced fracture of first cervical vertebra, initial encounter for closed fracture
[2024-12-24] MEDS: SODIUM PHOSPHATE 12 MMOL in SODIUM CHLORIDE 0.9% 250 ML IV ONE (17:43)
[2024-12-24 18:17] LABS: C Reactive Protein 5.17 mg/dl (0-0.5)
[2024-12-24] MEDS ORDERED: oxyCODONE HCL IR 5 MG TAB (IMMEDIATE RELEASE) PO PRN (19:20)
[2024-12-25 07:13] LABS: Hemoglobin 11.8 g/dl (14.0-18.0); Mean Corpuscular Hemoglobin 26.8 pg (25.0-34.0); Mean Corpuscular Hgb Conc 32.8 g/dL (32.0-36.0); Mean Corpuscular Volume 81.6 fL (80.0-100.0); Mean Platelet Volume 10.4 fL (9.4-12.4); Platelet Count 403 K/uL (130-400); RDW Standard Deviation 51.9 fL (36.4-46.3); Red Blood Count 4.41 M/uL (4.70-6.10); White Blood Count 9.55 K/ul (4.8-10.8)
--- NOTE | 2024-12-25 07:35 | CT Scan Report ---
EXAM: CT abd pelvis wo con CLINICAL HISTORY: Biopsy planning, stage IV likely colon primary TECHNIQUE: Non-contrast CT of the abdomen and pelvis was performed, with the following protocol: axial images, and reconstructed coronal and sagittal images. One of the following dose reduction techniques was utilized for this exam: Automated exposure control, adjustment of the mA and/or kV according to patient size, and use of iterative reconstruction. CTDI: 22mGy, DLP: 1120mGy*cm. COMPARISON: CT abdomen 03/28/2024. FINDINGS: A known case of stage IV, probably colonic primary as referred. Abdomen: Liver: Enlarged, measuring 20cm in maximum CC dimension. Extensively infiltrated by calcific metastatic deposits. The right lobe inferior border scalloping. Gallbladder and Biliary System: GB is contracted, no gross pathology. No dilated biliry tree. Pancreas: Pancreatic head, body, and tail are visualized and appear normal in size and density. No pancreatic masses or calcifications were noted. Spleen: Normal in size, shape, and density. No splenic lesions or masses were identified. Appendix: Not visualized in isolation. No evidence of appendiceal abscess or perforation. Kidneys and Adrenal Glands: Left upper pole non-obstructing stone measuring 4mm. Otherwise, Both kidneys are normal in size, shape, and position. Cortical thickness is within normal limits. No renal calculi or hydronephrosis. Adrenal glands are unremarkable. Abdominal Aorta and Vessels: The abdominal aorta and major branches are patent without evidence of an aneurysm or significant atherosclerosis. Pelvis: Urinary Bladder: Normal in contour and wall thickness. No intraluminal lesions. Prostate: Enlarged, measuring 6.3 x 4.6 x 5.7cm. Seminal Vesicles: Normal appearance without abnormal enlargement or mass. Peritoneal and Retroperitoneal Structures: There is severe amount of ascites. No free fluid or abnormal fluid collections were identified within the abdomen or pelvis. No lymphadenopathy was noted. Bowel: Upper rectal circumferential wall thickening with calcifications, Endoscopic and histopathologic correlation is needed to insure the possibility of being the primary. There is clonic diverticulosis without complications. Bones and Soft Tissues: Extensive diffuse body subcutaneous edema. Bilateral inguinal hernia containing the ascitic fluid, larger on the left side. No fractures or abnormal masses were identified. Lower lungs show bilateral diffuse nodules suggestive of metastatic deposits. IMPRESSION: 1. Interval new severe amount of ascites. 2. Interval progressive extensive hepatic calcific metastatic deposits. 3. Interval new bilateral diffuse pulmonary nodules suggestive of metastatic deposits. 4. Interval new extensive diffuse body subcutaneous edema. 5. Upper rectal circumferential wall thickening with calcifications, Endoscopic and histopathologic correlation is needed to insure the possibility of being the primary. (Not covered in prior study). 6. Stable Left upper pole non-obstructing stone measuring 4mm. 7. There is clonic diverticulosis without complications, noted previously as well. 8. Bilateral inguinal hernia containing the ascitic fluid, larger on the left side. (Not covered in prior study). Electronically signed by Aravind Mcgee 12-25-2024 07:35 AM
[2024-12-25 07:50] LABS: Albumin Globulin Ratio 0.7 (0.9-2); Albumin Level 2.3 gm/dl (3.4-5.0); BUN Creatinine Ratio 27.4 (10-20); Bilirubin,Total 2.8 mg/dl (0.2-1.0); Calcium 8.9 mg/dl (8.6-10.3); Globulin 3.5 gm/dl (2.5-4.0); Magnesium 1.9 mg/dl (1.7-2.4); Phosphorus 2.7 mg/dl (2.5-4.9); Potassium 3.6 mmol/L (3.5-5.1); Total Protein 5.8 gm/dl (6.0-8.3)
[2024-12-25] MEDS: VITAMIN B COMPLEX TAB PO SCH (08:19)
[2024-12-25] MEDS: MULTIVITAMIN CHEWABLE TAB PO SCH (08:19)
--- NOTE | 2024-12-25 17:37 | Hospitalist Progress Note ---
Date of Service December 25, 2024 Assessment & Plan (1) Metastatic colon cancer to liver: Plan: -technically malignancy of unknown primary, however large colon primary mass likely source -diffuse metastatic disease in liver and lungs -ECOG 1-2 and declining, severe malnutrition and cachexia suggestive of advanced disease -see GOC above, and patient goals is to have reasonable quality of life and is open to treatment -concern for worsening hepatic tumor invasion given LFTs -CEA is extremely elevated -discussed that given above concerns, full chemotherapy may do more harm than good, however immunotherapy is potential option, without treatment prognosis nicho crum on scale of weeks to months Plan: -discussed with IR liver biopsy, will occur on 12/26, will also do paracentesis for additional yield -will consult hematology for f/u of biopsy results outpatient -will go to SNF post biopsy (2) Acute dehydration: Plan: -improving (3) Severe protein-calorie malnutrition: Plan: -appreciate slitter and rewinder consultation (4) C1 cervical fracture: Plan: -in C-collar (5) Goals of care, counseling/discussion: Plan: -see above (6) Ascites: Plan: -small to moderate volume ascites noted Plan I spent a total of 60 minutes in direct patient care, including [id number] time with the patient and/or family, reviewing medical records, ordering and reviewing diagnostic tests, and coordinating care with other healthcare providers. This time includes: history taking, physical examination, medical decision making, counseling, ECG interpretation, imaging interpretation, lab interpretation, orders, and education, excluding time spent in the performance of separately billed services. Admission and Anticipated Discharge Date Admission Date: December 20, 2024 Subjective Patient seen and examined at bedside. Patient feels about the same as yesterday. Discussed biopsy and fluid removal from abdomen tomorrow, patient is agreeable. Discussed findings at length with over the phone as well, she was appreciative of the update. Review of Systems Review of Systems: CONSTITUTIONAL: weight loss, weakness EYES: Patient denies any visual symptoms. EARS, NOSE, AND THROAT: No difficulties with hearing. No symptoms of rhinitis or sore throat. CARDIOVASCULAR: Patient denies chest pains, palpitations, orthopnea and paroxysmal nocturnal dyspnea. RESPIRATORY: No dyspnea on exertion, no wheezing or cough. GI: No nausea, vomiting, diarrhea, constipation, abdominal pain, hematochezia or melena. : No urinary hesitancy or dribbling. No nocturia or urinary frequency. No abnormal urethral discharge. MUSCULOSKELETAL: No myalgias or arthralgias. NEUROLOGIC: No chronic headaches, no seizures. Patient denies numbness, tingling or weakness. PSYCHIATRIC: Patient denies problems with mood disturbance. No problems with anxiety. ENDOCRINE: No excessive urination or excessive thirst. DERMATOLOGIC: Patient denies any rashes or skin changes. Physical Exam Physical Exam: Gen: A&O 3 NAD HEENT: NCAT, EOMI, not icteric. External ears normal. No rhinorrhea. Moist mucous membranes. Neck: Supple, full range of motion, no observable masses, No meningeal sign. Lungs: No Respiratory distress. CV: RRR, no edema. Abdomen: Soft, nondistended, No rebound tenderness. MSK: No joint swelling, no redness. Skin: No rashes, petechiae, lesions. Normal color per patient. Neuro: Normal Gait, Grossly intact. Psych: Appropriate for situation. Results & Data Results & Data Vital Signs (Past 12 Hours) Vital Signs Temp Pulse Resp BP Pulse Ox O2 Del Method 12/25/24 14:10 36.4 C L 77 16 110/65 96 Room Air 12/25/24 07:45 Room Air 12/25/24 07:26 36.4 C L 83 16 105/67 94 Room Air Laboratory Results -personally reviewed, LFTs apppear to be stable to worsening with wide spread metastatic disease Diagnostic Findings Abdomen/Pelvis CT 12/24/24 22:42 EXAM: CT abd pelvis wo con CLINICAL HISTORY: Biopsy planning, stage IV likely colon primary TECHNIQUE: Non-contrast CT of the abdomen and pelvis was performed, with the following protocol: axial images, and reconstructed coronal and sagittal images. One of the following dose reduction techniques was utilized for this exam: Automated exposure control, adjustment of the mA and/or kV according to patient size, and use of iterative reconstruction. CTDI: 22mGy, DLP: 1120mGy*cm. COMPARISON: CT abdomen 03/28/2024. FINDINGS: A known case of stage IV, probably colonic primary as referred. Abdomen: Liver: Enlarged, measuring 20cm in maximum CC dimension. Extensively infiltrated by calcific metastatic deposits. The right lobe inferior border scalloping. Gallbladder and Biliary System: GB is contracted, no gross pathology. No dilated biliry tree. Pancreas: Pancreatic head, body, and tail are visualized and appear normal in size and density. No pancreatic masses or calcifications were noted. Spleen: Normal in size, shape, and density. No splenic lesions or masses were identified. Appendix: Not visualized in isolation. No evidence of appendiceal abscess or perforation. Kidneys and Adrenal Glands: Left upper pole non-obstructing stone measuring 4mm. Otherwise, Both kidneys are normal in size, shape, and position. Cortical thickness is within normal limits. No renal calculi or hydronephrosis. Adrenal glands are unremarkable. Abdominal Aorta and Vessels: The abdominal aorta and major branches are patent without evidence of an aneurysm or significant atherosclerosis. Pelvis: Urinary Bladder: Normal in contour and wall thickness. No intraluminal lesions. Prostate: Enlarged, measuring 6.3 x 4.6 x 5.7cm. Seminal Vesicles: Normal appearance without abnormal enlargement or mass. Peritoneal and Retroperitoneal Structures: There is severe amount of ascites. No free fluid or abnormal fluid collections were identified within the abdomen or pelvis. No lymphadenopathy was noted. Bowel: Upper rectal circumferential wall thickening with calcifications, Endoscopic and histopathologic correlation is needed to insure the possibility of being the primary. There is clonic diverticulosis without complications. Bones and Soft Tissues: Extensive diffuse body subcutaneous edema. Bilateral inguinal hernia containing the ascitic fluid, larger on the left side. No fractures or abnormal masses were identified. Lower lungs show bilateral diffuse nodules suggestive of metastatic deposits. IMPRESSION: 1. Interval new severe amount of ascites. 2. Interval progressive extensive hepatic calcific metastatic deposits. 3. Interval new bilateral diffuse pulmonary nodules suggestive of metastatic deposits. 4. Interval new extensive diffuse body subcutaneous edema. 5. Upper rectal circumferential wall thickening with calcifications, Endoscopic and histopathologic correlation is needed to insure the possibility of being the primary. (Not covered in prior study). 6. Stable Left upper pole non-obstructing stone measuring 4mm. 7. There is clonic diverticulosis without complications, noted previously as well. 8. Bilateral inguinal hernia containing the ascitic fluid, larger on the left side. (Not covered in prior study). Electronically signed by Aravind Mcgee 12-25-2024 07:35 AM -personally reviewed, significant soft tissue edema noted with wide spread metastatic disease noted throughout bottom of lung tom and throughout liver (4) C1 cervical fracture Encounter type: initial encounter Fracture alignment: nondisplaced Fracture morphology: unspecified fracture morphology Fracture type: closed Qualified Code(s): S12.001A - Unspecified nondisplaced fracture of first cervical vertebra, initial encounter for closed fracture
[2024-12-26 06:20] LABS: Hematocrit (blood only) 33.1 % (42.0-52.0); Hemoglobin 11.3 g/dl (14.0-18.0); Mean Corpuscular Hemoglobin 27.3 pg (25.0-34.0); Mean Corpuscular Hgb Conc 34.1 g/dL (32.0-36.0); Mean Platelet Volume 9.8 fL (9.4-12.4); Platelet Count 383 K/uL (130-400); RDW Coefficient of Variation 17.9 % (11.5-14.5); RDW Standard Deviation 51.1 fL (36.4-46.3); Red Blood Count 4.14 M/uL (4.70-6.10); White Blood Count 10.13 K/ul (4.8-10.8)
[2024-12-26 06:29] LABS: Albumin Globulin Ratio 0.7 (0.9-2); Albumin Level 2.2 gm/dl (3.4-5.0); BUN Creatinine Ratio 26.5 (10-20); Bilirubin,Total 2.9 mg/dl (0.2-1.0); Calcium 8.7 mg/dl (8.6-10.3); Globulin 3.3 gm/dl (2.5-4.0); Magnesium 1.9 mg/dl (1.7-2.4); Phosphorus 2.7 mg/dl (2.5-4.9); Potassium 3.7 mmol/L (3.5-5.1); Total Protein 5.5 gm/dl (6.0-8.3)
[2024-12-26] MEDS: Nursing to Pharmacy Communication SCH (08:19)
[2024-12-26] MEDS: CHLOROPROCAINE HCL 3% 20 ML VIAL INFIL ONE (10:27)
[2024-12-26 10:42] LABS: Appearance Peritoneal Fluid Slightly Hazy; Color Peritoneal Fluid Yellow; RBC Peritoneal Fluid Auto < 2000 /uL; WBC Peritoneal Fluid Auto 233 /ul (0-300)
--- NOTE | 2024-12-26 10:53 | Ultrasound Report ---
ULTRASOUND GUIDED PARACENTESIS CLINICAL HISTORY: stage IV colon cancer COMPARISON STUDY: 12/24/2024 PROCEDURE: The risks, benefits, and alternatives to the procedure were discussed with the patient inc luding the risk of bleeding, infection and injury to adjacent structures. The patient agreed to the procedure and informed written consent was obtained. Following real-time ultrasound localization, the skin was prepped and draped. Following local anesthesia with Xylocaine, the sheath paracentesis need le was inserted and approximately 1.3 liters of straw-colored fluid was removed by vacuum suction. The patient tolerated the procedure well and no immediate complications were evident. IMPRESSION: Ultrasound-guided paracentesis with removal of 1.3 liters of ascites. ACT 112: Negative or not required by law. Electronically signed by: Jitendra Ferris M.D. 12/26/2024 10:52 AM
[2024-12-26 11:14] LABS: Lymphocytes, Fluid 14 %; Mono,Macrophage,Mesothelial 76 %; Neutrophils, Fluid 10 %
[2024-12-26 11:23] LABS: Albumin Peritoneal Fluid < 1.5 gm/dl; Total Protein Peritoneal Fluid < 3.0 gm/dl
--- NOTE | 2024-12-26 15:47 | Hospitalist Progress Note ---
Date of Service December 26, 2024 Assessment & Plan (1) Metastatic colon cancer to liver: Plan: -technically malignancy of unknown primary, however large colon primary mass likely source -diffuse metastatic disease in liver and lungs -ECOG 1-2 and declining, severe malnutrition and cachexia suggestive of advanced disease -see very extensive GOC in chart, and patient goals is to have reasonable quality of life and is open to treatment, do not want to consider comfort care/hospice until understanding that all treatment options are off the table, but are ammenable to conversation at that time -concern for worsening hepatic tumor invasion given LFTs -CEA is extremely elevated -discussed that given above concerns, full chemotherapy may do more harm than good, however immunotherapy is potential option, without treatment prognosis likely on scale of weeks to months -discussed with IR, patient high risk for bleed with liver biopsy, did paracentesis only Plan: -await paracentesis cytology results -will consult hematology for f/u of biopsy results -called pathology lab to discuss case with pathology, appreciate assistance with case -will go to SNF post biopsy, likely on Sunday at this time (2) Acute dehydration: Plan: -improving (3) Severe protein-calorie malnutrition: Plan: -appreciate senior android software engineer consultation (4) C1 cervical fracture: Plan: -in C-collar -per spine at [facility] follow up in 6 weeks outpatient -will message ortho inpatient to help with coordination of care outpatient (5) Goals of care, counseling/discussion: Plan: -see above (6) Ascites: Plan: -small to moderate volume ascites noted -s/p paracentesis Plan I spent a total of 60 minutes in direct patient care, including [id number] time with the patient and/or family, reviewing medical records, ordering and reviewing diagnostic tests, and coordinating care with other healthcare provide rs. This time includes: history taking, physical examination, medical decision making, counseling, ECG interpretation, imaging interpretation, lab interpretation, orders, and education, excluding time spent in the performance of separately billed services. Admission and Anticipated Discharge Date Admission Date: December 20, 2024 Subjective Patient seen and examined at bedside, discussed extensively with patient and case. I discussed case with radiology, and we decided risk outweights benefit of doing liver biopsy given patient frailty and worsening liver disease. Decided to pursue cytology from paracentesis, patient tolerated well. Plan is to go to SNF on Sunday, await biopsy results, pursue Review of Systems Review of Systems: CONSTITUTIONAL: weight loss, weakness EYES: Patient denies any visual symptoms. EARS, NOSE, AND THROAT: No difficulties with hearing. No symptoms of rhinitis or sore throat. CARDIOVASCULAR: Patient denies chest pains, palpitations, orthopnea and paroxysmal nocturnal dyspnea. RESPIRATORY: No dyspnea on exertion, no wheezing or cough. GI: No nausea, vomiting, diarrhea, constipation, abdominal pain, hematochezia or melena. : No urinary hesitancy or dribbling. No nocturia or urinary frequency. No abnormal urethral discharge. MUSCULOSKELETAL: No myalgias or arthralgias. NEUROLOGIC: No chronic headaches, no seizures. Patient denies numbness, tingling or weakness. PSYCHIATRIC: Patient denies problems with mood disturbance. No problems with anxiety. ENDOCRINE: No excessive urination or excessive thirst. DERMATOLOGIC: Patient denies any rashes or skin changes. Physical Exam Physical Exam: Gen: A&O 3 NAD HEENT: NCAT, EOMI, not icteric. External ears normal. No rhinorrhea. Moist mucous membranes. Neck: Supple, full range of motion, no observable masses, No meningeal sign. Lungs: No Respiratory distress. CV: RRR, no edema. Abdomen: Soft, nondistended, No rebound tenderness. MSK: No joint swelling, no redness. Skin: No rashes, petechiae, lesions. Normal color per patient. Neuro: Normal Gait, Grossly intact. Psych: Appropriate for situation. Results & Data Results & Data Vital Signs (Past 12 Hours) Vital Signs Temp Pulse Pulse Resp BP BP Pulse Ox 12/26/24 14:34 36.3 C L 93 H 16 111/69 96 12/26/24 12:30 36.5 C 91 H 18 105/66 96 12/26/24 11:22 36.3 C L 92 H 18 98/63 L 96 12/26/24 10:21 36.3 C L 81 18 100/60 98 12/26/24 07:31 36.2 C L 82 16 100/60 95 O2 Del Method 12/26/24 14:34 Room Air 12/26/24 12:30 Room Air 12/26/24 11:22 Room Air 12/26/24 10:21 Room Air 12/26/24 07:31 Room Air Laboratory Results -personally reviewed, worsening LFTs in setting of worsening metastatic disease Medications Administered Acetaminophen (Acetaminophen 325 Mg Tab) 650 mg PO Q4H PRN PRN Reason: pain/fever Stop: 01/19/25 09:58 Last Admin: 12/23/24 03:04 Dose: 650 mg Documented By: Admin: 12/22/24 18:33 Dose: 650 mg Documented By: Admin: 12/22/24 01:20 Dose: 650 mg Documented By: Admin: 12/21/24 13:40 Dose: 650 mg Documented By: EVITA Ascorbic Acid (Ascorbic Acid 500 Mg Tab) 500 mg PO BID GRICELDA Stop: 01/19/25 20:59 Last Admin: 12/26/24 10:38 Dose: 500 mg Documented By: Admin: 12/25/24 20:18 Dose: 500 mg Documented By: Admin: 12/25/24 08:19 Dose: 500 mg Documented By: Admin: 12/24/24 20:44 Dose: 500 mg Documented By: Admin: 12/24/24 07:29 Dose: 500 mg Documented By: Admin: 12/23/24 20:52 Dose: 500 mg Documented By: Admin: 12/23/24 07:29 Dose: 500 mg Documented By: Admin: 12/22/24 21:58 Dose: 500 mg Documented By: Admin: 12/22/24 07:58 Dose: 500 mg Documented By: Admin: 12/21/24 20:17 Dose: 500 mg Documented By: Admin: 12/21/24 08:27 Dose: 500 mg Documented By: Admin: 12/20/24 20:59 Dose: 500 mg Documented By: REBEL Metoprolol Tartrate (Metoprolol Tartrate 25 Mg Tab) 25 mg PO BID GRICELDA Stop: 01/19/25 20:59 Last Admin: 12/26/24 10:27 Dose: Not Given Documented By: Admin: 12/25/24 20:18 Dose: 25 mg Documented By: Admin: 12/25/24 08:19 Dose: 25 mg Documented By: Admin: 12/24/24 20:44 Dose: 25 mg Documented By: Admin: 12/24/24 07:29 Dose: 25 mg Documented By: Admin: 12/23/24 20:53 Dose: 25 mg Documented By: Admin: 12/23/24 07:29 Dose: 25 mg Documented By: Admin: 12/22/24 21:08 Dose: 25 mg Documented By: Admin: 12/22/24 07:58 Dose: 25 mg Documented By: Admin: 12/21/24 20:17 Dose: 25 mg Documented By: Admin: 12/21/24 08:27 Dose: 25 mg Documented By: Admin: 12/20/24 20:59 Dose: 25 mg Documented By: REBEL Vitamin D (Cholecalciferol 25 Mcg (1000 Units) Tab) 25 mcg PO DAILY GRICELDA Stop: 01/20/25 08:59 Last Admin: 12/26/24 10:38 Dose: 25 mcg Documented By: Admin: 12/25/24 08:19 Dose: 25 mcg Documented By: Admin: 12/24/24 07:29 Dose: 25 mcg Documented By: Admin: 12/23/24 07:30 Dose: 25 mcg Documented By: Admin: 12/22/24 07:58 Dose: 25 mcg Documented By: Admin: 12/21/24 08:29 Dose: 25 mcg Documented By: EVITA (4) C1 cervical fracture Encounter type: initial encounter Fracture alignment: nondisplaced Fracture morphology: unspecified fracture morphology Fracture type: closed Qualified Code(s): S12.001A - Unspecified nondisplaced fracture of first cervical vertebra, initial encounter for closed fracture
--- NOTE | 2024-12-27 02:56 | Ultrasound Report ---
EXAM: US liver CLINICAL HISTORY: Hepatic failure. TECHNIQUE: Limited ultrasound of the liver and gallbladder was performed in grayscale and Doppler. Multiple images were obtained in transverse and longitudinal planes. COMPARISON: Prior CT dated 12/24/2024. FINDINGS: A known case of stage IV, probably colonic primary, as referred. Liver: Heterogenous, irregular nodular borders, and extensively infiltrated by metastatic deposits with calcifications. Left lobe measurement provided 15.8cm. Hepatic vasculature is not well visualized. Prominent portal vein, Doppler not available, Caliber measurements not available. Pancrease: Pancreas is not well visualized cannot be evaluated. Gallbladder: Mild to moderate sludge in the gallbladder noted in some of the images. Thickened wall, despite being not well distended, mostly reactive to adjacent parenchymal abnormalities. Biliary Tree: The common bile duct diameter is 0.52 cm. No evidence of choledocholithiasis or biliary obstruction. The right kidney: Measures 10.2 cm in maximum longitudinal dimension. Appears normal in size with preserved corticomedullary differentiation. No evidence of hydronephrosis or masses. There is a significant amount of ascitic fluid in the right subdiaphragmatic and Batres spaces. IMPRESSION: 1. A known case of stage IV, probably colonic primary, as referred. 2. The liver is heterogenous, with irregular nodular borders, and extensively infiltrated by metastatic deposits. 3. The gallbladder is a thickened wall, despite not being well distended, mostly reactive to adjacent parenchymal abnormalities. 4. There is a significant amount of ascitic fluid in the right subdiaphragmatic and Batres spaces. 5. Findings are better demonstrated by prior CT. Electronically signed by Aravind Mcgee 12-27-2024 02:56 AM
--- NOTE | 2024-12-27 03:07 | Ultrasound Report ---
EXAM: US duplex portal hepatic veins CLINICAL HISTORY: Doppler for portal vein thrombosis. TECHNIQUE: Phillips-scale and Doppler ultrasound examination of the liver, hepatic vasculature, portal vein system, hepatic artery, and splenic artery was performed. COMPARISON: CT abd pelvis dated on 12/24/2024. FINDINGS: Portal Venous System: Main Portal Vein (MPV): Velocity: 32.3 cm/sec Flow direction: Hepatopetal Waveform: Continuous, monophasic Right Portal Vein (RPV): Velocity: 34.5 cm/sec Flow direction: Hepatopetal Waveform: Normal Left Portal Vein (LPV): Velocity: 19.1 cm/sec Flow direction: Hepatopetal Waveform: Normal Hepatic Veins: Right Hepatic Vein (RHV): Velocity: 19.1 cm/sec Waveform: Normal Left Hepatic Vein (LHV): Velocity: 13.0 cm/sec Waveform: Normal Middle Hepatic Vein: Velocity: 38.9 cm/sec Waveform: Normal Hepatic Artery: Peak systolic velocity: 151.1 cm/sec Waveform: Low-resistance arterial waveform Direction: Hepatopetal Splenic Artery: Peak systolic velocity: 59.0 cm/sec Waveform: Normal No evidence of stenosis Liver Parenchyma: Echotexture: Heterogeneous Multiple heterogeneous hepatic masses with internal calcifications, consistent with metastatic deposits, as previously noted on prior imaging studies. No intrahepatic biliary dilatation observed. IMPRESSION: 1. Patent portal and hepatic veins with normal flow velocities and direction. 2. Elevated hepatic artery velocity at 151.1 cm/sec, which may be seen with hyperdynamic flow or altered parenchymal resistance. 3. Multiple hepatic masses with calcifications, consistent with known metastatic disease, correlating with prior imaging. 4. No significant interval changes. Electronically signed by Aravind Mcgee 12-27-2024 03:07 AM
[2024-12-27 06:59] LABS: Hematocrit (blood only) 35.4 % (42.0-52.0); Hemoglobin 11.8 g/dl (14.0-18.0); Mean Corpuscular Hemoglobin 27.1 pg (25.0-34.0); Mean Corpuscular Hgb Conc 33.3 g/dL (32.0-36.0); Mean Corpuscular Volume 81.2 fL (80.0-100.0); Mean Platelet Volume 11.1 fL (9.4-12.4); Platelet Count 419 K/uL (130-400); RDW Coefficient of Variation 18.8 % (11.5-14.5); RDW Standard Deviation 53.1 fL (36.4-46.3); Red Blood Count 4.36 M/uL (4.70-6.10); White Blood Count 11.28 K/ul (4.8-10.8)
[2024-12-27 07:24] LABS: Alanine Aminotransferase 63 U/L (7-52); Albumin Globulin Ratio 0.6 (0.9-2); Albumin Level 2.4 gm/dl (3.4-5.0); Alkaline Phosphatase 882 U/L (34-104); Anion Gap 0 (3-11); BUN Creatinine Ratio 23.2 (10-20); Bilirubin,Total 3.4 mg/dl (0.2-1.0); Blood Urea Nitrogen 16 mg/dl (6-23); Calcium 8.9 mg/dl (8.6-10.3); Carbon Dioxide 32 mmol/L (21-32); Chloride 108 mmol/L (98-107); Globulin 3.8 gm/dl (2.5-4.0); Glucose 66 mg/dl (70-99(Fasting)); Magnesium 1.9 mg/dl (1.7-2.4); Phosphorus 2.8 mg/dl (2.5-4.9); Sodium 140 mmol/L (136-145); Total Protein 6.2 gm/dl (6.0-8.3)
[2024-12-27 08:48] LABS: Potassium 4.7 mmol/L (3.5-5.1)
--- NOTE | 2024-12-27 09:56 | Oncology Consultation ---
Date of Consultation December 27, 2024 Assessment & Plan (1) Metastatic colon cancer to liver: Plan -Likely colorectal cancer with extensive liver and lung metastases. Cytology from ascitic fluid pending. Not a candidate for chemotherapy due to current performance status. Patient aslo does not want chemotherapy. Not clear if immunotherapy would be an option without microsatellite status-will have to wait for cytology to determine if he is. Prognosis poor given extensive liver metasta ses. This was discussed with patient in detail and multiple questions answered. His was not available and I tried to call her but was unable to reach her. History of Present Illness Reason for Consultation: Presumed metastatic colon cancer Attending Physician: Scott Hernandez MD History of Present Illness 79 year old gentleman with presumed metastatic colorectal cancer he has extensive liver metastases,lung metastases and CEA above 850. Recently had paracentesis with cytology pending at time of visit. Allergies Allergy/AdvReac Type Severity Reaction Status Date / Time spinach Allergy Severe ANAPHYLAXIS Verified 12/20/24 08:41 almond Allergy Intermediate tested +2 Verified 12/20/24 08:41 on skin test peanut Allergy Intermediate +3 ALLERGY Verified 12/20/24 08:41 TEST shellfish derived Allergy Intermediate CRAB-+2 Verified 12/20/24 08:41 ALLERGY TEST soy Allergy Intermediate +2 ALLERGY Verified 12/20/24 08:41 TEST tomato Allergy Intermediate Gastrointestinal Verified 12/20/24 08:41 Upset tree nut Allergy Intermediate +2 ALLERGY Verified 12/20/24 08:41 TEST ciprofloxacin Allergy Mild Itching Verified 12/20/24 08:41 erythromycin base Allergy Mild Itching Verified 12/20/24 08:41 pine nut Allergy Mild POSITIVE Verified 12/20/24 08:41 ALLERGY TEST pistachio nut Allergy Mild POSITIVE Verified 12/20/24 08:41 ALLERGY TEST basil Allergy Unknown NOT TESTED Verified 12/20/24 08:41 oregano Allergy Unknown Unknown Verified 12/20/24 08:41 Latex, Natural Rubber Allergy Rash Verified 12/20/24 14:35 rice Allergy Unknown Verified 12/20/24 12:00 aspirin AdvReac Intermediate ABDOMINAL Verified 12/20/24 08:41 BURNING IF OVER 81MG. lidocaine AdvReac Unknown unknown Verified 12/20/24 08:41 Home Medications Medication Instructions Recorded Confirmed Type tocotrienols 125 mg PO DAILY #1 cap 07/08/24 12/20/24 Rx Beef Liver Suppliment 1 tab PO DAILY 12/14/24 12/20/24 History minerals See Rx Instructions .Route .COMPLEX 12/20/24 12/20/24 History acetaminophen 500 mg tablet 1,000 mg (2 x 500 mg) PO Q6H PRN 12/23/24 Rx (Tylenol Extra Strength) pain #90 tabs ascorbic acid (vitamin C) 500 mg 1,000 mg (2 x 500 mg) PO DAILY #30 12/23/24 Rx tablet (Vitamin C) tabs cholecalciferol (vitamin D3) 50 1,000 unit PO DAILY #30 tabs 12/23/24 Rx mcg (2,000 unit) tablet (Vitamin D3) coenzyme Q10 100 mg capsule 100 mg PO DAILY #30 caps 12/23/24 Rx (CoQ-10) epinephrine 0.3 mg/0.3 mL 0.3 mg (0.3 mL) IM ONCE PRN severe 12/23/24 Rx injection, auto-injector allergic reaction #2 ea magnesium glycinate 100 mg (as 100 mg PO DAILY #30 tabs 12/23/24 Rx glycinate) tablet metoprolol tartrate 25 mg tablet 25 mg PO BID #60 tabs 12/23/24 Rx Patient History Medical History History of cardioversion HTN (hypertension) Surgical History No pertinent past surgical history Family History Father High cholesterol Hypertension Peptic ulcer Testicular cancer Cerebral hemorrhage cause of sudden 56 years old Mother Alzheimer disease Cataracts, bilateral Ovarian cancer Caused age 7979 years old Brother Hypertension High cholesterol Prostate cancer Other Cancer Social History Smoking Status: Never smoker Second Hand Exposure: No; Do You Dip or Chew Tobacco: No; Hx Alcohol Use: No Hx Substance Use: No Preferred Language: Kosovan Communication Ability: Effective Visual Impairment: Limited Hearing Ability: Normal Artillery Or Naval Gunfire Observer Required: No Beliefs That Will Affect Care: Spiritual marital status: Current Living Situation: Spouse current occupational status: retired How many Children do You have: 0 Feels Safe at Home: Yes Safety Concerns: Feels Safe At This Time Childhood Exposure to Second-Hand Smoke: Yes Diet: vegetarian caffeine: No during the past year weight has: remained stable Dental Care, Regularly: Yes Physical Activity Frequency: Daily Seatbelt Use: always Sunscreen Use: Yes Assistive Devices: Walker Results & Data Vital Signs (Past 12 Hours) Vital Signs Temp Pulse Resp BP Pulse Ox O2 Del Method 12/27/24 08:00 36.4 C L 88 16 104/68 96 Room Air
--- NOTE | 2024-12-27 16:24 | Hospitalist Progress Note ---
Date of Service December 27, 2024 Assessment & Plan (1) Metastatic colon cancer to liver: Plan: -technically malignancy of unknown primary, however large colon primary mass likely source -diffuse metastatic disease in liver and lungs -ECOG 1-2 and declining, severe malnutrition and cachexia suggestive of advanced disease -see very extensive GOC in chart, and patient goals is to have reasonable quality of life and is open to treatment, do not want to consider comfort care/hospice until understanding that all treatment options are off the table, but are ammenable to conversation at that time -concern for worsening hepatic tumor invasion given LFTs -CEA is extremely elevated -discussed that given above concerns, full chemotherapy may do more harm than good, per discussion with oncology immunotherapy is likely not viable option either at this point in disease process Plan: -await paracentesis cytology results -oncology consulted, appreciate recommendations and assistance with case -called pathology lab to discuss case with pathology, appreciate assistance with case -plan is to go to SNF on Sunday with likely transition to hospice care after maximization of mobility (2) Acute dehydration: Plan: -improving (3) Severe protein-calorie malnutrition: Plan: -appreciate jewelry estimator consultation (4) C1 cervical fracture: Plan: -in C-collar -per spine at [facility] follow up in 6 weeks outpatient -will message ortho inpatient to help with coordination of care outpatient (5) Goals of care, counseling/discussion: Plan: -see above (6) Ascites: Plan: -small to moderate volume ascites noted -s/p paracentesis Plan I spent a total of 50 minutes in direct patient care, including [id number] time with the patient and/or family, reviewing medical records, ordering and reviewing diagnostic tests, and coordinating care with other healthcare providers. This time includes: history taking, physical examination, medical decision making, counseling, ECG interpretation, imaging interpretation, lab interpretation, orders, and education, excluding time spent in the performance of separately billed services. I spent a total of 30 minutes providing advanced care planning to the patient and/or family, including huyz-[id number] time discussing the patient's health status, prognosis, and treatment options. This time includes specific activities such as: discussing advance directives, goals of care, prognostication, and end-of-life planning. Admission and Anticipated Discharge Date Admission Date: December 20, 2024 Subjective Patient seen and examined at bedside. Discussed oncology consultation, asked patient what oncology told him. See conversation below. Advanced Care Plannin minutes spent discussing goals and values with patient and . Patient was able to describe what oncology told him, that he is not a candidate for chemotherapy and that immunotherapy is highly unlikely to be beneficial for him in his current condition. When asked by this provider what his goals are at this point, he states he wants to try to get stronger at rehab in order to be able to sign onto hospice when he plateaus. He understands that he is not a candidate for aggressive treatments at this time. He states his goals are to have a good quality of life and be active for as long as possible. Discussed findings with as well. Had extensive conversation regarding vitamins, natural medicine, next steps. Discussed the hope for the best prepare for the worst mentality of palliative care and hospice. Hospice was discussed at length. Current plan is to go to [facility] on Sunday in order to try to get mobility back. From there, they will likely transition to comfort focused care and hospice. Review of Systems Review of Systems: CONSTITUTIONAL: weight loss, weakness EYES: Patient denies any visual symptoms. EARS, NOSE, AND THROAT: No difficulties with hearing. No symptoms of rhinitis or sore throat. CARDIOVASCULAR: Patient denies chest pains, palpitations, orthopnea and paroxysmal nocturnal dyspnea. RESPIRATORY: No dyspnea on exertion, no wheezing or cough. GI: No nausea, vomiting, diarrhea, constipation, abdominal pain, hematochezia or melena. : No urinary hesitancy or dribbling. No nocturia or urinary frequency. No abnormal urethral discharge. MUSCULOSKELETAL: No myalgias or arthralgias. NEUROLOGIC: No chronic headaches, no seizures. Patient denies numbness, tingling or weakness. PSYCHIATRIC: Patient denies problems with mood disturbance. No problems with anxiety. ENDOCRINE: No excessive urination or excessive thirst. DERMATOLOGIC: Patient denies any rashes or skin changes. Physical Exam Physical Exam: Gen: A&O 3 NAD HEENT: NCAT, EOMI, not icteric. External ears normal. No rhinorrhea. Moist mucous membranes. Neck: Supple, full range of motion, no observable masses, No meningeal sign. Lungs: No Respiratory distress. CV: RRR, no edema. Abdomen: Soft, nondistended, No rebound tenderness. MSK: No joint swelling, no redness. Skin: No rashes, petechiae, lesions. Normal color per patient. Neuro: Normal Gait, Grossly intact. Psych: Appropriate for situation. Results & Data Results & Data Vital Signs (Past 12 Hours) Vital Signs Temp Pulse Pulse Resp BP BP Pulse Ox 12/27/24 15:26 36.4 C L 75 16 106/64 94 12/27/24 11:57 36.5 C 74 16 102/62 95 12/27/24 10:03 12/27/24 08:00 36.4 C L 88 16 104/68 96 O2 Del Method 12/27/24 15:26 Room Air 12/27/24 11:57 Room Air 12/27/24 10:03 Room Air 12/27/24 08:00 Room Air Laboratory Results -personally reviewed, uptrending LFTs indicative of worsening metastatic disease Diagnostic Findings -us liver and doppler personally reviewed, no evidence of clot or reversible process, evidence of metastatic disease and ascites Medications Administered Acetaminophen (Acetaminophen 325 Mg Tab) 650 mg PO Q4H PRN PRN Reason: pain/fever Stop: 01/19/25 09:58 Last Admin: 12/23/24 03:04 Dose: 650 mg Documented By: Admin: 12/22/24 18:33 Dose: 650 mg Documented By: Admin: 12/22/24 01:20 Dose: 650 mg Documented By: Admin: 12/21/24 13:40 Dose: 650 mg Documented By: EVITA Ascorbic Acid (Ascorbic Acid 500 Mg Tab) 500 mg PO BID GRICELDA Stop: 01/19/25 20:59 Last Admin: 12/27/24 09:25 Dose: 500 mg Documented By: Admin: 12/26/24 21:00 Dose: 500 mg Documented By: Admin: 12/26/24 10:38 Dose: 500 mg Documented By: Admin: 12/25/24 20:18 Dose: 500 mg Documented By: Admin: 12/25/24 08:19 Dose: 500 mg Documented By: Admin: 12/24/24 20:44 Dose: 500 mg Documented By: Admin: 12/24/24 07:29 Dose: 500 mg Documented By: Admin: 12/23/24 20:52 Dose: 500 mg Documented By: Admin: 12/23/24 07:29 Dose: 500 mg Documented By: Admin: 12/22/24 21:58 Dose: 500 mg Documented By: Admin: 12/22/24 07:58 Dose: 500 mg Documented By: Admin: 12/21/24 20:17 Dose: 500 mg Documented By: Admin: 12/21/24 08:27 Dose: 500 mg Documented By: Admin: 12/20/24 20:59 Dose: 500 mg Documented By: REBEL Metoprolol Tartrate (Metoprolol Tartrate 25 Mg Tab) 25 mg PO BID GRICELDA Stop: 01/19/25 20:59 Last Admin: 12/27/24 09:25 Dose: 25 mg Documented By: Admin: 12/26/24 21:00 Dose: 25 mg Documented By: Admin: 12/26/24 10:27 Dose: Not Given Documented By: Admin: 12/25/24 20:18 Dose: 25 mg Documented By: Admin: 12/25/24 08:19 Dose: 25 mg Documented By: Admin: 12/24/24 20:44 Dose: 25 mg Documented By: Admin: 12/24/24 07:29 Dose: 25 mg Documented By: Admin: 12/23/24 20:53 Dose: 25 mg Documented By: Admin: 12/23/24 07:29 Dose: 25 mg Documented By: Admin: 12/22/24 21:08 Dose: 25 mg Documented By: Admin: 12/22/24 07:58 Dose: 25 mg Documented By: Admin: 12/21/24 20:17 Dose: 25 mg Documented By: Admin: 12/21/24 08:27 Dose: 25 mg Documented By: Admin: 12/20/24 20:59 Dose: 25 mg Documented By: REBEL Vitamin D (Cholecalciferol 25 Mcg (1000 Units) Tab) 25 mcg PO DAILY GRICELDA Stop: 01/20/25 08:59 Last Admin: 12/27/24 09:25 Dose: 25 mcg Documented By: Admin: 12/26/24 10:38 Dose: 25 mcg Documented By: Admin: 12/25/24 08:19 Dose: 25 mcg Documented By: Admin: 12/24/24 07:29 Dose: 25 mcg Documented By: Admin: 12/23/24 07:30 Dose: 25 mcg Documented By: Admin: 12/22/24 07:58 Dose: 25 mcg Documented By: Admin: 12/21/24 08:29 Dose: 25 mcg Documented By: EVITA (4) C1 cervical fracture Encounter type: initial encounter Fracture alignment: nondisplaced Fracture morphology: unspecified fracture morphology Fracture type: closed Qualified Code(s): S12.001A - Unspecified nondisplaced fracture of first cervical vertebra, initial encounter for closed fracture
[2024-12-28 06:59] LABS: Hematocrit (blood only) 34.5 % (42.0-52.0); Hemoglobin 11.6 g/dl (14.0-18.0); Mean Corpuscular Hemoglobin 27.3 pg (25.0-34.0); Mean Corpuscular Hgb Conc 33.6 g/dL (32.0-36.0); Mean Corpuscular Volume 81.2 fL (80.0-100.0); Mean Platelet Volume 10.2 fL (9.4-12.4); Platelet Count 404 K/uL (130-400); RDW Coefficient of Variation 18.6 % (11.5-14.5); RDW Standard Deviation 52.5 fL (36.4-46.3); Red Blood Count 4.25 M/uL (4.70-6.10); White Blood Count 11.23 K/ul (4.8-10.8)
[2024-12-28 07:17] LABS: INR 1.2 (0.9-1.1)
[2024-12-28 07:19] LABS: Albumin Globulin Ratio 0.7 (0.9-2); Albumin Level 2.3 gm/dl (3.4-5.0); Bilirubin,Total 2.9 mg/dl (0.2-1.0); Calcium 8.7 mg/dl (8.6-10.3); Creatinine Clr Calc Pharmacy 66.2 ml/min; Globulin 3.4 gm/dl (2.5-4.0); Potassium 3.6 mmol/L (3.5-5.1); Total Protein 5.7 gm/dl (6.0-8.3)
--- NOTE | 2024-12-28 12:06 | Ultrasound Report ---
US abdomen ltd ascites CLINICAL HISTORY: to consider bedside paracentesis/peritoneal drain COMPARISON STUDY: 12/26/2024 FINDINGS: There is a small to moderate amount of diffuse ascites, increased since the prior paracente sis. Diffuse hepatic metastatic disease again seen. IMPRESSION: Small to moderate amount of ascites, increased. ACT 112: Negative or not required by law. Electronically signed by: Jitendra Ferris M.D. 12/28/2024 12:05 PM
--- NOTE | 2024-12-28 13:43 | Hospitalist Progress Note ---
Date of Service December 28, 2024 Assessment & Plan (1) Metastatic colon cancer to liver: Plan: -technically malignancy of unknown primary, however large colon primary mass likely source -diffuse metastatic disease in liver and lungs -ECOG 1-2 and declining, severe malnutrition and cachexia suggestive of advanced disease -see very extensive GOC in chart, and patient goals is to have reasonable quality of life and is open to treatment, do not want to consider comfort care/hospice until understanding that all treatment options are off the table, but are ammenable to conversation at that time -concern for worsening hepatic tumor invasion given LFTs -CEA is extremely elevated -discussed that given above concerns, full chemotherapy may do more harm than good, per discussion with oncology immunotherapy is likely not viable option either at this point in disease process Plan: -await paracentesis cytology results -oncology consulted, appreciate recommendations and assistance with case -called pathology lab to discuss case with pathology, appreciate assistance with case -plan is to go to SNF on Sunday with likely transition to hospice care after maximization of mobility -will discuss with IR placing peritoneal drain to prevent need for frequent repe at paracentesis -discussing with nursing staff, patient ok to take vitamins brought in by given focus on quality of life (2) Acute dehydration: Plan: -improving (3) Severe protein-calorie malnutrition: Plan: -appreciate board lining machine operator consultation (4) C1 cervical fracture: Plan: -in C-collar -per spine at [facility] follow up in 6 weeks outpatient -will message ortho inpatient to help with coordination of care outpatient (5) Goals of care, counseling/discussion: Plan: -see above (6) Ascites: Plan: -small to moderate volume ascites noted -increased since last imaging -will discuss peritoneal drain placement with IR Plan I spent a total of 50 minutes in direct patient care, including [id number] time with the patient and/or family, reviewing medical records, ordering and reviewing diagnostic tests, and coordinating care with other healthcare providers. This time includes: history taking, physical examination, medical decision making, counseling, ECG interpretation, imaging interpretation, lab interpretation, orders, and education, excluding time spent in the performance of separately billed services. Admission and Anticipated Discharge Date Admission Date: December 20, 2024 Subjective Patient seen and examined at bedside. Mr. Arreaga states he is having increased abdominal distension today. Discussed with , may need peritoneal drain placement before discharge, they are agreeable. Review of Systems Review of Systems: CONSTITUTIONAL: weight loss, weakness EYES: Patient denies any visual symptoms. EARS, NOSE, AND THROAT: No difficulties with hearing. No symptoms of rhinitis or sore throat. CARDIOVASCULAR: Patient denies chest pains, palpitations, orthopnea and paroxysmal nocturnal dyspnea. RESPIRATORY: No dyspnea on exertion, no wheezing or cough. GI: No nausea, vomiting, diarrhea, constipation, abdominal pain, hematochezia or melena. : No urinary hesitancy or dribbling. No nocturia or urinary frequency. No abnormal urethral discharge. MUSCULOSKELETAL: No myalgias or arthralgias. NEUROLOGIC: No chronic headaches, no seizures. Patient denies numbness, tingling or weakness. PSYCHIATRIC: Patient denies problems with mood disturbance. No problems with anx iety. ENDOCRINE: No excessive urination or excessive thirst. DERMATOLOGIC: Patient denies any rashes or skin changes. Physical Exam Physical Exam: Gen: A&O 3 NAD HEENT: NCAT, EOMI, not icteric. External ears normal. No rhinorrhea. Moist mucous membranes. Neck: Supple, full range of motion, no observable masses, No meningeal sign. Lungs: No Respiratory distress. CV: RRR, no edema. Abdomen: distended, fluid wave present MSK: No joint swelling, no redness. Skin: No rashes, petechiae, lesions. Normal color per patient. Neuro: Normal Gait, Grossly intact. Psych: Appropriate for situation. Results & Data Results & Data Vital Signs (Past 12 Hours) Vital Signs Temp Pulse Resp BP Pulse Ox O2 Del Method 12/28/24 11:34 36.4 C L 70 16 104/66 96 Room Air 12/28/24 08:06 36.4 C L 80 14 108/64 97 Room Air Laboratory Results -personally reviewed, LFTs have stabilized, leukocytosis slightly increased Medications Administered Acetaminophen (Acetaminophen 325 Mg Tab) 650 mg PO Q4H PRN PRN Reason: pain/fever Stop: 01/19/25 09:58 Last Admin: 12/23/24 03:04 Dose: 650 mg Documented By: Admin: 12/22/24 18:33 Dose: 650 mg Documented By: Admin: 12/22/24 01:20 Dose: 650 mg Documented By: Admin: 12/21/24 13:40 Dose: 650 mg Documented By: EVITA Metoprolol Tartrate (Metoprolol Tartrate 25 Mg Tab) 25 mg PO BID GRICELDA Stop: 01/19/25 20:59 Last Admin: 12/28/24 08:37 Dose: 25 mg Documented By: Admin: 12/27/24 20:51 Dose: 25 mg Documented By: Admin: 12/27/24 09:25 Dose: 25 mg Documented By: Admin: 12/26/24 21:00 Dose: 25 mg Documented By: Admin: 12/26/24 10:27 Dose: Not Given Documented By: Admin: 12/25/24 20:18 Dose: 25 mg Documented By: Admin: 12/25/24 08:19 Dose: 25 mg Documented By: Admin: 12/24/24 20:44 Dose: 25 mg Documented By: Admin: 12/24/24 07:29 Dose: 25 mg Documented By: Admin: 12/23/24 20:53 Dose: 25 mg Documented By: Admin: 12/23/24 07:29 Dose: 25 mg Documented By: Admin: 12/22/24 21:08 Dose: 25 mg Documented By: Admin: 12/22/24 07:58 Dose: 25 mg Documented By: Admin: 12/21/24 20:17 Dose: 25 mg Documented By: Admin: 12/21/24 08:27 Dose: 25 mg Documented By: Admin: 12/20/24 20:59 Dose: 25 mg Documented By: REBEL (4) C1 cervical fracture Encounter type: initial encounter Fracture alignment: nondisplaced Fracture morphology: unspecified fracture morphology Fracture type: closed Qualified Code(s): S12.001A - Unspecified nondisplaced fracture of first cervical vertebra, initial encounter for closed fracture
[2024-12-29 08:20] LABS: Hematocrit (blood only) 34.3 % (42.0-52.0); Hemoglobin 11.3 g/dl (14.0-18.0); Mean Corpuscular Hemoglobin 26.5 pg (25.0-34.0); Mean Corpuscular Hgb Conc 32.9 g/dL (32.0-36.0); Mean Corpuscular Volume 80.5 fL (80.0-100.0); Mean Platelet Volume 10.4 fL (9.4-12.4); Platelet Count 411 K/uL (130-400); RDW Coefficient of Variation 18.3 % (11.5-14.5); RDW Standard Deviation 49.6 fL (36.4-46.3); Red Blood Count 4.26 M/uL (4.70-6.10); White Blood Count 10.83 K/ul (4.8-10.8)
[2024-12-29 08:33] LABS: Albumin Globulin Ratio 0.7 (0.9-2); Albumin Level 2.2 gm/dl (3.4-5.0); BUN Creatinine Ratio 20.3 (10-20); Bilirubin,Total 3.5 mg/dl (0.2-1.0); Calcium 8.6 mg/dl (8.6-10.3); Globulin 3.3 gm/dl (2.5-4.0); Potassium 3.8 mmol/L (3.5-5.1); Total Protein 5.5 gm/dl (6.0-8.3)
[2024-12-29 08:43] LABS: INR 1.2 (0.9-1.1)
[2024-12-29 19:29] VITALS: RESP 16
--- NOTE | 2024-12-29 19:54 | Hospitalist Progress Note ---
Date of Service December 29, 2024 Assessment & Plan (1) Metastatic colon cancer to liver: Plan: -technically malignancy of unknown primary, however large colon primary mass likely source -diffuse metastatic disease in liver and lungs -ECOG 1-2 and declining, severe malnutrition and cachexia suggestive of advanced disease -see very extensive GOC in chart, and patient goals is to have reasonable quality of life and is open to treatment, do not want to consider comfort care/hospice until understanding that all treatment options are off the table, but are ammenable to conversation at that time -concern for worsening hepatic tumor invasion given LFTs -CEA is extremely elevated -discussed that given above concerns, full chemotherapy may do more harm than good, per discussion with oncology immunotherapy is likely not viable option either at this point in disease process Plan: -await paracentesis cytology results -oncology consulted, appreciate recommendations and assistance with case -plan is to go to SNF tomorrow with likely transition to hospice care after maximization of mobility -IR does not have resources to perform peritoneal drain at this institution, would need transfer to [place] which is not in line with patient wishes -therapeutic paracentesis performed today -discussing with nursing staff, patient ok to take vitamins brought in by given focus on quality of life -message GI team to help set up recurrent paracentesis outpatient (2) Acute dehydration: Plan: -improving (3) Severe protein-calorie malnutrition: Plan: -appreciate cashier assistant consultation (4) C1 cervical fracture: Plan: -in C-collar -per spine at [facility] follow up in 6 weeks outpatient -will message ortho inpatient to help with coordination of care outpatient (5) Goals of care, counseling/discussion: Plan: -see above (6) Ascites: Plan: -paracentesis performed today, 750 cc removed Plan I spent a total of 50 minutes in direct patient care, including [id number] time with the patient and/or family, reviewing medical records, ordering and reviewing diagnostic tests, and coordinating care with other healthcare providers. This time includes: history taking, physical examination, medical decision making, counseling, ECG interpretation, imaging interpretation, lab in terpretation, orders, and education, excluding time spent in the performance of separately billed services. Admission and Anticipated Discharge Date Admission Date: December 20, 2024 Subjective Patient seen and examined at bedside. Discussed case extensively with patient and , agreed to do bedside paracentesis to optimize patient as much as possible before having to start her care. Discussed plan of discussing with donor liver clinic about recurrent paracentesis as needed in the outpatient setting. Discussed plan of going to center care tomorrow, with the hope of improving functional status, and if it plateaus or worsens consideration of hospice services at [facility]. Review of Systems Review of Systems: CONSTITUTIONAL: weight loss, weakness EYES: Patient denies any visual symptoms. EARS, NOSE, AND THROAT: No difficulties with hearing. No symptoms of rhinitis or sore throat. CARDIOVASCULAR: Patient denies chest pains, palpitations, orthopnea and paroxys mal nocturnal dyspnea. RESPIRATORY: No dyspnea on exertion, no wheezing or cough. GI: No nausea, vomiting, diarrhea, constipation, abdominal pain, hematochezia or melena. : No urinary hesitancy or dribbling. No nocturia or urinary frequency. No abnormal urethral discharge. MUSCULOSKELETAL: No myalgias or arthralgias. NEUROLOGIC: No chronic headaches, no seizures. Patient denies numbness, tingling or weakness. PSYCHIATRIC: Patient denies problems with mood disturbance. No problems with anxiety. ENDOCRINE: No excessive urination or excessive thirst. DERMATOLOGIC: Patient denies any rashes or skin changes. Physical Exam Physical Exam: Gen: A&O 3 NAD HEENT: NCAT, EOMI, not icteric. External ears normal. No rhinorrhea. Moist mucous membranes. Neck: Supple, full range of motion, no observable masses, No meningeal sign. Lungs: No Respiratory distress. CV: RRR, no edema. Abdomen: distended, fluid wave present MSK: No joint swelling, no redness. Skin: No rashes, petechiae, lesions. Normal color per patient. Neuro: Normal Gait, Grossly intact. Psych: Appropriate for situation. Results & Data Results & Data Vital Signs (Past 12 Hours) Vital Signs Temp Pulse Pulse Resp BP Pulse Ox O2 Del Method 12/29/24 19:28 36.6 C 85 16 105/67 97 Room Air 12/29/24 15:55 36.5 C 84 17 99/63 L 95 Room Air 12/29/24 13:26 36.3 C L 84 15 108/68 95 Room Air Laboratory Results -personally reviewed, LFTs appear relatively stable, INR slightly elevated Medications Administered Acetaminophen (Acetaminophen 325 Mg Tab) 650 mg PO Q4H PRN PRN Reason: pain/fever Stop: 01/19/25 09:58 Last Admin: 12/23/24 03:04 Dose: 650 mg Documented By: Admin: 12/22/24 18:33 Dose: 650 mg Documented By: Admin: 12/22/24 01:20 Dose: 650 mg Documented By: Admin: 12/21/24 13:40 Dose: 650 mg Documented By: EVITA Metoprolol Tartrate (Metoprolol Tartrate 25 Mg Tab) 25 mg PO BID GRICELDA Stop: 01/19/25 20:59 Last Admin: 12/29/24 19:29 Dose: 25 mg Documented By: TKGabriel Admin: 12/29/24 08:18 Dose: 25 mg Documented By: Admin: 12/28/24 20:07 Dose: 25 mg Documented By: Admin: 12/28/24 08:37 Dose: 25 mg Documented By: Admin: 12/27/24 20:51 Dose: 25 mg Documented By: Admin: 12/27/24 09:25 Dose: 25 mg Documented By: Admin: 12/26/24 21:00 Dose: 25 mg Documented By: Admin: 12/26/24 10:27 Dose: Not Given Documented By: Admin: 12/25/24 20:18 Dose: 25 mg Documented By: Admin: 12/25/24 08:19 Dose: 25 mg Documented By: Admin: 12/24/24 20:44 Dose: 25 mg Documented By: Admin: 12/24/24 07:29 Dose: 25 mg Documented By: Admin: 12/23/24 20:53 Dose: 25 mg Documented By: Admin: 12/23/24 07:29 Dose: 25 mg Documented By: Admin: 12/22/24 21:08 Dose: 25 mg Documented By: Admin: 12/22/24 07:58 Dose: 25 mg Documented By: Admin: 12/21/24 20:17 Dose: 25 mg Documented By: Admin: 12/21/24 08:27 Dose: 25 mg Documented By: Admin: 12/20/24 20:59 Dose: 25 mg Documented By: REBEL (4) C1 cervical fracture Encounter type: initial encounter Fracture alignment: nondisplaced Fracture morphology: unspecified fracture morphology Fracture type: closed Qualified Code(s): S12.001A - Unspecified nondisplaced fracture of first cervical vertebra, initial encounter for closed fracture
--- NOTE | 2024-12-29 19:55 | Procedure Note ---
Procedure Note Date of Service December 29, 2024 Note INDICATION: Ascites_PROCEDURE ASSOCIATE DIRECTOR REGULATORY AFFAIRS: Scott Hernandez_ATTENDING PHYSICIAN: Scott Hernandez_ Ultrasound used to shirley location: yes CONSENT: During the informed consent discussion regarding the procedure, or treatment, I explained the following to the patient/designee: a. Nature of the procedure or treatment and who will perform the procedure or treatment. b. Necessity for procedure and the possible benefits. c. Risks and complications (most common and serious). d. Alternative treatments and the risks, benefits and side effects of each (including no treatment). e. Likelihood of the patient achieving his/her goals without this procedure and surgery treatment. f. Problems that might occur during the recuperation. g. Conflicts of interest, if any PROCEDURE SUMMARY: A time-out was performed. The area was cleansed and draped in usual sterile fashion using chlorhexidine scrub. Anesthesia was achieved with 1% lidocaine. The right lateral abdomen was prepped and draped in a sterile fashion using chlorhexidine scrub. 1% lidocaine was used to numb the skin, soft tissue and peritoneum. The paracentesis catheter was inserted and advanced with negative pressure until serous colored fluid was aspirated. The catheter was then connected to the vaccutainer and 0.750 liters of additional ascitic fluid were drained. The catheter was removed and minimal leaking was noted. A bandaid was placed over the puncture wound. The patient tolerated the procedure well without any immediate complications. Estimated blood loss was 10cc. Coding
[2024-12-30 06:35] LABS: Hematocrit (blood only) 34.2 % (42.0-52.0); Hemoglobin 11.6 g/dl (14.0-18.0); Mean Corpuscular Hemoglobin 27.5 pg (25.0-34.0); Mean Corpuscular Hgb Conc 33.9 g/dL (32.0-36.0); Mean Platelet Volume 9.9 fL (9.4-12.4); Platelet Count 405 K/uL (130-400); RDW Coefficient of Variation 18.6 % (11.5-14.5); RDW Standard Deviation 51.1 fL (36.4-46.3); Red Blood Count 4.22 M/uL (4.70-6.10); White Blood Count 10.27 K/ul (4.8-10.8)
[2024-12-30 07:04] LABS: Albumin Globulin Ratio 0.6 (0.9-2); Albumin Level 2.2 gm/dl (3.4-5.0); BUN Creatinine Ratio 20.2 (10-20); Bilirubin,Total 3.5 mg/dl (0.2-1.0); Calcium 8.5 mg/dl (8.6-10.3); Creatinine Clr Calc Pharmacy 55.8 ml/min; Globulin 3.5 gm/dl (2.5-4.0); Potassium 3.7 mmol/L (3.5-5.1); Total Protein 5.7 gm/dl (6.0-8.3)
[2024-12-30 07:21] LABS: INR 1.2 (0.9-1.1)
[2024-12-30 07:28] VITALS: TEMP 97.3; O2SAT 98
[2024-12-30 08:55] VITALS: BP 87/52; PULSE 97
--- NOTE | 2024-12-30 13:00 | Discharge Summary ---
Discharge Summary Date of Service December 30, 2024 Principal Dx & Hospital Course #1 = Principal Diagnosis (1) Metastatic colon cancer to liver: -technically malignancy of unknown primary, however large colon primary mass likely source -diffuse metastatic disease in liver and lungs -ECOG 2 and declining, severe malnutrition and cachexia suggestive of advanced disease -see very extensive GOC in chart, and patient goals is to have reasonable quality of life, current goal is to get stronger with likely transition to hospice care -concern for worsening hepatic tumor invasion given LFTs -CEA is extremely elevated -discussed that given above concerns, full chemotherapy may do more harm than good, per discussion with oncology immunotherapy is likely not viable option either at this point in disease process Plan: -oncology consulted, appreciate recommendations and assistance with case -plan is to go to SNF today with likely transition to hospice care after maximization of mobility -IR does not have resources to perform peritoneal drain at this institution, would need transfer to [place] which is not in line with patient wishes -discussing with nursing staff, patient ok to take vitamins brought in by given focus on quality of life -messaged GI team to help set up recurrent paracentesis outpatient----->SNF assistance requested to help set up paracentesis appt with GI group at [facility] (2) Acute dehydration: -resolved (3) Severe protein-calorie malnutrition: -appreciate ditcher operator consultation (4) C1 cervical fracture: -in C-collar -per spine at [facility] follow up in 6 weeks outpatient (5) Goals of care, counseling/discussion: -see above (6) Ascites: -paracentesis performed before discharge, 750 cc removed Notes For Next Care Provider Mr. Arreaga is an 79 year old male that presents to the ED today with his at his bedside with generalized weakness. Pmhx of history of colon cancer with mets to his lung and liver and he is not receiving any treatment for such. Additional PMH includes AF, DM, anemia of chronic disease, HLD, Tachybrady syndrome, and others. On medicine, extensive goals of care discussions regarding liver biopsy, ultimately given extent of liver disease, risk outweighted benefit after discussion with IR. would like to go to rehab to get patient stronger, and likely transition to hospice care after this. Parcentesis performed 2x over course of hospitalization. /patient want to bring in t ocotrienol and vitamin therapy to help hold off cancer, per patient wishes. On 12/30/2024 patient medically stable for transfer to SNF. To do: [ ] f/u with GI [facility] for paracentesis likely in 2 weeks [ ] sent symptom medications to patient pharmacy [ ] vitamin therapy per patient/family wishes [ ] f/u in 4 weeks with ortho spine for cervical spine fracture [ ] if patient improves enough, can f/u with Dr. Slaughter in outpatient clinic for consideration of treatment, if patient worsens transition to hospice services [ ] high protein diet Medication Changes From Visit -see below Admission HPI Per Admitting Provider Mr. Arreaga is an 79 year old male that presents to the ED today with his at his bedside with generalized weakness. This unfortunate gentleman has a history of colon cancer with mets to his lung and liver and he is not receiving any treatment for such. Additional PMH includes AF, DM, anemia of chronic disease, HLD, Tachybrady syndrome, and others. About a week ago he was recently transferred to [facility] after having a fall and sustaining a minimally displaced C1 fracture that was treated conservatively. At home, they have been having a lot of contracted work completed at their house and they have not had the best intake. They follow a strict vegetarian diet with oral holistic supplements. She has stated that they have not been pursuing chemotherapy, rather are interested in a gene specific treatment that targets circulating DNA. Lengthy conversation held with patient and his , who was being evaluated in the ED as well. She expresses that she is no longer able to care for him at home; difficulty with lifting him, helping him to the bathroom. We discussed his overarching goals and he stated a few times he was hesitant to say how he wanted to proceed because he felt he was leaving his down. In the event of cardiac or respiratory arrest, he stated he wished to be a DNR/DNI. They expressed that they have been since 2007 and his admits that she is worries about losing him and feels that she has not had enough time to be with him. 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 His nutritional status has declined over the past few weeks, moreso over the past month. His attributes that they have both not been eating over the past week and have a very restrictive vegetarian diet. For now, continue supportive treatment with IVF, Nutrition consult for strict dietary habits, PT/OT for probable placement. They are receptive to further communication regarding goals of care with palliative medi cine which would be beneficial for him to align goals with his care plan. She expresses that they do have a living will that has an advanced directive that has been established years ago. Ultimately, it appears this gentleman would benefit greatly from hospice services given the advanced nature of his illness and would certainly qualify for the services. Patient will be admitted for further evaluation and management as outlined above. Please see A/P for further details. Discharge Exam Gen: A&O 3 NAD HEENT: NCAT, EOMI, not icteric. External ears normal. No rhinorrhea. Moist mucous membranes. Neck: Supple, full range of motion, no observable masses, No meningeal sign. Lungs: No Respiratory distress. CV: RRR, no edema. Abdomen: less distended today post procedure MSK: No joint swelling, no redness. Skin: No rashes, petechiae, lesions. Normal color per patient. Neuro: Normal Gait, Grossly intact. Psych: Appropriate for situation. Updated Medication List Medication Instructions Recorded Confirmed Type acetaminophen 500 mg tablet 1,000 mg (2 x 500 mg) PO Q6H PRN 12/23/24 Rx (Tylenol Extra Strength) pain #90 tabs epinephrine 0.3 mg/0.3 mL 0.3 mg (0.3 mL) IM ONCE PRN severe 12/23/24 Rx injection, auto-injector allergic reaction #2 ea magnesium glycinate 100 mg (as 100 mg PO DAILY #30 tabs 12/23/24 Rx glycinate) tablet acetaminophen 500 mg capsule 500 mg PO Q6H PRN fever or pain 12/30/24 Rx #60 caps metoprolol tartrate 25 mg tablet 25 mg PO BID #60 tabs 12/30/24 Rx ondansetron 4 mg disintegrating 4 mg PO Q8H PRN nausea and 12/30/24 Rx tablet vomiting 5 days #30 tabs oxycodone 5 mg tablet 5 mg PO Q4 PRN pain #20 tabs 12/30/24 Rx polyethylene glycol 3350 17 gram 17 g PO DAILY PRN constipation #30 12/30/24 Rx oral powder packet (Miralax) ea tocotrienols 125 mg PO DAILY #1 cap 12/30/24 12/20/24 Rx Hospital Stay Data Consultations 12/20/24 07:41 ED Decision to Admit Stat 12/20/24 10:04 Consult Palliative Care Routine 12/26/24 15:52 Consult Oncology Routine Procedures Performed -paracentesis Diagnostic Imagining Performed 12/20/24 05:04 CT cervical spine wo con Stat CT head/brain wo con Stat 12/24/24 08:52 US abdomen ltd ascites Urgent 12/24/24 22:42 CT Abdomen and Pelvis [CT abd pelvis wo con] Urgent 12/26/24 IR paracentesis abd w/img US Urgent 12/27/24 US duplex portal hepatic veins Urgent US liver Urgent 12/28/24 11:38 US abdomen ltd ascites Urgent Pending Results Patient Have Any Pending Studies at Discharge: No Discharge Instructions Given to Patient (Per Discharging Provider) 1. Continue to wear neck brace and follow-up with spine surgery as previously discussed, in 6 weeks. 2. Please work on getting stronger and staying active, if things worsen engage hospice services at SNF. 3. If gets stronger can reach out to [facility], Dr. Slaughter, to discuss treatment options if available. 4. I discussed with GI team in regards to outpatient paracentesis, they are aware of your case, please have SNF discuss with [facility] for outpatient paracentesis if needed. 5. Tocotrienol therapy per patient and wishes. 6. Medications sent to SNF for comfort as needed. 7. Please eat a high protein and calorie diet given the severe protein calorie malnutrition. Total Time Total Time Spent Total Time Spent (In Minutes): I spent a total of 45 minutes in direct patient care, including [id number] tricia e with the patient and/or family, reviewing medical records, ordering and reviewing diagnostic tests, and coordinating care with other healthcare providers. This time includes: history taking, physical examination, medical decision making, counseling, ECG interpretation, imaging interpretation, lab interpretation, orders, and education, excluding time spent in the performance of separately billed services.
== END 2024-12-30 14:00 | DRG 435 ==
LOC: ED 04:37 → EDINP 10:01 → SUATTDRO 10:01 → 3E 10:21

== ENCOUNTER 2025-01-24 01:09 | Inpatient (IN) ==
--- OUTSIDE RECORDS SUMMARY | 2025-01-24 01:16 | External Medical Summary | Summary of Care ---
Author Name Unknown Organization [facility] Address [address] [place] [address] Phone [phone] Care Team Providers Care Blindmaker Name Role Phone David Bustamante MD Primary Care Provider +1- [phone] Reason for Visit * Reason Onset Date Comments Follow Up 01/22/2025 Encounter Details Date Type Department Care Team (Late st Contact Info) Description 01/22/[address] [facility] [address] [place] [address] David Bustamante MD [address] [place] [address] Follow Up Allergies Active Allergy Reactions Criticality Noted Date Comments Peanut-Containing Drug Products Hives High 06/26/2023 Tree nuts, basil, oregano (Hypotension) Shellfish-Derived Products Hives High hypotension Soybean Oil 04/10/2024 Soy Allergy (Obsolete) Hives High 06/26/2023 And whole grain rice (hypotension) Tomato Hives High 06/26/2023 And spinach (hypotension) documented as of this encounter (statuses as of 01/22/2025) Medications EpiPen 2-Jared 0.3 MG/0.3ML Injection Solution Auto-injector Inject 0.3 mg into a large muscle once. For a severe reaction: Inject in outer thigh following instructions on package and go to the Emergency room. As needed for Allergic Reaction Active Vitamin C 500 MG Oral Capsule Take by mouth. Ac tive Vitamin D (Cholecalciferol ) 25 MCG (1000 UT) Oral Capsule Take by mouth. Active Multi-Vitamin HP/Minerals Oral Capsule Take by mouth. Activ e Metoprolol Tartrate 25 MG Oral Tablet (Lopressor) Take 1 Tablet by mouth in the morning and 1 Tablet before bedtime. 180 Tablet 3 Active Acetaminophen 325 MG Oral Tablet (Tylenol) Take 3 Tablets by mouth every 8 hours as needed for mild to moderate pain 90 Tablet Active Bacitracin Zinc 500 UNIT/GM External Ointment Apply topically to affected area 2 times a day. Apply to left scalp laceration 113.6 g 12/16/2024 2:57 PM EDT Active Additional Information Patient not taking.Reported on 01/09/2025 Mixed Tocotrienols w/ Sofie E Oral Capsule Take by mouth. Activ e documented as of this encounter (statuses as of 01/22/2025) Active Problems Problem Noted Date Diagnosed Date [...] as of this encounter (statuses as of 01/22/2025) Social History Tobacco Use Types Packs/Day Years [...] 12/15/2024 6:36 AM FELAT Irvin Urban RN * Are you blind or [...] encounter Miscellaneous Notes * Telephone Encounter - Lashell Berumen LPN - 01/22/2025 3:47 PM EDT Was able to get Dr. Jones on the phone to talk with Dr. Palmer * Telephone Encounter - David Bustamante MD - 01/22/2025 12:56 PM EDT I am trying to arrange paracentesis for this patient at [facility]. I was told to contact Dr Ferris. I believe that he is in the radiology department at [facility]. Can we seeif there is a way I can talk to him on the phone? documented in this encounter Plan of Treatment Upcoming Encounters Date Type Department Care Team (Late st Contact Info) Description 02/03/2025 1:00 PM EDT Imaging Radiology [facility] 1st [facility] [address] [place] [address] 02/20/2025 3:30 PM EDT Office Visit Orthopaedics Spine Surgery [facility] [address] [place] [address] Reynaldo Solorio MD [address] [place] [address] Health Maintenance Due Date Last Done Comments [...] Advance Directives occurred with: Family Care Teams Blindmaker Relationship Specialty Start Date End Date David Bustamante MD [address] [place] [address] PCP - General Family Medicine 11/17/24 documented as of this encounter
--- OUTSIDE RECORDS SUMMARY | 2025-01-24 01:16 | External Medical Summary | Summary of Care ---
Author Name Unknown Organization [facility] Address [address] [place] [address] Phone [phone] Care Team Providers Care Fiber Designer Name Role Phone David Bustamante MD Primary Care Provider +1- [phone] Reason for Referral * Evaluate & Treat - Unlimited Visits (Within 30 days (routine)) - Authorized Specialty Diagnoses / Procedures Referred By Contac t Referred To Contact HOME CARE / Home Care Diagnoses Liver mass David Bustamante MD [address] [place] [address] Phone: tel: fax: Referral ID Status Reason Start Date Expiration Date Visits Requested Visits Authorized [id number] Authorized Specialty Services Required 01/14/2025 999 999 Question Answer Referral Priority Within 30 days (routine) Where should this appointment be scheduled? Jethro Lares Documentation of Hqvk-[id number] Encounter Addendum Patient Name: Blake Arreaga I certify that this patient is under my care and that I, or a nurse practitioner or physician's nutritional assistant working with me, had a gryi-ps-bnag encounter that meets the physician vlko-lv-sjly encounter requirements with this patient on: 01/09/25 The encounter with the patient was in whole, or in part, for the following medical condition, which is the primary reason for home health care (List medical condition): Likely metastatic colon cancer. Wounds on legs, sacral wound I certify that, based on my findings, the following services are medically necessary home health services: Nursing and Physical Therapy Further, I certify that my clinical findings support that this patient is homebound (i.e. Absences from home require considerable and taxing effort and are for medical reasons or scientologist services or infrequently or of short duration when for other reason) because: Ambulates with extreme difficulty with assistance from cane, walker. Weakness. Dizziness. Physician Signature: Date of Signature: Physician Printed Name: David Bustamante MD Reason for Visit * Reason Onset Date Comments Follow Up 01/12/2025 Encounter Details Date Type Department Care Team (Late st Contact Info) Description 01/12/2025 Telephone [facility] [address] [facility] [place] [address] David Bustamante MD [address] [place] [address] Follow Up Allergies Active Allergy Reactions [...] encounter Miscellaneous Notes * Telephone Encounter - Maegan Herrera LPN - 01/16/2025 3:52 PM EDT Left message for return call * Telephone Encounter - Lashell Berumen LPN - 01/14/2025 1:35 PM EDT Attempted to call patient, there was no answer, left voicemail. When patient returns call, ok for TATA to relay message, please refer to below documentation. If needed, can transfer to dedicated nurse line. Pt needs to be in his home to receive home health care. Please find out if the will be taking pt back to there home. * Telephone Encounter - David Bustamante MD - 01/14/2025 1:22 PM EDT Home Health referral placed - I think that they will need to get him to their house for this to start. * Telephone Encounter - Lashell Berumen LPN - 01/14/2025 10:30 AM EDT Spoke with pt's and made aware of message from the PCP regarding her . We * Telephone Encounter - Nasir Butler LPN - 01/14/2025 10:02 AM EDT Patient very upset. She got a call from Lashell. She wants to speak to her directly. She has beenon the phone for 15 minutes. Called [employer]. Spoke to Aileen. Lashell will call the patient back. Patient informed. She will wait for Lashell. * Telephone Encounter - Christiana Art OSA - 01/14/2025 9:56 AM EDT Pt returning call connected to nasir documented in this encounter Plan of Treatment Upcoming Encounters Date Type Department Care Team (Late st Contact Info) Description 02/03/2025 1:00 PM EDT Imaging Radiology [facility] 1st [facility] [address] [place] [address] 02/20/2025 3:30 PM EDT Office Visit Orthopaedics Spine Surgery [facility] [address] [place] [phone] Reynaldo Solorio MD [address] [place] [address] Scheduled Referrals Name Type Priority Associated Diagnoses Orde r Schedule HOME HEALTH REFERRAL OP Referral Within 30 days (routine) Liver mass Ordered: 01/14/2025 Health Maintenance Due Date Last Done Comments [...] as of this encounter Visit Diagnoses Diagnosis Liver mass- Primary Unspecified disorder of liver documented in this encounter Advance Directives * Full Code (Latest Code Status on File) Date Activated Date Inactivated Comments 12/15/2024 5:41 AM 12/16/2024 7:48 PM This order re flects the patients wishes and were consensually agreed upon. Question Answer Comments Discussion of Advance Directives occurred with: Family Care Teams Fiber Designer Relationship Specialty Start Date End Date David Bustamante MD [address] [address] PCP - General Family Medicine 11/17/24 documented as of this encounter
--- OUTSIDE RECORDS SUMMARY | 2025-01-24 01:16 | External Medical Summary | Summary of Care ---
Author Name Unknown Organization [facility] Address [address] [place] [address] Phone [phone] Care Team Providers Care Pizza Driver Name Role Phone David Bustamante MD Primary Care Provider +1- [phone] Reason for Referral * Precert (Within 10 days (routine)) - Authorized Specialty Diagnoses / Procedures Referred By Contac t Referred To Contact Radiology Diagnoses Other ascites Procedures IR PARACENTESIS David Bustamante MD [address] [place] [address] Phone: tel: fax: Referral ID Status Reason Start Date Expiration Date V isits Requested Visits Authorized [id number] Authorized 01/19/2025 999 999 Encounter Details Date Type Department Care Team (Late st Contact Info) Description 01/19/2025 Telephone [facility] [address] [facility] [place] [address] David Bustamante MD [address] [facility] [place] [id number] Allergies Active Allergy Reactions Criticality Noted Date Comments Peanut-Containing Drug Products Hives High 06/26/2023 Tree nuts, basil, oregano (Hypotension) Shellfish-Derived Products Hives High hypotension Soybean Oil 04/10/2024 Soy Allergy (Obsolete) Hives High 06/26/2023 And whole grain rice (hypotension) Tomato Hives High 06/26/2023 And spinach (hypotension) documented as of this encounter (statuses as of 01/20/2025) Medications EpiPen 2-Jared 0.3 MG/0.3ML Injection Solution [...] as of this encounter (statuses as of 01/20/2025) Active Problems Problem Noted Date Diagnosed Date [...] as of this encounter (statuses as of 01/20/2025) Social History Tobacco Use Types Packs/Day Years [...] Entry Date Author No 12/15/2024 6:36 AM EDT Irvin Urban RN documented in this encounter Miscellaneous Notes * Telephone Encounter - Xena Ott OSA - 01/19/2025 6:27 PM EDT We have not seen patient in the [place] office for well over 6 months. We have not seen him at all this year to obtain updated insurance info. LMOM to call with insurance info. 01/19/2025 * Telephone Encounter - Chanelle Mccormack LPN - 01/19/2025 10:18 AM EDT Kathryn calling from [facility] Received HH Referral, can accept into service but they need insurance information. Attempted to locate but demographic page did not have insurance number and no card scanned into chart. Please fax insurance info to: [employer] Faxed: [phone] * Telephone Encounter - Martha Keenan OSA - 01/19/2025 10:17 AM EDT Reason for patient's call: HH to nurse Caller was transferred to [facility] at the nurse line. * Telephone Encounter - David Bustamante MD - 01/19/2025 7:06 AM EDT sent this in her own chart accidentally - cutting and pasting to correct patient's record. Dr. Robby Leigh is interested in having his next paracentesis. Would you please submit an order for this? An afternoon appointment would work best. The best dates would be the afternoon of Sunday, January 21 (following my 1 pm ultrasound appointment at [place]), or the afternoon of Sunday, January 23. Otherwise, it would have to wait until the week of January 26. I don't know whether this outpatient IR procedure is routinely done locally by [facility], or whether the appointment would have to be at [facility] (I understand that Filippo Vela and Jitendra Ferris are the two IR proceduralists at [facility] and they have a person who schedules IR appointments after receiving an order). We appreciate your assistance. Thanks, Luz Please contact [facility] IR department to schedule patient for paracentesis. They have already performedparacentesis on him and should be aware that he will be needing further treatments. Orders signed. Can see her notes above about possible dates. Please send back if something different from me is needed. I don't know if is indicating that they would want to switch to [facility], but I believe that would mean traveling to [place]. documented in this encounter Plan of Treatment Scheduled Orders Name Type Priority Associated Diagnoses Orde r Schedule IR PARACENTESIS Medical Imaging Routine Other ascites Expected: 01/19/2025, Expires: 02/19/2026 CYTOLOGY Pathology Routine Other ascites Expected: 01/19/2025 (Approximate), Expires: 02/19/2026 Health Maintenance Due Date Last Done Comments [...] as of this encounter Visit Diagnoses Diagnosis Other ascites- Primary documented in this encounter Advance Directives * Full Code (Latest Code Status on File) Date Activated Date Inactivated Comments 12/15/2024 5:41 AM 12/16/2024 7:48 PM This order re flects the patients wishes and were consensually agreed upon. Question Answer Comments Discussion of Advance Directives occurred with: Family Care Teams Pizza Driver Relationship Specialty Start Date End Date David Bustamante MD [address] [address] PCP - General Family Medicine 11/17/24 documented as of this encounter
--- OUTSIDE RECORDS SUMMARY | 2025-01-24 01:16 | External Medical Summary | Summary of Care ---
Author Name Unknown Organization [facility] Address [address] [place] [address] Phone [phone] Care Team Providers Care Glazing Superintendent Name Role Phone David Bustamante MD Primary Care Provider +1- [phone] Reason for Referral * Precert (Within 10 days (routine)) - Authorized Specialty Diagnoses / Procedures Referred By Contac t Referred To Contact Radiology Diagnoses Other ascites Procedures IR PARACENTESIS David Bustamante MD [address] [place] [address] Phone: tel: fax: Referral ID Status Reason Start Date Expiration Date V isits Requested Visits Authorized [id number] Authorized 01/19/2025 999 999 Encounter Details Date Type Department Care Team (Late st Contact Info) Description 01/19/[address] [facility] [address] [facility] [place] [address] David Bustamante MD [address] [facility] [place] [id number] Allergies Active Allergy Reactions Criticality Noted Date Comments Peanut-Containing Drug Products Hives High 06/26/2023 Tree nuts, basil, oregano (Hypotension) Shellfish-Derived Products Hives High hypotension Soybean Oil 04/10/2024 Soy Allergy (Obsolete) Hives High 06/26/2023 And whole grain rice (hypotension) Tomato Hives High 06/26/2023 And spinach (hypotension) documented as of this encounter (statuses as of 01/21/2025) Medications EpiPen 2-Jared 0.3 MG/0.3ML Injection Solution [...] as of this encounter (statuses as of 01/21/2025) Active Problems Problem Noted Date Diagnosed Date [...] as of this encounter (statuses as of 01/21/2025) Social History Tobacco Use Types Packs/Day Years [...] Telephone Encounter - Xena Ott OSA - 01/21/2025 3:24 PM EDT They are now asking the most amount to be removed. We are currently following Hospitalist orders but they need a maximum amount of fluid to be removed. Please advise. 01/21/2025 * Telephone Encounter - Xena Ott OSA - 01/21/2025 11:04 AM EDT I am working on this. They are asking for an amount of fluid to be removed. Can you please provide amount of fluid removed. Do you also want albumin administered? Please advise. 01/21/2025 * Telephone Encounter - David Bustamante MD - 01/20/2025 6:57 PM EDT I saw him last week. Is anyone working on the IR paracentesis at [facility]? * Telephone Encounter - Xena Ott OSA - 01/19/2025 6:27 PM EDT We have not seen patient in the [place] office for well over 6 months. We have not seen him at all this year to obtain updated insurance info. LMOM to call with insurance info. 01/19/2025 * Telephone Encounter - Chanelle Mccormack LPN - 01/19/2025 10:18 AM EDT Kathryn wray from [employer] Received HH Referral, can accept into service but they need insurance information. Attempted to locate but demographic page did not have insurance number and no card scanned into chart. Please fax insurance info to: [employer] Faxed: [phone] * Telephone Encounter - Martha Keenan OSA - 01/19/2025 10:17 AM EDT Reason for patient's call: HH to nurse Caller was transferred to Chanelle at the nurse line. * Telephone Encounter [...] (following my 1 pm ultrasound appointment at [place]), or the afternoon of Sunday, January 23. Otherwise, it would have to wait until the week of January 26. I don't know whether this outpatient IR procedure is routinely done locally by [facility], or whether the appointment would have to be at [facility] (I understand that Filippo Vela and Jitendra Ferris are the two IR proceduralists at [facility] and they have a person who schedules IR appointments after receiving an order). We appreciate your assistance. Thanks, Luz Please contact [facility] IR department to schedule patient for paracentesis. They have already performedparacentesis on him and should be aware that he will be needing further treatments. Orders signed. Can see her notes above about possible dates. Please send back if something different from me is needed. I don't know if is indicating that they would want to switch to [facility], but I believe that would mean traveling to [place]. documented in this encounter Plan of Treatment Upcoming Encounters Date Type Department Care Team (Late st Contact Info) Description 02/03/2025 1:00 PM EDT Imaging Radiology [facility] 1st [facility] [address] [place] [phone] 02/20/2025 3:30 PM EDT Office Visit Orthopaedics Spine Surgery [facility] [address] [place] [phone] Reynaldo Solorio MD [address] [place] [address] Scheduled Orders Name Type Priority Associated Diagnoses [...] Advance Directives occurred with: Family Care Teams Glazing Superintendent Relationship Specialty Start Date End Date David Bustamante MD [address] [place] [address] PCP - General Family Medicine 11/17/24 documented as of this encounter
--- OUTSIDE RECORDS SUMMARY | 2025-01-24 01:16 | External Medical Summary | Summary of Care ---
Author Name Unknown Organization [facility] Address [address] [place] [address] Phone [phone] Care Team Providers Care Exercise Instruct Name Role Phone David Bustamante MD Primary Care Provider +1- [phone] Reason for Referral * Evaluate & Treat - Unlimited Visits (Within 30 days (routine)) - Authorized Specialty Diagnoses / Procedures Referred By Contac t Referred To Contact HOME CARE / Home Care Diagnoses Liver mass David Bustamante MD [address] [place] [address] Phone: tel: fax: Referral ID Status Reason Start Date Expiration Date Visits Requested Visits Authorized [id number] Authorized Specialty Services Required 01/14/2025 999 999 Question Answer Referral Priority Within 30 days (routine) Where should this appointment be scheduled? Jethro Lares Documentation of Yfat-uv-Pxfq Encounter Addendum Patient Name: Blake Arreaga I certify that this patient is under my care and that I, or a nurse practitioner or physician's assistant professor of german working with me, had a szzt-cv-hcuy encounter that meets the physician tbln-lb-ifle encounter requirements with this patient on: 01/09/25 [...] effort and are for medical reasons or evangelical services or infrequently or of short duration when for other reason) because: Ambulates with extreme difficulty with assistance from cane, walker. Weakness. Dizziness. Physician Signature: Date of Signature: Physician Printed Name: David Bustamante MD Reason for Visit * Reason Onset Date Comments Follow Up 01/12/2025 Encounter Details Date Type Department Care Team (Late st Contact Info) Description 01/12/2025 Telephone [facility] [address] [place] [address] David Bustamante MD [address] [place] [address] Follow Up Allergies Active Allergy Reactions Criticality Noted Date Comments Peanut-Containing Drug Products Hives High 06/26/2023 Tree nuts, basil, oregano (Hypotension) Shellfish-Derived Products Hives High hypotension Soybean Oil 04/10/2024 Soy Allergy (Obsolete) Hives High 06/26/2023 And whole grain rice (hypotension) Tomato Hives High 06/26/2023 And spinach (hypotension) documented as of this encounter (statuses as of 01/16/2025) Medications EpiPen 2-Jared 0.3 MG/0.3ML Injection Solution [...] as of this encounter (statuses as of 01/16/2025) Active Problems Problem Noted Date Diagnosed Date [...] as of this encounter (statuses as of 01/16/2025) Social History Tobacco Use Types Packs/Day Years [...] Miscellaneous Notes * Telephone Encounter - Maegan Hrerera LPN - 01/16/2025 3:52 PM EDT Left [...] in this encounter Plan of Treatment Scheduled Referrals Name Type Priority Associated Diagnoses [...] Advance Directives occurred with: Family Care Teams Exercise Instruct Relationship Specialty Start Date End Date David Bustamante MD [address] [address] PCP - General Family Medicine 11/17/24 documented as of this encounter
--- OUTSIDE RECORDS SUMMARY | 2025-01-24 01:16 | External Medical Summary | Summary of Care ---
Author Name Unknown Organization [facility] Address [address] [place] [address] Phone [phone] Care Team Providers Care Adhesive Bandage Making Operator Name Role Phone David Bustamante MD Primary Care Provider +1- [phone] Reason for Referral * Evaluate & Treat - Unlimited Visits (Within 10 days (routine)) - Authorized Specialty Diagnoses / Procedures Referred By Contac t Referred To Contact Neuro/Ortho Surgery - Spine. / Neurological Surgery Diagnoses Closed nondisplaced fracture of first cervical vertebra with routine healing, unspecified fracture morphology, subsequent encounter David Bustamante MD [address] [place] [address] Phone: tel: fax: Referral ID Status Reason Start Date Expiration Date Visits Requested Visits Authorized [id number] Authorized Specialty Services Required 01/19/2025 999 999 Question Answer Referral Priority Within 10 days (routine) Where should this appointment be scheduled? [facility] Select spine region: Neck - Cervical Do you have any recent complete loss of bladder or bowel function? No Comments CLosed, non-displaced C1 fracture from fall. Admitted to [facility]. In cervical collar. TO have follow up mid-January. Pt with widely metastatic cancer and unable to travel to [place]. Dr Solorio has agreed to see. Reason for Visit * Reason Comments Acute Patient is here due to swollen feet and legs, reports it has been on and off for the last month. Reports the last few days 3-4 sores have appeared on R leg, they are about the size of a fingernail. Encounter Details Date Type Department Care Team (Late st Contact Info) Description 01/09/2025 2:40 PM EDT Office Visit 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); Lesion of colon; Malignant ascites; Edema, unspecified type; Multiple opens wound of lower extremity, unspecified laterality, initial encounter Allergies Active Allergy Reactions Criticality Noted Date Comments Peanut-Containing Drug Products Hives High 06/26/2023 Tree nuts, basil, oregano (Hypotension) Shellfish-Derived Products Hives High 3 hypotension Soybean Oil 04/10/2024 Soy Allergy (Obsolete) Hives High 06/26/2023 And whole grain rice (hypotension) Tomato Hives High 06/26/2023 And spinach (hypotension) documented as of this encounter (statuses as of 01/19/2025) Medications EpiPen 2-Jared 0.3 MG/0.3ML Injection Solution [...] as of this encounter (statuses as of 01/19/2025) Active Problems Problem Noted Date Diagnosed Date [...] as of this encounter (statuses as of 01/19/2025) Social History Tobacco Use Types Packs/Day Years [...] Sign Reading Time Taken Comments Blood Pressure 98/58 01/09/2025 3:34 PM EDT Pulse 74 01/09/2025 3:34 PM EDT Temperature 35.6 °C (96.1 °F) 01/09/2025 3:34 PM ED T Respiratory Rate 16 01/09/2025 3:34 PM EDT Oxygen Saturation 98% 01/09/2025 3:34 PM EDT Inhaled Oxygen Concentration - - Weight 68.4 kg (150 lb 14.4 oz) 01/09/2025 3:34 PM EDT Height 170.2 cm (5' 7") 01/09/2025 3:34 PM EDT Body Mass Index 23.63 01/09/2025 3:34 PM EDT documented in this encounter Functional Status * Are you deaf or do you have serious difficulty hearing? Answer Date of Assessment Author No 12/15/2024 6:36 AM EDT Irvin Urban RN * Are you blind [...] 6:36 AM EDT Irvin Urban RN documented as of this encounter Mental Status * Because of a physical, mental, or emotional condition, do you have serious difficulty concentrating, remembering, or making decisions? (5 years old or older) Answer Entry Date Author No 12/15/2024 6:36 AM EDT Irvin Urban RN documented in this encounter Progress Notes * David Bustamante MD - 01/19/2025 7:21 AM EDT Subjective: Blake Arreaga is a 79 year old male here today for Chief Complaint Patient presents with Acute Patient is here due to swollen feet and legs, reports it has been on and off for the last month. Reports the last few days 3-4 sores have appeared on R leg, they are about the size of a fingernail. Acute visit for worsening edema. [facility] nondisplaced fracture of [facility]1. No surgery was required. He remains in a collar. He is to have follow-up in mid January in [place]. The trip would be difficult for him in his . Will work to arrange locally. Ongoing concern with liver lesions, pulmonary lesions, colon lesion. 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 He has had issues with recurrent ascites and lower extremity edema which likely relates to the above issue and nutritional factors. Notissue diagnosis has yet been made. 2 fluid analyses after paracentesis have not shown malignant cytology. Patient and are interested in a fluid biopsy but are not interested in that being arranged at this time given his overall health. They were considering getting another opinion for possible treatments but have not scheduled anything in that regard given his overall health. The increased lower extremity edema has caused some bullae and wounds. He has had some clear serous drainage. He had developed a sacral pressure ulcer during his hospitalizations. He would like that checked today. Past Medical History: Diagnosis Date A-fib (HCC) 3 episodes in 11 years Hyperlipidemia Hx of hyperlipidemia Hypertension Mixed hyperlipidemia 06/26/2023 Past Surgical History: Procedure Laterality Date CARDIOVERSION,ELECTIVE INTERNA HC MEDTRONIC CORONARY OSTIAL Medtronic loop recorder implanted Review of patient's allergies indicates: Allergen Reactions Peanut-Containing Drug Products Hives Tree nuts, basil, oregano (Hypotension) Shellfish-Derived Products Hives hypotension Soy Allergy (Obsolete) Hives And whole grain rice (hypotension) Tomato Hives And spinach (hypotension) Soja Smallwood Oil [Soybean Oil] Current Outpatient Medications Medication Sig Dispense Refill EpiPen 2-Jared 0.3 MG/0.3ML Injection Solution Auto-injector Inject 0.3 mg into a large muscle once. For a severe reaction: Inject in outer thigh following instructions on package and go to the Emergency room. As needed for Allergic Reaction Vitamin C 500 MG Oral Capsule Take by mouth. Vitamin D (Cholecalciferol) 25 MCG (1000 UT) Oral Capsule Take by mouth. Metoprolol Tartrate 25 MG Oral Tablet (Lopressor) Take 1 Tablet by mouth in the morning and 1 Tablet before bedtime. 180 Tablet 3 Acetaminophen 325 MG Oral Tablet (Tylenol) Take 3 Tablets by mouth every 8 hours as needed for mildto moderate pain 90 Tablet 0 Mixed Tocotrienols w/ Sofie E Oral Capsule Take by mouth. Multi-Vitamin HP/Minerals Oral Capsule Take by mouth. (Patient not taking: Reported on 01/09/2025) Bacitracin Zinc 500 UNIT/GM External Ointment Apply topically to affected area 2 times a day. Applyto left scalp laceration (Patient not taking: Reported on 01/09/2025) 113.6 g 0 No current facility-administered medications for this visit. Objective: BP 98/58 (BP Site: Left Arm, BP Position: Sitting) | Pulse 74 | Temp 96.1 °F (35.6 °C)(Tympanic) | Resp 16 | Ht 5' 7" (1.702 m) | Wt 150 lb 14.4 oz (68.4 kg) | SpO2 98% | BMI 23.63 kg/m² | BSA 1.8 m² GEN: NAD NECK: cervical collar in place. Assisted in making the fit more comfortable. CHEST: CTA B CV: RRR ABD: Some distention and firm. No guarding or rebound tenderness. EXT: significant bilateral edema. Some bullae present. A few areas of opening with serous drainage.No evidence for cellulitis. Assessment and Plan: Closed nondisplaced fracture of first cervical vertebra with routine healing, unspecified fracture morphology, subsequent encounter (Primary) -attempt to arrange orthopedic spine follow-up locally to avoid trip to [place]. He would be due in mid January and assessment could be made at that time if he could come out of the collar. Message sentto Dr. Solorio. 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 Although no tissue diagnosis has yet been made. No biopsy has been attempted. Paracentesiscytology negative x2. Patient and considering fluid biopsy but defer at this time due to overall health status. Will see if we can arrange this at [facility] if and when they are ready. On discharge from the hospital, he was set up for repeat paracentesis through interventional radiology at [facility]. They are working to cancel the scheduled appt and will call to reschedule on an as needed basis. Edema, unspecified type Multiple opens wound of lower extremity, unspecified laterality, initial encounter -lower extremity wounds relate to the amount of swelling. Reviewed elevation, compression. Reviewedattempts at increasing protein in diet. Reviewed routine Wound Care when wounds do open up. Sacral wound has a covering scab. No open area. No evidence for infection. Home Health referral reasonable for eval of sacral wound, lower extremity wounds and for possible PT/OT. He is homebound and cannot travel without significant assistance. 40 min with pt and chart review. David Bustamante MD documented in this encounter Nursing Notes * Elsie Sanders MED ASSIST - 01/09/2025 3:36 PM EDT The patient has been properly identified by confirmation of name and date of . Chief Complaint Patient presents with Acute Patient is here due to swollen feet and legs, reports it has been on and off for the last month. Reports the last few days 3-4 sores have appeared on R leg, they are about the size of a fingernail. documented in this encounter Plan of Treatment Scheduled Referrals Name Type Priority Associated Diagnoses Orde r Schedule SPINE SURGERY REFERRAL OP Referral Within 10 days (routine) Closed nondisplaced fracture of first cervical vertebra with routine healing, unspecified fracture morphology, subsequent encounter Ordered: 01/19/2025 Health Maintenance Due Date Last Done Comments [...] as of this encounter Visit Diagnoses Diagnosis Closed nondisplaced fracture of first cervical vertebra with routine healing, unspecified fracture morphology, subsequent encounter- Primary Liver mass Unspecified disorder of liver 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 Question Answer Comments Discussion of Advance Directives occurred with: Family Care Teams Adhesive Bandage Making Operator Relationship Specialty Start Date End Date David Bustamante MD [address] [place] [id number] PCP - General Family Medicine 11/17/24 documented as of this encounter
--- OUTSIDE RECORDS SUMMARY | 2025-01-24 01:16 | External Medical Summary | Summary of Care ---
Author Name Unknown Organization [facility] Address [address] [place] [address] Phone [phone] Care Team Providers Care Plsql Developer Name Role Phone David Bustamante MD Primary Care Provider +1- [phone] Reason for Referral * Precert (Within 10 days (routine)) - Authorized Specialty Diagnoses / Procedures Referred By Contac t Referred To Contact Radiology Diagnoses Other ascites Procedures IR PARACENTESIS David Bustamante MD [address] [place] [address] Phone: tel: fax: Referral ID Status Reason Start Date Expiration Date V isits Requested Visits Authorized [id number] Authorized 01/19/2025 999 999 Encounter Details Date Type Department Care Team (Late st Contact Info) Description 01/19/2025 Telephone [facility] [address] [facility] [place] [address] David Bustamante MD [address] [facility] [place] [phone] Allergies Active Allergy Reactions Criticality Noted Date [...] encounter Miscellaneous Notes * Telephone Encounter - David Bustamante MD - 01/20/2025 6:57 PM EDT I saw him last week. Is anyone working on the IR paracentesis at [facility]? * Telephone Encounter - Xena Ott OSA - 01/19/2025 6:27 PM EDT We have not seen patient in the [place] office for well over 6 months. We have not seen him at all this year to obtain updated insurance info. LMOM to call with insurance info. 01/19/2025 * Telephone Encounter - Chanelle Mccormack LPN - 01/19/2025 10:18 AM EDT Kathryn calling from [employer] [facility] Received HH Referral, can accept into service but they need insurance information. Attempted to locate but demographic page did not have insurance number and no card scanned into chart. Please fax insurance info to: [employer] Faxed: [phone] * Telephone Encounter - Martha Keenan OSA [...] (following my 1 pm ultrasound appointment at [place]), or the afternoon of Sunday, January 23. Otherwise, it would have to wait until the week of January 26. I don't know whether this outpatient IR procedure is routinely done locally by [facility], or whether the appointment would have to be at [facility] (I understand that Filippo Vela and Jitendra Ferris are the two IR proceduralists at [facility] and they have a person who schedules IR appointments after receiving an order). We appreciate your assistance. Thanks, Luz Please contact [facility] IR department to schedule patient for paracentesis. They have already performedparacentesis on him and should be aware that he will be needing further treatments. Orders signed. Can see her notes above about possible dates. Please send back if something different from me is needed. I don't know if is indicating that they would want to switch to [employer], but I believe that would mean traveling to [place]. documented in this encounter Plan of Treatment Upcoming Encounters Date Type Department Care Team (Late st Contact Info) Description 02/03/2025 1:00 PM EDT Imaging Radiology [facility] [address] [place] [phone] 02/20/2025 3:30 PM EDT Office Visit Orthopaedics Spine Surgery [facility] [address] [place] [phone] Reynaldo Solorio MD [address] [place] [phone] Scheduled Orders Name Type Priority Associated Diagnoses [...] Advance Directives occurred with: Family Care Teams Plsql Developer Relationship Specialty Start Date End Date David Bustamante MD [address] [place] [phone] PCP - General Family Medicine 11/17/24 documented as of this encounter
--- OUTSIDE RECORDS SUMMARY | 2025-01-24 01:16 | External Medical Summary | Summary of Care ---
Author Name Unknown Organization [facility] Address [address] [place] [address] Phone [phone] Care Team Providers Care Magneto Specialist Name Role Phone David Bustamante MD Primary Care Provider +1- [phone] Reason for Referral * Precert (Within 10 days (routine)) - Authorized Specialty Diagnoses / Procedures Referred By Contac t Referred To Contact Radiology Diagnoses Other ascites Procedures IR PARACENTESIS David Bustamante MD [address] [place] [address] Phone: tel: fax: Referral ID Status Reason Start Date Expiration Date V isits Requested Visits Authorized [id number] Authorized 01/19/2025 999 999 Encounter Details Date Type Department Care Team (Late st Contact Info) Description 01/19/2025 Telephone [facility] [address] [facility] [place] [address] David Bustamante MD [address] [facility] [place] [phone] Allergies Active Allergy Reactions Criticality Noted Date [...] We have not seen patient in the [place] office for well over 6 months. We have not seen him at all this year to obtain updated insurance info. LMOM to call with insurance info. 01/19/2025 * Telephone Encounter - Chanelle Mccormack LPN - 01/19/2025 10:18 AM EDT Kathryn calling from [employer] [facility] Received HH Referral, can accept into service but they need insurance information. Attempted to locate but demographic page did not have insurance number and no card scanned into chart. Please fax insurance info to: [employer] Faxed: [phone] * Telephone Encounter - Martha Keenan OSA - 01/19/2025 10:17 AM EDT Reason for patient's call: HH to nurse Caller was transferred to [facility] at the nurse line. * Telephone Encounter [...] (following my 1 pm ultrasound appointment at [place]), or the afternoon of Sunday, January 23. Otherwise, it would have to wait until the week of January 26. I don't know whether this outpatient IR procedure is routinely done locally by [facility], or whether the appointment would have to be at [facility] (I understand that Filippo Vela and Jitendra Ferris are the two IR proceduralists at [facility] and they have a person who schedules IR appointments after receiving an order). We appreciate your assistance. Thanks, Luz Please contact [facility] IR department to schedule patient for paracentesis. They have already performedparacentesis on him and should be aware that he will be needing further treatments. Orders signed. Can see her notes above about possible dates. Please send back if something different from me is needed. I don't know if is indicating that they would want to switch to [facility], but I believe that would mean traveling to [place]. documented in this encounter Plan of Treatment [...] Advance Directives occurred with: Family Care Teams Magneto Specialist Relationship Specialty Start Date End Date David Bustamante MD [address] [place] [phone] PCP - General Family Medicine 11/17/24 documented as of this encounter
--- OUTSIDE RECORDS SUMMARY | 2025-01-24 01:16 | External Medical Summary | Summary of Care ---
Author Name Unknown Organization [facility] Address [address] [place] [address] Phone [phone] Care Team Providers Care Living Supervisor Name Role Phone David Bustamante MD Primary Care Provider +1- [phone] Reason for Visit * Reason Onset Date Comments Fax 01/20/2025 Encounter Details Date Type Department Care Team (Late st Contact Info) Description 01/20/2025 Telephone [facility] [address] [place] [address] David Bustamante MD [address] [place] [address] Fax Allergies Active Allergy Reactions Criticality Noted Date [...] Assessment Author No 12/15/2024 6:36 AM Irvin Fetlon RN * Do you have difficulty dressing [...] Encounter - Xena Ott OSA - 01/21/2025 4:07 PM EDT Unable to reach patient. [facility] stopped into [place] stating they could not get ahold of the patient either. Called again today and there was no answer. 01/21/2025 * Telephone Encounter - Coleen Jett OSA - 01/20/2025 10:30 AM EDT Please fax insurance info to [facility] documented in this encounter Plan of Treatment Upcoming Encounters Date Type Department Care Team (Late st Contact Info) Description 02/03/2025 1:00 PM EDT Imaging Radiology [facility] [address] [place] [address] 02/20/2025 3:30 PM EDT Office Visit Orthopaedics Spine Surgery [facility] [address] [place] [address] Reynaldo Solorio MD [address] [place] [address] Health Maintenance Due Date Last Done Comments [...] Advance Directives occurred with: Family Care Teams Living Supervisor Relationship Specialty Start Date End Date David Bustamante MD [address] [place] [phone] PCP - General Family Medicine 11/17/24 documented as of this encounter
--- OUTSIDE RECORDS SUMMARY | 2025-01-24 01:16 | External Medical Summary | Summary of Care ---
Author Name Unknown Organization [facility] Address [address] [place] [address] Phone [phone] Care Team Providers Care Gripper Machine Operator Name Role Phone David Bustamante MD Primary Care Provider +1- [phone] Reason for Referral * Precert (Within 10 days (routine)) - Authorized Specialty Diagnoses / Procedures Referred By Contac t Referred To Contact Radiology Diagnoses Other ascites Procedures IR PARACENTESIS David Bustamante MD [address] [place] [address] Phone: tel: fax: Referral ID Status Reason Start Date Expiration Date V isits Requested Visits Authorized [id number] Authorized 01/19/2025 999 [id number] Encounter Details Date Type Department Care Team (Late st Contact Info) Description 01/19/2025 Telephone [facility] [address] [facility] [place] [address] David Bustamante MD [address] [facility] [place] [phone] Allergies Active Allergy Reactions Criticality Noted Date [...] anyone working on the IR paracentesis at [facility]? * Telephone Encounter - Xena Ott OSA - 01/19/2025 6:27 PM EDT We have not seen patient in the [place] office for well over 6 months. We have not seen him at all this year to obtain updated insurance info. LMOM to call with insurance info. 01/19/2025 * Telephone Encounter - Chanelle Mccormack LPN - 01/19/2025 10:18 AM EDT Kathryn calling from [employer] Received HH Referral, can accept into service but they need insurance information. Attempted to locate but demographic page did not have insurance number and no card scanned into chart. Please fax insurance info to: [employer] Faxed: [phone] * Telephone Encounter - Martha Keenan OSA - 01/19/2025 10:17 AM EDT Reason for patient's call: HH to nurse Caller was transferred to [facility] at the nurse line. * Telephone Encounter [...] (following my 1 pm ultrasound appointment at [place]), or the afternoon of Sunday, January 23. Otherwise, it would have to wait until the week of January 26. I don't know whether this outpatient IR procedure is routinely done locally by [facility], or whether the appointment would have to be at [facility] (I understand that Filippo Vela and Jitendra Ferris are the two IR proceduralists at [facility] and they have a person who schedules IR appointments after receiving an order). We appreciate your assistance. Thanks, Luz Please contact [facility] IR department to schedule patient for paracentesis. They have already performedparacentesis on him and should be aware that he will be needing further treatments. Orders signed. Can see her notes above about possible dates. Please send back if something different from me is needed. I don't know if is indicating that they would want to switch to [place], but I believe that would mean traveling to [place]. documented in this encounter Plan of Treatment Upcoming Encounters Date Type Department Care Team (Late st Contact Info) Description 02/03/2025 1:00 PM EDT Imaging Radiology [address] [place] [phone] 02/20/2025 3:30 PM EDT Office Visit Orthopaedics Spine Surgery [facility] [address] [place] [phone] Reynaldo Solorio MD [address] [place] [phone] Scheduled Orders Name Type Priority Associated Diagnoses [...] Advance Directives occurred with: Family Care Teams Gripper Machine Operator Relationship Specialty Start Date End Date David Bustamante MD [address] [facility] [place] [address] PCP - General Family Medicine 11/17/24 documented as of this encounter
[2025-01-24 01:56] LABS: Basophils # (auto) 0.03 K/uL (0.00-0.20); Basophils % (auto) 0.3 %; Eosinophils # (auto) 0.01 K/uL (0.00-0.50); Eosinophils % (auto) 0.1 %; Hematocrit (blood only) 38.9 % (42.0-52.0); Hemoglobin 12.9 g/dl (14.0-18.0); Immature Granulocytes # (auto) 0.05 K/uL (0.01-0.20); Immature Granulocytes % (auto) 0.5 %; Lymphocytes # (auto) 0.42 K/uL (1.20-3.40); Lymphocytes % (auto) 3.9 %; Mean Corpuscular Hgb Conc 33.2 g/dL (32.0-36.0); Mean Corpuscular Volume 84.4 fL (80.0-100.0); Mean Platelet Volume 10.4 fL (9.4-12.4); Monocytes # (auto) 0.98 K/uL (0.11-0.59); Monocytes % (auto) 9.2 %; Neutrophils # (auto) 9.15 K/uL (1.40-6.50); Platelet Count 361 K/uL (130-400); RDW Coefficient of Variation 19.6 % (11.5-14.5); RDW Standard Deviation 58.6 fL (36.4-46.3); Red Blood Count 4.61 M/uL (4.70-6.10); White Blood Count 10.64 K/ul (4.8-10.8)
--- NOTE | 2025-01-24 01:57 | Emergency Department Note ---
Impression & Plan Accidental fall from commode or toilet, Weakness Admit to the [facility] ED Provider Note NAME: ESTHER NEVES AGE: 79 SEX: Male INFORMANT: Patient ED PROVIDER(S): Juanita Stewart DO CHIEF COMPLAINT: Fall PLAN: Disposition: Admit to the [facility] MEDICAL DECISION MAKIN-year-old male who presents to the emergency department after suffering a fall at home in the bathroom. The patient was on the toilet when he attempted to pull himself up off the toilet with a pull bar but slid backwards off the toilet onto the floor and was unable to get up off the floor. He explains that he lowered himself to the floor and did not actually fall. Patient's explains that they had gone through great lengths recently to retrofit their house to prepare for him to come home after a fall he suffered in November where he fractured C1. Laboratory studies tonight revealed no leukocytosis. H&H were stable. Renal function was unchanged although the BUNs/creatinine ratio was slightly elevated. Troponin was negative. On physical exam, the patient does appear to be dehydrated. T. bili was elevated at 2.7 but this is normal for the patient. Patient is scheduled for paracentesis on Sunday. The patient's explains that she believes the patient will need to be placed into an assisted living facility as she can no longer care for him at home. They would like for him to be placed in [facility]. I discussed the case with the repair manager as well as the [facility] Hospitalist. Care/management discussed with: repair manager and [facility] Triage Nursing notes: reviewed and agree With them. Vital Signs: reviewed and unremarkable Additional History obtained from: the patient's who arrived at the bedside Chronic Medical/Social Conditions affecting care: C1-currently wearing a [place] collar; his orthostatic hypotension Prior/ Outside/ External records reviewed: reviewed previous inpatient records from November 2024 Differential Diagnosis: recurrent orthostatic hypotension; traumatic injury from the fall; dehydration Diagnostics, independently interpreted by me: ECG: normal sinus rhythm at a rate of [address] segment elevation or signs of ischemia. No ectopy. QTc was 430 ms. Cardiac Monitoring: Normal sinus rhythm at a rate of 92 Imaging studies: Portable chest x-ray: No acute pulmonary infiltrates or consolidation. There was some mild pulmonary vascular congestion. HPI: 79 year old Male arrives for evaluation of fall from toilet. Patient states that he was trying to get up from the toilet when he went to the floor. He describes that he did not fall but he lowered himself to the floor because he was so weak.. PAST MEDICAL HISTORY: See Below, PAST SURGICAL HISTORY: See Below, SOCIAL HISTORY: See Below, HOME MEDICATIONS: See list ALLERGIES: See list VITALS: See Below PHYSICAL EXAMINATION: HEENT: Head - normocephalic and atraumatic. Pupils are equal, round, and reactive to light. Extraocular eye muscles are intact, and sclera are anicteric. Nose -dry nasal mucosa without discharge. Mouth -dry buccal mucosa. Oropharynx is nonerythematous and there is no tonsillar exudate or edema noted. Neck: [place] J collar in place-seems a bit large as it comes up over his chin. Heart: Regular rate and rhythm. There is a normal S1 and S2 with no murmurs, clicks, or gallops appreciated. Lungs: Clear to auscultation bilaterally with no wheezes, rales, or rhonchi. Abdomen: Soft, completely nontender, nondistended, with good bowel sounds. There are no palpable pulsatile masses or hepatosplenomegaly. There is no guarding, rigidity, or rebound noted. Extremities: No evidence of cyanosis, clubbing, or edema. There are easily palpable peripheral pulses. Skin: warm and dry with poor turgor and no rashes. Emergency Department course: The patient was evaluated in room C-4. A complete history and physical was performed. An order was placed for continuous cardiac monitoring. The patient was in a normal sinus rhythm at a rate of 92. A twelve-lead EKG was obtained as described above. Laboratory studies were drawn as above. Portable chest x-ray was performed. I discussed the case with the repair manager. I discussed the case with the [facility] Hospitalist. A bladder scan was performed and the patient had over 600 mL of urine in the bladder. A urine specimen was obtained. Past Med/Surg History Problem List (Updated 01/25/25 @ 19:37 by Juanita Stewart DO) Weakness (Acute) Accidental fall from commode or toilet (Acute) Fall Scalp pain Weakness generalized Palliative care by specialist Advanced care planning/counseling discussion Metastatic colon cancer to liver Hepatomegaly, not elsewhere classified Ascites Malnutrition (Acute) Leg edema (Acute) Acute dehydration (Acute) Metastatic cancer (Acute) Adult failure to thrive (Acute) Goals of care, counseling/discussion Severe protein-calorie malnutrition Colon cancer Adult failure to thrive Abnormal US (ultrasound) of abdomen Liver mass Elevated LFTs Abnormal coagulation profile Thrombocytosis Anemia Encounter to discuss test results Patient request for diagnostic testing Routine health maintenance Hyperlipidemia 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 Prediabetes Hypertension (Chronic) Medical History History of cardioversion HTN (hypertension) Surgical History No pertinent past surgical history Family History Father High cholesterol Hypertension Peptic ulcer Testicular cancer Cerebral hemorrhage cause of sudden 56 years old Mother Alzheimer disease Cataracts, bilateral Ovarian cancer Caused age 7979 years old Brother Hypertension High cholesterol Prostate cancer Other Cancer Social History Smoking Status: Never smoker Second Hand Exposure: No; Do You Dip or Chew Tobacco: No; Tobacco Cessation Education Requested by Patient: No Hx Alcohol Use: No Hx Substance Use: No Preferred Language: Iranian Communication Ability: Effective Visual Impairment: Limited Hearing Ability: Normal Special Delivery Carrier Required: No Beliefs That Will Affect Care: None marital status: Current Living Situation: Spouse Current Living Situation Comment: current occupational status: retired How many Children do You have: 0 Other Information That Helps Us Care for You: No Feels Safe at Home: Yes Safety Concerns: Feels Safe At This Time Childhood Exposure to Second-Hand Smoke: Yes Diet: vegetarian caffeine: No during the past year weight has: remained stable Dental Care, Regularly: Yes Physical Activity Frequency: Daily Seatbelt Use: always Sunscreen Use: Yes Assistive Devices: Walker Allergies Allergies Allergy/AdvReac Type Severity Reaction Status Date / Time spinach Allergy Severe ANAPHYLAXIS Verified 12/20/24 08:41 almond Allergy Intermediate tested +2 Verified 12/20/24 08:41 on skin test peanut Allergy Intermediate +3 ALLERGY Verified 12/20/24 08:41 TEST shellfish derived Allergy Intermediate CRAB-+2 Verified 12/20/24 08:41 ALLERGY TEST soy Allergy Intermediate +2 ALLERGY Verified 12/20/24 08:41 TEST tomato Allergy Intermediate Gastrointestinal Verified 12/20/24 08:41 Upset tree nut Allergy Intermediate +2 ALLERGY Verified 12/20/24 08:41 TEST ciprofloxacin Allergy Mild Itching Verified 12/20/24 08:41 erythromycin base Allergy Mild Itching Verified 12/20/24 08:41 pine nut Allergy Mild POSITIVE Verified 12/20/24 08:41 ALLERGY TEST pistachio nut Allergy Mild POSITIVE Verified 12/20/24 08:41 ALLERGY TEST basil Allergy Unknown NOT TESTED Verified 12/20/24 08:41 oregano Allergy Unknown Unknown Verified 12/20/24 08:41 Latex, Natural Rubber Allergy Rash Verified 12/20/24 14:35 rice Allergy Unknown Verified 12/20/24 12:00 aspirin AdvReac Intermediate ABDOMINAL Verified 12/20/24 08:41 BURNING IF OVER 81MG. lidocaine AdvReac Unknown unknown Verified 12/20/24 08:41 Home Meds Home Medications Medication Instructions Recorded Confirmed metoprolol tartrate 25 mg tablet 25 mg PO BID 01/24/25 01/24/25 Results & Data (ED) Vital Signs Vital Signs - 24 hr 01/24/25 01:13 01/24/25 01:15 01/24/25 01:46 Temperature 36.4 C L Temperature Source Oral Pulse Rate 92 H 91 H Pulse Rhythm Regular Pulse Strength Normal Respiratory Rate 20 Respiratory Effort / Characteristics Non-Labored Respiratory Depth Normal Respiratory Pattern Regular Blood Pressure 108/64 Blood Pressure Mean 78 Blood Pressure Position Lying Pulse Oximetry 94 99 Oxygen Delivery Method Room Air Room Air Sepsis Recent Fever Within 48 Hours No Sepsis New/Unexplained Change in Mental Status N/A Sepsis Action Taken by Nursing No Action Required Laboratory Data 01/25/25 05:29 01/25/25 05:29 Lab Results 01/24/25 01/24/25 Range/Units 01:21 03:14 WBC 10.64 (4.8-10.8) K/ul RBC 4.61 L (4.70-6.10) M/uL Hgb 12.9 L (14.0-18.0) g/dl Hct 38.9 L (42.0-52.0) % MCV 84.4 (80.0-100.0) fL MCH 28.0 (25.0-34.0) pg MCHC 33.2 (32.0-36.0) g/dL RDW Std Deviation 58.6 H (36.4-46.3) fL RDW Coeff of Bennett 19.6 H (11.5-14.5) % Plt Count 361 (130-400) K/uL MPV 10.4 (9.4-12.4) fL Immature Gran % (Auto) 0.5 % Neut % (Auto) 86.0 % Lymph % (Auto) 3.9 % [place] % (Auto) 9.2 % Eos % (Auto) 0.1 % Baso % (Auto) 0.3 % Neut # (Auto) 9.15 H (1.40-6.50) K/uL Lymph # (Auto) 0.42 L (1.20-3.40) K/uL [place] # (Auto) 0.98 H (0.11-0.59) K/uL Eos # (Auto) 0.01 (0.00-0.50) K/uL Baso # (Auto) 0.03 (0.00-0.20) K/uL Immature Gran # (Auto) 0.05 (0.01-0.20) K/uL Sodium 140 (136-145) mmol/L Potassium 4.3 (3.5-5.1) mmol/L Chloride 107 (98-107) mmol/L Carbon Dioxide 29 (21-32) mmol/L Anion Gap 4 (3-11) BUN 23 (6-23) mg/dl Creatinine 0.89 (0.6-1.4) mg/dl Est Cr Clr Drug Dosing 61.9 ml/min eGFR 86.63 BUN/Creatinine Ratio 25.8 H (10-20) Glucose 64 L (70-99(Fasting)) mg/dl Calcium 10.3 (8.6-10.3) mg/dl Magnesium 1.8 (1.7-2.4) mg/dl Total Bilirubin 2.7 H (0.2-1.0) mg/dl AST 92 H (13-39) U/L ALT 41 (7-52) U/L Alkaline Phosphatase 657 H (34-104) U/L Troponin I High Sens 9.4 (0-20) pg/ml Total Protein 6.3 (6.0-8.3) gm/dl Albumin 2.5 L (3.4-5.0) gm/dl Globulin 3.8 (2.5-4.0) gm/dl Albumin/Globulin Ratio 0.7 L (0.9-2) TSH 12.154 H (0.300-4.500) uIu/ml Free T4 1.01 (0.61-1.60) ng/dl Urine Color Dark Yellow Urine Appearance Clear (Clear) Urine pH 5.5 (4.5-7.5) Ur Specific [place] 1.019 (1.000-1.030) Urine Protein Negative (Negative) Urine Glucose (UA) Negative (Negative) Urine Ketones 1+ H (Negative) Urine Blood Negative (Negative) Urine Nitrite Negative (Negative) Urine Bilirubin 1+ H (Negative) Urine Urobilinogen Positive H (Negative) Ur Leukocyte Esterase Negative (Negative) Administered Medications Enoxaparin Sodium (Enoxaparin Inj 40 Mg/0.4 Ml Syr) 40 mg SQ Q24H REPLACED BY [facility] Stop: 02/23/25 08:59 Last Admin: 01/25/25 08:27 Dose: 40 mg Documented By: Admin: 01/24/25 08:52 Dose: 40 mg Documented By: SELVIN Metoprolol Tartrate (Metoprolol Tartrate 25 Mg Tab) 12.5 mg PO BID REPLACED BY [facility] Stop: 02/23/25 08:59 Last Admin: 01/25/25 08:27 Dose: 12.5 mg Documented By: Admin: 01/24/25 21:15 Dose: Not Given Documented By: Admin: 01/24/25 08:54 Dose: 12.5 mg Documented By: SELVIN Discontinued Medications Albumin Human (Albumin 25%) 12.5 gm in 50 mls @ 50 mls/hr IV Q1H REPLACED BY [facility]; Protocol Stop: 01/24/25 14:59 Last Infusion: 01/24/25 17:05 Dose: Infused Documented By: [facility] Admin: 01/24/25 16:03 Dose: 50 mls/hr Documented By: [facility] Infusion: 01/24/25 15:54 Dose: Infused Documented By: [facility] Admin: 01/24/25 14:30 Dose: 50 mls/hr Documented By: Infusion: 01/24/25 14:16 Dose: Infused Documented By: [facility] Admin: 01/24/25 13:16 Dose: 50 mls/hr Documented By: [facility] Discharge Plan Visit Data Chief Complaint: Fall Stated Complaint: GLF, DIZZY ED Provider: Juanita Stewart Discharge Problem: Accidental fall from commode or toilet, Weakness Patient Disposition: Admitted As Inpatient Condition: Fair Discharge Instructions Interventions: ED Discharge Assessment Last Done: 01/24/25 10:15 Discharge Problem: Accidental fall from commode or toilet Qualifiers: Encounter type: initial encounter Qualified Code(s): W18.11XA - Fall from or off toilet without subsequent striking against object, initial encounter
[2025-01-24 02:04] LABS: Albumin Globulin Ratio 0.7 (0.9-2); Albumin Level 2.5 gm/dl (3.4-5.0); BUN Creatinine Ratio 25.8 (10-20); Bilirubin,Total 2.7 mg/dl (0.2-1.0); Calcium 10.3 mg/dl (8.6-10.3); Creatinine Clr Calc Pharmacy 61.9 ml/min; Globulin 3.8 gm/dl (2.5-4.0); Magnesium 1.8 mg/dl (1.7-2.4); Potassium 4.3 mmol/L (3.5-5.1); Total Protein 6.3 gm/dl (6.0-8.3)
[2025-01-24 02:11] LABS: Troponin I High Sensitivity 9.4 pg/ml (0-20)
[2025-01-24 02:20] LABS: Thyroid Stimulating Hormone 12.154 uIu/ml (0.300-4.500)
[2025-01-24 02:56] LABS: T4 Free Thyroxine 1.01 ng/dl (0.61-1.60)
[2025-01-24 03:35] LABS: Appearance Urine Clear (Clear); Bilirubin Urine 1+ (Negative); Blood Urine Negative (Negative); Color Urine Dark Yellow; Glucose Urine UA Negative (Negative); Ketones Urine 1+ (Negative); Leukocyte Esterase Urine Negative (Negative); Nitrite Urine Negative (Negative); Protein Urine Negative (Negative); Specific Gravity Urine 1.019 (1.000-1.030); Urobilinogen Urine Positive (Negative); pH Urine 5.5 (4.5-7.5)
--- NOTE | 2025-01-24 03:49 | XRay Report ---
EXAM: XR chest 1V portable CLINICAL HISTORY: Weakness. TECHNIQUE: An X-ray image of the chest is obtained in AP projection. COMPARISON: prior chest X-ray 12/20/2024. FINDINGS: Pulmonary Parenchyma: Still, there are bilateral prominent bronchovascular markings, likely lung congestion. Otherwise, lungs are clear bilaterally. No evidence of consolidation, collapse, or focal opacities. No pulmonary nodules are identified. No evidence of pleural effusion or pleural thickening. Heart and Mediastinum: Heart size and shape are normal. No mediastinal widening or masses. No hilar or mediastinal lymphadenopathy. Bony Thorax: Bony thorax appears intact without fractures or deformities. Soft Tissues: Soft tissues overlying the chest wall are unremarkable. ECG leads on the chest. Prominent left upper bowel loops. IMPRESSION: Compared to the prior chest x-ray on 12/20/2024. 1. Still, there are signs of bilateral lung congestion 2. No acute cardiopulmonary abnormalities are identified. Electronically signed by Aravind Mcgee 01-24-2025 03:48 AM
--- NOTE | 2025-01-24 05:49 | History & Physical Report ---
Date of Service January 24, 2025 Assessment & Plan (1) Fall: Plan: 79-year-old male with past med history significant for metastatic colon cancer currently not receiving treatment, history of A-fib,, anemia chronic disease, tachybradycardia syndrome, hyperlipidemia comes in because of fall and weakness. Recently patient had fall and had C1 spine fracture and and was transferred [place] [facility] and is on neck collar. As per he has appointment with the spine Ortho in couple of weeks. Patient was admitted recently at [facility] from 12/20/2024 to 12/30/2024 and was transferred to rehab. Was discharged from rehab couple weeks ago. said they did not like the rehab. From rehab he went to hot as was remodeling the house to help the patient. He came to the house today. He is ambulating with a walker. When patient was in the bathroom, fell down from the commode. Though they were Bars he could not get up himself. also could not able to get him up and EMS was called and brought him here. now thinks that she cannot take care of him at home. She wanted him to go to [facility]. Patient is alert and awake and oriented. Able to give history. Patient getting paracentesis frequently. Next paracentesis is on Sunday. states they are open for pathology diagnosis of the ascitic fluid and go from there regarding the cancer. Patient denies any headache. No neck pain. No chest pain. No back pain. Has some abdominal pain. Appetite is okay. Somewhat constipated. Micturating okay. Currently resting comfortably and hemodynamically okay. Fall ambulatory dysfunction Will follow CT head and cervical spine PT OT wants him to go to [facility] Metastatic colon cancer Ascites Due for paracentesis next Sunday Follow-up with heme-onc Currently not on any treatment says she is not sure whether he has a cancer and she wants to follow-up on the paracentesis pathology Right lower extremity edema We will get Dopplers History of A-fib On metoprolol 25 mg twice daily But did not take for last 2 days as his blood pressure was running low Will reduce the dose to 12.5 mg p.o. twice daily and to give with holding parameters Severe protein calorie malnutrition Consult dietitian C1 cervical fracture On neck collar Follow-up with orthospine DVT prophylaxis Lovenox Disposition Medical floor CODE STATUS. DNR/DNI as per my discussion with the patient History of Present Illness Chief Complaint: Fall, weakness and ambulatory dysfunction Primary Care Provider: David Bustamante MD 79-year-old male with past med history significant for metastatic colon cancer currently not receiving treatment, history of A-fib,, anemia chronic disease, tachybradycardia syndrome, hyperlipidemia comes in because of fall and weakness. Recently patient had fall and had C1 spine fracture and and was transferred to [facility] and is on neck collar. As per he has appointment with the spine Ortho in couple of weeks. Patient was admitted recently at [facility] from 12/20/2024 to 12/30/2024 and was transferred to rehab. Was discharged from rehab couple weeks ago. said they did not like the rehab. From rehab he went to hot as was remodeling the house to help the patient. He came to the house today. He is ambulating with a walker. When patient was in the bathroom, fell down from the commode. Though they were Bars he could not get up himself. also could not able to get him up and EMS was called and brought him here. now thinks that she cannot take care of him at home. She wanted him to go to [facility] living. Patient is alert and awake and oriented. Able to give history. Patient getting paracentesis frequently. Next paracentesis is on Sunday. states they are open for pathology diagnosis of the ascitic fluid and go from there regarding the cancer. Patient denies any headache. No neck pain. No chest pain. No back pain. Has some abdominal pain. Appetite is okay. Somewhat constipated. Micturating okay. Currently resting comfortably and hemodynamically okay. Past medical history. As mentioned above Past surgical history.. Cardioversion. Medtronic loop recorder. Social history. . No smoking. Alcohol use. No drug use. Family history. Brother had oral cancer. Mother hyperlipidemia. Ovarian cancer. Father had hypertension. Brother had hypertension. Allergies Allergy/AdvReac Type Severity Reaction Status Date / Time spinach Allergy Severe ANAPHYLAXIS Verified 12/20/24 08:41 almond Allergy Intermediate tested +2 Verified 12/20/24 08:41 on skin test peanut Allergy Intermediate +3 ALLERGY Verified 12/20/24 08:41 TEST shellfish derived Allergy Intermediate CRAB-+2 Verified 12/20/24 08:41 ALLERGY TEST soy Allergy Intermediate +2 ALLERGY Verified 12/20/24 08:41 TEST tomato Allergy Intermediate Gastrointestinal Verified 12/20/24 08:41 Upset tree nut Allergy Intermediate +2 ALLERGY Verified 12/20/24 08:41 TEST ciprofloxacin Allergy Mild Itching Verified 12/20/24 08:41 erythromycin base Allergy Mild Itching Verified 12/20/24 08:41 pine nut Allergy Mild POSITIVE Verified 12/20/24 08:41 ALLERGY TEST pistachio nut Allergy Mild POSITIVE Verified 12/20/24 08:41 ALLERGY TEST basil Allergy Unknown NOT TESTED Verified 12/20/24 08:41 oregano Allergy Unknown Unknown Verified 12/20/24 08:41 Latex, Natural Rubber Allergy Rash Verified 12/20/24 14:35 rice Allergy Unknown Verified 12/20/24 12:00 aspirin AdvReac Intermediate ABDOMINAL Verified 12/20/24 08:41 BURNING IF OVER 81MG. lidocaine AdvReac Unknown unknown Verified 12/20/24 08:41 Home Medications Medication Instructions Recorded Confirmed Type metoprolol tartrate 25 mg tablet 25 mg PO BID 01/24/25 01/24/25 History Past Med/Surg History Problem List (Updated 01/24/25 @ 05:56 by Arsen Beck MD) Fall Scalp pain Weakness generalized Palliative care by specialist Advanced care planning/counseling discussion Metastatic colon cancer to liver Hepatomegaly, not elsewhere classified Ascites Malnutrition (Acute) Leg edema (Acute) Acute dehydration (Acute) Metastatic cancer (Acute) Adult failure to thrive (Acute) Goals of care, counseling/discussion Severe protein-calorie malnutrition Colon cancer Adult failure to thrive Abnormal US (ultrasound) of abdomen Liver mass Elevated LFTs Abnormal coagulation profile Thrombocytosis Anemia Encounter to discuss test results Patient request for diagnostic testing Routine health maintenance Hyperlipidemia 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 Prediabetes Hypertension (Chronic) Medical History History of cardioversion HTN (hypertension) Surgical History No pertinent past surgical history Family History Father High cholesterol Hypertension Peptic ulcer Testicular cancer Cerebral hemorrhage cause of sudden 56 years old Mother Alzheimer disease Cataracts, bilateral Ovarian cancer Caused age 7979 years old Brother Hypertension High cholesterol Prostate cancer Other Cancer Social History Smoking Status: Never smoker Second Hand Exposure: No; Do You Dip or Chew Tobacco: No; Hx Alcohol Use: No Hx Substance Use: No Preferred Language: Spanish Communication Ability: Effective Visual Impairment: Limited Hearing Ability: Normal Dealer Analyst Required: No Beliefs That Will Affect Care: Spiritual marital status: Current Living Situation: Spouse current occupational status: retired How many Children do You have: 0 Feels Safe at Home: Yes Childhood Exposure to Second-Hand Smoke: Yes Diet: vegetarian caffeine: No during the past year weight has: remained stable Dental Care, Regularly: Yes Physical Activity Frequency: Daily Seatbelt Use: always Sunscreen Use: Yes Assistive Devices: Walker Review of Systems Review of Systems: All systems reviewed & are unremarkable except as noted in HPI & below Physical Exam Physical Exam: General- Not in distress Head- atraumatic Eyes- PERRL. ENT- oropharynx clear Neck- supple, no JVD. Lungs- clear to auscultation no wheezing or crackles Heart- regular rhythm; no murmur, no gallop. Abdomen- normal bowel sounds, soft, nontender, no distension Extremities- b/l lower ext gross edema seen. erythema seen on right foot medial aspect Neuro- alert, oriented ; PERRL, no facial palsy; no dysarthria; moves extremities Results & Data Results & Data Vital Signs (Past 12 Hours) Vital Signs Temp Pulse Pulse Resp BP BP Pulse Ox 01/24/25 05:16 87 01/24/25 03:22 92 H 17 124/79 99 01/24/25 01:46 99 01/24/25 01:15 91 H 01/24/25 01:13 36.4 C L 92 H 20 108/64 94 O2 Del Method 01/24/25 05:16 01/24/25 03:22 Room Air 01/24/25 01:46 Room Air 01/24/25 01:15 01/24/25 01:13 Room Air Diagnostic Findings Laboratory Results WBC 10.64 K/ul (4.8-10.8) 01/24/25 01:21 RBC 4.61 M/uL (4.70-6.10) L 01/24/25 01:21 Hgb 12.9 g/dl (14.0-18.0) L 01/24/25 01:21 Hct 38.9 % (42.0-52.0) L 01/24/25 01:21 MCV 84.4 fL (80.0-100.0) 01/24/25 01:21 MCH 28.0 pg (25.0-34.0) 01/24/25 01: MCHC 33.2 g/dL (32.0-36.0) 01/24/25 01: RDW Std Deviation 58.6 fL (36.4-46.3) H 01/24/25 01: RDW Coeff of Bennett 19.6 % (11.5-14.5) H 01/24/25 01:21 Plt Count 361 K/uL (130-400) 01/24/25 01:21 MPV 10.4 fL (9.4-12.4) 01/24/25 01:21 Immature Gran % (Auto) 0.5 % 01/24/25 01:21 Neut % (Auto) 86.0 % 01/24/25 01:21 Lymph % (Auto) 3.9 % 01/24/25 01:21 Day % (Auto) 9.2 % 01/24/25 01:21 Eos % (Auto) 0.1 % 01/24/25 01:21 Baso % (Auto) 0.3 % 01/24/25 01:21 Neut # (Auto) 9.15 K/uL (1.40-6.50) H 01/24/25 01:21 Lymph # (Auto) 0.42 K/uL (1.20-3.40) L 01/24/25 01:21 Day # (Auto) 0.98 K/uL (0.11-0.59) H 01/24/25 01:21 Eos # (Auto) 0.01 K/uL (0.00-0.50) 01/24/25 01:21 Baso # (Auto) 0.03 K/uL (0.00-0.20) 01/24/25 01:21 Immature Gran # (Auto) 0.05 K/uL (0.01-0.20) 01/24/25 01:21 Sodium 140 mmol/L (136-145) 01/24/25 01:21 Potassium 4.3 mmol/L (3.5-5.1) 01/24/25 01:21 Chloride 107 mmol/L (98-107) 01/24/25 01:21 Carbon Dioxide 29 mmol/L (21-32) 01/24/25 01:21 Anion Gap 4 (3-11) 01/24/25 01:21 BUN 23 mg/dl (6-23) 01/24/25 01:21 Creatinine 0.89 mg/dl (0.6-1.4) 01/24/25 01:21 Est Cr Clr Drug Dosing 61.9 ml/min 01/24/25 01:21 eGFR 86.63 01/24/25 01:21 BUN/Creatinine Ratio 25.8 (10-20) H 01/24/25 01:21 Glucose 64 mg/dl (70-99(Fasting)) L 01/24/25 01:21 Calcium 10.3 mg/dl (8.6-10.3) 01/24/25 01:21 Magnesium 1.8 mg/dl (1.7-2.4) 01/24/25 01:21 Total Bilirubin 2.7 mg/dl (0.2-1.0) H 01/24/25 01:21 AST 92 U/L (13-39) H 01/24/25 01:21 ALT 41 U/L (7-52) 01/24/25 01:21 Alkaline Phosphatase 657 U/L (34-104) H 01/24/25 01:21 Troponin I High Sens 9.4 pg/ml (0-20) 01/24/25 01:21 Total Protein 6.3 gm/dl (6.0-8.3) 01/24/25 01:21 Albumin 2.5 gm/dl (3.4-5.0) L 01/24/25 01:21 Globulin 3.8 gm/dl (2.5-4.0) 01/24/25 01:21 Albumin/Globulin Ratio 0.7 (0.9-2) L 01/24/25 01:21 TSH 12.154 uIu/ml (0.300-4.500) H 01/24/25 01:21 Free T4 1.01 ng/dl (0.61-1.60) 01/24/25 01:21 Urine Color Dark Yellow 01/24/25 03:14 Urine Appearance Clear (Clear) 01/24/25 03:14 Urine pH 5.5 (4.5-7.5) 01/24/25 03:14 Ur Specific [place] 1.019 (1.000-1.030) 01/24/25 03:14 Urine Protein Negative (Negative) 01/24/25 03:14 Urine Glucose (UA) Negative (Negative) 01/24/25 03:14 Urine Ketones 1+ (Negative) H 01/24/25 03:14 Urine Blood Negative (Negative) 01/24/25 03:14 Urine Nitrite Negative (Negative) 01/24/25 03:14 Urine Bilirubin 1+ (Negative) H 01/24/25 03:14 Urine Urobilinogen Positive (Negative) H 01/24/25 03:14 Ur Leukocyte Esterase Negative (Negative) 01/24/25 03:14 Impressions Chest X-Ray 01/24/25 01:39 EXAM: XR chest 1V portable CLINICAL HISTORY: Weakness. TECHNIQUE: An X-ray image of the chest is obtained in AP projection. COMPARISON: prior chest X-ray 12/20/2024. FINDINGS: Pulmonary Parenchyma: Still, there are bilateral prominent bronchovascular markings, likely lung congestion. Otherwise, lungs are clear bilaterally. No evidence of consolidation, collapse, or focal opacities. No pulmonary nodules are identified. No evidence of pleural effusion or pleural thickening. Heart and Mediastinum: Heart size and shape are normal. No mediastinal widening or masses. No hilar or mediastinal lymphadenopathy. Bony Thorax: Bony thorax appears intact without fractures or deformities. Soft Tissues: Soft tissues overlying the chest wall are unremarkable. ECG leads on the chest. Prominent left upper bowel loops. IMPRESSION: Compared to the prior chest x-ray on 12/20/2024. 1. Still, there are signs of bilateral lung congestion 2. No acute cardiopulmonary abnormalities are identified. Electronically signed by Aravind Mcgee 01-24-2025 03:48 AM ECG Additional Comments: ECG. Sinus rhythm with frequent PVCs and 0.2. Nonspecific T waves in inferior leads. QTc 430 Code Status & VTE Plan VTE Prophylaxis Plan VTE Prophylaxis will be ordered: Yes
--- NOTE | 2025-01-24 06:25 | CT Scan Report ---
EXAM: CT head/brain wo con CLINICAL HISTORY: fall TECHNIQUE: Multiple axial images are obtained from the skull base to the vertex without contrast. CT scan was performed according to ALARA (as low as reasonable achievable). COMPARISON: 05:08:52 TRIAL MANAGER. FINDINGS: There is cerebral atrophy. No evidence of space occupying lesion, hemorrhage, edema, mass effect, midline shift, extra axial collection, or hydrocephalus is noted. Basal cisterns are symmetric and normal in size and configuration. There are scattered periventricular hypodensities as can be seen with chronic microvascular ischemic changes. The warren-white matter differentiation is preserved. Visualized paranasal sinuses and mastoid air cells are well aerated. Orbital contents are within normal limits. Bony structures are intact. IMPRESSION: 1. No evidence of acute intracranial abnormality is demonstrated. 2. Chronic microvascular ischemic changes. 3. Cerebral atrophy. No other new interval abnormality since prior study. Electronically signed by Benedicto Funez 01-24-2025 06:25 AM
--- NOTE | 2025-01-24 07:17 | Electrocardiogram Report ---
Test Reason : Blood Pressure : */* mmHG Vent. Rate : 92 BPM Atrial Rate : 92 BPM P-R Int : 158 ms QRS Dur : 88 ms QT Int : 348 ms P-R-T Axes : 61 66 67 degrees QTcB Int : 430 ms Sinus rhythm with frequent Premature ventricular complexes Nonspecific ST abnormality Abnormal ECG When compared with ECG of 14-Dec-2024 20:56, Nonspecific T wave abnormality has replaced inverted T waves in Inferior leads T wave inversion no longer evident in Lateral leads Confirmed by Bhavik Verde ([id number]) on 01/24/2025 7:16:48 AM Referred By: REFERRED SELF Confirmed By: Bhavik Verde
--- NOTE | 2025-01-24 07:26 | CT Scan Report ---
EXAM: CT cervical spine wo con CLINICAL HISTORY: fall TECHNIQUE: Computed tomography of the cervical spine performed without intravenous contrast. Contiguous axial images were obtained from the skull base to T2, with sagittal and coronal reformatted images reconstructed from the axial data. CT scan was performed according to ALARA (as low as reasonable achievable). COMPARISON: 05:08:52 VISUAL DISPLAY ASSOCIATE FINDINGS: Linear minimally displaced fracture is noted involving right side of anterior arch of C1 vertebra fracture line extending up to the right atlanto-axial joint. Linear fracture minimally compressed is noted through superior endplate of T1 and T2 vertebra- new finding Loss of cervical lordosis - suggest possibility of muscle spasm/positional. Degenerative changes involving cervical spine in the form of multilevel marginal osteophytes, disc space reduction and facetal arthrosis. Cervical vertebral bodies are normal in height and alignment, with no evidence of fracture or subluxation. Prevertebral soft tissues are not widened. The remaining suprahyoid and infrahyoid soft tissues in the neck are unremarkable. Posterior uncovertebral arthrosis is noted at C5-C6 and C6-C7 levels,which indenting ventral thecal sac and causes bilateral neuroforaminal narrowing. Thyroid gland appears unremarkable. IMPRESSION: 1. Linear minimally displaced fracture is noted involving right side of anterior arch of C1 vertebra, fracture line extending up to the right atlanto-axial joint-stable. 2. Cervical spondylosis.-stable. 3. Multiple small cavitary nodules are noted in bilateral visualized upper lobes. Relatively stable. 4. Linear fracture minimally compressed is noted through superior endplate of T1 and T2 vertebra- new finding Electronically signed by Benedicto Funez 01-24-2025 07:25 AM
[2025-01-24] MEDS ORDERED: POLYETHYLENE (MIRALAX) 17 GM PACK PO PRN (08:31)
[2025-01-24] MEDS: ENOXAPARIN INJ 40 MG/0.4 ML SYR SQ SCH (08:52)
[2025-01-24] MEDS: METOPROLOL TARTRATE 25 MG TAB PO SCH (08:54)
[2025-01-24 12:06] LABS: Appearance Peritoneal Fluid Clear; Color Peritoneal Fluid Yellow; RBC Peritoneal Fluid Auto < 2000 /uL; WBC Peritoneal Fluid Auto 53 /ul (0-300)
[2025-01-24 12:16] LABS: Albumin Peritoneal Fluid < 1.5 gm/dl
[2025-01-24 12:19] LABS: Total Protein Peritoneal Fluid < 3.0 gm/dl
--- NOTE | 2025-01-24 12:21 | Communication Note ---
Patient seen and examined at bedside. Patient very familiar to this provider. Accompanied by . Patient having falls at hotel, was in SNF, left, stayed at hotel while worked on home, but upon coming home fell and no longer able to take care of him at home. Patient has very distended abdomen, feels tight, not super tender. Low appetite due to distended abdomen. On exam, patient has fluid wave with significant distension, minimal tenderness to palpation, significant cachexia/sarcopenia noted, progressed from prior admission. A/P: #End Stage Colorectal Cancer #Malignant Ascites #Malignant Effusions/Pulmonary Edema -patient continues to decline, ECOG now 3 at this time, very poor nutritional status -prognosis likely on scale of weeks to months, given ECOG/malnutrition no longer treatment candidate at this time -new stress fractures in back as well, pulmonary nodules noted -unable to safely stay at home, family would like to explore assisted living Plan: -[facility] assisted living of choice, discussed with case management -paracentesis performed, no immediate post op complications -will discuss with IR on Sunday about scheduling serial paracentesis if possible -will discuss goals of care and next steps with patient/ tomorrow -ok for to bring in vitamin supplements for patient to take not on formulary given patient status Date of Service: January 24, 2025
--- NOTE | 2025-01-24 12:22 | Communication Note ---
INDICATION: ascites PROCEDURE HEALTH PHYSICIST: Scott Hernandez ATTENDING PHYSICIAN: Scott Hernandez Ultrasound used to shirley location: yes CONSENT: During the informed consent discussion regarding the procedure, or treatment, I explained the following to the patient/designee: a. Nature of the procedure or treatment and who will perform the procedure or treatment. b. Necessity for procedure and the possible benefits. c. Risks and complications (most common and serious). d. Alternative treatments and the risks, benefits and side effects of each (including no treatment). e. Likelihood of the patient achieving his/her goals without this procedure and surgery treatment. f. Problems that might occur during the recuperation. g. Conflicts of interest, if any PROCEDURE SUMMARY: A time-out was performed. My hands were washed immediately prior to the procedure. The area was cleansed and draped in usual sterile fashion using chlorhexidine scrub. Anesthesia was achieved with 1% lidocaine. The right lateral lower quadrant of the abdomen was prepped and draped in a sterile fashion using chlorhexidine scrub. 1% lidocaine was used to numb the skin, soft tissue and peritoneum. The paracentesis catheter was inserted and advanced with negative pressure until yellow colored fluid was aspirated. Approximately 100 cc of ascitic fluid was collected and sent for laboratory analysis. The catheter was then connected to the vaccutainer and 5 liters of additional ascitic fluid were drained. The catheter was removed and no leaking was noted. A bandaid was placed over the puncture wound. The patient tolerated the procedure well without any immediate complications. Estimated blood loss was 5cc Post Procedure: given albumin, cytology/labs sent for anaylsis, post op monitoring ordered Date of Service: January 24, 2025
[2025-01-24 12:37] LABS: Lymphocytes, Fluid 27 %; Mono,Macrophage,Mesothelial 54 %; Neutrophils, Fluid 19 %
[2025-01-24] MEDS: ALBUMIN 25% 12.5 GM/50 ML VIAL IV SCH (13:16)
[2025-01-25 05:48] LABS: Basophils # (auto) 0.03 K/uL (0.00-0.20); Basophils % (auto) 0.3 %; Eosinophils # (auto) 0.03 K/uL (0.00-0.50); Eosinophils % (auto) 0.3 %; Hematocrit (blood only) 36.9 % (42.0-52.0); Hemoglobin 12.1 g/dl (14.0-18.0); Immature Granulocytes # (auto) 0.02 K/uL (0.01-0.20); Immature Granulocytes % (auto) 0.2 %; Lymphocytes % (auto) 6.6 %; Mean Corpuscular Hemoglobin 27.6 pg (25.0-34.0); Mean Corpuscular Hgb Conc 32.8 g/dL (32.0-36.0); Mean Corpuscular Volume 84.2 fL (80.0-100.0); Mean Platelet Volume 9.9 fL (9.4-12.4); Monocytes # (auto) 0.93 K/uL (0.11-0.59); Monocytes % (auto) 10.2 %; Neutrophils # (auto) 7.51 K/uL (1.40-6.50); Neutrophils % (auto) 82.4 %; Platelet Count 296 K/uL (130-400); RDW Coefficient of Variation 19.9 % (11.5-14.5); RDW Standard Deviation 59.8 fL (36.4-46.3); Red Blood Count 4.38 M/uL (4.70-6.10); White Blood Count 9.12 K/ul (4.8-10.8)
[2025-01-25 06:04] LABS: Albumin Globulin Ratio 0.8 (0.9-2); Albumin Level 2.4 gm/dl (3.4-5.0); Bilirubin,Total 2.1 mg/dl (0.2-1.0); Calcium 9.9 mg/dl (8.6-10.3); Creatinine Clr Calc Pharmacy 70.9 ml/min; Globulin 3.2 gm/dl (2.5-4.0); Magnesium 1.7 mg/dl (1.7-2.4); Potassium 3.8 mmol/L (3.5-5.1); Total Protein 5.6 gm/dl (6.0-8.3)
--- NOTE | 2025-01-25 06:46 | Ultrasound Report ---
EXAM: US venous doppler LE BI CLINICAL HISTORY: b/l lower ext edema. dvt? TECHNIQUE: Grayscale ultrasound, with and without compression, and color Doppler spectral waveform analysis were performed of the deep veins of the bilateral lower extremities from the level of the common femoral veins to the level of the popliteal veins. The posterior tibial and peroneal veins were also scanned. COMPARISON: None. FINDINGS: Bilateral common femoral veins, femoral veins, and popliteal veins are compressible and opacify at color Doppler evaluation with no evidence of deep vein thrombosis. There is no evidence of DVT in the visualized portions of the posterior tibial and peroneal veins. IMPRESSION: 1. Negative for deep vein thrombosis in both lower limbs. Electronically signed by Benedicto Funez 01-25-2025 06:46 AM
--- NOTE | 2025-01-25 12:13 | Hospitalist Progress Note ---
Date of Service January 25, 2025 Assessment & Plan (1) Fall: Plan: 79-year-old male with past med history significant for metastatic colon cancer currently not receiving treatment, history of A-fib,, anemia chronic disease, tachybradycardia syndrome, hyperlipidemia comes in because of fall and weakness. Recently patient had fall and had C1 spine fracture and and was transferred to [facility] and is on neck collar. As per he has appointment with the spine Ortho in couple of weeks. Patient was admitted recently at [facility] from 12/20/2024 to 12/30/2024 and was transferred to rehab. Was discharged from rehab couple weeks ago. said they did not like the rehab. From rehab he went to [facility] as was remodeling the house to help the patient. He came to the house today. He is ambulating with a walker. When patient was in the bathroom, fell down from the commode. Though they were Bars he could not get up himself. also could not able to get him up and EMS was called and brought him here. now thinks that she cannot take care of him at home. She wanted him to go to [facility]. Patient is alert and awake and oriented. Able to give history. Patient getting paracentesis frequently. Next paracentesis is on Sunday. states they are open for pathology diagnosis of the ascitic fluid and go from there regarding the cancer. Patient denies any headache. No neck pain. No chest pain. No back pain. Has some abdominal pain. Appetite is okay. Somewhat constipated. Micturating okay. Currently resting comfortably and hemodynamically okay. Fall Sarcopenia/Cachexia Ambulatory Dysfunction -PT OT - wants him to go to [facility] -would benefit from hospice services at [facility] End stage malignancy of unknown primary (likely colorectal) Malignant Ascites Malignant Pulmonary Edema/Pleural Effusions -paracentesis performed yesterday -patients goals are to stay out of hospital, have good quality of life with time he has left -functional status/nutritional status makes patient unlikely to be a treatment candidate, overall worse than prior, see oncology note from last admission -prognosis on scale of weeks to months, declining overall at this time -patient agreeable to hospice consult, but will discuss with next steps History of A-fib -On metoprolol 25 mg twice daily -But did not take for last 2 days as his blood pressure was running low -Will reduce the dose to 12.5 mg p.o. twice daily and to give with holding parameters Severe protein calorie malnutrition -Consult dietitian C1 cervical fracture T1-T2 Fractures -On neck collar -likely 2/2 fall, severe malnutrition and malignancy -Follow-up with orthospine outpatient I spent a total of 55 minutes in direct patient care, including [id number] time with the patient and/or family, reviewing medical records, ordering and reviewing diagnostic tests, and coordinating care with other healthcare providers. This time includes: history taking, physical examination, medical decision making, counseling, ECG interpretation, imaging interpretation, lab interpretation, orders, and education, excluding time spent in the performance of separately billed services. Admission and Anticipated Discharge Date Admission Date: January 24, 2025 Subjective Patient seen and examined at bedside. Had long discussion in regards to patients goals and values, follow up on my prior discussions. His goal is to have a good quality of life, not come back to the hospital. Hospice was introduced to him, risks and benefits explained. Prognosis is on scale of weeks to months given stage IV malignancy unknown origin, ECOG 3 sliding to 4, and severe sarcopena/malnutririton. He states that he feels ready for hospice, would like to discuss further with his . Review of Systems Review of Systems: CONSTITUTIONAL: Patient denies fevers, chills, sweats and weight changes. EYES: Patient denies any visual symptoms. EARS, NOSE, AND THROAT: No difficulties with hearing. No symptoms of rhinitis or sore throat. CARDIOVASCULAR: Patient denies chest pains, palpitations, orthopnea and paroxysmal nocturnal dyspnea. RESPIRATORY: No dyspnea on exertion, no wheezing or cough. GI: No nausea, vomiting, diarrhea, constipation, abdominal pain, hematochezia or melena. : No urinary hesitancy or dribbling. No nocturia or urinary frequency. No abnormal urethral discharge. MUSCULOSKELETAL: No myalgias or arthralgias. NEUROLOGIC: No chronic headaches, no seizures. Patient denies numbness, tingling or weakness. PSYCHIATRIC: Patient denies problems with mood disturbance. No problems with anxiety. ENDOCRINE: No excessive urination or excessive thirst. DERMATOLOGIC: Patient denies any rashes or skin changes. Physical Exam Physical Exam: Gen: A&O 3 NAD, severe cachexia/sarcopenia, worse than last visit with this provider HEENT: NCAT, EOMI, not icteric. External ears normal. No rhinorrhea. Moist mucous membranes. Neck: Supple, full range of motion, no observable masses, No meningeal sign. Lungs: No Respiratory distress. CV: RRR, no edema. Abdomen: Soft, nondistended, No rebound tenderness. MSK: No joint swelling, no redness. Skin: No rashes, petechiae, lesions. Normal color per patient. Neuro: Normal Gait, Grossly intact. Psych: Appropriate for situation. Results & Data Results & Data Vital Signs (Past 12 Hours) Vital Signs Temp Pulse Resp BP Pulse Ox O2 Del Method 01/25/25 08:01 36.5 C 89 17 102/62 93 Room Air 01/25/25 07:45 16 Room Air Laboratory Results -personally reviewed, stable LFTs Medications Administered Enoxaparin Sodium (Enoxaparin Inj 40 Mg/0.4 Ml Syr) 40 mg SQ Q24H GRICELDA Stop: 02/23/25 08:59 Last Admin: 01/25/25 08:27 Dose: 40 mg Documented By: Admin: 01/24/25 08:52 Dose: 40 mg Documented By: SELVIN Metoprolol Tartrate (Metoprolol Tartrate 25 Mg Tab) 12.5 mg PO BID GRICELDA Stop: 02/23/25 08:59 Last Admin: 01/25/25 08:27 Dose: 12.5 mg Documented By: Admin: 01/24/25 21:15 Dose: Not Given Documented By: Admin: 01/24/25 08:54 Dose: 12.5 mg Documented By: SELVIN
[2025-01-25] MEDS ORDERED: ACETAMINOPHEN 325 MG TAB PO STA (19:32)
[2025-01-25] MEDS: ACETAMINOPHEN 325 MG TAB PO SCH (21:53)
[2025-01-25] MEDS: LOPERAMIDE HCL 2 MG CAP PO PRN (23:52)
[2025-01-26 07:12] LABS: Albumin Globulin Ratio 0.7 (0.9-2); Albumin Level 2.3 gm/dl (3.4-5.0); BUN Creatinine Ratio 25.8 (10-20); Bilirubin,Total 2.2 mg/dl (0.2-1.0); Calcium 9.7 mg/dl (8.6-10.3); Creatinine Clr Calc Pharmacy 79.5 ml/min; Globulin 3.3 gm/dl (2.5-4.0); Magnesium 1.7 mg/dl (1.7-2.4); Phosphorus 2.3 mg/dl (2.5-4.9); Potassium 3.9 mmol/L (3.5-5.1); Total Protein 5.6 gm/dl (6.0-8.3)
[2025-01-26] MEDS ORDERED: SODIUM PHOSPHATE 3 MMOL/1 ML INFUSION IV STA (11:52)
--- NOTE | 2025-01-26 11:52 | Hospitalist Progress Note ---
Date of Service January 26, 2025 Assessment & Plan (1) Fall: Plan: 79-year-old male with past med history significant for metastatic colon cancer currently not receiving treatment, history of A-fib,, anemia chronic disease, tachybradycardia syndrome, hyperlipidemia comes in because of fall and weakness. Recently patient had fall and had C1 spine fracture and and was transferred to [facility] and is on neck collar. As per he has appointment with the spine Ortho in couple of weeks. Patient was admitted recently at [facility] from 12/20/2024 to 12/30/2024 and was transferred to rehab. Was discharged from rehab couple weeks ago. said they did not like the rehab. From rehab he went to [facility] as was remodeling the house to help the patient. He came to the house today. He is ambulating with a walker. When patient was in the bathroom, fell down from the commode. Though they were Bars he could not get up himself. also could not able to get him up and EMS was called and brought him here. now thinks that she cannot take care of him at home. She wanted him to go to [facility]. Patient is alert and awake and oriented. Able to give history. Patient getting paracentesis frequently. Next paracentesis is on Sunday. states they are open for pathology diagnosis of the ascitic fluid and go from there regarding the cancer. Patient denies any headache. No neck pain. No chest pain. No back pain. Has some abdominal pain. Appetite is okay. Somewhat constipated. Micturating okay. Currently resting comfortably and hemodynamically okay. Fall Sarcopenia/Cachexia Ambulatory Dysfunction -PT/OT ordered - wants him to go to [facility] -would benefit from hospice services at [facility] End stage malignancy of unknown primary (likely colorectal) Malignant Ascites Malignant Pulmonary Edema/Pleural Effusions -paracentesis performed yesterday -patients goals are to stay out of hospital, have good quality of life with time he has left -functional status/nutritional status makes patient unlikely to be a treatment candidate, overall worse than prior, see oncology note from last admission -prognosis on scale of weeks to months, declining overall at this time -patient agreeable to hospice consult, but will discuss with next steps History of A-fib -On metoprolol 25 mg twice daily -But did not take for last 2 days as his blood pressure was running low -Will reduce the dose to 12.5 mg p.o. twice daily and to give with holding parameters - requesting stop of lovenox, started SCDs instead Severe protein calorie malnutrition -Consult dietitian C1 cervical fracture T1-T2 Fractures -On neck collar -likely 2/2 fall, severe malnutrition and malignancy -Follow-up with orthospine outpatient I spent a total of 45 minutes in direct patient care, including [id number]-[id number] time with the patient and/or family, reviewing medical records, ordering and reviewing diagnostic tests, and coordinating care with other healthcare providers. This time includes: history taking, physical examination, medical decision making, counseling, ECG interpretation, imaging interpretation, lab interpretation, orders, and education, excluding time spent in the performance of separately billed services. Admission and Anticipated Discharge Date Admission Date: January 24, 2025 Subjective Patient seen and examined at bedside. Patient doing well today, working with physical therapy. Review of Systems Review of Systems: CONSTITUTIONAL: Patient denies fevers, chills, sweats and weight changes. EYES: Patient denies any visual symptoms. EARS, NOSE, AND THROAT: No difficulties with hearing. No symptoms of rhinitis or sore throat. CARDIOVASCULAR: Patient denies chest pains, palpitations, orthopnea and paroxysmal nocturnal dyspnea. RESPIRATORY: No dyspnea on exertion, no wheezing or cough. GI: No nausea, vomiting, diarrhea, constipation, abdominal pain, hematochezia or melena. : No urinary hesitancy or dribbling. No nocturia or urinary frequency. No abnormal urethral discharge. MUSCULOSKELETAL: No myalgias or arthralgias. NEUROLOGIC: No chronic headaches, no seizures. Patient denies numbness, tingling or weakness. PSYCHIATRIC: Patient denies problems with mood disturbance. No problems with anxiety. ENDOCRINE: No excessive urination or excessive thirst. DERMATOLOGIC: Patient denies any rashes or skin changes. Physical Exam Physical Exam: Gen: A&O 3 NAD, severe cachexia/sarcopenia, worse than last visit with this provider HEENT: NCAT, EOMI, not icteric. External ears normal. No rhinorrhea. Moist muco us membranes. Neck: Supple, full range of motion, no observable masses, No meningeal sign. Lungs: No Respiratory distress. CV: RRR, no edema. Abdomen: Soft, nondistended, No rebound tenderness. MSK: No joint swelling, no redness. Skin: No rashes, petechiae, lesions. Normal color per patient. Neuro: Normal Gait, Grossly intact. Psych: Appropriate for situation. Results & Data Results & Data Vital Signs (Past 12 Hours) Vital Signs Temp Pulse Resp BP Pulse Ox O2 Del Method 01/26/25 11:43 36.8 C 83 16 115/73 98 Room Air 01/26/25 09:30 36.3 C L 85 16 110/69 95 Room Air 01/26/25 08:00 Room Air 01/26/25 07:57 36.6 C 90 14 109/67 93 Room Air Laboratory Results -personally reviewed, phos low at 2.3 and replenished, LFTs worse today Medications Administered Loperamide HCl (Loperamide Hcl 2 Mg Cap) 2 mg PO Q6 PRN PRN Reason: Diarrhea Stop: 02/24/25 14:00 Last Admin: 01/25/25 23:52 Dose: 2 mg Documented By: AMADOU Metoprolol Tartrate (Metoprolol Tartrate 25 Mg Tab) 12.5 mg PO BID [facility] Stop: 02/23/25 08:59 Last Admin: 01/26/25 08:07 Dose: 12.5 mg Documented By: Admin: 01/25/25 21:54 Dose: 12.5 mg Documented By: Admin: 01/25/25 08:27 Dose: 12.5 mg Documented By: Admin: 01/24/25 21:15 Dose: Not Given Documented By: Admin: 01/24/25 08:54 Dose: 12.5 mg Documented By: SELVIN
[2025-01-26] MEDS: SODIUM PHOSPHATE 12 MMOL in SODIUM CHLORIDE 0.9% 250 ML IV ONE (12:26)
[2025-01-27 07:00] LABS: Albumin Globulin Ratio 0.7 (0.9-2); Albumin Level 2.4 gm/dl (3.4-5.0); BUN Creatinine Ratio 20.7 (10-20); Bilirubin,Total 2.9 mg/dl (0.2-1.0); Calcium 9.4 mg/dl (8.6-10.3); Globulin 3.4 gm/dl (2.5-4.0); Potassium 3.8 mmol/L (3.5-5.1); Total Protein 5.8 gm/dl (6.0-8.3)
--- NOTE | 2025-01-27 12:52 | Hospitalist Progress Note ---
Date of Service January 27, 2025 Assessment & Plan (1) Fall: Plan: 79-year-old male with past med history significant for metastatic colon cancer currently not receiving treatment, history of A-fib,, anemia chronic disease, tachybradycardia syndrome, hyperlipidemia comes in because of fall and weakness. Recently patient had fall and had C1 spine fracture and and was transferred to [facility] and is on neck collar. As per he has appointment with the spine Ortho in couple of weeks. Patient was admitted recently at [facility] from 12/20/2024 to 12/30/2024 and was transferred to rehab. Was discharged from rehab couple weeks ago. said they did not like the rehab. From rehab he went to [facility] as was remodeling the house to help the patient. He came to the house today. He is ambulating with a walker. When patient was in the bathroom, fell down from the commode. Though they were Bars he could not get up himself. also could not able to get him up and EMS was called and brought him here. now thinks that she cannot take care of him at home. She wanted him to go to [facility]. Patient is alert and awake and oriented. Able to give history. Patient getting paracentesis frequently. Next paracentesis is on Sunday. states they are open for pathology diagnosis of the ascitic fluid and go from there regarding the cancer. Patient denies any headache. No neck pain. No chest pain. No back pain. Has some abdominal pain. Appetite is okay. Somewhat constipated. Micturating okay. Currently resting comfortably and hemodynamically okay. Fall Sarcopenia/Cachexia Ambulatory Dysfunction -PT/OT ordered - wants him to go to [facility] -would benefit from hospice services at [facility] -hospice agencies given to family to review and choose -likely discharge to [facility] on 01/28/2025 End stage malignancy of unknown primary (likely colorectal) Malignant Ascites Malignant Pulmonary Edema/Pleural Effusions -paracentesis performed, will attempt another at bedside today -patients goals are to stay out of hospital, have good quality of life with time he has left -functional status/nutritional status makes patient unlikely to be a treatment candidate, overall worse than prior, see oncology note from last admission -prognosis on scale of weeks to months, declining overall at this time -patient and agreeable to hospice consult, History of A-fib -On metoprolol 25 mg twice daily, decreased to 12.5 mg p.o. twice daily and to give with holding parameters -SCDs Severe protein calorie malnutrition -Consult dietitian C1 cervical fracture T1-T2 Fractures -On neck collar -likely 2/2 fall, severe malnutrition and malignancy -Follow-up with orthospine outpatient I spent a total of 45 minutes in direct patient care, including [id number] time with the patient and/or family, reviewing medical records, ordering and reviewing diagnostic tests, and coordinating care with other healthcare providers. This time includes: history taking, physical examination, medical decision making, counseling, ECG interpretation, imaging interpretation, lab interpretation, orders, and education, excluding time spent in the performance of separately billed services. Plan I spent a total of 45 minutes in direct patient care, including qmya-[id number] time with the patient and/or family, reviewing medical records, ordering and reviewing diagnostic tests, and coordinating care with other healthcare providers. This time includes: history taking, physical examination, medical decision making, counseling, ECG interpretation, imaging interpretation, lab interpretation, orders, and education, excluding time spent in the performance of separately billed services. Admission and Anticipated Discharge Date Admission Date: January 24, 2025 Subjective Patient seen and examined at bedside. Patient feels abdomen starting to swell again, discussed that we will try to do another paracentesis today. Review of Systems Review of Systems: CONSTITUTIONAL: Patient denies fevers, chills, sweats and weight changes. EYES: Patient denies any visual symptoms. EARS, NOSE, AND THROAT: No difficulties with hearing. No symptoms of rhinitis or sore throat. CARDIOVASCULAR: Patient denies chest pains, palpitations, orthopnea and paroxysmal nocturnal dyspnea. RESPIRATORY: No dyspnea on exertion, no wheezing or cough. GI: slight abdominal distension : No urinary hesitancy or dribbling. No nocturia or urinary frequency. No abnormal urethral discharge. MUSCULOSKELETAL: No myalgias or arthralgias. NEUROLOGIC: No chronic headaches, no seizures. Patient denies numbness, tingling or weakness. PSYCHIATRIC: Patient denies problems with mood disturbance. No problems with anxiety. ENDOCRINE: No excessive urination or excessive thirst. DERMATOLOGIC: Patient denies any rashes or skin changes. Physical Exam Physical Exam: Gen: A&O 3 NAD, severe cachexia/sarcopenia, worse than last visit with this provider HEENT: NCAT, EOMI, not icteric. External ears normal. No rhinorrhea. Moist mucous membranes. Neck: Supple, full range of motion, no observable masses, No meningeal sign. Lungs: No Respiratory distress. CV: RRR, no edema. Abdomen: slight distension, mild fluid wave present MSK: No joint swelling, no redness. Skin: No rashes, petechiae, lesions. Normal color per patient. Neuro: Normal Gait, Grossly intact. Psych: Appropriate for situation. Results & Data Results & Data Vital Signs (Past 12 Hours) Vital Signs Temp Pulse Resp BP Pulse Ox O2 Del Method 01/27/25 07:17 Room Air 01/27/25 07:15 36.4 C L 95 H 16 100/65 93 Room Air Laboratory Results -personally reviewed, LFTs consistently elevated in setting of wedespread metastatic disease Medications Administered Loperamide HCl (Loperamide Hcl 2 Mg Cap) 2 mg PO Q6 PRN PRN Reason: Diarrhea Stop: 02/24/25 14:00 Last Admin: 01/27/25 06:26 Dose: 2 mg Documented By: Admin: 01/25/25 23:52 Dose: 2 mg Documented By: AMADOU Metoprolol Tartrate (Metoprolol Tartrate 25 Mg Tab) 12.5 mg PO BID GRICELDA Stop: 02/23/25 08:59 Last Admin: 01/27/25 07:18 Dose: 12.5 mg Documented By: Admin: 01/26/25 19:42 Dose: 12.5 mg Documented By: Admin: 01/26/25 08:07 Dose: 12.5 mg Documented By: Admin: 01/25/25 21:54 Dose: 12.5 mg Documented By: Admin: 01/25/25 08:27 Dose: 12.5 mg Documented By: Admin: 01/24/25 21:15 Dose: Not Given Documented By: Admin: 01/24/25 08:54 Dose: 12.5 mg Documented By: SELVIN
[2025-01-28 07:15] LABS: Albumin Globulin Ratio 0.7 (0.9-2); Albumin Level 2.3 gm/dl (3.4-5.0); BUN Creatinine Ratio 22.9 (10-20); Bilirubin,Total 3.3 mg/dl (0.2-1.0); Calcium 9.4 mg/dl (8.6-10.3); Globulin 3.3 gm/dl (2.5-4.0); Magnesium 1.8 mg/dl (1.7-2.4); Phosphorus 2.7 mg/dl (2.5-4.9); Potassium 3.9 mmol/L (3.5-5.1); Total Protein 5.6 gm/dl (6.0-8.3)
--- NOTE | 2025-01-28 15:03 | Hospitalist Progress Note ---
Date of Service January 28, 2025 Assessment & Plan (1) Fall: Plan: 79-year-old male with past med history significant for metastatic colon cancer currently not receiving treatment, history of A-fib,, anemia chronic disease, tachybradycardia syndrome, hyperlipidemia comes in because of fall and weakness. Recently patient had fall and had C1 spine fracture and and was transferred to [facility] and is on neck collar. As per he has appointment with the spine Ortho in couple of weeks. Patient was admitted recently at [facility] from 12/20/2024 to 12/30/2024 and was transferred to rehab. Was discharged from rehab couple weeks ago. said they did not like the rehab. From rehab he went to [facility] as was remodeling the house to help the patient. He came to the house today. He is ambulating with a walker. When patient was in the bathroom, fell down from the commode. Though they were Bars he could not get up himself. also could not able to get him up and EMS was called and brought him here. now thinks that she cannot take care of him at home. She wanted him to go to [facility]. Patient is alert and awake and oriented. Able to give history. Patient getting paracentesis frequently. Next paracentesis is on Sunday. states they are open for pathology diagnosis of the ascitic fluid and go from there regarding the cancer. Patient denies any headache. No neck pain. No chest pain. No back pain. Has some abdominal pain. Appetite is okay. Somewhat constipated. Micturating okay. Currently resting comfortably and hemodynamically okay. Fall Sarcopenia/Cachexia Ambulatory Dysfunction -PT/OT ordered - wants him to go to [facility] -would benefit from hospice services at [facility] -hospice agencies given to family to review and choose Plan to discharge to rehab facility when accepted Case management to help with discharge planning As per prior provider End stage malignancy of unknown primary (likely colorectal) Malignant Ascites Malignant Pulmonary Edema/Pleural Effusions -patients goals are to stay out of hospital, have good quality of life with time he has left -functional status/nutritional status makes patient unlikely to be a treatment candidate, overall worse than prior, see oncology note from last admission -prognosis on scale of weeks to months, declining overall at this time -patient and agreeable to hospice consult -Abdominal paracentesis as needed Recommended to follow-up with oncology on discharge History of A-fib -On metoprolol 25 mg twice daily, decreased to 12.5 mg p.o. twice daily and to give with holding parameters -SCDs Severe protein calorie malnutrition -Consulted dietitian BMI 21.8 C1 cervical fracture T1-T2 Fractures -On neck collar -likely 2/2 fall, severe malnutrition and malignancy -Follow-up with orthospine outpatient Code Status DNI/DNR Disposition SNF when accepted Plan I spent a total of 45 minutes in direct patient care, including enau-fh-njid ti me with the patient and/or family, reviewing medical records, ordering and reviewing diagnostic tests, and coordinating care with other healthcare providers. This time includes: history taking, physical examination, medical decision making, counseling, ECG interpretation, imaging interpretation, lab interpretation, orders, and education, excluding time spent in the performance of separately billed services. Admission and Anticipated Discharge Date Admission Date: January 24, 2025 Subjective Patient is seen and examined at bedside States having minimal abdominal discomfort No other complaints today Waiting for placement Denies any chest pain, dyspnea, nausea, vomiting Review of Systems Review of Systems: All systems reviewed & are unremarkable except as noted in Subjective Physical Exam Physical Exam: Physical Exam: Vitals signs as noted above General Appearance: Thin, frail, ill-appearing, elderly, no apparent distress Head: normocephalic, Atraumatic Eyes: normal inspection, EOMI Neck: supple, Trachea midline, +Neck Color Respiratory/Chest: Normal breath sounds, CTA, No accessory muscle use Cardiovascular: S1, S2, No murmur Abdomen/GI: Mildly distended, firm, non tender, Bowel sounds present Extremities/Musculoskeletal:normal inspection, 2+edema Neurologic/Psych:AAOX3, grossly no focal neurological deficits Skin: normal color, warm Results & Data Results & Data Vital Signs (Past 12 Hours) Vital Signs Temp Pulse Resp BP Pulse Ox O2 Del Method 01/28/25 09:00 Room Air 01/28/25 07:02 36.4 C L 90 16 101/66 96 Room Air Laboratory Results [facility] 01/28/25 06:10 Sodium 138 Potassium 3.9 Chloride 106 Carbon Dioxide 32 BUN 16 Creatinine 0.70 Glucose 70 Calcium 9.4 Liver Function 01/28/25 Range/Units 06:10 Total Bilirubin 3.3 H (0.2-1.0) mg/dl AST 104 H (13-39) U/L ALT 49 (7-52) U/L Alkaline Phosphatase 738 H (34-104) U/L Albumin 2.3 L (3.4-5.0) gm/dl
[2025-01-28] MEDS ORDERED: traMADol HCL 50 MG TABLET PO PRN (19:32)
[2025-01-28] MEDS: ACETAMINOPHEN 500 MG TAB PO PRN (19:50)
--- NOTE | 2025-01-29 14:23 | Hospitalist Progress Note ---
Date of Service January 29, 2025 Assessment & Plan (1) Fall: Plan: 79-year-old male with past med history significant for metastatic colon cancer currently not receiving treatment, history of A-fib,, anemia chronic disease, tachybradycardia syndrome, hyperlipidemia comes in because of fall and weakness. Recently patient had fall and had C1 spine fracture and and was transferred to [facility] and is on neck collar. As per he has appointment with the spine Ortho in couple of weeks. Patient was admitted recently at [facility] from 12/20/2024 to 12/30/2024 and was transferred to rehab. Was discharged from rehab couple weeks ago. said they did not like the rehab. From rehab he went to [facility] as was remodeling the house to help the patient. He came to the house today. He is ambulating with a walker. When patient was in the bathroom, fell down from the commode. Though they were Bars he could not get up himself. also could not able to get him up and EMS was called and brought him here. now thinks that she cannot take care of him at home. She wanted him to go to [facility]. Patient is alert and awake and oriented. Able to give history. Patient getting paracentesis frequently. Next paracentesis is on Sunday. states they are open for pathology diagnosis of the ascitic fluid and go from there regarding the cancer. Patient denies any headache. No neck pain. No chest pain. No back pain. Has some abdominal pain. Appetite is okay. Somewhat constipated. Micturating okay. Currently resting comfortably and hemodynamically okay. Fall Sarcopenia/Cachexia Ambulatory Dysfunction Fall precautions Continue PT OT - wants him to go to [facility] -would benefit from hospice services at [facility] -hospice agencies given to family to review and choose Plan to discharge to rehab facility when accepted Case management to help with discharge planning Waiting for placement As per prior provider End stage malignancy of unknown primary (likely colorectal) Malignant Ascites Malignant Pulmonary Edema/Pleural Effusions -patients goals are to stay out of hospital, have good quality of life with time he has left -functional status/nutritional status makes patient unlikely to be a treatment candidate, overall worse than prior, see oncology note from last admission -prognosis on scale of weeks to months, declining overall at this time -patient and agreeable to hospice consult -Abdominal paracentesis as needed Recommended to follow-up with oncology on discharge Will consider IR for repeat therapeutic paracentesis if needed while hospitalized History of A-fib -On metoprolol 25 mg twice daily, decreased to 12.5 mg p.o. twice daily and to give with holding parameters -SCDs Severe protein calorie malnutrition -Consulted dietitian BMI 21.8 C1 cervical fracture T1-T2 Fractures -On neck collar -likely 2/2 fall, severe malnutrition and malignancy -Follow-up with orthospine outpatient Code Status DNI/DNR Disposition SNF when accepted Admission and Anticipated Discharge Date Admission Date: January 24, 2025 Subjective Patient is seen and examined at bedside No new complaints Still has some abdominal tightness and discomfort Waiting for placement Denies any chest pain, dyspnea, nausea, vomiting Review of Systems Review of Systems: All systems reviewed & are unremarkable except as noted in Subjective Physical Exam Physical Exam: Physical Exam: Vitals signs as noted above General Appearance: Thin, frail, ill-appearing, elderly, no apparent distress Head: normocephalic, Atraumatic Eyes: normal inspection, EOMI Neck: supple, Trachea midline, +Neck Color Respiratory/Chest: Normal breath sounds, CTA, No accessory muscle use Cardiovascular: S1, S2, No murmur Abdomen/GI: Mildly distended, firm, non tender, Bowel sounds present Extremities/Musculoskeletal:normal inspection, 2+edema Neurologic/Psych:AAOX3, grossly no focal neurological deficits Skin: normal color, warm Results & Data Results & Data Vital Signs (Past 12 Hours) Vital Signs Temp Pulse Resp BP Pulse Ox O2 Del Method 01/29/25 07:52 Room Air 01/29/25 07:28 36.3 C L 90 18 102/62 94 Room Air
[2025-01-30 06:57] LABS: BUN Creatinine Ratio 21.8 (10-20); Calcium 9.4 mg/dl (8.6-10.3); Creatinine Clr Calc Pharmacy 60.3 ml/min; Potassium 3.9 mmol/L (3.5-5.1)
[2025-01-30] MEDS: ALBUMIN 25% 12.5 GM/50 ML VIAL IV SCH (08:34)
[2025-01-30] MEDS ORDERED: Nursing to Pharmacy Communication SCH (10:30)
--- NOTE | 2025-01-30 14:02 | Ultrasound Report ---
ULTRASOUND-GUIDED PARACENTESIS CLINICAL HISTORY: Ascites PROCEDURE: Procedure and risks were explained. Informed consent was obtained. A final timeout was com pleted. The abdomen was prepped and draped in sterile fashion. 3% Nesacaine was utilized for skin ane sthesia. Utilizing ultrasound guidance, a 5 German safety centesis catheter was advanced into the right lower quadrant pocket of ascites. Ultrasound images were obtained. 4.4 L of ascites fluid was removed, with 1 L sent to lab. The catheter was removed and Band-Aid applied. The patient tolerated the procedure well. Vital signs will be monitored postprocedure. IMPRESSION: Ultrasound-guided paracentesis as above. Performed, dictated, and signed by Filippo Lui PA-C; to be co-signed by Dr. Jitendra Ferris. Electronically signed by: Jitendra Ferris M.D. 01/30/2025 4:10 PM
--- NOTE | 2025-01-30 15:07 | Hospitalist Progress Note ---
Date of Service January 30, 2025 Assessment & Plan (1) Fall: Plan: 79-year-old male with past med history significant for metastatic colon cancer currently not receiving treatment, history of A-fib,, anemia chronic disease, tachybradycardia syndrome, hyperlipidemia comes in because of fall and weakness. Recently patient had fall and had C1 spine fracture and and was transferred to [facility] and is on neck collar. As per he has appointment with the spine Ortho in couple of weeks. Patient was admitted recently at [facility] from 12/20/2024 to 12/30/2024 and was transferred to rehab. Was discharged from rehab couple weeks ago. said they did not like the rehab. From rehab he went to [facility] as was remodeling the house to help the patient. He came to the house today. He is ambulating with a walker. When patient was in the bathroom, fell down from the commode. Though they were Bars he could not get up himself. also could not able to get him up and EMS was called and brought him here. now thinks that she cannot take care of him at home. She wanted him to go to [facility]. Patient is alert and awake and oriented. Able to give history. Patient getting paracentesis frequently. Next paracentesis is on Sunday. states they are open for pathology diagnosis of the ascitic fluid and go from there regarding the cancer. Patient denies any headache. No neck pain. No chest pain. No back pain. Has some abdominal pain. Appetite is okay. Somewhat constipated. Micturating okay. Currently resting comfortably and hemodynamically okay. Fall Sarcopenia/Cachexia Ambulatory Dysfunction Fall precautions Continue PT OT - wants him to go to [facility] -would benefit from hospice services at [facility] -hospice agencies given to family to review and choose Plan to discharge to rehab facility when accepted Case management to help with discharge planning Waiting for placement As per prior provider End stage malignancy of unknown primary (likely colorectal) Malignant Ascites Malignant Pulmonary Edema/Pleural Effusions -patients goals are to stay out of hospital, have good quality of life with time he has left -functional status/nutritional status makes patient unlikely to be a treatment candidate, overall worse than prior, see oncology note from last admission -prognosis on scale of weeks to months, declining overall at this time -patient and agreeable to hospice consult -Abdominal paracentesis as needed Recommended to follow-up with oncology on discharge Plan for repeat abdominal paracentesis by IR today Will give IV albumin History of A-fib -On metoprolol 25 mg twice daily, decreased to 12.5 mg p.o. twice daily and to give with holding parameters -SCDs Severe protein calorie malnutrition -Consulted dietitian BMI 21.8 C1 cervical fracture T1-T2 Fractures -On neck collar -likely 2/2 fall, severe malnutrition and malignancy -Follow-up with orthospine outpatient Code Status DNI/DNR Disposition SNF when accepted Admission and Anticipated Discharge Date Admission Date: January 24, 2025 Subjective Patient is seen and examined at bedside Reports leg edema and abdominal discomfort No other complaints Planned for abdominal paracentesis today by IR Waiting for placement Denies any chest pain, dyspnea, nausea, vomiting Review of Systems Review of Systems: All systems reviewed & are unremarkable except as noted in Subjective Physical Exam Physical Exam: Physical Exam: Vitals signs as noted above General Appearance: Thin, frail, ill-appearing, elderly, no apparent distress Head: normocephalic, Atraumatic Eyes: normal inspection, EOMI Neck: supple, Trachea midline, +Neck Color Respiratory/Chest: Normal breath sounds, CTA, No accessory muscle use Cardiovascular: S1, S2, No murmur Abdomen/GI: Mildly distended, firm, non tender, Bowel sounds present Extremities/Musculoskeletal:normal inspection, 2+edema Neurologic/Psych:AAOX3, grossly no focal neurological deficits Skin: normal color, warm Results & Data Results & Data Vital Signs (Past 12 Hours) Vital Signs Temp Pulse Resp BP Pulse Ox O2 Del Method 01/30/25 09:15 36.7 C 78 16 101/65 94 Room Air 01/30/25 08:00 Room Air 01/30/25 07:53 36.5 C 95 H 16 106/68 95 Room Air Laboratory Results [place] 01/30/25 05:51 Sodium 137 Potassium 3.9 Chloride 104 Carbon Dioxide 28 BUN 19 Creatinine 0.87 Glucose 78 Calcium 9.4
[2025-01-30] MEDS: CHLOROPROCAINE HCL 3% 20 ML VIAL INFIL SCH (15:31)
--- NOTE | 2025-01-31 15:37 | Hospitalist Progress Note ---
Date of Service January 31, 2025 Assessment & Plan (1) Fall: Plan: 79-year-old male with past med history significant for metastatic colon cancer currently not receiving treatment, history of A-fib,, anemia chronic disease, tachybradycardia syndrome, hyperlipidemia comes in because of fall and weakness. Recently patient had fall and had C1 spine fracture and and was transferred to [facility] [place] and is on neck collar. As per he has appointment with the spine Ortho in couple of weeks. Patient was admitted recently at [facility] from 12/20/2024 to 12/30/2024 and was transferred to rehab. Was discharged from rehab couple weeks ago. said they did not like the rehab. From rehab he went to [facility] as was remodeling the house to help the patient. He came to the house today. He is ambulating with a walker. When patient was in the bathroom, fell down from the commode. Though they were Bars he could not get up himself. also could not able to get him up and EMS was called and brought him here. now thinks that she cannot take care of him at home. She wanted him to go to [facility]. Patient is alert and awake and oriented. Able to give history. Patient getting paracentesis frequently. Next paracentesis is on Sunday. states they are open for pathology diagnosis of the ascitic fluid and go from there regarding the cancer. Patient denies any headache. No neck pain. No chest pain. No back pain. Has some abdominal pain. Appetite is okay. Somewhat constipated. Micturating okay. Currently resting comfortably and hemodynamically okay. Fall Sarcopenia/Cachexia Ambulatory Dysfunction Fall precautions Continue PT OT - wants him to go to [facility] -would benefit from hospice services at [facility] -hospice agencies given to family to review and choose Case management to help with discharge planning Waiting for placement SNF likely Sunday As per prior provider End stage malignancy of unknown primary (likely colorectal) Malignant Ascites Malignant Pulmonary Edema/Pleural Effusions -patients goals are to stay out of hospital, have good quality of life with time he has left -functional status/nutritional status makes patient unlikely to be a treatment candidate, overall worse than prior, see oncology note from last admission -prognosis on scale of weeks to months, declining overall at this time -patient and agreeable to hospice consult -Abdominal paracentesis as needed Recommended to follow-up with oncology on discharge And 4.4 liters ascitic fluid removed on 01/30/2025 History of A-fib -On metoprolol 25 mg twice daily, decreased to 12.5 mg p.o. twice daily and to give with holding parameters -SCDs Severe protein calorie malnutrition -Consulted dietitian BMI 21.8 C1 cervical fracture T1-T2 Fractures -On neck collar -likely 2/2 fall, severe malnutrition and malignancy -Follow-up with orthospine outpatient Requested orthotics to help adjust neck collar Has follow-up with orthopedics as outpatient with repeat imaging planned Code Status DNI/DNR Disposition SNF when accepted Admission and Anticipated Discharge Date Admission Date: January 24, 2025 Subjective Patient is seen and examined at bedside States having abdominal discomfort post paracentesis Discussed with patient's at bedside Also reports neck collar discomfort during poor sleep Denies any chest pain, dyspnea, nausea, vomiting Waiting for placement Review of Systems Review of Systems: All systems reviewed & are unremarkable except as noted in Subjective Physical Exam Physical Exam: Physical Exam: Vitals signs as noted above General Appearance: Thin, frail, ill-appearing, elderly, no apparent distress Head: normocephalic, Atraumatic Eyes: normal inspection, EOMI Neck: supple, Trachea midline, +Neck Color Respiratory/Chest: Normal breath sounds, CTA, No accessory muscle use Cardiovascular: S1, S2, No murmur Abdomen/GI: Mildly distended, firm, non tender, Bowel sounds present Extremities/Musculoskeletal:normal inspection, 2+edema Neurologic/Psych:AAOX3, grossly no focal neurological deficits Skin: normal color, warm Results & Data Results & Data Vital Signs (Past 12 Hours) Vital Signs Temp Pulse Resp BP Pulse Ox O2 Del Method 01/31/25 14:07 36.6 C 87 14 96/60 L 95 Room Air 01/31/25 08:30 Room Air 01/31/25 06:59 36.5 C 86 16 105/65 97 Room Air
--- NOTE | 2025-02-01 14:52 | Hospitalist Progress Note ---
Date of Service February 01, 2025 Assessment & Plan (1) Fall: Plan: 79-year-old male with past med history significant for metastatic colon cancer currently not receiving treatment, history of A-fib,, anemia chronic disease, tachybradycardia syndrome, hyperlipidemia comes in because of fall and weakness. Recently patient had fall and had C1 spine fracture and and was transferred to [facility] and is on neck collar. As per he has appointment with the spine Ortho in couple of weeks. Patient was admitted recently at [facility] [address] from 12/20/2024 to 12/30/2024 and was transferred to rehab. Was discharged from rehab couple weeks ago. said they did not like the rehab. From rehab he went to [facility] as was remodeling the house to help the patient. He came to the house today. He is ambulating with a walker. When patient was in the bathroom, fell down from the commode. Though they were Bars he could not get up himself. also could not able to get him up and EMS was called and brought him here. now thinks that she cannot take care of him at home. She wanted him to go to [facility]. Patient is alert and awake and oriented. Able to give history. Patient getting paracentesis frequently. Next paracentesis is on Sunday. states they are open for pathology diagnosis of the ascitic fluid and go from there regarding the cancer. Patient denies any headache. No neck pain. No chest pain. No back pain. Has some abdominal pain. Appetite is okay. Somewhat constipated. Micturating okay. Currently resting comfortably and hemodynamically okay. Fall Sarcopenia/Cachexia Ambulatory Dysfunction Fall precautions Continue PT OT - wants him to go to [facility] -would benefit from hospice services at [facility] -hospice agencies given to family to review and choose Case management to help with discharge planning Waiting for placement SNF likely tomorrow As per prior provider End stage malignancy of unknown primary (likely colorectal) Malignant Ascites Malignant Pulmonary Edema/Pleural Effusions -patients goals are to stay out of hospital, have good quality of life with time he has left -functional status/nutritional status makes patient unlikely to be a treatment candidate, overall worse than prior, see oncology note from last admission -prognosis on scale of weeks to months, declining overall at this time -patient and agreeable to hospice consult -Abdominal paracentesis as needed Recommended to follow-up with oncology on discharge And 4.4 liters ascitic fluid removed on 01/30/2025 Abdominal pain improved Monitor History of A-fib -On metoprolol 25 mg twice daily, decreased to 12.5 mg p.o. twice daily and to give with holding parameters -SCDs Severe protein calorie malnutrition -Consulted dietitian BMI 21.8 C1 cervical fracture T1-T2 Fractures -On neck collar -likely 2/2 fall, severe malnutrition and malignancy -Follow-up with orthospine outpatient Requested orthotics to help adjust neck collar Has follow-up with orthopedics as outpatient with repeat imaging planned Code Status DNI/DNR Disposition SNF tomorrow Admission and Anticipated Discharge Date Admission Date: January 24, 2025 Subjective Patient is seen and examined at bedside States having some nausea but no vomiting today Abdominal pain improved Denies any chest pain, dyspnea, nausea, vomiting Waiting for placement Review of Systems Review of Systems: All systems reviewed & are unremarkable except as noted in Subjective Physical Exam Physical Exam: Physical Exam: Vitals signs as noted above General Appearance: Thin, frail, ill-appearing, elderly, no apparent distress Head: normocephalic, Atraumatic Eyes: normal inspection, EOMI Neck: supple, Trachea midline, +Neck Color Respiratory/Chest: Normal breath sounds, CTA, No accessory muscle use Cardiovascular: S1, S2, No murmur Abdomen/GI: Mildly distended, firm, non tender, Bowel sounds present Extremities/Musculoskeletal:normal inspection, 2+edema Neurologic/Psych:AAOX3, grossly no focal neurological deficits Skin: normal color, warm Results & Data Results & Data Vital Signs (Past 12 Hours) Vital Signs Temp Pulse Pulse Resp BP BP Pulse Ox 02/01/25 14:07 36.6 C 90 14 113/71 94 02/01/25 12:25 88 18 106/68 94 02/01/25 07:30 02/01/25 07:00 36.6 C 85 16 110/68 95 O2 Del Method 02/01/25 14:07 Room Air 02/01/25 12:25 Room Air 02/01/25 07:30 Room Air 02/01/25 07:00 Room Air
[2025-02-01] MEDS: ONDANSETRON INJ 2 MG/ML 2 ML VIAL IV PRN (15:11)
--- NOTE | 2025-02-02 14:52 | Hospitalist Progress Note ---
Date of Service February 02, 2025 Assessment & Plan (1) Fall: Plan: 79-year-old male with past med history significant for metastatic colon cancer currently not receiving treatment, history of A-fib,, anemia chronic disease, tachybradycardia syndrome, hyperlipidemia comes in because of fall and weakness. Recently patient had fall and had C1 spine fracture and and was transferred to [facility] and is on neck collar. As per he has appointment with the spine Ortho in couple of weeks. Patient was admitted recently at [facility] from 12/20/2024 to 12/30/2024 and was transferred to rehab. Was discharged from rehab couple weeks ago. said they did not like the rehab. From rehab he went to [facility] as was remodeling the house to help the patient. He came to the house today. He is ambulating with a walker. When patient was in the bathroom, fell down from the commode. Though they were Bars he could not get up himself. also could not able to get him up and EMS was called and brought him here. now thinks that she cannot take care of him at home. She wanted him to go to [facility]. Patient is alert and awake and oriented. Able to give history. Patient getting paracentesis frequently. Next paracentesis is on Sunday. states they are open for pathology diagnosis of the ascitic fluid and go from there regarding the cancer. Patient denies any headache. No neck pain. No chest pain. No back pain. Has some abdominal pain. Appetite is okay. Somewhat constipated. Micturating okay. Currently resting comfortably and hemodynamically okay. 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) Malignant Ascites Malignant Pulmonary Edema/Pleural Effusions -patients goals are to stay out of hospital, have good quality of life with time he has left -functional status/nutritional status makes patient unlikely to be a treatment candidate, overall worse than prior, see oncology note from last admission -prognosis on scale of weeks to months, declining overall at this time -patient and agreeable to hospice consult Recommended to follow-up with oncology on discharge And 4.4 liters ascitic fluid removed on 01/30/2025 Reports intermittent abdominal pain Will consider repeat paracentesis as needed History of A-fib -On metoprolol 25 mg twice daily, decreased to 12.5 mg p.o. twice daily and to give with holding parameters -SCDs Severe protein calorie malnutrition -Consulted dietitian BMI 21.8 C1 cervical fracture T1-T2 Fractures -On neck collar -likely 2/2 fall, severe malnutrition and malignancy -Follow-up with orthospine outpatient Requested orthotics to help adjust neck collar Has follow-up with orthopedics as outpatient with repeat imaging planned Code Status DNI/DNR Disposition SNF as able Admission and Anticipated Discharge Date Admission Date: January 24, 2025 Subjective Patient is seen and examined at bedside States having transient dizziness this morning Also reports abdominal pain today No other complaints Denies any chest pain, dyspnea, nausea, vomiting Review of Systems Review of Systems: All systems reviewed & are unremarkable except as noted in Subjective Physical Exam Physical Exam: Physical Exam: Vitals signs as noted above General Appearance: Thin, frail, ill-appearing, elderly, no apparent distress Head: normocephalic, Atraumatic Eyes: normal inspection, EOMI Neck: supple, Trachea midline, +Neck Color Respiratory/Chest: Normal breath sounds, CTA, No accessory muscle use Cardiovascular: S1, S2, No murmur Abdomen/GI: Mildly distended, firm, non tender, Bowel sounds present Extremities/Musculoskeletal:normal inspection, 2+edema Neurologic/Psych:AAOX3, grossly no focal neurological deficits Skin: normal color, warm Results & Data Results & Data Vital Signs (Past 12 Hours) Vital Signs Temp Pulse Resp BP Pulse Ox O2 Del Method 02/02/25 14:35 36.5 C 85 18 98/62 L 93 Room Air 02/02/25 10:50 Room Air 02/02/25 07:07 36.5 C 93 H 18 108/70 95 Room Air
[2025-02-02 21:09] VITALS: RESP 16
[2025-02-03 07:20] VITALS: BP 105/66; PULSE 84; TEMP 98.1; O2SAT 95
--- NOTE | 2025-02-03 12:06 | Hospitalist Progress Note ---
Date of Service February 03, 2025 Assessment & Plan (1) Fall: Plan: 79-year-old male with past med history significant for metastatic colon cancer currently not receiving treatment, history of A-fib,, anemia chronic disease, tachybradycardia syndrome, hyperlipidemia comes in because of fall and weakness. Recently patient had fall and had C1 spine fracture and and was transferred to [facility] and is on neck collar. As per he has appointment with the spine Ortho in couple of weeks. Patient was admitted recently at [facility] from 12/20/2024 to 12/30/2024 and was transferred to rehab. Was discharged from rehab couple weeks ago. said they did not like the rehab. From rehab he went to [facility] as was remodeling the house to help the patient. He came to the house today. He is ambulating with a walker. When patient was in the bathroom, fell down from the commode. Though they were Bars he could not get up himself. also could not able to get him up and EMS was called and brought him here. now thinks that she cannot take care of him at home. She wanted him to go to [facility]. Patient is alert and awake and oriented. Able to give history. Patient getting paracentesis frequently. Next paracentesis is on Sunday. states they are open for pathology diagnosis of the ascitic fluid and go from there regarding the cancer. Patient denies any headache. No neck pain. No chest pain. No back pain. Has some abdominal pain. Appetite is okay. Somewhat constipated. Micturating okay. Currently resting comfortably and hemodynamically okay. Fall Sarcopenia/Cachexia Ambulatory Dysfunction Fall precautions Continue PT OT - wants him to go to [facility] -would benefit from hospice services at [facility] -hospice agencies given to family to review and choose Case management to help with discharge planning Plan to discharge to rehab today As per prior provider End stage malignancy of unknown primary (likely colorectal) Malignant Ascites Malignant Pulmonary Edema/Pleural Effusions -patients goals are to stay out of hospital, have good quality of life with time he has left -functional status/nutritional status makes patient unlikely to be a treatment candidate, overall worse than prior, see oncology note from last admission -prognosis on scale of weeks to months, declining overall at this time -patient and agreeable to hospice consult Recommended to follow-up with oncology on discharge And 4.4 liters ascitic fluid removed on 01/30/2025 Reports intermittent abdominal pain Will consider repeat paracentesis as needed Poor Prognosis History of A-fib -On metoprolol 25 mg twice daily, decreased to 12.5 mg p.o. twice daily and to give with holding parameters -SCDs Severe protein calorie malnutrition -Consulted dietitian BMI 21.8 C1 cervical fracture T1-T2 Fractures -On neck collar -likely 2/2 fall, severe malnutrition and malignancy -Follow-up with orthospine outpatient Requested orthotics to help adjust neck collar Has follow-up with orthopedics as outpatient with repeat imaging planned Code Status DNI/DNR Disposition SNF Admission and Anticipated Discharge Date Admission Date: January 24, 2025 Subjective Patient is seen and examined at bedside Dizziness resolved Abdominal pain much improved as well No new complaints Denies any chest pain, dyspnea, nausea, vomiting Plan to discharge to rehab today Review of Systems Review of Systems: All systems reviewed & are unremarkable except as noted in Subjective Physical Exam Physical Exam: Physical Exam: Vitals signs as noted above General Appearance: Thin, frail, ill-appearing, elderly, no apparent distress Head: normocephalic, Atraumatic Eyes: normal inspection, EOMI Neck: supple, Trachea midline, +Neck Color Respiratory/Chest: Normal breath sounds, CTA, No accessory muscle use Cardiovascular: S1, S2, No murmur Abdomen/GI: Mildly distended, firm, non tender, Bowel sounds present Extremities/Musculoskeletal:normal inspection, 2+edema Neurologic/Psych:AAOX3, grossly no focal neurological deficits Skin: normal color, warm Results & Data Results & Data Vital Signs (Past 12 Hours) Vital Signs Temp Pulse Resp BP Pulse Ox O2 Del Method 02/03/25 07:20 36.7 C 84 16 105/66 95 Room Air 02/03/25 01:42 Room Air
--- NOTE | 2025-02-03 12:10 | Discharge Summary ---
Date of Service February 03, 2025 Admission HPI Per Admitting Provider 79-year-old male with past med history significant for metastatic colon cancer currently not receiving treatment, history of A-fib,, anemia chronic disease, tachybradycardia syndrome, hyperlipidemia comes in because of fall and weakness. Recently patient had fall and had C1 spine fracture and and was transferred to [facility] and is on neck collar. As per he has appointment with the spine Ortho in couple of weeks. Patient was admitted recently at [facility] from 12/20/2024 to 12/30/2024 and was transferred to rehab. Was discharged from rehab couple weeks ago. said they did not like the rehab. From rehab he went to [facility] as was remodeling the house to help the patient. He came to the house today. He is ambulating with a walker. When patient was in the bathroom, fell down from the commode. Though they were Bars he could not get up himself. also could not able to get him up and EMS was called and brought him here. now thinks that she cannot take care of him at home. She wanted him to go to [facility] living. Patient is alert and awake and oriented. Able to give history. Patient getting paracentesis frequently. Next paracentesis is on Sunday. states they are open for pathology diagnosis of the ascitic fluid and go from there regarding the cancer. Patient denies any headache. No neck pain. No chest pain. No back pain. Has some abdominal pa in. Appetite is okay. Somewhat constipated. Micturating okay. Currently resting comfortably and hemodynamically okay. Past medical history. As mentioned above Past surgical history.. Cardioversion. Medtronic loop recorder. Social history. . No smoking. Alcohol use. No drug use. Family history. Brother had oral cancer. Mother hyperlipidemia. Ovarian cancer. Father had hypertension. Brother had hypertension. Admission Exam Per Admitting Provider General- Not in distress Head- atraumatic Eyes- PERRL. ENT- oropharynx clear Neck- supple, no JVD. Lungs- clear to auscultation no wheezing or crackles Heart- regular rhythm; no murmur, no gallop. Abdomen- normal bowel sounds, soft, nontender, no distension Extremities- b/l lower ext gross edema seen. erythema seen on right foot medial aspect Neuro- alert, oriented ; PERRL, no facial palsy; no dysarthria; moves extremities Principal Diagnosis End stage malignancy of unknown primary (likely colorectal) Cervical and thoracic vertebral fractures Severe protein calorie malnutrition Fall Sarcopenia/Cachexia Ambulatory Dysfunction Discharge Data Allergies Allergy/AdvReac Type Severity Reaction Status Date / Time spinach Allergy Severe ANAPHYLAXIS Verified 12/20/24 08:41 almond Allergy Intermediate tested +2 Verified 12/20/24 08:41 on skin test peanut Allergy Intermediate +3 ALLERGY Verified 12/20/24 08:41 TEST shellfish derived Allergy Intermediate CRAB-+2 Verified 12/20/24 08:41 ALLERGY TEST soy Allergy Intermediate +2 ALLERGY Verified 12/20/24 08:41 TEST tomato Allergy Intermediate Gastrointestinal Verified 12/20/24 08:41 Upset tree nut Allergy Intermediate +2 ALLERGY Verified 12/20/24 08:41 TEST ciprofloxacin Allergy Mild Itching Verified 12/20/24 08:41 erythromycin base Allergy Mild Itching Verified 12/20/24 08:41 pine nut Allergy Mild POSITIVE Verified 12/20/24 08:41 ALLERGY TEST pistachio nut Allergy Mild POSITIVE Verified 12/20/24 08:41 ALLERGY TEST basil Allergy Unknown NOT TESTED Verified 12/20/24 08:41 oregano Allergy Unknown Unknown Verified 12/20/24 08:41 Latex, Natural Rubber Allergy Rash Verified 12/20/24 14:35 rice Allergy Unknown Verified 12/20/24 12:00 aspirin AdvReac Intermediate ABDOMINAL Verified 12/20/24 08:41 BURNING IF OVER 81MG. lidocaine AdvReac Unknown unknown Verified 12/20/24 08:41 Consultations 01/24/25 04:26 ED Decision to Admit Stat Procedures Performed Laboratory Results WBC 9.12 K/ul (4.8-10.8) 01/25/25 05: RBC 4.38 M/uL (4.70-6.10) L 01/25/25 05: Hgb 12.1 g/dl (14.0-18.0) L 01/25/25 05: Hct 36.9 % (42.0-52.0) L 01/25/25 05: MCV 84.2 fL (80.0-100.0) 01/25/25 05: MCH 27.6 pg (25.0-34.0) 01/25/25 05:29 MCHC 32.8 g/dL (32.0-36.0) 01/25/25 05:29 RDW Std Deviation 59.8 fL (36.4-46.3) H 01/25/25 05:29 RDW Coeff of Bennett 19.9 % (11.5-14.5) H 01/25/25 05:29 Plt Count 296 K/uL (130-400) 01/25/25 05:29 MPV 9.9 fL (9.4-12.4) 01/25/25 05:29 Immature Gran % (Auto) 0.2 % 01/25/25 05:29 Neut % (Auto) 82.4 % 01/25/25 05:29 Lymph % (Auto) 6.6 % 01/25/25 05:29 [place] % (Auto) 10.2 % 01/25/25 05:29 Eos % (Auto) 0.3 % 01/25/25 05:29 Baso % (Auto) 0.3 % 01/25/25 05:29 Neut # (Auto) 7.51 K/uL (1.40-6.50) H 01/25/25 05:29 Lymph # (Auto) 0.60 K/uL (1.20-3.40) L 01/25/25 05:29 [place] # (Auto) 0.93 K/uL (0.11-0.59) H 01/25/25 05:29 Eos # (Auto) 0.03 K/uL (0.00-0.50) 01/25/25 05:29 Baso # (Auto) 0.03 K/uL (0.00-0.20) 01/25/25 05:29 Immature Gran # (Auto) 0.02 K/uL (0.01-0.20) 01/25/25 05:29 Sodium 137 mmol/L (136-145) 01/30/25 05:51 Potassium 3.9 mmol/L (3.5-5.1) 01/30/25 05:51 Chloride 104 mmol/L (98-107) 01/30/25 05:51 Carbon Dioxide 28 mmol/L (21-32) 01/30/25 05:51 Anion Gap 5 (3-11) 01/30/25 05:51 BUN 19 mg/dl (6-23) 01/30/25 05:51 Creatinine 0.87 mg/dl (0.6-1.4) 01/30/25 05:51 Est Cr Clr Drug Dosing 60.3 ml/min 01/30/25 05:51 eGFR 87.23 01/30/25 05:51 BUN/Creatinine Ratio 21.8 (10-20) H 01/30/25 05:51 Glucose 78 mg/dl (70-99(Fasting)) 01/30/25 05:51 Calcium 9.4 mg/dl (8.6-10.3) 01/30/25 05:51 Phosphorus 2.7 mg/dl (2.5-4.9) 01/28/25 06:10 Magnesium 1.8 mg/dl (1.7-2.4) 01/28/25 06:10 Total Bilirubin 3.3 mg/dl (0.2-1.0) H 01/28/25 06:10 AST 104 U/L (13-39) H 01/28/25 06:10 ALT 49 U/L (7-52) 01/28/25 06:10 Alkaline Phosphatase 738 U/L (34-104) H 01/28/25 06:10 Troponin I High Sens 9.4 pg/ml (0-20) 01/24/25 01:21 Total Protein 5.6 gm/dl (6.0-8.3) L 01/28/25 06:10 Albumin 2.3 gm/dl (3.4-5.0) L 01/28/25 06:10 Globulin 3.3 gm/dl (2.5-4.0) 01/28/25 06:10 Albumin/Globulin Ratio 0.7 (0.9-2) L 01/28/25 06:10 TSH 12.154 uIu/ml (0.300-4.500) H 01/24/25 01:21 Free T4 1.01 ng/dl (0.61-1.60) 01/24/25 01:21 Urine Color Dark Yellow 01/24/25 03:14 Urine Appearance Clear (Clear) 01/24/25 03:14 Urine pH 5.5 (4.5-7.5) 01/24/25 03:14 Ur Specific [place] 1.019 (1.000-1.030) 01/24/25 03:14 Urine Protein Negative (Negative) 01/24/25 03:14 Urine Glucose (UA) Negative (Negative) 01/24/25 03:14 Urine Ketones 1+ (Negative) H 01/24/25 03:14 Urine Blood Negative (Negative) 01/24/25 03:14 Urine Nitrite Negative (Negative) 01/24/25 03:14 Urine Bilirubin 1+ (Negative) H 01/24/25 03:14 Urine Urobilinogen Positive (Negative) H 01/24/25 03:14 Ur Leukocyte Esterase Negative (Negative) 01/24/25 03:14 Fluid Neutrophils % 19 % 01/24/25 11:30 Fluid Lymphocytes % 27 % 01/24/25 11:30 Fluid Mes[place]/Mac[place] % 54 % 01/24/25 11:30 Fluid Comment 01/24/25 11:30 Peritoneal Color Yellow 01/24/25 11:30 Peritoneal Appearance Clear 01/24/25 11:30 Peritoneal WBC (Auto) 53 /ul (0-300) 01/24/25 11:30 Peritoneal RBC (Auto) < 2000 /uL 01/24/25 11:30 Peritoneal Tot Protein < 3.0 gm/dl 01/24/25 11:30 Peritoneal Albumin < 1.5 gm/dl 01/24/25 11:30 Impressions Chest X-Ray 01/24/25 01:39 EXAM: XR chest 1V portable CLINICAL HISTORY: Weakness. TECHNIQUE: An X-ray image of the chest is obtained in AP projection. COMPARISON: prior chest X-ray 12/20/2024. FINDINGS: Pulmonary Parenchyma: Still, there are bilateral prominent bronchovascular markings, likely lung congestion. Otherwise, lungs are clear bilaterally. No evidence of consolidation, collapse, or focal opacities. No pulmonary nodules are identified. No evidence of pleural effusion or pleural thickening. Heart and Mediastinum: Heart size and shape are normal. No mediastinal widening or masses. No hilar or mediastinal lymphadenopathy. Bony Thorax: Bony thorax appears intact without fractures or deformities. Soft Tissues: Soft tissues overlying the chest wall are unremarkable. ECG leads on the chest. Prominent left upper bowel loops. IMPRESSION: Compared to the prior chest x-ray on 12/20/2024. 1. Still, there are signs of bilateral lung congestion 2. No acute cardiopulmonary abnormalities are identified. Electronically signed by Aravind Mcgee 01-24-2025 03:[address] 01/24/25 05:24 EXAM: CT cervical spine wo con CLINICAL HISTORY: fall TECHNIQUE: Computed tomography of the cervical spine performed without intravenous contrast. Contiguous axial images were obtained from the skull base to T2, with sagittal and coronal reformatted images reconstructed from the axial data. CT scan was performed according to ALARA (as low as reasonable achievable). COMPARISON: 05:08:52 GRAIN UNLOADER MACHINE FINDINGS: Linear minimally displaced fracture is noted involving right side of anterior arch of C1 vertebra fracture line extending up to the right atlanto-axial joint. Linear fracture minimally compressed is noted through superior endplate of T1 and T2 vertebra- new finding Loss of cervical lordosis - suggest possibility of muscle spasm/positional. Degenerative changes involving cervical spine in the form of multilevel marginal osteophytes, disc space reduction and facetal arthrosis. Cervical vertebral bodies are normal in height and alignment, with no evidence of fracture or subluxation. Prevertebral soft tissues are not widened. The remaining suprahyoid and infrahyoid soft tissues in the neck are unremarkable. Posterior uncovertebral arthrosis is noted at C5-C6 and C6-C7 levels,which indenting ventral thecal sac and causes bilateral neuroforaminal narrowing. Thyroid gland appears unremarkable. IMPRESSION: 1. Linear minimally displaced fracture is noted involving right side of anterior arch of C1 vertebra, fracture line extending up to the right atlanto-axial joint-stable. 2. Cervical spondylosis.-stable. 3. Multiple small cavitary nodules are noted in bilateral visualized upper lobes. Relatively stable. 4. Linear fracture minimally compressed is noted through superior endplate of T1 and T2 vertebra- new finding Electronically signed by Benedicto Funez 01-24-2025 07:[address] 01/24/25 05:24 EXAM: CT head/brain wo con CLINICAL HISTORY: fall TECHNIQUE: Multiple axial images are obtained from the skull base to the vertex without contrast. CT scan was performed according to ALARA (as low as reasonable achievable). COMPARISON: 05:08:52 GRAIN UNLOADER MACHINE. FINDINGS: There is cerebral atrophy. No evidence of space occupying lesion, hemorrhage, edema, mass effect, midline shift, extra axial collection, or hydrocephalus is noted. Basal cisterns are symmetric and normal in size and configuration. There are scattered periventricular hypodensities as can be seen with chronic microvascular ischemic changes. The warren-white matter differentiation is preserved. Visualized paranasal sinuses and mastoid air cells are well aerated. Orbital contents are within normal limits. Bony structures are intact. IMPRESSION: 1. No evidence of acute intracranial abnormality is demonstrated. 2. Chronic microvascular ischemic changes. 3. Cerebral atrophy. No other new interval abnormality since prior study. Electronically signed by Benedicto Funez 01-24-2025 06:25 AM Venous Doppler Study 01/25/25 08:31 EXAM: US venous doppler LE BI CLINICAL HISTORY: b/l lower ext edema. dvt? TECHNIQUE: Grayscale ultrasound, with and without compression, and color Doppler spectral waveform analysis were performed of the deep veins of the bilateral lower extremities from the level of the common femoral veins to the level of the popliteal veins. The posterior tibial and peroneal veins were also scanned. COMPARISON: None. FINDINGS: Bilateral common femoral veins, femoral veins, and popliteal veins are compressible and opacify at color Doppler evaluation with no evidence of deep vein thrombosis. There is no evidence of DVT in the visualized portions of the posterior tibial and peroneal veins. IMPRESSION: 1. Negative for deep vein thrombosis in both lower limbs. Electronically signed by Benedicto Funez 01-25-2025 06:46 AM Paracentesis Ultrasound 01/30/25 07:29 ULTRASOUND-GUIDED PARACENTESIS CLINICAL HISTORY: Ascites PROCEDURE: Procedure and risks were explained. Informed consent was obtained. A final timeout was completed. The abdomen was prepped and draped in sterile fashion. 3% Nesacaine was utilized for skin anesthesia. Utilizing ultrasound guidance, a 5 German safety centesis catheter was advanced into the right lower quadrant pocket of ascites. Ultrasound images were obtained. 4.4 L of ascites fluid was removed, with 1 L sent to lab. The catheter was removed and Band-Aid applied. The patient tolerated the procedure well. Vital signs will be monitored postprocedure. IMPRESSION: Ultrasound-guided paracentesis as above. Performed, dictated, and signed by Filippo Lui PA-C; to be co-signed by Dr. Jitendra Ferris. Electronically signed by: Jitendra Ferris M.D. 01/30/2025 4:10 PM Ordered Studies 01/24/25 05:24 CT cervical spine wo con Urgent CT head/brain wo con Urgent 01/25/25 08:31 US venous doppler LE BI Routine 05/16/25 07:29 IR paracentesis abd w/img US Routine Hospital Course (1) Fall: 79-year-old male with past med history significant for metastatic colon cancer currently not receiving treatment, history of A-fib,, anemia chronic disease, tachybradycardia syndrome, hyperlipidemia comes in because of fall and weakness. Recently patient had fall and had C1 spine fracture and and was transferred to [facility] and is on neck collar. As per he has appointment with the spine Ortho in couple of weeks. Patient was admitted recently at [facility] from 12/20/2024 to 12/30/2024 and was transferred to rehab. Was discharged from rehab couple weeks ago. said they did not like the rehab. From rehab he went to [facility] as was remodeling the house to help the patient. He came to the house today. He is ambulating with a walker. When patient was in the bathroom, fell down from the commode. Though they were Bars he could not get up himself. also could not able to get him up and EMS was called and brought him here. now thinks that she cannot take care of him at home. She wanted him to go to [facility]. Patient is alert and awake and oriented. Able to give history. Patient getting paracentesis frequently. Next paracentesis is on Sunday. states they are open for pathology diagnosis of the ascitic fluid and go from there regarding the cancer. Patient denies any headache. No neck pain. No chest pain. No back pain. Has some abdominal pain. Appetite is okay. Somewhat constipated. Micturating okay. Currently resting comfortably and hemodynamically okay. Fall Sarcopenia/Cachexia Ambulatory Dysfunction Fall precautions Continue PT OT - wants him to go to [facility] -would benefit from hospice services at [facility] -hospice agencies given to family to review and choose Case management to help with discharge planning Plan to discharge to rehab today As per prior provider End stage malignancy of unknown primary (likely colorectal) Malignant Ascites Malignant Pulmonary Edema/Pleural Effusions -patients goals are to stay out of hospital, have good quality of life with time he has left -functional status/nutritional status makes patient unlikely to be a treatment candidate, overall worse than prior, see oncology note from last admission -prognosis on scale of weeks to months, declining overall at this time -patient and agreeable to hospice consult Recommended to follow-up with oncology on discharge And 4.4 liters ascitic fluid removed on 01/30/2025 Reports intermittent abdominal pain Will consider repeat paracentesis as needed Poor Prognosis History of A-fib -On metoprolol 25 mg twice daily, decreased to 12.5 mg p.o. twice daily and to give with holding parameters -SCDs Severe protein calorie malnutrition -Consulted dietitian BMI 21.8 C1 cervical fracture T1-T2 Fractures -On neck collar -likely 2/2 fall, severe malnutrition and malignancy -Follow-up with orthospine outpatient Requested orthotics to help adjust neck collar Has follow-up with orthopedics as outpatient with repeat imaging planned Code Status DNI/DNR Disposition SNF Total Time Total Time Spent Total Time Spent (In Minutes): 42 minutes Discharge Plan Discharge Items Patient Disposition: Transfer [facility] Fac Reason For Visit: FALL, WEAKNESS Discharge Diagnosis: End stage malignancy of unknown primary (likely colorectal) Cervical and thoracic vertebral fractures Severe protein calorie malnutrition Fall Sarcopenia/Cachexia Ambulatory Dysfunction Condition on Discharge: Fair Activity: Per Instructions section Exercise/Sports: Gradually increase as tolerated Non-emergency contact: Primary Care Provider, Surgeon and Oncologist Call non-emergency contact if: you have any medication questions, your symptoms worsen, your pain is concerning for you and you have a fever Follow-up/Referrals: David Bustamante [facility] [Primary Care Provider[facility] [Non-Staff[facility] - Diet: Regular Addtl Attending Provider Instructions: Follow-up with your primary care physician in 1 week Follow-up with your oncologist as advised Follow-up with your orthopedic spine surgeon with repeat imaging as scheduled Seek immediate medical attention if your symptoms reoccur or worsen Please review medication list provided on discharge for any medication changes as instructed. Please call if you have any questions or problems. You can reach a [facility] hospitalist on duty at [facility] 24 hours a day by calling [phone] Pending Studies at Discharge: No Stand-Alone Forms: My [facility] Skilled Items Patient informed of condition?: Yes DNR: Yes Discharge Level of Care: Skilled Communicable Disease: No Discharge Prognosis: Other Lines: None Urinary Catheter: No Medications and DC Order Prescriptions: New metoprolol tartrate 25 mg Tablet 12.5 mg PO BID Qty: 30 0RF Discontinued metoprolol tartrate 25 mg tablet 25 mg PO BID Discharge Orders: Discharge Order (Routine); Ordered 02/03/25 Ordered By: Chris Jarrell Admission Data Admit Date/Time: 01/24/25 05:26 Attending Provider: Chris Jarrell Admit Provider: Arsen Beck Primary Care Provider: David Bustamante Other Providers: Arsen Beck; Francis Oliveira at [place] Other Interventions: Discharge Summary Assessment (RN) Last Done: 02/03/25 10:29
--- NOTE | 2025-02-04 08:36 | Coding Query ---
CODING QUERY To promote full compliance with coding requirements relating to patient care, provider participation is requested in all cases of health information coder uncertainty. Please assist us with the question(s) below: Coding Question(s): Can you please indicate the most likely cause of the patient's weakness and ambulatory dysfunction by placing an x in the parenthesis below? Cancer ( x ) Cachexia unrelated to cancer ( ) Severe Malnutrition ( ) Other, please specify ( ) Physician's Response(s): Thank you Xena Miller Principal Diagnosis: "that condition established after study, to be chiefly responsible for occasioning the admission of the patient to the hospital for care." Co-Existing Principal Diagnosis: "when two or more diagnoses equally meet the criteria for principal diagnosis as determined by the circumstances of admission, diagnostic work up, and/or therapy provided, and the Alphabetic Index, Tabular List, or another coding guideline does not provide sequencing direction, any one of the diagnoses may be sequenced first." "When the physician has documented what appears to be a current diagnosis in the body of the record, but has not included the diagnosis in the final diagnostic statement, the physician should be asked whether the diagnosis should be added." ([facility] 2 QTR90. p3-4) MILLER
== END 2025-02-03 13:25 | DRG 374 ==
LOC: ED 01:09 → EDINP 05:26 → SUATTDRO 05:26 → 2W 10:15 → 3E 17:57